=== PATIENT | female | born 1990 | race Caucasian/White ===

== ENCOUNTER 2020-09-13 15:58 | Outpatient (REF) | payer MEDICAID, SELFPAY ==
[2020-09-17 07:12] LABS: SARS-CoV-2 RNA Undetected (Undetected); SARS-CoV-2 Specimen Source Nasal
== END 2020-09-13 16:18 ==
LOC: NCHCN 15:58
PROVIDERS: PCP Nurse Practitioner Family; Visit Provider Nurse Practitioner Family
DX: Z11.59 Encounter for screening for other viral diseases (principal)
CPT/HCPCS: U0003

== ENCOUNTER 2020-09-26 20:17 | Outpatient (REF) | payer MEDICAID, SELFPAY ==
[2020-09-26 20:10] LABS: COMMENT (LAB VIEW ONLY) 80.61 mg/dL; Microalb ug/mg Crea 3.5 ug/mg Cr
== END 2020-09-26 20:37 ==
LOC: NCHCN 20:17
PROVIDERS: PCP Nurse Practitioner Family; Visit Provider Physician Assistant
DX: E11.9 Type 2 diabetes mellitus without complications (principal)
CPT/HCPCS: 82043; 82570

== ENCOUNTER 2020-10-10 16:23 | Outpatient (REF) | payer MEDICAID, SELFPAY ==
--- NOTE | 2020-10-10 16:00 | PAPFT_PTH ---
PATIENT: Deanne Engel LOC: [facility] U#:[id number] AGE/SX: 30/F ROOM: RE10/10/[address]: CLEM Collier : 1990 BED: DIS: 10/10/2020 SPEC #: [id number] RECD: 10/10/20 18:42 STATUS: GIOVANA REQ #: [id number] ADDIS: 10/10/20 16:[address]: Kerline Sousa [facility]PT[facility] Cytology RECD BY: Radha Mnotano ENTERED: 10/10/20 18:42 SP TYPE: PAPFT OTHR DR: Danish Smith Tissues: 1 - CX/ENDOCX FOR PAP SMEARS Procedures: PAP THIN PREP/UVM Screening HPV DNA PROBE Comments: [id number]
== END 2020-10-10 16:43 ==
LOC: LBN 16:23
PROVIDERS: PCP Nurse Practitioner Family; Visit Provider Nurse Practitioner Family
DX: Z12.4 Encounter for screening for malignant neoplasm of cervix (principal); Z11.51 Encounter for screening for human papillomavirus (HPV)
CPT/HCPCS: 88142; 87624

== ENCOUNTER 2021-01-31 11:49 | Outpatient (CLI) | payer MEDICAID, SELFPAY ==
[2021-01-31 11:58] VITALS: BP 131/93; PULSE 117; RESP 22; TEMP 36.6; O2SAT 93
--- NOTE | 2021-01-31 12:36 | DI.RAD_ITS ---
EXAM: XR PAIN CLINIC LUMBAR SP 2V CLINICAL HISTORY: Dx: Lumbar Spondylosis TECHNIQUE: 2D and realtime digital imaging was performed. CONTRAST MATERIAL: Refer to procedure report. COMPARISON: No exams were available for comparison FINDINGS: Fluoroscopy was provided for Dr. Petty during the performance of a bilateral lumbar medial branch block . Please refer to the procedure report for complete details. Fluoro time: 58.1 seconds IMPRESSION:
[2021-01-31 12:37] VITALS: BP 129/89; PULSE 110; RESP 18; O2SAT 96
--- NOTE | 2021-01-31 12:45 | PDOC.PAIN ---
Pain Clinic Procedure Note Procedure Note Procedure Note: Lumbar/Sacral Medial Branch Blocks ZULY BAIRES has been referred to the [facility] for lumbar/sacral medial branch blocks. Pre-operative diagnosis: lumbar spondylosis Post-operative diagnosis: same as above COMMENTS: patient has been evaluated by Ms Kirsten Dominguez APRN in our pain clinic. patient reports chronic axial back pain, that is worse with prolonged standing or bending/twisting. Her pre-procedure pain level is rated as 8 out of 10. Patient was interviewed and the medical record reviewed. There were no medical, pharmacologic, radiographic or other structural contraindications to attempting fluoroscopically guided local anesthetic lumbar/sacral medial branch blocks. Risks and expected side effects as well as potential benefit of the procedure were reviewed and voiced concerns addressed. The printed consent form was signed and witnessed. Standard time-out procedure was performed. Patient was placed in the prone position on the fluoroscopy table and automated blood pressure cuff and pulse oximeter applied. The skin entry points for approaching the anatomic target points of the segmental medial branches of bilateral L3, L4, L5-DR MBB were identified with anfluoroscopy and marked. Following thorough Chlorhexadine preparation of the skin and draping and 1% lidocaine infiltration of the skin entry points and subcutaneous tissues, a 22 gauge spinal needle was placed under fluoroscopic guidance down on to the target point for each respective segmental medial branch.Position was confirmed in A/P, oblique and lateral views with 0.25ml of omnipaque 240. Coult be this method .5ml 0.5% Bupivacaine was injected. Vital signs were stable throughout the procedure and were as recorded in the docflowsheet by the nursing staff. Follow up plans and appointments were discussed and was instructed to keep careful note of how the usual pain was modified by these injections. Specifically was asked to keep a pain diary for the next 24 hours using a numeric pain scale of 0-10 and report these results at the follow-up visit. Post procedure instruction was given as documented in the nursing documentation and having met discharge criteria. Patient was discharged from the [facility]. Based on the medial branches blocked today, if the patient has adequate relief and we are able to proceed to radiofrequency ablation, the treatment should result in the denervation of the bilateral L4/5 and L5/S1. We would expect to denervate a total of 4 facets during the radiofrequency ablation. COMMENTS: patient reports no change in her pain level after procedure. She exhibits flat affect throughout the encounter today. I personally performed the entire procedure. Jesenia Petty MD Pain Management CC:
[2021-01-31] MEDS: Omnipaque 240 MG/ML 50 ML BTL IJ (12:48)
[2021-01-31] MEDS: Bupivacaine 0.5% Pres-Free 10 ML VIAL IJ (12:48)
== END 2021-01-31 11:50 | disposition home or self-care (01) ==
PROVIDERS: Visit Provider Internal Medicine
DX: M47.816 Spondylosis without myelopathy or radiculopathy, lumbar region (principal)
CPT/HCPCS: 64493; 64494; 72100; Q9967

== ENCOUNTER 2021-03-03 13:41 | Outpatient (REF) | payer MEDICAID, SELFPAY ==
--- OUTSIDE RECORDS SUMMARY | 2021-03-03 13:45 | XMS_ITS | Encounter Summary ---
:1990 Author Care Team Providers Name Role Phone Moiz Tra Primary Care Provider [phone] [facility] Medical Records OTHER [phone] Reason for Visit None recorded. Assessment and Plan 1. Snoring Deanne has symptoms of loud snoring, witnessed apneas, night sweats, nocturnal gasping, daytime sleepiness, neurocognitive decline and morning headaches with a Keene score of 3/3 indicatin g a high likelihood of sleep apnea. She has a large neck circumference and small oral cavity increasing risk of JORDON. I discussed the pathophysiology of obstructive sleep apnea and the potential conseque nces of untreated JORDON including how it r elates to her symptoms and comorbidities. I ordered a polysomnogram and discussed what will take place the night of the sleep study. I encouraged her to get up ea rly on the day of the study to help ensu re she will get to sleep at a reasonable time for the study. I did prescribe one Ambien 5 mg to take if needed the night of the study but given the number of adam ting medications she already takes I wou ld prefer if she did not have to take this. I will see her back to review the results as soon as they are available. Drowsy driving precautions were reviewed. Of note she is on modafinil 200 mg QAM (pre scribed by psychiatry) and had significant improvement in her daytime sleepiness since starting this. I provided greater than 40 minutes in e care of this patient, more than half the time was spent in [id number] counseling. ? zolpidem 5 mg tablet ? sleep study, baseline diag nostic polysomnogram 2. Sleep-wake schedule disorder, delayed phase type She gets to bed around 10 pm b ut doesn't typically get to sleep until 12 am and gets up between 9-10 am. She is taki ng gabapentin 300 mg, seroquel 400 mg and haldol 5 mg QHS. I suggested that if she wanted to shift her schedule earlier she should start getting up at 7 am and expo sing herself to 30 minutes of sunlight first thing in the morning then she should jaylan e melatonin 10 mg QPM to help shift her sleep schedule earlier. She is pretty happy wi th sleeping until 9 am so I explained that she should not even get into bed until a t least 12 am because she does not need 11 hours of sleep which is why she is layin g awake for two hours each night. I would not add any sleep aids to her current medica tions. Discussion Note: None recorded.Patient educational handouts: No information available. Plan of Care Reminders Provider Appointments Office 05/10/2021 Christofer Osman, 1:00PM ASSISTANT CHILD CARE TEACHER Lab None ? ? recorded. Referral None ? ? recorded. Procedures None ? ? recorded. Surgeries None ? ? recorded. Imaging None ? ? recorded. Medications Name Start Date ? ? Babita Allergy ? atorvastatin 10 mg tablet ? Take 1 tablet every day by oral route. EpiPen 2-Aquilino ? gabapentin 300 mg capsule ? Take 1 capsule 3 times a day by oral route. haloperidol 5 mg tablet ? Take 1 tablet every day by oral route. Levemir FlexTouch U-100 Insulin 100 unit/mL (3 mL) sub cutaneous pen ? Inject by subcutaneous route. lidocaine ? metformin 500 mg tablet ? Take 1 tablet twice a day by oral route. modafinil 200 mg tablet ? Take 1 tablet every day by oral route. Novolog Flexpen U-100 Insulin aspart 100 unit/mL (3 mL ) subcutaneous ? Inject by subcutaneous route. omeprazole 40 mg capsule,delayed release ? Take 1 capsule every day by oral route. Seroquel 400 mg tablet ? Take 1 tablet twice a day by oral route. Trileptal 150 mg tablet ? Take 2 tablets twice a day by oral route. Wellbutrin XL 300 mg 24 hr tablet, extended release ? Take 1 tablet every day by oral route. zolpidem 5 mg tablet ? take 1 PO night of sleep study if needed Medications Administered None recorded. Vitals Height Weight BMI Blood Pressure 5 ft 5 in 278 lbs 46.3 kg/m2 124/82 mm[Hg] Results Lab Results None recorded. Allergies Code Code System Name Reaction Severity Onset 151048 RxNorm Aleve ? ? ? 20310327 RxNorm Keflex ? ? ? Problems Name Status Onset Date Source ? Type 2 Diabetes Mellitus Active 01/06/2021 ? Hyperlipidemia Active 01/06/2021 ? Schizophrenia Active 01/06/2021 ? Bipolar I Disorder Active 01/06/2021 ? Anxiety Active 01/06/2021 ? Borderline Personality Disorder Active 01/06/2021 ? Posttraumatic Stress Disorder Active 01/06/2021 ? Depressive Disorder Active 01/06/2021 ? Attention Deficit Hyperactivity Disorder Active 021 ? Hypertensive Disorder Active 01/06/2021 ? Asthma Active 01/06/2021 ? Gastroesophageal Reflux Disease Active 01/06/2021 ? Diverticulitis Active 01/06/2021 ? Irregular Periods Active 01/06/2021 ? Chronic Back Pain Active 01/06/2021 ? Pain in Calf Active 01/06/2021 ? Pain in Right Knee Active 01/06/2021 ? Suicidal Intent Active 01/06/2021 ? Sleep-wake Schedule Disorder, Delayed Phase Active 02/18 ? Type Snoring Active 03/01/2021 ? Procedures None recorded. Vaccine List None recorded. Social History Tobacco Smoking Status Never Smoker Alcohol intake None Live alone or with others? with others Are you currently employed? N Blind or serious difficulty seeing Y Not es: wears glasses Hard of hearing or deaf in one or both N ears? Caffeine intake None Drug Use N Functional Status Blind or serious Yes difficulty seeing? Past Encounters 03/01/2021 Snoring; Sleep-wake Schedule Disorder, D elayed Phase Type Sofía Osman ASSISTANT CHILD CARE TEACHER: [address] [place] [phone], Ph. History of Present Illness Note: <p>Deanne Engel is seen in consultation at the request of Kathia Turner MD for evaluation of excessive snoring.</p><p>
</p><p>Deanne has a medical history to include anxiety, asthma, ADHD, Bipolar, borderline personality, depression, chronic back pain, diverticulitis, GERD, HTN, HLD, PTSD, schizophrenia, and DM.</p><p>Labs reviewed from08/19/20 CBC wnl, CMP glucose 341, Cl 97, A1C 9.7%.</p><p>
</p><p>Sh clarke tells me she was started on modafinil 200 mg QAM about a month ago for excessive sleepiness and poor concentration and since taking this she no longer naps or falls asleep standing up. She tolerates it well. </p><p>
</p><p>{{Deanne# Patient}} feels {{his her*}} biggest problem with sleep is {{snoring * waking up a lot not feeling rested}}. This has been going on for years. {{He She*}} typically goes to bed at {{10# 9}}pm. It takes {{2# 5}} hours to fall asleep. {{He She*}} wakes up {{3-4# 1 2 3}} times a night from {{unknown reason pain bathroom*}} and it takes {{a few# }} minutes to get back to sleep. {{He She *}} gets up at {{9-11# 5 6 7 8}}am to start {{his her*}} day. {{He She*}} does not take naps. {{He She*}} has no disturbances to {{his her*}} sleep. {{He She*}} has never had a sleep study. {{He She*}} sleeps {{alone * with someone}} in a bed.

SLEEP QUALITY: Feels quality of sleep most nights is {{good okay poor*}}.

DAYTIME ALERTNESS: Reports level of alertness most days to be {{alert low energy * sleepy very sleepy}}.

PSYCH SYMPTOMS: {{Has* Has not}} noted worsening memory {{and * or}} concentration. {{Does have* Denies current problems with }} irritability, depression, {{and * or}} anxiety. {{Has * Has not}} noted difficulty with calculations.

INSOMNIA SYMPTOMS: {{Does have * Does not have}} an active mind at night when trying to sleep. {{Does have * Does not have}} stressful thoughts interfering with sleep. {{Does Does not*}} watch the clock throughout the night. {{Does Does not*}} worry about getting a good night's sleep.

BREATHING SYMPTOMS: {{Does have * Does not have}} snoring. {{Does have * Does not have}} witnessed apnea. {{Does have Does not have*}} nocturnal choking/gasping/dyspnea.{{Does have Does not have*}} mouth breathing. {{Does have Does not have*}} nasal congestion at night.

MOVEMENT SYMPTOMS: {{Does have * Does not have}} tossing & turning. {{Does have * Does not have}} messy sheets in the morning. {{Does have Does not have*}} leg or arm jerks, kicks or twitches in sleep or prior to falling asleep. {{Does Does not*}} have an aching, restless or crawling feeling in legs at night. {{Does Does not*}} have a hard time keeping legs still when trying to sleep. {{Does Does not*}} have muscle cramps or Bam horses. {{Does Does not*}} have sleep walking or talking.

DREAM SYMPTOMS: {{Does have * Does not have}} nightmares often that affect ability to sleep. {{Does have Does not have*}} dreams of suffocating/drowning. {{Does Does not*}} dream shortly after falling asleep. {{Does Does not*}} see dreams in the room even when awake.{{Does * Does not}} see or hear things in the room when falling asleep that aren't really there. {{Does * Does not}} see things in the road when driving that aren't really there. {{Has Has not*}} had someone see then act our their dreams. {{Has Has not*}} accidentally injured themselves while sleeping due to own movements/behaviors.

CATAPLEXY SYMPTOMS: {{Does have Does not have*}} feel limp, lose strength, or fall asleep when very angry, surprised or laughing. {{Does have Does not have*}} leg, arm or face weakness when upset. {{Has Has not*}} had episodes of being unable to move when waking up which is often frightening.

DRIVING: {{Has Has not*}} fallen asleep or nearly fallen asleep driving. {{Has had Has not had*}} an accident related to drowsy driving or not paying attention. {{Does Does not*}} forget the last few miles or minutes while driving. {{Has Has not*}} driven out of [place] and crossed center line or gone onto shoulder when driving. {{Has Has not*}} had apassenger tell them they look sleepy when driving.

ESS today 07/14
BerlinQuestionnaire Score 3/3</p>Review of Systems: ROS as noted in the HPI Review of Systems ? Notes: <p>night sweats, wakes with dry mouth, cough, diarrhea, heavy menses, headaches (wakes with these 2/week), knee and back pain. Weight loss of about 20 lbs in the past few month s by cutting out some sugar/carbs. </p> Physical Exam ? Notes: <p>General: A&O, well groome d, answers questions appropriately, {{over weight obese * morbidly obese normal weight thin}}.
HEAD: normocephalic & atraumatic, {{normal appeari ng chin * retrognathia}}.
EYES: non icteric.
NOSE: open nasal passages, septum midline, no polyps or masses.
THROAT/MOUTH: dannielle st mucous membranes, modified mallampati score {{1 2 3 * 4}}, tonsils with out hypertrophy. Lateral wall narrowing grade {{1 2 3*}}. Tongue scallopin g {{is * is not}} noted.
NECK: supple without palpable lymph nodes.
LUNGS: CTA all garcia. Good air movement.
CARDIO: RRR wit hout murmur, gallop or thrill.
ABDOMEN: soft and non tender with positive bowel sounds.
MS: Good ROM of all extremities. No cyanosis, clubbing or rayshawn ma.
NEURO: A&O. Normal gait.
PSYCH: Normal mood and affect.
CUTANEOU S: no overt lesions or rashes</p>
--- OUTSIDE RECORDS SUMMARY | 2021-03-03 13:45 | XMS_ITS ---
:1990 Author Care Team Providers Name Role Phone EFRAÍN RIDER Primary Care Provider [phone] [facility] MEDICAL RECORDS OTHER [phone] Allergies Code Code System Name Reaction Severity Status Onset 611290 RxNorm Aleve ? ? Active ? 20310327 RxNorm Keflex ? ? Active ? Medications Name Status Start Date Stop Date ? ? Babita Allergy Active ? Not available Allergy Completed ? 01/06/2021 atorvastatin 10 mg tablet Active ? Not av ailable Take 1 tablet every day by oral route. EpiPen 2-Aquilino Active ? Not available gabapentin 300 mg capsule Active ? Not av ailable Take 1 capsule 3 times a day by oral route. haloperidol 5 mg tablet Active ? Not avai lable Take 1 tablet every day by oral route. Levemir FlexTouch U-100 Insulin 100 unit/mL (3 mL) subcutaneous pen Active ? Not available Inject by subcutaneous route. lidocaine Active ? Not available metformin 500 mg tablet Active ? Not avai lable Take 1 tablet twice a day by oral route. modafinil 200 mg tablet Active ? Not avai lable Take 1 tablet every day by oral route. Novolog Flexpen U-100 Insulin aspart 100 unit/mL (3 mL) subcutan eous Active ? Not available Inject by subcutaneous route. omeprazole 40 mg capsule,delayed release Active ? Not available Take 1 capsule every day by oral route. Seroquel 400 mg tablet Active ? Not avail able Take 1 tablet twice a day by oral route. Trileptal 150 mg tablet Active ? Not avai lable Take 2 tablets twice a day by oral route. Wellbutrin XL 300 mg 24 hr tablet, extended release Active ? Not available Take 1 tablet every day by oral route. zolpidem 5 mg tablet Active ? Not availab le take 1 PO night of sleep study if needed Problems Name Status Onset Date Source ? [...] Snoring Active 03/01/2021 ? Procedures None recorded. Results Lab Results None recorded. Past Encounters 03/01/2021 Snoring; Sleep-wake Schedule Disorder, D elayed Phase Type Sofía Osman BRICK POINTER: [address] [place] [phone], Ph. Social History Tobacco Smoking Status Never Smoker Vaccine List None recorded. Plan of Care Reminders Provider Appointments None ? ? recorded. Lab None ? ? recorded. Referral None ? ? recorded. Procedures None ? ? recorded. Surgeries None ? ? recorded. Imaging None ? ? recorded. Vitals Height Weight BMI Blood Pressure 165.1 cm 126.1 kg 46.3 kg/m2 124/82 mm[Hg]
[2021-03-03 16:08] LABS: HCT 38.6 % (36.0-46.0); HGB 12.9 g/dL (11.2-15.7); MCH 29.3 pg (27.0-33.0); MCHC 33.4 % (32.0-36.0); MCV 87.5 fL (80-95); Platelet Count 348 10^3/uL (130-400); RBC 4.41 10^6/uL (3.93-5.22); RDW 14.2 % (11.7-14.6); RDW-SD 43.9 fL; WBC 8.76 10^3/uL (4.4-10.8)
[2021-03-03 16:26] LABS: ALT 28 U/L (14-59); AST 20 U/L (15-37); Albumin 2.9 g/dL (3.4-5.0); Alkaline Phosphatase 112 U/L (46-116); Anion Gap 8.1 mmol/L (3-11); BUN 15 mg/dL (7-18); Bilirubin, Total 0.2 mg/dL (0.2-1.0); CO2 27.9 mmol/L (21.0-32.0); CREATININE 1.1 mg/dL (0.55-1.02); Calcium 9.1 mg/dL (8.5-10.1); Calculated LDL 45 mg/dL (<100); Chloride 104 mmol/L (98-107); Cholesterol 137 mg/dL (<200); Glucose 146 mg/dL (74-106); HDL Cholesterol 49 mg/dL (40-60); Sodium 140 mmol/L (136-145); TSH 2.08 uIU/mL (0.36-3.74); Total Protein 6.8 g/dL (6.4-8.2); Triglyceride 216 mg/dL (<150)
[2021-03-03 16:34] LABS: Hemoglobin A1C 7.7 % (<5.7)
[2021-03-03 16:46] LABS: COMMENT (LAB VIEW ONLY) 240.41 mg/dL; Microalb ug/mg Crea 2.8 ug/mg Cr
[2021-03-03 17:06] LABS: FREE T4 0.81 ng/dL (0.76-1.46)
== END 2021-03-03 13:42 | disposition home or self-care (01) ==
LOC: NCHCN 13:41
PROVIDERS: Visit Provider Physician Assistant
DX: E11.9 Type 2 diabetes mellitus without complications (principal); R00.0 Tachycardia, unspecified; I10 Essential (primary) hypertension
CPT/HCPCS: 80053; 80061; 85027; 82043; 82570; 83036; 84436; 84439; 84443

== ENCOUNTER 2021-03-27 02:31 | Outpatient (CLI) | payer MEDICAID, SELFPAY ==
--- NOTE | 2021-03-27 | DI.MRI_ITS ---
Exam(s) MR LUMBAR SPINE WO EXAM: MR LUMBAR SPINE WO CLINICAL HISTORY: LT LUMBAR RADICULOPATHY. TECHNIQUE: Multiplanar multisequence MRI of the Lumbar spine was performed. COMPARISON: No exams were available for comparison FINDINGS: Bones: The last intervertebral disc space is designated the L5/S1 level for the numbering purpose of this examination. The vertebral body heights are well maintained. Alignment is satisfactory. The si gnal characteristics are unremarkable. Cord: The conus tip ends at the L1 level. It is of normal size and signal intensity. T12-L1: No disc herniations or bulges are present. No central spinal canal or neural foraminal stenos is. L1-2: No disc herniations or bulges are present. No central spinal canal or neural foraminal stenosis . L2-3: No disc herniations or bulges are present. No central spinal canal or neural foraminal stenosis . L3-4: No disc herniations or bulges are present. No central spinal canal or neural foraminal stenosis . L4-5: No disc herniations or bulges are present. No central spinal canal or neural foraminal stenosis . L5-S1: No disc herniations or bulges are present. No central spinal canal or neural foraminal stenosi s. Soft tissues: The visualized SI joints and sacrum are well maintained. The paraspinal soft tissues ar e unremarkable. IMPRESSION: No evidence of significant spinal stenosis or neuroforaminal narrowing. DATA REPOSITORY:
== END 2021-03-27 02:51 ==
PROVIDERS: Visit Provider Nurse Practitioner Family
DX: M54.16 Radiculopathy, lumbar region (principal)
CPT/HCPCS: 72148

== ENCOUNTER 2021-05-14 13:19 | Emergency (ER) | payer MEDICAID, SELFPAY ==
[2021-05-14 13:23] VITALS: BP 140/101; PULSE 118; RESP 16; TEMP 36.2; O2SAT 97
--- NOTE | 2021-05-14 13:45 | RT.EKG_ITS ---
APPROVED REPORT Exam: Resting ECG Reason for Exam: on haldol, consider qt prolongation Patient Location: E HR:99 bpm ECG Measurements Heart Rate 99 AXIS IA 123 P 37 QRSd 89 QRS -21 QT 353 T 35 QTc 453 Conclusion Sinus rhythm...normal P axis, V-rate 60- 99 Low voltage, extremity leads...all extremity leads <0.5mV
[2021-05-14 14:03] LABS: Abs Immature Grans 0.06 10^3/uL (0.0-0.06); Absolute Eosinophil Count 0.02 10^3/uL (0.0-0.7); Absolute Lymphocyte Count 2.02 10^3/uL (1.2-3.4); Basophils % 0.3; Eosinophils % 0.2; HGB 14.4 g/dL (11.2-15.7); Immature Grans % 0.5; Lymphocytes % 17.3; MCH 29.8 pg (27.0-33.0); MCHC 34.3 % (32.0-36.0); MCV 86.8 fL (80-95); MPV 9.6 fL (8.0-11.0); Neutrophils % 76.7; Nucleated RBC 0 %; Platelet Count 394 10^3/uL (130-400); RBC 4.84 10^6/uL (3.93-5.22); RDW 13.8 % (11.7-14.6); RDW-SD 43.3 fL
[2021-05-14 14:07] LABS: Absolute Basophil Count 0.04 10^3/uL (0.0-0.2); Absolute Monocyte Count 0.59 10^3/uL (0.1-0.8); Absolute Neutrophil Count 8.97 10^3/uL (1.2-6.7)
--- NOTE | 2021-05-14 14:08 | ED.GENADUL_ITS ---
Discharge Plan Disposition Patient Disposition: HOME Condition: Stable Discharge Details Clinical Impression: Abdominal pain, Nausea Primary Care Provider: Moiz Dutta ED Provider: Oneil Lawson Home Meds and New Rx's Prescriptions: New metoclopramide HCl [Reglan] 5 mg tablet 5 mg PO QAC PRN (Reason: nausea and vomiting) Qty: 10 RF: 0 Continued cyclobenzaprine 10 mg Tablet 10 mg PO BID PRNRF: 0 oxcarbazepine 150 mg tablet 150 mg PO BID RF: 0 haloperidol 5 mg tablet 10 mg PO DAILY RF: 0 quetiapine 300 mg tablet 300 mg PO .QHS RF: 0 clonazepam 1 mg tablet 1 mg PO BID RF: 0 omeprazole 40 mg capsule,delayed release(DR/EC) 40 mg PO DAILY RF: 0 modafinil 200 mg tablet 400 mg PO DAILY RF: 0 gabapentin 300 mg capsule 600 mg PO TID RF: 0 epinephrine 0.3 mg/0.3 mL auto-injector PRNRF: 0 metformin 500 mg tablet extended release 24 hr 500 mg PO BID RF: 0 prazosin 2 mg capsule 3 mg PO .QHS RF: 0 insulin aspart U-100 [Novolog Flexpen U-100 Insulin] 100 unit/mL (3 mL) insulin pen 20 unit SUBCUT .MEALTIME RF: 0 Levemir FlexTouch U-100 Insuln 100 unit/mL (3 mL) insulin pen 65 unit SUBCUT BID RF: 0 (DME) pen needle, diabetic [BD Ultra-Fine Mini Pen Needle] 31 gauge x 3/16 needle MISCELLANEOUS RF: 0 Discharge Instructions Instructions: Acute Nausea and Vomiting (ED), Abdominal Pain (ED) Additional Instructions: Please allow for bowel rest. Clear liquid diet tonight and then bland diet tomorrow as tolerated. Advance slowly to full diet the following day. Please follow-up with your primary care physician. Call tomorrow. Return to the emergency department for any worsening or new concerning symptoms. Medical Decision Making 1420??31-year-old female here with diffuse abdominal discomfort and associated nausea and diarrhea over the past 1 week, headache over the past couple days. Abdominal exam is benign. Suspect gastroenteritis. I will check labs including LFTs lipase and assess for electrolyte abnormalities. I will give IV fluid bolus and Zofran IV. EKG was reviewed and interpreted by me to assess for QT prolongation given patient is on Haldol and plan to treat with treat with ondansetron: Sinus rhythm 99 bpm, normal axis, QTC 453. --Patient received acetaminophen IV and then Toradol IV (patient notes she has had Toradol in the past without any side effects despite allergy noted to naproxen). 1615 --patient reassessed and feeling better. Still has some mild nausea but much improved. Pain resolved. Abdominal exam remains benign. Plan for outpatient follow-up with PCP. I recommended bowel rest tonight and tomorrow. I encouraged to return immediately should you have any worsening or new concerning symptoms. --I reviewed ED collective notification on this patient that does show prior ED visits for abdominal pain on multiple occasions. HPI General Mode of arrival: ambulatory . Date/Time Provider Initiated Documentation: 05/14/21 13:25 . Limitations to Documentation: no limitations . Information obtained by: patient . HPI Narrative: 31-year-old female here with chief complaint of abdominal discomfort. Patient notes for the past week she h as had fairly diffuse, sharp abdominal pain. She has associated nausea. No vomiting. No modifiers. She also notes associated loose stool. She had a normal. A couple weeks ago. No vaginal discharge. No dysuria or hematuria. Related Data Home Medications Medication Instructions Recorded Confirmed Levemir FlexTouch U-100 Insuln 65 unit SUBCUT BID 05/14/21 05/14/21 clonazepam 1 mg PO BID 05/14/21 05/14/21 cyclobenzaprine 10 mg PO BID PRN 05/14/21 05/14/21 epinephrine PRN 05/14/21 05/14/21 gabapentin 600 mg PO TID 05/14/21 05/14/21 haloperidol 10 mg PO DAILY 05/14/21 05/14/21 insulin aspart U-100 [Novolog 20 unit SUBCUT .MEALTIME 05/14/21 05/14/21 Flexpen U-100 Insulin] metformin 500 mg PO BID 05/14/21 05/14/21 metoclopramide HCl [Reglan] 5 mg PO QAC PRN #10 tab 05/14/21 modafinil 400 mg PO DAILY 05/14/21 05/14/21 omeprazole 40 mg PO DAILY 05/14/21 05/14/21 oxcarbazepine 150 mg PO BID 05/14/21 05/14/21 pen needle, diabetic [BD 05/14/21 05/14/21 Ultra-Fine Mini Pen Needle] prazosin 3 mg PO .QHS 05/14/21 05/14/21 quetiapine 300 mg PO .QHS 05/14/21 05/14/21 Previous Rx's Medication Instructions Recorded metoclopramide HCl [Reglan] 5 mg PO QAC PRN #10 tab 05/14/21 Allergies Allergy/AdvReac Type Severity Reaction Status Date / Time naproxen [From Aleve] Allergy Severe Anaphylaxis Unverified 05/14/21 13:27 cephalexin [From Keflex] Allergy Intermediate Hives Unverified 05/14/21 13:27 latex Allergy Intermediate Itching Unverified 05/14/21 13:28 General Stated Complaint: Abd Prob SUZETTE: 3 Review of Systems All systems reviewed & are unremarkable except as noted in HPI and below Constitutional Constitutional: Denies fever(s) Respiratory Respiratory: Denies cough Gastrointestinal Gastrointestinal: Reports abdominal pain, Reports nausea and Denies vomiting Genitourinary Genitourinary: Reports as per HPI [facility] Medical History (Updated 05/14/21 @ 16:18 by Oneil Lawson MD) PCOS (polycystic ovarian syndrome) Social History Smoking/Tobacco Use Status: Former Tobacco Use Smoking risk assessment performed?: Yes Alcohol Intake: never Substance use type: does not use Do you feel safe at home: Yes Do you feel safe in your relationship?: Yes Exam Const General: cooperative and no acute distress [facility] Head: normocephalic and atraumatic Eyes Conjunctivae: normal conjunctivae Sclera: normal sclerae Neck Neck: trachea midline and supple Resp Auscultation: clear to auscultation bilaterally, no rales, no rhonchi and no wheezes Cardio Rate: tachycardic Rhythm: regular rhythm GI Palpation: soft, not firm, no guarding, no masses, not rigid and nontender Skin General skin exam: no rashes or lesions noted Neuro General: patient alert, patient awake, patient oriented x3 and tone normal Extrem General: no edema Psych Appearance: grossly normal Mental Status: mental status grossly normal Speech and Movement: speech and movement normal Course Vital Signs Vital signs: Vital Signs Temperature 36.2 C L 05/14/21 13:23 Pulse 118 H 05/14/21 13:23 Respiratory Rate 16 05/14/21 13:23 Blood Pressure 140/101 H 05/14/21 13:23 Pulse Oximetry 97 05/14/21 13:23 Temperature 36.2 C L 05/14/21 13:23 Temperature Source Temporal Artery Scan 05/14/21 13:23 Pulse 118 H 05/14/21 13:23 Respiratory Rate 16 05/14/21 13:23 Respiratory Effort 05/14/21 13:23 Blood Pressure 140/101 H 05/14/21 13:23 Blood Pressure Position Sitting 05/14/21 13:23 Pulse Oximetry 97 05/14/21 13:23 Oxygen Delivery Method Room Air 05/14/21 13:23 Oxygen Flow Rate 0 05/14/21 13:23 Pain Level 8 05/14/21 13:23 Lab/Test Results Lab/Test Results: Laboratory Tests Range/Units 05/14/21 13:55 WBC (4.4-10.8) 10^3/uL 11.70 H RBC (3.93-5.22) 10^6/uL 4.84 Hgb (11.2-15.7) g/dL 14.4 Hct (36.0-46.0) % 42.0 MCV (80-95) fL 86.8 MCH (27.0-33.0) pg 29.8 MCHC (32.0-36.0) % 34.3 RDW (11.7-14.6) % 13.8 Plt Count (130-400) 10^3/uL 394 MPV (8.0-11.0) fL 9.6 Immature Gran % 0.5 Neutrophils % 76.7 Lymphocytes % 17.3 Monocytes % 5.0 Eosinophils % 0.2 Basophils % 0.3 Nucleated RBC % % 0 Absolute Neutrophils (1.2-6.7) 10^3/uL 8.97 H Absolute Lymphocytes (1.2-3.4) 10^3/uL 2.02 Absolute Monocytes (0.1-0.8) 10^3/uL 0.59 Absolute Eosinophils (0.0-0.7) 10^3/uL 0.02 Absolute Basophils (0.0-0.2) 10^3/uL 0.04
[2021-05-14 14:17] LABS: ALT 45 U/L (14-59); AST 19 U/L (15-37); Albumin 3.6 g/dL (3.4-5.0); Alkaline Phosphatase 128 U/L (46-116); Anion Gap 9.9 mmol/L (3-11); BUN 8 mg/dL (7-18); Bilirubin, Total 0.3 mg/dL (0.2-1.0); CO2 28.1 mmol/L (21.0-32.0); Calcium 9.4 mg/dL (8.5-10.1); Chloride 100 mmol/L (98-107); Glucose 196 mg/dL (74-106); Lipase 88 U/L (73-393); Potassium 4.2 mmol/L (3.5-5.1); Sodium 138 mmol/L (136-145); Total Protein 8.3 g/dL (6.4-8.2)
[2021-05-14] MEDS: Lactated Ringers 1,000 ML 1000 ML IV (14:27)
[2021-05-14] MEDS: Normal Saline Flush 10 ML SYR IVP (14:30)
[2021-05-14] MEDS: Ondansetron 4 MG/2 ML VIAL IVP (14:30)
[2021-05-14] MEDS: ACETAMINOPHEN 1,000 MG/100 ML BTL 400 MG IVPB (15:00)
[2021-05-14 15:05] LABS: Bilirubin Negative (Negative); Blood Negative (Negative); Clarity Clear (Clear); Glucose Negative (Negative); Ketones 40 mg/dL (Negative); Leukocyte Esterase Trace (Negative); Nitrite Negative (Negative); Urobilinogen 0.2 EU/dL (Up TO 0.2); pH 6.5 (5-8)
[2021-05-14 15:15] LABS: Bacteria Many HPF (Negative); C & S Indicated? No/Sq. Contamination; Casts Negative LPF (Negative); Crystals Negative HPF (Negative); Epithelial Cells Many HPF (Negative); Mucus Negative (Negative); RBC Negative HPF (0-2)
[2021-05-14 15:22] VITALS: BP 117/85; PULSE 107; RESP 18; TEMP 36.8; O2SAT 96
[2021-05-14] MEDS: Ketorolac 15 MG/ML VIAL IVP (15:51)
[2021-05-14 16:13] LABS: Bilirubin Negative (Negative); Blood Negative (Negative); Clarity Clear (Clear); Glucose Negative (Negative); Ketones Trace mg/dL (Negative); Leukocyte Esterase Negative (Negative); Nitrite Negative (Negative); Specific Gravity <= 1.005 (1.005-1.025); Urobilinogen 0.2 EU/dL (Up TO 0.2); pH 5.5 (5-8)
[2021-05-14 16:30] VITALS: BP 117/85; PULSE 107; RESP 18; TEMP 36.8; O2SAT 96
== END 2021-05-14 14:30 | disposition home or self-care (01) ==
PROVIDERS: Emergency Provider Student in an Organized Health Care Education/Training Program; PCP Physician Assistant
DX: R11.0 Nausea (principal); R10.9 Unspecified abdominal pain; R51.9 Headache, unspecified; R19.7 Diarrhea, unspecified; Z79.899 Other long term (current) drug therapy
CPT/HCPCS: 80053; 81025; 83690; 93005; 96361; 96374; 96375; 99284; 81003; 81015; 85025; 93010; J0131; J1885; J2405

== ENCOUNTER 2021-05-24 20:50 | Outpatient (REF) | payer MEDICARE, MEDICAID, SELFPAY ==
[2021-05-24 20:40] LABS: FREE T4 0.98 ng/dL (0.76-1.46); TSH 0.82 uIU/mL (0.36-3.74)
== END 2021-05-24 20:51 | disposition home or self-care (01) ==
LOC: NCHCN 20:50
PROVIDERS: PCP Physician Assistant; Visit Provider Physician Assistant
DX: R19.7 Diarrhea, unspecified (principal)
CPT/HCPCS: 84439; 84443

== ENCOUNTER 2021-06-29 13:58 | Outpatient (CLI) | payer MEDICARE, MEDICAID, SELFPAY ==
--- NOTE | 2021-06-29 | DI.RAD_ITS ---
Exam(s) XR HIP LT COMPLETE AP PELVIS EXAM: XR HIP LT COMPLETE AP PELVIS CLINICAL HISTORY: LT HIP PAIN M25.552. TECHNIQUE: 2D digital imaging was performed. COMPARISON: No exams were available for comparison FINDINGS: Two views including AP view of the pelvis and lateral view of the left hip reveal no evidence of pelv ic nor hip fracture. No obvious degenerative changes nor radiographic evidence of avascular necrosis . No osseous lesions. Bone density is normal. IMPRESSION: DATA REPOSITORY: RADIATION DOSE DELIVERED:
== END 2021-06-29 14:18 ==
PROVIDERS: PCP Physician Assistant; Visit Provider Physician Assistant Medical
DX: M25.552 Pain in left hip (principal)
CPT/HCPCS: 73502

== ENCOUNTER 2021-08-02 15:17 | Outpatient (REF) | payer MEDICARE, MEDICAID, SELFPAY | END 2021-08-02 15:18 | disposition home or self-care (01) | LOC: LBN 15:17 | PROVIDERS: PCP Physician Assistant; Visit Provider Nurse Practitioner Family | DX: R35.0 Frequency of micturition (principal) | CPT/HCPCS: 87077; 87086; 87186 ==

== ENCOUNTER 2021-08-28 14:32 | Outpatient (REF) | payer MEDICARE, MEDICAID, SELFPAY | END 2021-08-28 14:33 | disposition home or self-care (01) | LOC: LBN 14:32 | PROVIDERS: PCP Physician Assistant; Visit Provider Nurse Practitioner Family | DX: R35.0 Frequency of micturition (principal) | CPT/HCPCS: 87077; 87086; 87186 ==

== ENCOUNTER → 2021-10-12 11:02 | Outpatient (BNVA) | payer MEDICARE, MEDICAID, SELFPAY | PROVIDERS: PCP Physician Assistant; Referring Provider Physician Assistant; Visit Provider Nurse Practitioner Gerontology | DX: R30.0 Dysuria (principal); K59.00 Constipation, unspecified; N39.0 Urinary tract infection, site not specified; I10 Essential (primary) hypertension; E11.9 Type 2 diabetes mellitus without complications | CPT/HCPCS: 81003; 99204 ==

== ENCOUNTER 2021-10-12 15:25 | Outpatient (REF) | payer MEDICARE, MEDICAID, SELFPAY | END 2021-10-12 15:26 | disposition home or self-care (01) | LOC: LBN 15:25 | PROVIDERS: PCP Physician Assistant; Visit Provider Nurse Practitioner Gerontology | DX: R10.9 Unspecified abdominal pain (principal) | CPT/HCPCS: 87086 ==

== ENCOUNTER 2021-12-06 16:23 | Outpatient (REF) | payer MEDICARE, MEDICAID, SELFPAY ==
[2021-12-06 19:57] LABS: COMMENT (LAB VIEW ONLY) 48.25 mg/dL; Microalb ug/mg Crea 30.5 ug/mg Cr
== END 2021-12-06 16:24 | disposition home or self-care (01) ==
LOC: NCHCN 16:23
PROVIDERS: PCP Physician Assistant; Visit Provider Physician Assistant
DX: E11.9 Type 2 diabetes mellitus without complications (principal)
CPT/HCPCS: 82043; 82570

== ENCOUNTER 2022-01-03 18:30 | Outpatient (REF) | payer MEDICARE, MEDICAID, SELFPAY ==
[2022-01-05 15:13] LABS: Chlamydia Result Negative (Negative); GC Result Negative (Negative)
== END 2022-01-03 18:31 | disposition home or self-care (01) ==
LOC: LBN 18:30
PROVIDERS: PCP Physician Assistant; Visit Provider Physician Assistant Medical
DX: N89.8 Other specified noninflammatory disorders of vagina (principal); Z11.3 Encounter for screening for infections with a predominantly sexual mode of transmission; Z72.51 High risk heterosexual behavior
CPT/HCPCS: 87491; 87591; 87480; 87510; 87660

== ENCOUNTER 2022-01-05 01:27 | Outpatient (CLI) | payer MEDICARE, MEDICAID, SELFPAY | END 2022-01-05 01:28 | disposition home or self-care (01) | LOC: LBO 01:27 | PROVIDERS: PCP Physician Assistant; Visit Provider Nurse Practitioner Women's Health ==

== ENCOUNTER 2022-01-16 10:59 | Emergency (ER) | payer MEDICARE, MEDICAID, SELFPAY ==
[2022-01-16 11:06] VITALS: BP 118/76; PULSE 119; RESP 18; TEMP 36; O2SAT 96
[2022-01-16] MEDS: fentaNYL 100 MCG/2 ML VIAL 50 MCG IVP (12:58)
[2022-01-16] MEDS: Lidocaine 2% Jelly 11 ML SYR UR (12:58)
--- NOTE | 2022-01-16 13:21 | ED.GENADUL_ITS ---
Discharge Plan Disposition Patient Disposition: HOME Condition: Stable Discharge Details Clinical Impression: Foreign body in vagina, Back pain Primary Care Provider: Moiz Dutta ED Provider: Radha Aparicio Home Meds and New Rx's Prescriptions: New cyclobenzaprine 10 mg tablet 10 mg PO TID PRNQty: 10 0RF lidocaine [Lidoderm] 5 % adhesive patch,medicated 1 patch topical DAILY Qty: 15 0RF Rx Instructions: leave on most painful area for up to 12 hrs Continued epinephrine 0.3 mg/0.3 mL Auto-Injector 0.3 mg IM ONCE 0RF metformin 500 mg Tablet 500 mg PO BID 0RF gabapentin 600 mg tablet 600 mg PO BID 0RF Rx Instructions: no abrupt cessation. discontinue 300mg gabapentin Rx. fluconazole [Diflucan] 150 mg tablet 150 mg PO ONCE Qty: 1 1RF Rx Instructions: as a single dose. If symptoms still present in 5 days, refill and repeat dose. norethindrone-e.estradiol-iron [Junel FE 1.5/30 (28)] 1.5 mg-30 mcg (21)/75 mg (7) tablet 1 tab PO DAILY Qty: 84 4RF clonazepam 1 mg tablet 1 mg PO BID 0RF (DME) lancets [FreeStyle Lancets] 28 gauge misc See Rx Instructions .ROUTE .MEDSUPPLY Qty: 100 0RF Rx Instructions: As directed (DME) FreeStyle Lite Strips Strip See Rx Instructions .ROUTE .MEDSUPPLY Qty: 10 0RF Rx Instructions: As directed insulin detemir U-100 100 unit/mL (3 mL) insulin pen 45 unit subcut BID 0RF (DME) pen needle, diabetic [BD Ultra-Fine Sona Pen Needle] 32 gauge x 5/32 needle See Rx Instructions .ROUTE .MEDSUPPLY Qty: 50 0RF Rx Instructions: As directed omeprazole 40 mg capsule,delayed release(DR/EC) 40 mg PO DAILY 0RF haloperidol 5 mg tablet 10 mg PO DAILY 0RF albuterol sulfate [ProAir HFA] 90 mcg/actuation HFA aerosol inhaler 2 puff inhalation Q6H PRN0RF fluticasone propionate 50 mcg/actuation spray,suspension 1 spray intranasal BID 0RF Rx Instructions: administer into each nostril propranolol 60 mg capsule,extended release 24 hr 60 mg PO DAILY 0RF atorvastatin 10 mg tablet 10 mg PO DAILY 0RF oxcarbazepine 150 mg tablet 150 mg PO BID 0RF modafinil 200 mg tablet 400 mg PO DAILY 0RF quetiapine [Seroquel] 400 mg tablet 400 mg PO DAILY 0RF cyclobenzaprine 10 mg tablet 10 mg PO BID PRN0RF fluoxetine [Prozac] 20 mg capsule 40 mg PO DAILY 0RF acetaminophen [Tylenol Extra Strength] 500 mg Tablet 1,000 mg PO Q6H PRN0RF prazosin 2 mg capsule 3 mg PO .QHS 0RF Label Comments: TAKE 1 CAPSULE BY MOUTH EVERY EVENING Discharge Instructions Instructions: Back Pain (ED) Additional Instructions: Please follow-up with your primary care physician regarding your back pain Take the Flexeril as needed for discomfort and apply Lidoderm patch over the area of tenderness, 12 hours on, 12 hours off You have had a foreign body removed from your vagina, do not attempt to have intercourse for the next week You may remove the gauze as instructed by LOSS PREVENTION COORDINATOR If you have persistent bleeding, you may apply a tampon and leave it in for the next several hours, make sure you do not leave it in for longer than 6 hours Please return with persistent bleeding, worsening pain, or should he have any new or worsening complaints Referrals: Moiz Dutta [Primary Care Provider] - Discharge Data Discharge Date/Time-TO BE ENTERED AT DEPARTURE: 01/16/22 13:55 Medical Decision Making Patient treated for her back pain with Flexeril and Lidoderm patches We will take [id number] medications for pain control I made several attempts to remove the foreign body but was unsuccessful Dr. Sanchez, consulted and did present to the emergency department after several attempts and left 70 also reviewed the foreign body, patient did receive a small laceration which Dr. Sanchez did not feel needed suture placement at this time Patient is feeling improved She does not have active bleeding at time of discharge home She has observed for approximately 20 minutes after procedure Return precautions markos patient understanding Long discussion regarding safe sexual practices Medical Records Medical records reviewed: Yes I reviewed the patient's medical records. HPI General Date/Time Provider Initiated Documentation: 01/16/22 11:30 . HPI Narrative: This 31-year-old female presents with report of foreign body in her vaginal at home and feels safe in her home. She denies any chance of . she was using a bottle to masturbate and that Reportedly s. this occurred just prior to arrival. She denies any fever or chills. She has had some back pain down her right leg consistent with prior episodes of sciatica. She denies any IV drug abuse. SShe denies any additional complaints at this time and Related Data Home Medications Medication Instructions Recorded Confirmed blood sugar diagnostic (FreeStyle #10 ea 10/10/20 11/27/21 Lite Strips) clonazepam 1 mg tablet 1 mg PO BID 10/10/20 01/16/22 insulin detemir U-100 100 unit/mL 45 unit SUBCUT BID ml 10/10/20 11/27/21 (3 mL) subcutaneous pen lancets 28 gauge (FreeStyle #100 ea 10/10/20 11/27/21 Lancets) omeprazole 40 mg capsule,delayed 40 mg PO DAILY 10/10/20 01/16/22 release pen needle, diabetic 32 gauge x #50 ea 10/10/20 11/27/2132 (BD Ultra-Fine Sona Pen Needle) epinephrine 0.3 mg/0.3 mL 0.3 mg IM ONCE 12/29/20 01/16/22 injection, auto-injector metformin 500 mg tablet 500 mg PO BID 12/29/20 01/16/22 acetaminophen 500 mg tablet 1,000 mg PO Q6H PRN 01/31/21 01/16/22 (Tylenol Extra Strength) haloperidol 5 mg tablet 10 mg PO DAILY tab 04/05/21 01/16/22 prazosin 2 mg capsule 3 mg PO .QHS 05/14/21 01/16/22 atorvastatin 10 mg tablet 10 mg PO DAILY 08/11/21 01/16/22 cyclobenzaprine 10 mg tablet 10 mg PO BID PRN tab 08/11/21 01/16/22 fluticasone propionate 50 1 spray INTRANASAL BID 08/11/21 01/16/22 mcg/actuation nasal spray,suspension modafinil 200 mg tablet 400 mg PO DAILY tab 08/11/21 01/16/22 oxcarbazepine 150 mg tablet 150 mg PO BID tab 08/11/21 01/16/22 propranolol 60 mg capsule,24 60 mg PO DAILY 08/11/21 01/16/22 hr,extended release quetiapine 400 mg tablet (Seroquel) 400 mg PO DAILY tab 08/11/21 01/16/22 fluoxetine 20 mg capsule (Prozac) 40 mg PO DAILY cap 10/12/21 01/16/22 gabapentin 600 mg tablet 600 mg PO BID tab 10/12/21 01/16/22 albuterol sulfate 90 mcg/actuation 2 puff INHALATION Q6H PRN 11/13/21 01/16/22 aerosol inhaler (ProAir HFA) fluconazole 150 mg tablet 150 mg PO ONCE #1 tab 11/27/21 01/16/22 (Diflucan) norethindrone 1.5 mg-ethinyl 1 tab PO DAILY #84 tab 11/27/21 01/16/22 estradiol 30 mcg(21)/iron 75 mg(7) tablet ( FE .03/19 ()) cyclobenzaprine 10 mg tablet 10 mg PO TID PRN #10 tab 01/16/22 lidocaine 5 % topical patch 1 patch TOPICAL DAILY #15 ea 01/16/22 (Lidoderm) Previous Rx's Medication Instructions Recorded fluconazole 150 mg tablet 150 mg PO ONCE #1 tab 11/27/21 (Diflucan) norethindrone 1.5 mg-ethinyl 1 tab PO DAILY #84 tab 11/27/21 estradiol 30 mcg(21)/iron 75 mg(7) tablet ( FE .03/19 (28)) cyclobenzaprine 10 mg tablet 10 mg PO TID PRN #10 tab 01/16/22 lidocaine 5 % topical patch 1 patch TOPICAL DAILY #15 ea 01/16/22 (Lidoderm) Allergies Allergy/AdvReac Type Severity Reaction Status Date / Time naproxen [From Aleve] Allergy Severe Anaphylaxis Verified 01/16/22 11:14 cephalexin [From Keflex] Allergy Intermediate Hives Verified 01/16/22 11:14 latex Allergy Intermediate Itching Verified 01/16/22 11:14 venom-honey bee Allergy Verified 01/16/22 11:14 General Stated Complaint: LOSS PREVENTION COORDINATOR SUZETTE: 3 Review of Systems All systems reviewed & are unremarkable except as noted in HPI and below PFSH All Active Problems (Updated 01/16/22 @ 13:57 by Janice Sanchez MD) Foreign body in vagina (Acute) Medical History (Updated 01/16/22 @ 13:57 by Janice Sanchez MD) ADHD Anxiety Asthma Borderline personality disorder Depression Diverticulitis GERD (gastroesophageal reflux disease) History of irregular menstrual bleeding History of recurrent UTI (urinary tract infection) HTN (hypertension) Hyperlipidemia Left hip pain Low back pain Nausea Obesity Pain of left calf Pain, joint, knee, right PCOS (polycystic ovarian syndrome) PTSD (post-traumatic stress disorder) Schizoaffective disorder Sleep apnea Suicidal ideation Tachycardia Type 2 diabetes mellitus Surgical History H/O laparoscopy History of appendectomy History of cholecystectomy Family History Mother Diabetes Social History Smoking/Tobacco Use Status: Former Tobacco Use Smoking risk assessment performed?: Yes Alcohol Intake: never Drug use: Daily Substance use type: marijuana Household members: family Housing: apartment Number of Children: 0 current occupation: Unemployed What type of physical activity do you participate in: walking, independent ambulation and irregular exercise Do you feel safe at home: Yes Do you feel safe in your relationship?: Yes Exam Const General: cooperative, comfortable and no acute distress Eyes Sclera: sclerae normal Resp Effort & Inspection: normal respiratory effort Cardio Rate: regular rate GI Inspection: normal to inspection Other: No CVA tenderness, no abdominal tenderness Other: Clear bottle Noted in vaginal vault, no obvious laceration or injury noted, concavity facing inferiorly Back/Spine/Pelvis Other: Tenderness over right sciatic notch Skin General skin exam: no rashes or lesions noted Neuro Other: Positive straight leg raise on the right, strength patient intact distally, negative Babinski Extrem General: normal to inspection Course Vital Signs Vital signs: Vital Signs Temperature 36 C L 01/16/22 11:06 Pulse 119 H 01/16/22 11:06 Respiratory Rate 18 01/16/22 11:06 Blood Pressure 118/76 01/16/22 11:06 Pulse Oximetry 96 01/16/22 11:06 Temperature 36 C L 01/16/22 11:06 Temperature Source Temporal Artery Scan 01/16/22 11:06 Pulse 119 H 01/16/22 11:06 Respiratory Rate 18 01/16/22 11:06 Respiratory Effort Non-Labored 01/16/22 11:12 Blood Pressure 118/76 01/16/22 11:06 Blood Pressure Position Sitting 01/16/22 11:06 Pulse Oximetry 96 01/16/22 11:06 Oxygen Delivery Method Room Air 01/16/22 11:06 Oxygen Flow Rate 0 01/16/22 11:06 Pain Level 8 01/16/22 12:58
--- NOTE | 2022-01-16 13:50 | GCONE_ITS ---
Date of service: 01/16/22 Time of Service: 12:45 Assessment and Plan Assessment and plan (1) Foreign body in vagina: Status: Acute Assessment and plan: Pt was instructed to remove the packing after 2-3hrs. She should call if she develops heavy bleeding after that. History of Present Illness History of Present Illness Chief Complaint: lid stuck in the vagina Narrative: Pt came to the ED after using a bottle to masturbate and having the lid come off and get stuck. It happened about 1hr prior to my arrival in the ED. The ED provider tried to remove the lid first. The pt developed pain and was unable to tolerate further attempts so an IV was started so she could receive fentanyl prior to my attempts. Consults Consult date: 01/16/22 Requesting physician: Radha Aparicio [facility] All Active Problems (Updated 01/16/22 @ 13:57 by Janice Sanchez MD) Foreign body in vagina (Acute) Medical History (Updated 01/16/22 @ 13:57 by Janice Sanchez MD) ADHD Anxiety Asthma Borderline personality disorder Depression Diverticulitis GERD (gastroesophageal reflux disease) History of irregular menstrual bleeding History of recurrent UTI (urinary tract infection) HTN (hypertension) Hyperlipidemia Left hip pain Low back pain Nausea Obesity Pain of left calf Pain, joint, knee, right PCOS (polycystic ovarian syndrome) PTSD (post-traumatic stress disorder) Schizoaffective disorder Sleep apnea Suicidal ideation Tachycardia Type 2 diabetes mellitus Surgical History H/O laparoscopy History of appendectomy History of cholecystectomy Family History Mother Diabetes Social History Smoking/Tobacco Use Status: Former Tobacco Use Smoking risk assessment performed?: Yes Alcohol Intake: never Drug use: Daily Substance use type: marijuana Household members: family Housing: apartment Number of Children: 0 current occupation: Unemployed What type of physical activity do you participate in: walking, independent ambulation and irregular exercise Do you feel safe at home: Yes Do you feel safe in your relationship?: Yes Exam Const General: cooperative, healthy appearing and no acute distress External Female Exam: normal external appearance Other: On exam the lid was felt several centimeters inside the introitus. It filled the whole diameter of the vagina and felt like it was suctioned onto the tissue. It did not budge with use of ringed forceps to try to move it. Finally hooked forceps were used to grasp it better and rotate it until the suction released and then it was removed from the vagina in a corkscrew fashion. Bleeding was noted so inspection of the vagina was done with the speculum and a <1cm laceration was noted on the anterior vaginal wall. There was moderate bleeding. The vagina was then packed with a gauze dressing. Results Last Vital Signs Temp 96.8 F L 01/16/22 11:06 Pulse 119 H 01/16/22 11:06 Resp 18 01/16/22 11:06 BP 118/76 01/16/22 11:06 Pulse Ox 96 01/16/22 11:06
[2022-01-16 13:51] VITALS: BP 109/69; PULSE 94; RESP 16; TEMP 37; O2SAT 95
[2022-01-16 13:58] VITALS: BP 109/69; PULSE 94; RESP 16; TEMP 37; O2SAT 95
== END 2022-01-16 13:55 | disposition home or self-care (01) ==
PROVIDERS: Emergency Provider Physician Assistant; PCP Physician Assistant
DX: T19.2XXA Foreign body in vulva and vagina, initial encounter (principal); X58.XXXA Exposure to other specified factors, initial encounter; M54.50 Low back pain, unspecified
CPT/HCPCS: 99284; 99283; J3010

== ENCOUNTER 2022-06-29 02:31 | Emergency (ER) | payer MEDICARE, MEDICAID, SELFPAY ==
[2022-06-29 02:34] VITALS: BP 108/71; PULSE 91; RESP 18; TEMP 36.6; O2SAT 98
--- NOTE | 2022-06-29 02:45 | DI.CT_ITS ---
Exam(s) CT HEAD WO EXAM: CT HEAD WO CLINICAL HISTORY: headache, r/o mass. TECHNIQUE: Imaging Protocol: Axial computed tomography images with coronal and sagittal reformatted images were created and reviewed COMPARISON: No exams were available for comparison FINDINGS: Ventricles and Extra axial spaces: Normal in size and morphology for the patient's age. Hemorrhage: None. Cerebral parenchyma: Normal. Midline shift: None. Brainstem/Cerebellum: Normal. Calvarium: Normal. Visualized Paranasal sinuses/Mastoids: Clear. Soft Tissues: Unremarkable. IMPRESSION: No acute intracranial process. RADIATION DOSE DELIVERED: 860.05mGy.cm Total DLP DATA REPOSITORY: All CT scans at this facility are submitted to the National Radiology Data Registry (NRDR) Dose Index Registry (DIR) with the [employer] (A[employer]). RADIATION OPTIMIZATION: All CT scans at this facility use at least one of these dose optimization te chniques: automated exposure control; mA and/or kV adjustment per patient size (includes targeted exa ms where dose is matched to clinical indication); or iterative reconstruction.
--- NOTE | 2022-06-29 02:48 | W.ED.GENAD ---
Discharge Plan Disposition Patient Disposition: HOME Condition: Good Discharge Details Clinical Impression: Headache Primary Care Provider: Moiz Dutta ED Provider: Bucky Pederson Home Meds and New Rx's Prescriptions: No Action epinephrine 0.3 mg/0.3 mL Auto-Injector 0.3 mg IM ONCE metformin 500 mg Tablet 500 mg PO BID fluconazole [Diflucan] 150 mg tablet 150 mg PO ONCE Qty: 1 1RF Rx Instructions: as a single dose. If symptoms still present in 5 days, refill and repeat dose. dextroamphetamine-amphetamine [Adderall] 15 mg tablet 15 mg PO DAILY norethindrone acetate [Aygestin] 5 mg tablet 5 mg PO DAILY Qty: 60 0RF clonazepam 1 mg tablet 1 mg PO BID (DME) lancets [FreeStyle Lancets] 28 gauge misc See Rx Instructions .ROUTE .MEDSUPPLY Qty: 100 Rx Instructions: As directed (DME) FreeStyle Lite Strips Strip See Rx Instructions .ROUTE .MEDSUPPLY Qty: 10 Rx Instructions: As directed insulin detemir U-100 100 unit/mL (3 mL) insulin pen 45 unit subcut BID (DME) pen needle, diabetic [BD Ultra-Fine Sona Pen Needle] 32 gauge x 5/32 needle See Rx Instructions .ROUTE .MEDSUPPLY Qty: 50 Rx Instructions: As directed omeprazole 40 mg capsule,delayed release(DR/EC) 40 mg PO DAILY haloperidol 5 mg tablet 10 mg PO DAILY albuterol sulfate [ProAir HFA] 90 mcg/actuation HFA aerosol inhaler 2 puff inhalation Q6H PRN fluticasone propionate 50 mcg/actuation spray,suspension 1 spray intranasal BID Rx Instructions: administer into each nostril propranolol 60 mg capsule,extended release 24 hr 60 mg PO DAILY atorvastatin 10 mg tablet 10 mg PO DAILY oxcarbazepine 150 mg tablet 150 mg PO BID modafinil 200 mg tablet 400 mg PO DAILY cyclobenzaprine 10 mg tablet 10 mg PO BID PRN fluoxetine [Prozac] 20 mg capsule 40 mg PO DAILY acetaminophen [Tylenol Extra Strength] 500 mg Tablet 1,000 mg PO Q6H PRN prazosin 2 mg capsule 3 mg PO .QHS Label Comments: TAKE 1 CAPSULE BY MOUTH EVERY EVENING cyclobenzaprine 10 mg tablet 10 mg PO TID PRNQty: 10 0RF Discharge Instructions Instructions: General Headache (ED) Additional Instructions: At this time your CAT scan shows no evidence of significant abnormality. I suspect that your headache is a component of chronic migraine or tension or stress. Please drink plenty of fluids, stay well-hydrated, avoid excessive caffeine. In regards to your back, please use a heating pad frequently, perform regular stretches. Please decrease the amount of Tylenol and Motrin that you are taking as this can cause irritation to your stomach and then subsequent nausea. If you notice any worsening of your symptoms, or any new symptoms such as vomiting, diarrhea, fever, chills, shortness of breath, chest pain, numbness, weakness, or fainting , please return immediately to the emergency department for reevaluation. Please follow up with your primary care provider as soon as possible for reassessment and reevaluation. As always, it was a pleasure participating in your medical care today. Referrals: Moiz Dutta [Primary Care Provider] - Medical Decision Making This is a pleasant 32-year-old female with a past medical history of high cholesterol, type 2 diabetes, asthma, borderline personality disorder, GERD, hypertension, PTSD, polycystic ovarian syndrome, appendectomy, cholecystectomy, who presents today with complaint of low back pain, headache, and mild nausea. Patient states that all of these have been going on for months, however the headache and nausea worsened this evening/yesterday. She denies any focal aggravating or relieving factors aside from light making the headache worse. She has been taking Tylenol and Motrin every day for the last week but this is not improved her symptoms at all. She does admit to a history of migraines but states that these felt different. She denies any significant neck pain. She denies any vision changes. She denies any vomiting or diarrhea. She denies any fever or chills. No other complaints at this time. The patient denies any headache red flags of worst headache of life, thunderclap headache, neck pain, fever, chills, concerning family history of polycystic kidney disease, Marfan syndrome, Tima-Danlos syndrome, abdominal aortic aneurysm, aortic dissection, or intracranial aneurysm. Patient denies any saddle anesthesia, numbness or tingling in the groin, change in sensation when wiping. Patient denies any change in sensation during sexual intercourse, bowel or bladder incontinence, leakage, or retention. Patient denies any weakness in the lower extremities, atypical falls or imbalance. Exam demonstrates well-appearing female, no focal neurologic deficits. No meningeal signs. No evidence of meningitis. Abdomen is nontender. Back demonstrates only mild paravertebral tenderness, no midline tenderness. Symptoms of the back appear consistent with mild muscle spasms. Symptoms of nausea are likely secondary to her recent notable Tylenol and Motrin use. Headache, may be secondary to atypical migraine. She does not have any evidence of neuroimaging on her medical record. We will get a CT scan to rule out mass. We will perform ultrasound to evaluate for papilledema for idiopathic intracranial hypertension. We will treat with migraine cocktail, monitor closely and reassess 4 AM Bedside ultrasound shows no evidence of papilledema or enlarged optic nerve. Laboratory work-up is returned and is unremarkable. CT scan of the head is negative for acute process. Physical exam shows no focal neurologic deficits. Symptoms inconsistent with meningitis, cauda equina syndrome, or surgical abdominal process. Suspect that the headache is a component of chronic migraine and worsened by dehydration and stress. Back pain appears musculoskeletal in nature. No indication for emergent imaging. Stomach achiness/nausea likely secondary to increased ibuprofen and Tylenol use. Patient is feeling much better on reassessment. Discussed red flags which to return, including lifestyle changes at this time to help reduce repeat headache back pain and nausea. I have extensively reviewed the treatment plan and discharge instructions with the patient. I have addressed all patient concerns at this time. The patient was made aware of what symptoms to monitor for that would warrant a return to the emergency department. Discussed the plan with the patient, they demonstrate verbal understanding and agreement with our assessment and plan at this time. The documentation in this chart was dictated using [employer] dictation software. Please excuse any dictation errors. FINDINGS: Brain: No mass, positive mass effect or midline shift. No acute cerebrovascular accident. No acute intracranial hemorrhage. Cerebral ventricles: No ventriculomegaly. Paranasal sinuses: Minimal mucosal thickening without significant acute paranasal sinus disease. Mastoid air cells: Visualized mastoid air cells are unremarkable. Bones/joints: No linear or depressed skull fracture. No lytic or blastic lesion. Soft tissues: No significant soft tissue abnormalities demonstrated. Vasculature: No evidence of significant aneurysm formation. Punctate air within the cavernous sinuses, almost certainly iatrogenic associated with peripheral venous access, and of no clinical significance. IMPRESSION: No acute intracranial abnormalities. Thank you for allowing us to participate in the care of your patient. Dictated and Authenticated by: Ector Hernandez MD 06/29/2022 4:46 AM Eastern Time ([place] & [place]) HPI General Date/Time Provider Initiated Documentation: 06/29/22 02:33. HPI Narrative: This is a pleasant 32-year-old female with a past medical history of high cholesterol, type 2 diabetes, asthma, borderline personality disorder, GERD, hypertension, PTSD, polycystic ovarian syndrome, appendectomy, cholecystectomy, who presents today with complaint of low back pain, headache, and mild nausea. Patient states that all of these have been going on for months, however the headache and nausea worsened this evening/yesterday. She denies any focal aggravating or relieving factors aside from light making the headache worse. She has been taking Tylenol and Motrin every day for the last week but this is not improved her symptoms at all. She does admit to a history of migraines but states that these felt different. She denies any significant neck pain. She denies any vision changes. She denies any vomiting or diarrhea. She denies any fever or chills. No other complaints at this time. The patient denies any headache red flags of worst headache of life, thunderclap headache, neck pain, fever, chills, concerning family history of polycystic kidney disease, Marfan syndrome, Tima-Danlos syndrome, abdominal aortic aneurysm, aortic dissection, or intracranial aneurysm. Patient denies any saddle anesthesia, numbness or tingling in the groin, change in sensation when wiping. Patient denies any change in sensation during sexual intercourse, bowel or bladder incontinence, leakage, or retention. Patient denies any weakness in the lower extremities, atypical falls or imbalance. Related Data Home Medications Medication Instructions Recorded Confirmed blood sugar diagnostic (FreeStyle #10 ea 10/10/20 05/22/22 Lite Strips) clonazepam 1 mg tablet 1 mg PO BID 10/10/20 06/29/22 insulin detemir U-100 100 unit/mL 45 unit subcut BID 10/10/20 06/29/22 (3 mL) subcutaneous pen lancets 28 gauge (FreeStyle #100 ea 10/10/20 05/22/22 Lancets) omeprazole 40 mg capsule,delayed 40 mg PO DAILY 10/10/20 06/29/22 release pen needle, diabetic 32 gauge x #50 ea 10/10/20 05/22/2232 (BD Ultra-Fine Sona Pen Needle) epinephrine 0.3 mg/0.3 mL 0.3 mg IM ONCE 12/29/20 06/29/22 injection, auto-injector metformin 500 mg tablet 500 mg PO BID 12/29/20 06/29/22 acetaminophen 500 mg tablet 1,000 mg PO Q6H PRN 01/31/21 06/29/22 (Tylenol Extra Strength) haloperidol 5 mg tablet 10 mg PO DAILY 04/05/21 06/29/22 prazosin 2 mg capsule 3 mg PO .QHS 05/14/21 06/29/22 atorvastatin 10 mg tablet 10 mg PO DAILY 08/11/21 06/29/22 cyclobenzaprine 10 mg tablet 10 mg PO BID PRN 08/11/21 06/29/22 fluticasone propionate 50 1 spray intranasal BID 08/11/21 06/29/22 mcg/actuation nasal spray,suspension modafinil 200 mg tablet 400 mg PO DAILY 08/11/21 06/29/22 oxcarbazepine 150 mg tablet 150 mg PO BID 08/11/21 06/29/22 propranolol 60 mg capsule,24 60 mg PO DAILY 08/11/21 06/29/22 hr,extended release fluoxetine 20 mg capsule (Prozac) 40 mg PO DAILY 10/12/21 06/29/22 albuterol sulfate 90 mcg/actuation 2 puff inhalation Q6H PRN 11/13/21 06/29/22 aerosol inhaler (ProAir HFA) fluconazole 150 mg tablet 150 mg PO ONCE #1 tab 11/27/21 06/29/22 (Diflucan) cyclobenzaprine 10 mg tablet 10 mg PO TID PRN #10 tabs 01/16/22 06/29/22 dextroamphetamine-amphetamine 15 15 mg PO DAILY 05/22/22 06/29/22 mg tablet (Adderall) norethindrone acetate 5 mg tablet 5 mg PO DAILY #60 tabs 05/22/22 06/29/22 (Aygestin) Previous Rx's Medication Instructions Recorded fluconazole 150 mg tablet 150 mg PO ONCE #1 tab 11/27/21 (Diflucan) cyclobenzaprine 10 mg tablet 10 mg PO TID PRN #10 tabs 01/16/22 norethindrone acetate 5 mg tablet 5 mg PO DAILY #60 tabs 05/22/22 (Aygestin) Allergies Allergy/AdvReac Type Severity Reaction Status Date / Time naproxen [From Aleve] Allergy Severe Anaphylaxis Verified 06/29/22 02:37 cephalexin [From Keflex] Allergy Intermediate Hives Verified 06/29/22 02:37 latex Allergy Intermediate Itching Verified 06/29/22 02:37 venom-honey bee Allergy Verified 06/29/22 02:37 General Stated Complaint: Nk/Back Pain SUZETTE: 4 Review of Systems All systems reviewed & are unremarkable except as noted in HPI and below PFSH All Active Problems (Updated 06/29/22 @ 03:41 by Bucky Pederson DO) Headache (Acute) Medical History ADHD Anxiety Asthma Borderline personality disorder Depression Diverticulitis GERD (gastroesophageal reflux disease) History of irregular menstrual bleeding History of recurrent UTI (urinary tract infection) HTN (hypertension) Hyperlipidemia Left hip pain Low back pain Nausea Obesity Pain of left calf Pain, joint, knee, right PCOS (polycystic ovarian syndrome) PTSD (post-traumatic stress disorder) Schizoaffective disorder Sleep apnea Suicidal ideation Tachycardia Type 2 diabetes mellitus Surgical History H/O laparoscopy History of appendectomy History of cholecystectomy Family History Mother Diabetes Social History Smoking/Tobacco Use Status: Former Tobacco Use Smoking risk assessment performed?: Yes Alcohol Intake: never Drug use: Daily Substance use type: marijuana Household members: family Housing: apartment Number of Children: 0 current occupation: Unemployed What type of physical activity do you participate in: walking, independent ambulation and irregular exercise Do you feel safe at home: Yes Do you feel safe in your relationship?: Yes History History 2 Para Hx # Term Pregnancies Multiple births Hx # Pregnancies Ectopic pregnancies AB induced Hx Number of Living Children AB spontaneous 2 Exam Narrative Exam Narrative: 1.Const: Well-nourished, Well-developed, appearing stated age 2.Eyes: PERRL, no conjunctival injection, and symmetrical lids. 3.ENT: Atraumatic external nose and ears. Moist MM. Neck: Symmetric, trachea midline, No thyromegaly. Patient demonstrates good movement of cervical neck. There is no nuchal rigidity, no nuchal tenderness. Patient is able to flex the neck without any difficulty or significant pain. Negative Kernig's and Brudzinski sign. 4.CVS: +S1/S2, No murmurs or gallops. Peripheral pulses 2+ and equal in all extremities. Brisk capillary refill in all extremities. 5.RESP: Unlabored respiratory effort. Clear to auscultation bilaterally. No wheezes rales or rhonchi 6.GI: Soft, Nontender/Nondistended, No hepatosplenomegaly. No guarding or rebound. No pain at McBurney's point. Negative Pope sign 7.MSK: Normocephalic/Atraumatic, Extremities w/o deformity or ttp No cyanosis or clubbing, Normal movement of all extremities 8.Skin: Warm, Dry. No rashes or lesions. 9.Neuro: lead javascript engineer II-XII grossly intact. Sensation grossly intact, no focal neurologic deficits. All 6 cardinal planes of vision are fully intact. No evidence of rotatory or vertical nystagmus. The patient demonstrated a normal osqman-lvie-mebttc, good dexterity. There was no evidence of dysdiadochokinesia. Patient was able to ambulate without difficulty. There was no wide-based gait. Romberg testing was normal. Gvhg-za-dcla testing was normal. Sensation was intact bilaterally as well as muscle strength bilaterally for all extremities. Patient was able to verbalize butter cup with no slurring, or miss pronunciation. 10.Psych: (AAO) x3. Appropriate mood and affect Course Vital Signs Vital signs: Vital Signs Temperature 36.6 C 06/29/22 02:34 Pulse 91 H 06/29/22 02:34 Respiratory Rate 18 06/29/22 02:34 Blood Pressure 108/71 06/29/22 02:34 Pulse Oximetry 98 06/29/22 02:34 Temperature 36.6 C 06/29/22 02:34 Pulse 91 H 06/29/22 02:34 Respiratory Rate 18 06/29/22 02:34 Respiratory Effort 06/29/22 02:39 Blood Pressure 108/71 06/29/22 02:34 Blood Pressure Position Sitting 06/29/22 02:34 Pulse Oximetry 98 06/29/22 02:34 Oxygen Delivery Method Room Air 06/29/22 02:34 Oxygen Flow Rate 0 06/29/22 02:34 Pain Level 8 06/29/22 02:34 POCUS Exam (ED) Limited Ocular Exam DATE OF EXAM: 06/29/22 TIME OF EXAM: 03:37 PROVIDER THAT PERFORMED THE STUDY: Bucky Pederson IS THIS A REPEAT EXAM DURING THIS ENCOUNTER: No OCULAR EXAM: Right eye INDICATION FOR RIGHT EYE EXAM: Headache VISUALIZED STRUCTURES: Right optic nerve and Right lens. PERTINENT FINDINGS/IMPRESSION OF THE RIGHT EYE: No apparent abnomalities and Left eye INDICATION FOR LEFT EYE EXAM: Headache. VISUALIZED STRUCTURES: Left optic nerve and Left lens PERTINTINENT FINDINGS/IMPRESSION OF THE LEFT EYE: No apparent abnormalities: DIFFERENTIAL DIAGNOSES: No abnormalities Coding for Ocular exam: Exam complete
[2022-06-29] MEDS: diphenhydrAMINE 50 MG/ML VIAL 25 MG IVP (02:58)
[2022-06-29] MEDS: Normal Saline 1,000 ML 1000 ML IV (02:58)
[2022-06-29] MEDS: methylPREDNISolone SUCC 125 MG VIAL IVP (02:58)
[2022-06-29] MEDS: Ketorolac 15 MG/ML VIAL IVP (02:58)
[2022-06-29] MEDS: Prochlorperazine 10 MG/2 ML VIAL IVP (02:59)
[2022-06-29] MEDS: Lidocaine 5% Patch 1 PATCH TP (03:01)
[2022-06-29 04:15] VITALS: BP 97/51; PULSE 78; RESP 15; TEMP 36.3; O2SAT 97
[2022-06-29 04:44] VITALS: BP 103/68; PULSE 86; RESP 16; TEMP 36.8; O2SAT 95
--- OUTSIDE RECORDS SUMMARY | 2022-06-29 04:45 | XMS_ITS | Encounter Summary ---
:1990 Author Organization [facility] Address [address] [place] [address] Care Team Providers Name Role Phone Unavailable Primary Care Provider Unavailable Encounter Details Date Type Department Care Team Description 10/11/2020 Lab Requisition [facility] Kerline Souas E ncounter for other Pathology & SCROLL SAW OPERATOR general examination Laboratory Medicine [address], [place] [address] [facility] [id number] [place] [address] Social History Tobacco Use Types Packs/Day Years Used Date Never Assessed Sex Assigned at Date Recorded Not on file documented as of this encounter Plan of Treatment Not on filedocumented as of this encounter Procedures Procedure Name Priority Date/Time Associated Comments Diagnosis PAP TEST Today 10/10/2020 16:00 Encounter for other Resu lts for this EST general examination procedur e are in the results section. HUMAN PAPILLOMAVIRUS Today 10/10/2020 16:00 Encounter for ot her Results for this (HPV) DETECTION-HIGH EST general examination procedure are in RISK TYPES the results section. documented in this encounter Results HUMAN PAPILLOMAVIRUS (HPV) DETECTION-HIGH RISK TYPES (10/10/2020 16:00 EST) Human Papillomavirus NegativeComment: No Negative [facility] (HPV) Detection-High E6 or E7 mRNA is CENTER LABORATOR Y Types detected from HPV SERVICES types 16,18,31,33,35,39,45 ,51,52,56,58,59,66, and 68 by access manager mediated amplification. Specimen Pap Test - Cervix and/or Endocervix Performing Organization Address City/State/ZIP Code Phon e Number [facility] [address] [place] [address] SERVICES PAP TEST (10/10/2020 16:00 EST) Specimens A. Cervix and/or UV MEDICAL Endocervix , ThinPrep CENTER Imaging System with LABORATORY Manual Evaluation SERVICES Specimen Adequacy Satisfactory for [facility] Evaluation - CENTER transformation zone LABORATORY component present SERVICES General Negative for [facility] Categorization intraepithelial CENTER lesion or malignancy LABORATORY SERVICES Descriptive Reactive cellular [facility] Diagnosis changes associated CENTER with inflammation LABORATORY present (includes SERVICES repair). Attestation By the signature below, the attending physician certifies that they have personally conducted a gross and/or microscopic [facility] Electronically examination of the described specimens and rendered or confirmed the above diagnosis. CENTER signed by SAV Cerna MD on SERVICES 10/26/2020 at 154 7 Clinical History See below [facility] SERVICES HPV The result for the Human Pap illomavirus (HPV) Detection-High Risk Types is Negative. No E6 or E7 mRNA is detected from HPV types 16,18,31,33,35,39,45,51,52,56,58,59,66, and 68 by access manager mediated [facility] amplification.Testing was pe rformed on specimen [id number] and was resulted on 10/26/2020 1512 EST by MILAN, LAB INSTRUMENT RESULTS IN [facility] SERVICES Performing Lab [facility] SERVICES Scanned Images [facility] SERVICES Specimen Pap Test - Cervix and/or Endocervix Performing Organization Address City/State/ZIP Code Phon e Number [facility] [address] [place] [address] SERVICES documented in this encounter Visit Diagnoses Diagnosis Encounter for other general examination documented in this encounter
--- OUTSIDE RECORDS SUMMARY | 2022-06-29 04:45 | XMS_ITS | Encounter Summary ---
:1990 Author Organization [facility] Address [address] [place] [address] Care Team Providers Name Role Phone Unavailable Primary Care Provider Unavailable Encounter Details Date Type Department Care Team Description 01/04/2022 Lab Requisition [facility] Outr Resulting Lab, Pathology & Laboratory Provider [facility] [address] [place] [address] Social History Tobacco Use Types Packs/Day Years Used Date Never Assessed Sex Assigned at Date Recorded Not on file documented as of this encounter Plan of Treatment Not on filedocumented as of this encounter Procedures Procedure Name Priority Date/Time Associated Comments Diagnosis CHLAMYDIA/N. Routine 01/03/2022 16:15 Results for this GONORRHOEAE AMPLIFIED EDT proced ure are in RNA the results section. documented in this encounter Results CHLAMYDIA/N. GONORRHOEAE AMPLIFIED RNA (01/03/2022 16:15 EDT) Pathologist Sig nature Gonococcus Result Negative Negative [facility] Chlamydia Result Negative Negative [facility] Specimen Swab - Entire vagina (body structure) Performing Organization Address City/State/ZIP Code Phon e Number [facility] [address] [place] [address] SERVICES documented in this encounter Visit Diagnoses Not on filedocumented in this encounter
--- NOTE | 2022-06-29 04:46 | DI.VRAD_ITS ---
PROCEDURE INFORMATION: Exam: CT Head Without Contrast Exam date and time: 06/29/2022 3:02 AM Age: 32 years old Clinical indication: Pain; Other: Headache, R/O mass TECHNIQUE: Imaging protocol: Computed tomography of the head without contrast. Radiation optimization: All CT scans at this facility use at least one of these dose optimization techniques: automated exposure control; mA and/or kV adjustment per patient size (includes targeted exams where dose is matched to clinical indication); or iterative reconstruction. COMPARISON: No relevant prior studies available. FINDINGS: Brain: No mass, positive mass effect or midline shift. No acute cerebrovascular accident. No acute intracranial hemorrhage. Cerebral ventricles: No ventriculomegaly. Paranasal sinuses: Minimal mucosal thickening without significant acute paranasal sinus disease. Mastoid air cells: Visualized mastoid air cells are unremarkable. Bones/joints: No linear or depressed skull fracture. No lytic or blastic lesion. Soft tissues: No significant soft tissue abnormalities demonstrated. Vasculature: No evidence of significant aneurysm formation. Punctate air within the cavernous sinuses, almost certainly iatrogenic associated with peripheral venous access, and of no clinical significance. IMPRESSION: No acute intracranial abnormalities. Dictated and Authenticated by: Ector Hernandez MD. Ordering:EITAN Lawler MD
== END 2022-06-29 04:44 | disposition home or self-care (01) ==
LOC: ER 04:44
PROVIDERS: Emergency Provider Student in an Organized Health Care Education/Training Program; PCP Physician Assistant
DX: R51.9 Headache, unspecified (principal); M54.50 Low back pain, unspecified; R11.0 Nausea; I10 Essential (primary) hypertension; E11.9 Type 2 diabetes mellitus without complications; Z87.891 Personal history of nicotine dependence; Z79.4 Long term (current) use of insulin; Z79.84 Long term (current) use of oral hypoglycemic drugs
CPT/HCPCS: 36415; 76512; 80053; 81025; 96361; 96374; 96375; 99284; 70450; 85025; J0780; J1200; J1885; J2930

== ENCOUNTER 2022-07-08 01:41 | Emergency (ER) | payer MEDICARE, MEDICAID, SELFPAY ==
[2022-07-08 01:47] VITALS: BP 93/72; PULSE 106; RESP 16; TEMP 36.3; O2SAT 96
--- NOTE | 2022-07-08 02:10 | ED.GENADUL_ITS ---
Discharge Plan Disposition Patient Disposition: HOME Condition: Improving Discharge Details Chief Complaint: Nk/Back Pain Clinical Impression: Back pain Primary Care Provider: Moiz Dutta ED Provider: Geremias Max Home Meds and New Rx's Prescriptions: No Action epinephrine 0.3 mg/0.3 mL Auto-Injector 0.3 mg IM ONCE metformin 500 mg Tablet 500 mg PO BID fluconazole [Diflucan] 150 mg tablet 150 mg PO ONCE Qty: 1 1RF Rx Instructions: as a single dose. If symptoms still present in 5 days, refill and repeat dose. dextroamphetamine-amphetamine [Adderall] 15 mg tablet 15 mg PO DAILY norethindrone acetate [Aygestin] 5 mg tablet 5 mg PO DAILY Qty: 60 0RF clonazepam 1 mg tablet 1 mg PO BID (DME) lancets [FreeStyle Lancets] 28 gauge misc See Rx Instructions .ROUTE .MEDSUPPLY Qty: 100 Rx Instructions: As directed (DME) FreeStyle Lite Strips Strip See Rx Instructions .ROUTE .MEDSUPPLY Qty: 10 Rx Instructions: As directed insulin detemir U-100 100 unit/mL (3 mL) insulin pen 45 unit subcut BID (DME) pen needle, diabetic [BD Ultra-Fine Sona Pen Needle] 32 gauge x 5/32 needle See Rx Instructions .ROUTE .MEDSUPPLY Qty: 50 Rx Instructions: As directed omeprazole 40 mg capsule,delayed release(DR/EC) 40 mg PO DAILY haloperidol 5 mg tablet 10 mg PO DAILY albuterol sulfate [ProAir HFA] 90 mcg/actuation HFA aerosol inhaler 2 puff inhalation Q6H PRN fluticasone propionate 50 mcg/actuation spray,suspension 1 spray intranasal BID Rx Instructions: administer into each nostril propranolol 60 mg capsule,extended release 24 hr 60 mg PO DAILY atorvastatin 10 mg tablet 10 mg PO DAILY oxcarbazepine 150 mg tablet 150 mg PO BID modafinil 200 mg tablet 400 mg PO DAILY cyclobenzaprine 10 mg tablet 10 mg PO BID PRN fluoxetine [Prozac] 20 mg capsule 40 mg PO DAILY trazodone 50 mg tablet 1 tab PO QHS Trulicity 1.5 mg/0.5 mL pen injector See Rx Instructions .ROUTE .COMPLEX Rx Instructions: device subcutaneously Vraylar 3 mg capsule 1 cap PO DAILY acetaminophen [Tylenol Extra Strength] 500 mg Tablet 1,000 mg PO Q6H PRN prazosin 2 mg capsule 3 mg PO .QHS Label Comments: TAKE 1 CAPSULE BY MOUTH EVERY EVENING cyclobenzaprine 10 mg tablet 10 mg PO TID PRNQty: 10 0RF Discharge Instructions Instructions: Back Pain (ED) Additional Instructions: Please follow-up with your primary care physician. Medical Decision Making 32-year-old female history of sciatica presents with left lower back discomfort radiating down left buttock and left leg, remote work injury, no new injury, no bowel or bladder issues. Full strength and sensation bilateral lower extremities, ambulatory without assistance. Nontoxic no acute distress. Likely recurrent sciatica versus muscle spasm; unlikely kidney stone or pyelonephritis. Low suspicion for or infectious process. Will administer steroid and lidocaine patch. Home care instructions and return precautions to be given 2: 39 patient resting comfortably no acute distress. Oejax-sw-axac test negative. Ambulatory neurologically intact. HPI General Date/Time Provider Initiated Documentation: 07/08/22 02:02 . 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 Endorses being able to walk however endorses pain with moving left lower extremity. Related Data Home Medications Medication Instructions Recorded Confirmed blood sugar diagnostic (FreeStyle #10 ea 10/10/20 05/22/22 Lite Strips) clonazepam 1 mg tablet 1 mg PO BID 10/10/20 07/08/22 insulin detemir U-100 100 unit/mL 45 unit subcut BID 10/10/20 07/08/22 (3 mL) subcutaneous pen lancets 28 gauge (FreeStyle #100 ea 10/10/20 05/22/22 Lancets) omeprazole 40 mg capsule,delayed 40 mg PO DAILY 10/10/20 07/08/22 release pen needle, diabetic 32 gauge x #50 ea 10/10/20 05/22/22 (BD Ultra-Fine Sona Pen Needle) epinephrine 0.3 mg/0.3 mL 0.3 mg IM ONCE 12/29/20 07/08/22 injection, auto-injector metformin 500 mg tablet 500 mg PO BID 12/29/20 07/08/22 acetaminophen 500 mg tablet 1,000 mg PO Q6H PRN 01/31/21 06/29/22 (Tylenol Extra Strength) haloperidol 5 mg tablet 10 mg PO DAILY 04/05/21 07/08/22 prazosin 2 mg capsule 3 mg PO .QHS 05/14/21 07/08/22 atorvastatin 10 mg tablet 10 mg PO DAILY 08/11/21 07/08/22 cyclobenzaprine 10 mg tablet 10 mg PO BID PRN 08/11/21 07/08/22 fluticasone propionate 50 1 spray intranasal BID 08/11/21 07/08/22 mcg/actuation nasal spray,suspension modafinil 200 mg tablet 400 mg PO DAILY 08/11/21 06/29/22 oxcarbazepine 150 mg tablet 150 mg PO BID 08/11/21 07/08/22 propranolol 60 mg capsule,24 60 mg PO DAILY 08/11/21 07/08/22 hr,extended release fluoxetine 20 mg capsule (Prozac) 40 mg PO DAILY 10/12/21 07/08/22 albuterol sulfate 90 mcg/actuation 2 puff inhalation Q6H PRN 11/13/21 07/08/22 aerosol inhaler (ProAir HFA) fluconazole 150 mg tablet 150 mg PO ONCE #1 tab 11/27/21 06/29/22 (Diflucan) cyclobenzaprine 10 mg tablet 10 mg PO TID PRN #10 tabs 01/16/22 06/29/22 dextroamphetamine-amphetamine 15 15 mg PO DAILY 05/22/22 07/08/22 mg tablet (Adderall) norethindrone acetate 5 mg tablet 5 mg PO DAILY #60 tabs 05/22/22 06/29/22 (Aygestin) cariprazine 3 mg capsule (Vraylar) 1 cap PO DAILY 07/08/22 07/08/22 dulaglutide 1.5 mg/0.5 mL See Rx Instructions .Route .COMPLEX 07/08/22 07/08/22 subcutaneous pen injector (Trulicity) trazodone 50 mg tablet 1 tab PO QHS 07/08/22 07/08/22 Previous Rx's Medication Instructions Recorded fluconazole 150 mg tablet 150 mg PO ONCE #1 tab 11/27/21 (Diflucan) cyclobenzaprine 10 mg tablet 10 mg PO TID PRN #10 tabs 01/16/22 norethindrone acetate 5 mg tablet 5 mg PO DAILY #60 tabs 05/22/22 (Aygestin) Allergies Allergy/AdvReac Type Severity Reaction Status Date / Time naproxen [From Aleve] Allergy Severe Anaphylaxis Verified 07/08/22 01:52 cephalexin [From Keflex] Allergy Intermediate Hives Verified 07/08/22 01:52 latex Allergy Intermediate Itching Verified 07/08/22 01:52 venom-honey bee Allergy Verified 07/08/22 01:52 General Stated Complaint: Nk/Back Pain SUZETTE: 3 Review of Systems Narrative: Review of Systems Constitutional: negative Eyes: negative ENT: negative Cardiovascular: negative Respiratory: negative Gastrointestinal: negative : negative Musculoskeletal: Back pain Skin: negative Neurologic: negative Psych: negative PFSH All Active Problems (Updated 07/08/22 @ 02:41 by Geremias Max MD) Headache (Acute) Back pain (Acute) Medical History ADHD Anxiety Asthma Borderline personality disorder Depression Diverticulitis GERD (gastroesophageal reflux disease) History of irregular menstrual bleeding History of recurrent UTI (urinary tract infection) HTN (hypertension) Hyperlipidemia Left hip pain Low back pain Nausea Obesity Pain of left calf Pain, joint, knee, right PCOS (polycystic ovarian syndrome) PTSD (post-traumatic stress disorder) Schizoaffective disorder Sleep apnea Suicidal ideation Tachycardia Type 2 diabetes mellitus Surgical History H/O laparoscopy History of appendectomy History of cholecystectomy Family History Mother Diabetes Social History Smoking/Tobacco Use Status: Former Tobacco Use Smoking risk assessment performed?: Yes Alcohol Intake: never Drug use: Daily Substance use type: marijuana Household members: family Housing: apartment Number of Children: 0 current occupation: Unemployed What type of physical activity do you participate in: walking, independent ambulation and irregular exercise Do you feel safe at home: Yes Do you feel safe in your relationship?: Yes History History 2 Para Hx # Term Pregnancies Multiple births Hx # Pregnancies Ectopic pregnancies AB induced Hx Number of Living Children AB spontaneous 2 Exam Narrative Exam Narrative: Physical Examination General: alert, awake, cooperative, resting comfortably, no acute distress HEENT: normocephalic, atraumatic; PERRL, EOM intact, conjunctiva normal; no nasal discharge; moist mucous membranes, oral and pharyngeal mucosa normal, tolerating secretions Neck: supple, trachea midline; full ROM Chest: normal to inspection Respiratory: normal respiratory effort, speaking in full sentences, clear to auscultation, no wheezing, rales or rhonchi Cardiac: regular rate, regular rhythm, S1S2 intact, no murmurs rubs or gallops GI: abdomen soft, non-tender, non-distended; no palpable mass or hepatosplenomegaly Skin: no lesions, rashes or trauma appreciated Neuro: AAOx3, normal speech, moving all extremities; 5 out of 5 strength bilateral lower extremities, sensation intact, ambulatory without assistance Extremities: Exacerbation of symptoms with left leg raise Psych: Appropriate mood and affect Course Vital Signs Vital signs: Vital Signs Temperature 36.3 C L 07/08/22 01:47 Pulse 106 H 07/08/22 01:47 Respiratory Rate 16 07/08/22 01:47 Blood Pressure 93/72 L 07/08/22 01:47 Pulse Oximetry 96 07/08/22 01:47 Temperature 36.3 C L 07/08/22 01:47 Pulse 106 H 07/08/22 01:47 Respiratory Rate 16 07/08/22 01:47 Respiratory Effort Non-Labored 07/08/22 01:50 Blood Pressure 93/72 L 07/08/22 01:47 Blood Pressure Position Sitting 07/08/22 01:47 Pulse Oximetry 96 07/08/22 01:47 Oxygen Delivery Method Room Air 07/08/22 01:47 Oxygen Flow Rate 0 07/08/22 01:47 Pain Level 9 07/08/22 01:47
[2022-07-08] MEDS: Dexamethasone 10 MG/ML VIAL IVP (02:20)
[2022-07-08] MEDS: Lidocaine 5% Patch 1 PATCH TP (02:20)
== END 2022-07-08 02:45 | disposition home or self-care (01) ==
PROVIDERS: Emergency Provider Emergency Medicine; PCP Physician Assistant
DX: M54.50 Low back pain, unspecified (principal); I10 Essential (primary) hypertension; E11.9 Type 2 diabetes mellitus without complications; Z87.891 Personal history of nicotine dependence; Z79.4 Long term (current) use of insulin
CPT/HCPCS: 81025; 96374; 99284; J1100

== ENCOUNTER → 2022-07-18 02:13 | Outpatient (CLI) | payer MEDICARE, MEDICAID, SELFPAY ==
--- NOTE | 2022-07-18 07:45 | DI.US_ITS ---
Exam(s) US PELVIS TRANSVAGINAL EXAM: US PELVIS TRANSVAGINAL CLINICAL HISTORY: Abnl uterine bleeding,dysmenorrhea,n93.9,n94.6 TECHNIQUE: Ultrasound performed using standard protocol. COMPARISON: No exams were available for comparison FINDINGS: The uterus is unremarkable in appearance measures 6.9 x 3.5 x 4.1 cm with homogeneous appearance of t he myometrium and a 5 millimeter thick homogeneous endometrial stripe. There is a 21 millimeter in diameter left ovarian dominant follicle versus simple cyst. Otherwise ov judy have a normal follicular appearance, right ovary measures 24 x 26 x 22 millimeters and left ova ry measures 33 x 31 x 30 millimeters. No free fluid in cul-de-sac. Small nabothian cysts are noted. IMPRESSION: Left ovarian dominant follicle versus small functional cyst. Otherwise unremarkable study DATA REPOSITORY:
== END ==
PROVIDERS: PCP Physician Assistant; Visit Provider Nurse Practitioner Women's Health
DX: N93.9 Abnormal uterine and vaginal bleeding, unspecified (principal); N94.6 Dysmenorrhea, unspecified
CPT/HCPCS: 76830; 76856

== ENCOUNTER 2022-08-04 22:57 | Emergency (ER) | payer MEDICARE, MEDICAID, SELFPAY ==
[2022-08-04 23:02] VITALS: BP 118/75; PULSE 90; RESP 18; TEMP 36.6; O2SAT 98
--- NOTE | 2022-08-04 23:07 | ED.GENADUL_ITS ---
Discharge Plan Disposition Patient Disposition: HOME Condition: Good Discharge Details Chief Complaint: Orthopedic Clinical Impression: Fall, Concussion, Arm contusion Primary Care Provider: Moiz Dutta ED Provider: Bucky Pederson Home Meds and New Rx's Prescriptions: No Action epinephrine 0.3 mg/0.3 mL Auto-Injector 0.3 mg IM ONCE metformin 500 mg Tablet 500 mg PO BID fluconazole [Diflucan] 150 mg tablet 150 mg PO ONCE Qty: 1 1RF Rx Instructions: as a single dose. If symptoms still present in 5 days, refill and repeat dose. dextroamphetamine-amphetamine [Adderall] 15 mg tablet 15 mg PO DAILY clonazepam 1 mg tablet 1 mg PO BID (DME) lancets [FreeStyle Lancets] 28 gauge misc See Rx Instructions .ROUTE .MEDSUPPLY Qty: 100 Rx Instructions: As directed (DME) FreeStyle Lite Strips Strip See Rx Instructions .ROUTE .MEDSUPPLY Qty: 10 Rx Instructions: As directed insulin detemir U-100 100 unit/mL (3 mL) insulin pen 45 unit subcut BID (DME) pen needle, diabetic [BD Ultra-Fine Sona Pen Needle] 32 gauge x 5/32 needle See Rx Instructions .ROUTE .MEDSUPPLY Qty: 50 Rx Instructions: As directed omeprazole 40 mg capsule,delayed release(DR/EC) 40 mg PO DAILY haloperidol 5 mg tablet 10 mg PO DAILY albuterol sulfate [ProAir HFA] 90 mcg/actuation HFA aerosol inhaler 2 puff inhalation Q6H PRN fluticasone propionate 50 mcg/actuation spray,suspension 1 spray intranasal BID Rx Instructions: administer into each nostril propranolol 60 mg capsule,extended release 24 hr 60 mg PO DAILY atorvastatin 10 mg tablet 10 mg PO DAILY oxcarbazepine 150 mg tablet 150 mg PO BID cyclobenzaprine 10 mg tablet 10 mg PO BID PRN fluoxetine [Prozac] 20 mg capsule 40 mg PO DAILY trazodone 50 mg tablet 1 tab PO QHS Trulicity 1.5 mg/0.5 mL pen injector See Rx Instructions .ROUTE .COMPLEX Rx Instructions: device subcutaneously Vraylar 3 mg capsule 1 cap PO DAILY acetaminophen [Tylenol Extra Strength] 500 mg Tablet 1,000 mg PO Q6H PRN prazosin 2 mg capsule 3 mg PO .QHS Label Comments: TAKE 1 CAPSULE BY MOUTH EVERY EVENING cyclobenzaprine 10 mg tablet 10 mg PO TID PRNQty: 10 0RF Discharge Instructions Instructions: Concussion (ED) Additional Instructions: At this time your exam does not show any evidence of fractures. Your neurologic assessment is normal. I do suspect that you developed a mild concussion from the fall. It is very important to rest, take Tylenol and Motrin as needed for headache. You likely have mild headache dizziness and nausea for the next day or so. Drink plenty of fluids and stay well rested. If you have any worsening of your symptoms please return immediately. Please be very cognizant of any evidence of worsening headache, vomiting, weakness, numbness, dizziness, decreased concentration, memory problems, sleep disturbance, irritability, fatigue, visual disturbances, judgment problems, depression, or anxiety. These may represent a worsening of your condition or a different, or worse pathology. Please either return immediately for reevaluation or follow up with your primary care provider immediately for continued assessment, reassessment, and management. Please avoid any contact sports, or activities which could cause jarring of your head. A second repeat injury can cause significant and permanent brain damage. After you have complete resolution of any of the symptoms noted above please wait one COMPLETE week until you resume normal gentle physical activity. If you have any return of the symptoms after this, please again wait 1 week after you have complete resolution of your symptoms to return to gentle and normal activities. Referrals: Moiz Dutta [Primary Care Provider] - Medical Decision Making This is a pleasant 32-year-old female with a past medical history of high cholesterol, type 2 diabetes, asthma, borderline personality disorder, GERD, hypertension, PTSD, polycystic ovarian syndrome, appendectomy, cholecystectomy,?who presents today for fall. Patient states that she was trying to carry up all of her groceries when she fell down about 10 steps. She thinks she may have had a very brief loss of consciousness. Since then she has had mild nausea, mild soreness in her left head, left arm, left forearm, and right ankle. She denies any vomiting. She denies any numbness tingling or weakness. She denies any double vision. She admits to a very mild headache. No other complaints at this time. No other modifying factors. Physical exam physical exam demonstrates a well-appearing female. No focal neurologic deficits. No midline cervical thoracic or lumbar spine tenderness. Patient's extremity exam demonstrates no focal tenderness indicative of needing radiographs at this time. No evidence of significant external trauma, the patient is not on any blood thinners. No indication for CT scan of the head at this time. I do suspect that the patient had a mild concussion clinically. However I do feel that the patient at this time based on clinical exam and history and findings is stable for discharge. Patient will be given a dose of Zofran and Motrin for home use for her mild nausea. Discussed red flags for which to return. I did offer to call the patient's mother, but the patient has declined at this time. I have extensively reviewed the treatment plan and discharge instructions with the patient. I have addressed all patient concerns at this time. The patient was made aware of what symptoms to monitor for that would warrant a return to the emergency department. Discussed the plan with the patient, they demonstrate verbal understanding and agreement with our assessment and plan at this time. The documentation in this chart was dictated using [employer] dictation software. Please excuse any dictation errors. HPI General Date/Time Provider Initiated Documentation: 08/04/22 22:58 . HPI Narrative: This is a pleasant 32-year-old female with a past medical history of high cholesterol, type 2 diabetes, asthma, borderline personality disorder, GERD, hypertension, PTSD, polycystic ovarian syndrome, appendectomy, cholecystectomy,?who presents today for fall. Patient states that she was trying to carry up all of her groceries when she fell down about 10 steps. She thinks she may have had a very brief loss of consciousness. Since then she has had mild nausea, mild soreness in her left head, left arm, left forearm, and right ankle. She denies any vomiting. She denies any numbness tingling or weakness. She denies any double vision. She admits to a very mild headache. No other complaints at this time. No other modifying factors. Related Data Home Medications Medication Instructions Recorded Confirmed blood sugar diagnostic (FreeStyle #10 ea 10/10/20 07/31/22 Lite Strips) clonazepam 1 mg tablet 1 mg PO BID 10/10/20 07/31/22 insulin detemir U-100 100 unit/mL 45 unit subcut BID 10/10/20 07/31/22 (3 mL) subcutaneous pen lancets 28 gauge (FreeStyle #100 ea 10/10/20 07/31/22 Lancets) omeprazole 40 mg capsule,delayed 40 mg PO DAILY 10/10/20 07/31/22 release pen needle, diabetic 32 gauge x #50 ea 10/10/20 07/31/22 (BD Ultra-Fine Sona Pen Needle) epinephrine 0.3 mg/0.3 mL 0.3 mg IM ONCE 12/29/20 07/31/22 injection, auto-injector metformin 500 mg tablet 500 mg PO BID 12/29/20 07/31/22 acetaminophen 500 mg tablet 1,000 mg PO Q6H PRN 01/31/21 07/31/22 (Tylenol Extra Strength) haloperidol 5 mg tablet 10 mg PO DAILY 04/05/21 07/31/22 prazosin 2 mg capsule 3 mg PO .QHS 05/14/21 07/31/22 atorvastatin 10 mg tablet 10 mg PO DAILY 08/11/21 07/31/22 cyclobenzaprine 10 mg tablet 10 mg PO BID PRN 08/11/21 07/31/22 fluticasone propionate 50 1 spray intranasal BID 08/11/21 07/31/22 mcg/actuation nasal spray,suspension oxcarbazepine 150 mg tablet 150 mg PO BID 08/11/21 07/31/22 propranolol 60 mg capsule,24 60 mg PO DAILY 08/11/21 07/31/22 hr,extended release fluoxetine 20 mg capsule (Prozac) 40 mg PO DAILY 10/12/21 07/31/22 albuterol sulfate 90 mcg/actuation 2 puff inhalation Q6H PRN 11/13/21 07/31/22 aerosol inhaler (ProAir HFA) fluconazole 150 mg tablet 150 mg PO ONCE #1 tab 11/27/21 07/31/22 (Diflucan) cyclobenzaprine 10 mg tablet 10 mg PO TID PRN #10 tabs 01/16/22 07/31/22 dextroamphetamine-amphetamine 15 15 mg PO DAILY 05/22/22 07/31/22 mg tablet (Adderall) cariprazine 3 mg capsule (Vraylar) 1 cap PO DAILY 07/08/22 07/31/22 dulaglutide 1.5 mg/0.5 mL See Rx Instructions .Route .COMPLEX 07/08/22 07/31/22 subcutaneous pen injector (Trulicity) trazodone 50 mg tablet 1 tab PO QHS 07/08/22 07/31/22 Previous Rx's Medication Instructions Recorded fluconazole 150 mg tablet 150 mg PO ONCE #1 tab 11/27/21 (Diflucan) cyclobenzaprine 10 mg tablet 10 mg PO TID PRN #10 tabs 01/16/22 Allergies Allergy/AdvReac Type Severity Reaction Status Date / Time naproxen [From Aleve] Allergy Severe Anaphylaxis Verified 07/31/22 10:09 cephalexin [From Keflex] Allergy Intermediate Hives Verified 07/31/22 10:09 latex Allergy Intermediate Itching Verified 07/31/22 10:09 venom-honey bee Allergy Verified 07/31/22 10:09 General Stated Complaint: Orthopedic SUZETTE: 4 Review of Systems All systems reviewed & are unremarkable except as noted in HPI and below PFSH All Active Problems Fall (Acute) Concussion (Acute) Arm contusion (Acute) Desire for (Acute) Dysmenorrhea (Acute) Back pain (Acute) Medical History ADHD Anxiety Asthma Borderline personality disorder Depression Diverticulitis GERD (gastroesophageal reflux disease) History of irregular menstrual bleeding History of recurrent UTI (urinary tract infection) HTN (hypertension) Hyperlipidemia Left hip pain Low back pain Nausea Obesity Pain of left calf Pain, joint, knee, right PCOS (polycystic ovarian syndrome) PTSD (post-traumatic stress disorder) Schizoaffective disorder Sleep apnea Suicidal ideation Tachycardia Type 2 diabetes mellitus Surgical History H/O laparoscopy History of appendectomy History of cholecystectomy Family History Mother Diabetes Social History Smoking/Tobacco Use Status: Former Tobacco Use Smoking risk assessment performed?: Yes Alcohol Intake: never Drug use: Daily Substance use type: marijuana Household members: family Housing: apartment Number of Children: 0 current occupation: Unemployed What type of physical activity do you participate in: walking, independent ambulation and irregular exercise Do you feel safe at home: Yes Do you feel safe in your relationship?: Yes History History 2 Para Hx # Term Pregnancies Multiple births Hx # Pregnancies Ectopic pregnancies AB induced Hx Number of Living Children AB spontaneous 2 Exam Narrative Exam Narrative: 1.Const: Well-nourished, Well-developed, appearing stated age 2.Eyes: PERRL, no conjunctival injection, and symmetrical lids. 3.ENT: Atraumatic external nose and ears. Moist MM. Neck: Symmetric, trachea midline, No thyromegaly. There is no evidence of raccoon eyes, gong sign, CSF rhinorrhea, mastoid tenderness, cranial crepitus, hemotympanum, exophthalmos, or hyphema. Patient demonstrates intact dentition with no signs of tooth avulsion or fracture, no signs of jaw deformity, no evidence of a LeFort's fracture, with an intact palate, nose and orbital region. There is no evidence of a nasal septal hematoma. No proptosis. Jaw closes symmetrically. Airway is clear. All teeth are firmly in place. Minimal tenderness over the left yazdanism, but no hematoma. No evidence of excoriations or abrasions from the fall. She does have some excoriations on her forehead which she states are from itching and not from this episode. 4.CVS: +S1/S2, No murmurs or gallops. Peripheral pulses 2+ and equal in all extremities. Brisk capillary refill in all extremities. 5.RESP: Unlabored respiratory effort. Clear to auscultation bilaterally. No wheezes rales or rhonchi no rib or chest wall tenderness. 6.GI: Soft, Nontender/Nondistended, No hepatosplenomegaly. No guarding or rebound. 7.MSK: no gross deformities or discolorations or lesions. Tolerates full range of motion of extremities without tenderness. Minimal achiness is noted over the left distal forearm and left humerus. No swelling, bruise, rash, excoriations, abrasions, or other signs of trauma. No focal bony tenderness to suggest fracture. Significant tenderness to speak of on exam for these extremities. Right ankle demonstrates no focal swelling edema or signs of tenderness. Normal movement and strength. Patient ambulates well without a limp. All compartments of upper and lower extremities are soft with no tenderness. Vascular exam demonstrates brisk capillary refill and intact pulses in all extremities. Pelvic exam demonstrates a stable pelvis, nontender to lateral compression and palpation of symphysis pubis.. No clinical evidence of significant musculoskeletal trauma. 8.Skin: Warm, Dry. No rashes or lesions. 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 Sensation grossly intact, no focal neurologic deficits. All 6 cardinal planes of vision are fully intact. No evidence of rotatory or vertical nystagmus. The patient demonstrated a normal [id number], good dexterity. There was no evidence of dysdiadochokinesia. Patient was able to ambulate without difficulty. There was no wide-based gait. Romberg testing was normal. [id number] testing was normal. Sensation was intact bilaterally as well as muscle strength bilaterally for all extremities. Patient was able to verbalize butter cup with no slurring, or miss pronunciation. 10.Psych: (AAO) x3. Appropriate mood and affect Course Vital Signs Vital signs: Vital Signs Temperature 36.6 C 08/04/22 23:02 Pulse 90 08/04/22 23:02 Respiratory Rate 18 08/04/22 23:02 Blood Pressure 118/75 08/04/22 23:02 Pulse Oximetry 98 08/04/22 23:02 Temperature 36.6 C 08/04/22 23:02 Temperature Source Temporal Artery Scan 08/04/22 23:02 Pulse 90 08/04/22 23:02 Respiratory Rate 18 08/04/22 23:02 Respiratory Effort 08/04/22 23:04 Blood Pressure 118/75 08/04/22 23:02 Blood Pressure Position Sitting 08/04/22 23:02 Pulse Oximetry 98 08/04/22 23:02 Oxygen Delivery Method Room Air 08/04/22 23:02 Oxygen Flow Rate 0 08/04/22 23:02 Pain Level 4 08/04/22 23:02
[2022-08-04] MEDS: Ibuprofen 800 MG TAB (23:18)
[2022-08-04] MEDS: Ondansetron O.D.T. 4 MG TABEF (23:19)
== END 2022-08-04 23:23 | disposition home or self-care (01) ==
LOC: ER 23:27
PROVIDERS: Emergency Provider Student in an Organized Health Care Education/Training Program; PCP Physician Assistant
DX: S40.022A Contusion of left upper arm, initial encounter (principal); S06.0X9A Concussion with loss of consciousness of unspecified duration, initial encounter; E11.9 Type 2 diabetes mellitus without complications; J45.909 Unspecified asthma, uncomplicated; I10 Essential (primary) hypertension; F90.9 Attention-deficit hyperactivity disorder, unspecified type; Z87.891 Personal history of nicotine dependence; W10.9XXA Fall (on) (from) unspecified stairs and steps, initial encounter; Y93.89 Activity, other specified
CPT/HCPCS: 99283; 99284

== ENCOUNTER 2022-09-25 16:49 | Outpatient (REF) | payer MEDICARE, MEDICAID, SELFPAY ==
[2022-09-25 16:10] LABS: ALT 22 U/L (14-59); AST 14 U/L (15-37); Albumin 3.2 g/dL (3.4-5.0); Alkaline Phosphatase 92 U/L (46-116); Anion Gap 9.5 mmol/L (3-11); BUN 8 mg/dL (7-18); Bilirubin, Total 0.2 mg/dL (0.2-1.0); CO2 28.5 mmol/L (21.0-32.0); CREATININE 0.9 mg/dL (0.55-1.02); Calcium 9.1 mg/dL (8.5-10.1); Calculated LDL 66 mg/dL (<100); Chloride 102 mmol/L (98-107); Cholesterol 152 mg/dL (<200); Estimated GFR 86.03 (mL/min/1.73m2); Glucose 119 mg/dL (74-106); HDL Cholesterol 44 mg/dL (40-60); Potassium 4.1 mmol/L (3.5-5.1); Sodium 140 mmol/L (136-145); Total Protein 6.9 g/dL (6.4-8.2); Triglyceride 211 mg/dL (<150)
[2022-09-25 16:43] LABS: Hemoglobin A1C 5.8 % (<5.7)
== END 2022-09-25 16:50 | disposition home or self-care (01) ==
LOC: NCHCN 16:49
PROVIDERS: PCP Physician Assistant; Visit Provider Physician Assistant
DX: E11.9 Type 2 diabetes mellitus without complications (principal); I10 Essential (primary) hypertension; E78.5 Hyperlipidemia, unspecified
CPT/HCPCS: 80053; 80061; 83036

== ENCOUNTER 2022-10-15 08:27 | Outpatient (REF) | payer MEDICARE, MEDICAID, SELFPAY | END 2022-10-15 08:28 | disposition home or self-care (01) | LOC: LBN 08:27 | PROVIDERS: PCP Physician Assistant; Visit Provider Nurse Practitioner Family | DX: N30.01 Acute cystitis with hematuria (principal) | CPT/HCPCS: 87077; 87086; 87186 ==

== ENCOUNTER 2022-10-26 23:20 | Emergency (ER) | payer MEDICARE, MEDICAID, SELFPAY ==
[2022-10-26 23:29] VITALS: BP 116/61; PULSE 91; RESP 16; TEMP 36.4; O2SAT 97
--- NOTE | 2022-10-26 23:30 | DI.CT_ITS ---
Exam(s) CT ABDOMEN PELVIS WO EXAM: CT ABDOMEN PELVIS WO CLINICAL HISTORY: right flank and groin pain, r/o stone. TECHNIQUE: Imaging Protocol: Axial computed tomography images with coronal and sagittal reformatted images were created and reviewed. Oral: / no COMPARISON: No exams were available for comparison FINDINGS: ABDOMEN: Lung Bases: Normal where visualized. Liver: Mildly enlarged. Fatty infiltration. No measurable mass. Gallbladder and biliary tract: Status post cholecystectomy. No radiodense calculus or dilation. Pancreas: Normal density, no abnormal calcifications or inflammatory process. Spleen: Normal. Kidneys: Normal size, contour and axis. No radiodense stones or obstructive uropathy. No masses seen. Adrenal glands: No masses seen. Lymph nodes: Within normal limits. Abdominal Aorta: Abdominal portion non-dilated. Soft tissues: Small fatty containing umbilical hernia. PELVIS: Bladder: Symmetric distention, no gross wall thickening. Bowel: No obstruction or bowel wall thickening. Status post appendectomy. Moderate quantity of stool . Peritoneal cavity: No ascites, collection or mesenteric inflammatory response. Reproductive organs: Within normal limits. Bones: Within normal limits. IMPRESSION: No evidence of hydronephrosis or urinary tract calculi. RADIATION DOSE DELIVERED: 1,381.52mGy.cm Total DLP DATA REPOSITORY: All CT scans at this facility are submitted to the National Radiology Data Registry (NRDR) Dose Index Registry (DIR) with the [employer] (A[employer]). RADIATION OPTIMIZATION: All CT scans at this facility use at least one of these dose optimization te chniques: automated exposure control; mA and/or kV adjustment per patient size (includes targeted exa ms where dose is matched to clinical indication); or iterative reconstruction.
[2022-10-26 23:33] VITALS: O2SAT 97
[2022-10-26 23:34] VITALS: BP 116/61; PULSE 88
[2022-10-26 23:40] LABS: Bilirubin Negative (Negative); Blood Moderate (Negative); Clarity Clear (Clear); Glucose >=1000 mg/dL (Negative); Ketones Negative (Negative); Leukocyte Esterase Trace (Negative); Nitrite Negative (Negative); Specific Gravity 1.025 (1.005-1.025); Urobilinogen 0.2 EU/dL (Up TO 0.2)
--- NOTE | 2022-10-26 23:40 | W.ED.GENAD ---
Discharge Plan Disposition Patient Disposition: Home Condition: Good Discharge Details Clinical Impression: Abdominal pain, UTI (urinary tract infection) Primary Care Provider: Moiz Dutta ED Provider: Bucky Pederson Home Meds and New Rx's Prescriptions: No Action epinephrine 0.3 mg/0.3 mL Auto-Injector 0.3 mg IM ONCE metformin 500 mg Tablet 500 mg PO BID dextroamphetamine-amphetamine [Adderall] 15 mg tablet 15 mg PO DAILY norethindrone acetate [Aygestin] 5 mg tablet 5 mg PO DAILY Qty: 90 5RF clonazepam 1 mg tablet 3 mg PO BID (DME) lancets [FreeStyle Lancets] 28 gauge misc See Rx Instructions .ROUTE .MEDSUPPLY Qty: 100 Rx Instructions: As directed (DME) FreeStyle Lite Strips Strip See Rx Instructions .ROUTE .MEDSUPPLY Qty: 10 Rx Instructions: As directed insulin detemir U-100 100 unit/mL (3 mL) insulin pen 45 unit subcut BID (DME) pen needle, diabetic [BD Ultra-Fine Sona Pen Needle] 32 gauge x 5/32 needle See Rx Instructions .ROUTE .MEDSUPPLY Qty: 50 Rx Instructions: As directed omeprazole 40 mg capsule,delayed release(DR/EC) 40 mg PO DAILY haloperidol 5 mg tablet 10 mg PO DAILY albuterol sulfate [ProAir HFA] 90 mcg/actuation HFA aerosol inhaler 2 puff inhalation Q6H PRN fluticasone propionate 50 mcg/actuation spray,suspension 1 spray intranasal BID Rx Instructions: administer into each nostril propranolol 60 mg capsule,extended release 24 hr 60 mg PO DAILY atorvastatin 10 mg tablet 10 mg PO DAILY oxcarbazepine 150 mg tablet 150 mg PO BID cyclobenzaprine 10 mg tablet 10 mg PO BID PRN Trulicity 1.5 mg/0.5 mL pen injector See Rx Instructions .ROUTE .COMPLEX Rx Instructions: device subcutaneously Vraylar 3 mg capsule 1 cap PO DAILY acetaminophen [Tylenol Extra Strength] 500 mg Tablet 1,000 mg PO Q6H PRN prazosin 2 mg capsule 5 mg PO .QHS Label Comments: TAKE 1 CAPSULE BY MOUTH EVERY EVENING cyclobenzaprine 10 mg tablet 10 mg PO TID PRNQty: 10 0RF mirtazapine [Remeron] 15 mg Tablet 15 mg PO DAILY insulin glargine [Lantus Solostar U-100 Insulin] 100 unit/mL (3 mL) insulin pen 30 unit SUBCUT BID Discharge Instructions Instructions: Urinary Tract Infection in Women (ED) Additional Instructions: You have evidence of a urinary tract infection still. You do have notable resistance patterns. You have been treated with a single dose of fosfomycin which should take care of the infection. If you notice any worsening of your symptoms, or any new symptoms such as vomiting, diarrhea, fever, chills, shortness of breath, chest pain, numbness, weakness, or fainting , please return immediately to the emergency department for reevaluation. Please follow up with your primary care provider as soon as possible for reassessment and reevaluation. As always, it was a pleasure participating in your medical care today. Referrals: Moiz Dutta [Primary Care Provider] - Medical Decision Making This is a pleasant 32-year-old female with a past medical history of high cholesterol, type 2 diabetes, asthma, borderline personality disorder, GERD, hypertension, PTSD, polycystic ovarian syndrome, appendectomy, cholecystectomy, who presents today for urinary frequency, hematuria and right flank and groin pain. Patient states that about 3 weeks ago she developed urinary frequency and hematuria. She was initially started on Bactrim, but cultures returned resistant for Bactrim and she was transition to a different antibiotic, which she does not recall. She finished this antibiotic 2 days ago. She states that this slightly helped her symptoms, but her symptoms have persisted and then over the last 3 to 4 days they have worsened. She has now developed a right flank and back pain as well as right groin pain. She has been drinking cranberry juice but this has not improved her symptoms. She does have history of a kidney stone once before and states that this feels similar. Additionally she states that her significant other just committed suicide a few days ago and this has been a social stressor. She denies any homicidal or suicidal ideations. She is not requesting any additional mental health help or assistance currently. She just finished her period about 2 days ago as well Physical exam demonstrates mild right lower quadrant and right CVA tenderness. Differential is highest for kidney stone versus ovarian cyst. UTI with pyelonephritis is certainly on the differential as well. Symptoms appear clinically inconsistent with torsion. We will give morphine and Zofran for pain and nausea. We will hold on Toradol as she does have an allergy to naproxen. We will get a CT scan for further radiographic assessment, monitor closely and reassess. 2:[address] scan of the abdomen is negative for acute process per virtual radiology. Patient feels much better on reassessment. Urinalysis initially was dirty, we did get a repeat urinalysis and this still does demonstrate evidence of infection. Electrolytes stable, renal function normal. Patient did complete her dose of nitrofurantoin and prescription, but still has persistent infection. She did finish her menstrual period just 2 days ago, and there is still some blood noted in the urine in conjunction with the infection. We will treat with fosfomycin. Review of her previous E. coli cultures does represent notable resistance patterns to it in conjunction with Benadryl to prevent any rash. Thus we will choose fosfomycin for the time being. Pending vaginal path smear. 3:31 AM Vaginal Pap smear is returned negative. Patient feels much better. Patient stable for discharge. No evidence of an acute surgical abdomen or other current acute life-threatening etiology. We will continue to treat with the single dose of fosfomycin. Discussed red flags for which to return. I have extensively reviewed the treatment plan and discharge instructions with the patient. I have addressed all patient concerns at this time. The patient was made aware of what symptoms to monitor for that would warrant a return to the emergency department. Discussed the plan with the patient, they demonstrate verbal understanding and agreement with our assessment and plan at this time. The documentation in this chart was dictated using [employer] dictation software. Please excuse any dictation errors. FINDINGS: Liver: Normal. No mass. Gallbladder and bile ducts: Cholecystectomy. Pancreas: Normal. No ductal dilation. Spleen: Normal. No splenomegaly. Adrenal glands: Normal. No mass. Kidneys and ureters: Normal. No hydronephrosis. Stomach and bowel: Unremarkable. No obstruction. No mucosal thickening. Appendix: Appendectomy. Intraperitoneal space: No free fluid or free air. Vasculature: Unremarkable. No abdominal aortic aneurysm. Lymph nodes: Unremarkable. No enlarged lymph nodes. Urinary bladder: Unremarkable as visualized. Reproductive: Unremarkable as visualized. Bones/joints: Unremarkable. No acute fracture. Soft tissues: Small umbilical hernia containing fat. IMPRESSION: No acute findings. Thank you for allowing us to participate in the care of your patient. Dictated and Authenticated by: Gareth Hunter MD 10/27/2022 2:08 AM Eastern Time ([place] & [place]) HPI General Date/Time Provider Initiated Documentation: 10/26/22 23:37. HPI Narrative: This is a pleasant 32-year-old female with a past medical history of high cholesterol, type 2 diabetes, asthma, borderline personality disorder, GERD, hypertension, PTSD, polycystic ovarian syndrome, appendectomy, cholecystectomy, who presents today for urinary frequency, hematuria and right flank and groin pain. Patient states that about 3 weeks ago she developed urinary frequency and hematuria. She was initially started on Bactrim, but cultures returned resistant for Bactrim and she was transition to a different antibiotic, which she does not recall. She finished this antibiotic 2 days ago. She states that this slightly helped her symptoms, but her symptoms have persisted and then over the last 3 to 4 days they have worsened. She has now developed a right flank and back pain as well as right groin pain. She has been drinking cranberry juice but this has not improved her symptoms. She does have history of a kidney stone once before and states that this feels similar. Additionally she states that her significant other just committed suicide a few days ago and this has been a social stressor. She denies any homicidal or suicidal ideations. She is not requesting any additional mental health help or assistance currently. She just finished her period about 2 days ago as well Related Data Home Medications Medication Instructions Recorded Confirmed blood sugar diagnostic (FreeStyle #10 ea 10/10/20 10/24/22 Lite Strips) clonazepam 1 mg tablet 3 mg PO BID 10/10/20 10/26/22 insulin detemir U-100 100 unit/mL 45 unit subcut BID 10/10/20 10/24/22 (3 mL) subcutaneous pen lancets 28 gauge (FreeStyle #100 ea 10/10/20 10/24/22 Lancets) omeprazole 40 mg capsule,delayed 40 mg PO DAILY 10/10/20 10/26/22 release pen needle, diabetic 32 gauge x #50 ea 10/10/20 10/24/22 (BD Ultra-Fine Sona Pen Needle) epinephrine 0.3 mg/0.3 mL 0.3 mg IM ONCE 12/29/20 10/26/22 injection, auto-injector metformin 500 mg tablet 500 mg PO BID 12/29/20 10/26/22 acetaminophen 500 mg tablet 1,000 mg PO Q6H PRN 01/31/21 10/26/22 (Tylenol Extra Strength) haloperidol 5 mg tablet 10 mg PO DAILY 04/05/21 10/26/22 prazosin 2 mg capsule 5 mg PO .QHS 05/14/21 10/26/22 atorvastatin 10 mg tablet 10 mg PO DAILY 08/11/21 10/26/22 cyclobenzaprine 10 mg tablet 10 mg PO BID PRN 08/11/21 10/26/22 fluticasone propionate 50 1 spray intranasal BID 08/11/21 10/26/22 mcg/actuation nasal spray,suspension oxcarbazepine 150 mg tablet 150 mg PO BID 08/11/21 10/26/22 propranolol 60 mg capsule,24 60 mg PO DAILY 08/11/21 10/26/22 hr,extended release albuterol sulfate 90 mcg/actuation 2 puff inhalation Q6H PRN 11/13/21 10/26/22 aerosol inhaler (ProAir HFA) cyclobenzaprine 10 mg tablet 10 mg PO TID PRN #10 tabs 01/16/22 10/26/22 dextroamphetamine-amphetamine 15 15 mg PO DAILY 05/22/22 10/26/22 mg tablet (Adderall) cariprazine 3 mg capsule (Vraylar) 1 cap PO DAILY 07/08/22 10/24/22 dulaglutide 1.5 mg/0.5 mL See Rx Instructions .Route .COMPLEX 07/08/22 10/26/22 subcutaneous pen injector (Trulicity) norethindrone acetate 5 mg tablet 5 mg PO DAILY #90 tabs 10/24/22 10/26/22 (Aygestin) insulin glargine 100 unit/mL (3 30 unit subcut BID 10/26/22 10/26/22 mL) subcutaneous pen (Lantus Solostar U-100 Insulin) mirtazapine 15 mg tablet (Remeron) 15 mg PO DAILY 10/26/22 10/26/22 Previous Rx's Medication Instructions Recorded cyclobenzaprine 10 mg tablet 10 mg PO TID PRN #10 tabs 01/16/22 norethindrone acetate 5 mg tablet 5 mg PO DAILY #90 tabs 10/24/22 (Aygestin) Allergies Allergy/AdvReac Type Severity Reaction Status Date / Time naproxen [From Aleve] Allergy Severe Anaphylaxis Verified 10/26/22 23:38 cephalexin [From Keflex] Allergy Intermediate Hives Verified 10/26/22 23:38 latex Allergy Intermediate Itching Verified 10/26/22 23:38 venom-honey bee Allergy Verified 10/26/22 23:38 General Stated Complaint: Urinary SUZETTE: 3 Review of Systems All systems reviewed & are unremarkable except as noted in HPI and below PFSH All Active Problems (Updated 10/27/22 @ 02:30 by Bucky Pederson DO) Abdominal pain (Acute) UTI (urinary tract infection) (Acute) Dysmenorrhea (Acute) Medical History ADHD Anxiety Asthma Borderline personality disorder Depression Diverticulitis GERD (gastroesophageal reflux disease) History of irregular menstrual bleeding History of recurrent UTI (urinary tract infection) HTN (hypertension) Hyperlipidemia Left hip pain Low back pain Nausea Obesity Pain of left calf Pain, joint, knee, right PCOS (polycystic ovarian syndrome) PTSD (post-traumatic stress disorder) Schizoaffective disorder Sleep apnea Suicidal ideation Tachycardia Type 2 diabetes mellitus Surgical History H/O laparoscopy History of appendectomy History of cholecystectomy Family History Mother Diabetes Social History Smoking/Tobacco Use Status: Former Tobacco Use Smoking risk assessment performed?: Yes Alcohol Intake: never Drug use: Daily Substance use type: marijuana Household members: family Housing: apartment Number of Children: 0 current occupation: Unemployed What type of physical activity do you participate in: walking, independent ambulation and irregular exercise Do you feel safe at home: Yes Do you feel safe in your relationship?: Yes Female Reproductive History Menstrual control method: pills (aygestin) History History 2 Para Hx # Term Pregnancies Multiple births Hx # Pregnancies Ectopic pregnancies AB induced Hx Number of Living Children AB spontaneous 2 Exam Narrative Exam Narrative: 1.Const: Well-nourished, Well-developed, appearing stated age 2.Eyes: PERRL, no conjunctival injection, and symmetrical lids. 3.ENT: Atraumatic external nose and ears. Moist MM. Neck: Symmetric, trachea midline, No thyromegaly. 4.CVS: +S1/S2, No murmurs or gallops. Peripheral pulses 2+ and equal in all extremities. Brisk capillary refill in all extremities. 5.RESP: Unlabored respiratory effort. Clear to auscultation bilaterally. No wheezes rales or rhonchi 6.GI: Soft, nondistended, no guarding or rebound. Mild right lower quadrant tenderness, mild right CVA tenderness. 7.MSK: Normocephalic/Atraumatic, Extremities w/o deformity or ttp No cyanosis or clubbing, Normal movement of all extremities 8.Skin: Warm, Dry. No rashes or lesions. 9.Neuro: [employer] dep[employer] worker II-XII grossly intact. Sensation grossly intact, no focal neurologic deficits. 10.Psych: (AAO) x3. Appropriate mood and affect Course Vital Signs Vital signs: Vital Signs Temperature 36.4 C L 10/26/22 23:29 Pulse 91 H 10/26/22 23:29 Respiratory Rate 16 10/26/22 23:29 Blood Pressure 116/61 10/26/22 23:29 Pulse Oximetry 97 10/26/22 23:29 Temperature 36.4 C L 10/26/22 23:29 Temperature Source Temporal Artery Scan 10/26/22 23:29 Pulse 91 H 10/26/22 23:29 Respiratory Rate 16 10/26/22 23:29 Respiratory Effort 10/26/22 23:29 Blood Pressure 116/61 10/26/22 23:29 Blood Pressure Position Sitting 10/26/22 23:29 Pulse Oximetry 97 10/26/22 23:29 Oxygen Delivery Method Room Air 10/26/22 23:29 Oxygen Flow Rate 0 10/26/22 23:29 Pain Level 9 10/26/22 23:29
[2022-10-26] MEDS: Ondansetron 4 MG/2 ML VIAL IVP (23:47)
[2022-10-26] MEDS: MORPHine 4 MG/ML SYR IVP (23:47)
[2022-10-26 23:50] LABS: Abs Immature Grans 0.06 10^3/uL (0.0-0.06); Absolute Basophil Count 0.06 10^3/uL (0.0-0.2); Absolute Lymphocyte Count 4.41 10^3/uL (1.2-3.4); Absolute Neutrophil Count 8.67 10^3/uL (1.2-6.7); Basophils % 0.4; Eosinophils % 1.5; HCT 39.4 % (36.0-46.0); HGB 13.3 g/dL (11.2-15.7); Immature Grans % 0.4; Lymphocytes % 30.6; MCH 29.4 pg (27.0-33.0); MCHC 33.8 % (32.0-36.0); MCV 87 fL (80-95); MPV 9.6 fL (8.0-11.0); Monocytes % 6.9; Neutrophils % 60.2; Platelet Count 373 10^3/uL (130-400); RBC 4.52 10^6/uL (3.93-5.22); RDW 13.2 % (11.7-14.6); RDW-SD 41.4 fL; WBC 14.41 10^3/uL (4.4-10.8)
[2022-10-26 23:51] LABS: Bacteria Few HPF (Negative); Crystals Negative HPF (Negative); Epithelial Cells Moderate HPF (Negative); Mucus Negative (Negative)
[2022-10-26 23:52] LABS: C & S Indicated? No/Sq. Contamination; Casts Negative LPF (Negative)
[2022-10-26] MEDS: Normal Saline 500 ML IV (23:57)
[2022-10-27] LABS: Absolute Eosinophil Count 0.22 10^3/uL (0.0-0.7); Absolute Monocyte Count 0.99 10^3/uL (0.1-0.8)
[2022-10-27 00:05] LABS: ALT 27 U/L (14-59); AST 16 U/L (15-37); Albumin 3.3 g/dL (3.4-5.0); Alkaline Phosphatase 111 U/L (46-116); Anion Gap 7.5 mmol/L (3-11); BUN 11 mg/dL (7-18); Bilirubin, Total 0.2 mg/dL (0.2-1.0); CO2 28.5 mmol/L (21.0-32.0); Calcium 8.9 mg/dL (8.5-10.1); Chloride 100 mmol/L (98-107); Estimated GFR 75.81 (mL/min/1.73m2); Glucose 253 mg/dL (74-106); Sodium 136 mmol/L (136-145); Total Protein 7.7 g/dL (6.4-8.2)
[2022-10-27] MEDS: diphenhydrAMINE 50 MG/ML VIAL 25 MG IVP (00:25)
[2022-10-27] MEDS: MORPHine 4 MG/ML SYR IVP (02:00)
[2022-10-27 02:08] LABS: Bilirubin Negative (Negative); Blood Moderate (Negative); Clarity Clear (Clear); Glucose Negative (Negative); Ketones Negative (Negative); Leukocyte Esterase Small (Negative); Nitrite Negative (Negative); Urobilinogen 0.2 EU/dL (Up TO 0.2)
--- NOTE | 2022-10-27 02:09 | DI.VRAD_ITS ---
PROCEDURE INFORMATION: Exam: CT Abdomen And Pelvis Without Contrast Exam date and time: 10/27/2022 12:13 AM Age: 32 years old Clinical indication: Other: Flank pain TECHNIQUE: Imaging protocol: Computed tomography of the abdomen and pelvis without contrast. COMPARISON: US PELVIS TRANSVAGINAL 07/18/2022 10:00 AM FINDINGS: Liver: Normal. No mass. Gallbladder and bile ducts: Cholecystectomy. Pancreas: Normal. No ductal dilation. Spleen: Normal. No splenomegaly. Adrenal glands: Normal. No mass. Kidneys and ureters: Normal. No hydronephrosis. Stomach and bowel: Unremarkable. No obstruction. No mucosal thickening. Appendix: Appendectomy. Intraperitoneal space: No free fluid or free air. Vasculature: Unremarkable. No abdominal aortic aneurysm. Lymph nodes: Unremarkable. No enlarged lymph nodes. Urinary bladder: Unremarkable as visualized. Reproductive: Unremarkable as visualized. Bones/joints: Unremarkable. No acute fracture. Soft tissues: Small umbilical hernia containing fat. IMPRESSION: No acute findings. Dictated and Authenticated by: Gareth Hunter MD. Ordering:EITAN Lawler MD
[2022-10-27 02:14] LABS: Bacteria Few HPF (Negative); C & S Indicated? Yes; Casts Negative LPF (Negative); Crystals Negative HPF (Negative); Epithelial Cells Few HPF (Negative); Mucus Negative (Negative)
[2022-10-27] MEDS: Fosfomycin Tromethamine 3 GM PACKET PO (02:38)
[2022-10-27] MEDS: Ondansetron 4 MG/2 ML VIAL IVP (02:38)
[2022-10-27 03:00] VITALS: BP 82/47; PULSE 80
[2022-10-27 03:01] VITALS: BP 97/53; PULSE 75
[2022-10-27 03:41] VITALS: BP 97/60; PULSE 80; RESP 18; O2SAT 100
== END 2022-10-27 03:43 | disposition home or self-care (01) ==
PROVIDERS: Emergency Provider Student in an Organized Health Care Education/Training Program; PCP Physician Assistant
DX: N39.0 Urinary tract infection, site not specified (principal); E11.9 Type 2 diabetes mellitus without complications; I10 Essential (primary) hypertension
CPT/HCPCS: 80053; 96361; 96374; 96375; 96376; 99284; 74176; 81003; 81015; 85025; 87086; 87480; 87510; 87660; J1200; J2270; J2405; J3490

== ENCOUNTER 2022-11-10 22:57 | Emergency (ER) | payer MEDICARE, MEDICAID, SELFPAY ==
[2022-11-10 23:03] VITALS: BP 122/77; PULSE 100; RESP 18; TEMP 36.6; O2SAT 99
--- NOTE | 2022-11-10 23:19 | ED.GENADUL_ITS ---
Discharge Plan Disposition Patient Disposition: Home Condition: Improving Discharge Details Clinical Impression: Abdominal pain, vomiting, and diarrhea Primary Care Provider: Moiz Dutta ED Provider: Rowan Sargent Home Meds and New Rx's Prescriptions: New prochlorperazine maleate [Compazine] 10 mg tablet 10 mg PO TID PRN (Reason: nausea and vomiting) Qty: 7 0RF fluticasone propionate [Flonase Allergy Relief] 50 mcg/actuation spray,suspension 1 spray TRINITY DAILY Qty: 15.8 0RF Rx Instructions: administer into each nostril Continued epinephrine 0.3 mg/0.3 mL Auto-Injector 0.3 mg IM ONCE metformin 500 mg Tablet 500 mg PO BID dextroamphetamine-amphetamine [Adderall] 15 mg tablet 15 mg PO DAILY norethindrone acetate [Aygestin] 5 mg tablet 5 mg PO DAILY Qty: 90 5RF clonazepam 1 mg tablet 3 mg PO BID (DME) lancets [FreeStyle Lancets] 28 gauge misc See Rx Instructions .ROUTE .MEDSUPPLY Qty: 100 Rx Instructions: As directed (DME) FreeStyle Lite Strips Strip See Rx Instructions .ROUTE .MEDSUPPLY Qty: 10 Rx Instructions: As directed insulin detemir U-100 100 unit/mL (3 mL) insulin pen 45 unit subcut BID (DME) pen needle, diabetic [BD Ultra-Fine Sona Pen Needle] 32 gauge x 5/32 needle See Rx Instructions .ROUTE .MEDSUPPLY Qty: 50 Rx Instructions: As directed omeprazole 40 mg capsule,delayed release(DR/EC) 40 mg PO DAILY haloperidol 5 mg tablet 10 mg PO DAILY albuterol sulfate [ProAir HFA] 90 mcg/actuation HFA aerosol inhaler 2 puff inhalation Q6H PRN fluticasone propionate 50 mcg/actuation spray,suspension 1 spray intranasal BID Rx Instructions: administer into each nostril propranolol 60 mg capsule,extended release 24 hr 60 mg PO DAILY atorvastatin 10 mg tablet 10 mg PO DAILY oxcarbazepine 150 mg tablet 150 mg PO BID cyclobenzaprine 10 mg tablet 10 mg PO BID PRN Trulicity 1.5 mg/0.5 mL pen injector See Rx Instructions .ROUTE .COMPLEX Rx Instructions: device subcutaneously Vraylar 3 mg capsule 1 cap PO DAILY acetaminophen [Tylenol Extra Strength] 500 mg Tablet 1,000 mg PO Q6H PRN prazosin 2 mg capsule 5 mg PO .QHS Label Comments: TAKE 1 CAPSULE BY MOUTH EVERY EVENING cyclobenzaprine 10 mg tablet 10 mg PO TID PRNQty: 10 0RF insulin glargine [Lantus Solostar U-100 Insulin] 100 unit/mL (3 mL) insulin pen 30 unit SUBCUT BID Discharge Instructions Instructions: Acute Nausea and Vomiting (ED), Acute Diarrhea (ED), Abdominal Pain (ED) Additional Instructions: Your blood tests and imaging today are reassuring and show no evidence of acute concerning or significant findings. Drink plenty of fluids and get plenty of rest. Take the Compazine as needed and directed for nausea and vomiting. Prescriptions for Compazine and Flonase were sent electronically to your [place] pharmacy. Follow-up with your primary care doctor in 1 week. Return to the emergency department with any worsening or new concerning symptoms. Discharge Data Discharge Physician: Rowan Sargent Medical Decision Making 3005 -- 32-year-old female with a history of obesity, hypertension, hyperlipidemia, diabetes, asthma, GERD, diverticulitis, PCOS, endometriosis, ADHD, anxiety, depression, PTSD, borderline personality disorder, schizoaffective disorder, appendectomy and cholecystectomy presents for 5 days of nausea, vomiting, diarrhea and abdominal pain. Rate 100 on arrival. Remainder of vitals within normal limits. Patient appears nontoxic. Her abdomen is obese and tender in epigastrium and across lower quadrants. No rigidity or guarding. Differential diagnosis includes diverticulitis, gastroenteritis, colitis, influenza, etc. We will place an IV, bolus IV fluids, screening labs, urinalysis, CT abdomen and pelvis and give a dose of IV Tylenol, IV phenergan and reassess. 0100 -- labs and imaging reviewed. White blood cell count 13. Normal electrolytes. Glucose 151 with normal bicarb and anion gap. Lipase within normal limits. Urinalysis negative for infection. Fluvid negative. CT abdomen and pelvis negative for acute findings. Patient reassessed and she still complaining of pain and nausea. She has a history of anaphylaxis with NSAIDs. We will give a dose of IV Dilaudid, IV Compazine and Benadryl and reassess. 0200 --patient reassessed and she feels much better and feels comfortable going home. She states she has been having symptoms of eye and nose itching consistent with her seasonal allergies and ran out of her Flonase. We will send a prescription for Flonase and Compazine electronically to her pharmacy. She was also given Compazine to go. She was able to tolerate p.o. here. Advised to follow up with the primary care doctor for re-evaluation. Usual and customary return precautions given prior to discharge. Medical Records Medical records reviewed: Yes I reviewed the patient's medical records. Imaging Data Radiologic Study: Radiologist's impression: CT Abdomen And Pelvis With Contrast Exam date and time: 11/11/2022 12:10 AM Age: 32 years old Clinical indication: Other: Vomiting diarrhea, lower abd pain TECHNIQUE: Imaging protocol: Computed tomography of the abdomen and pelvis with contrast. Contrast material: 350; Contrast volume: 100 ml; Contrast route: INTRAVENOUS (IV);? COMPARISON: CT ABDOMEN PELVIS WO 10/27/2022 12:13 AM FINDINGS: Lungs: Lung bases clear. Liver: Normal appearing liver. Gallbladder and bile ducts: Prior cholecystectomy. No biliary dilatation. Pancreas: Normal appearing pancreas. Spleen: Normal appearing spleen. Adrenal glands: Normal appearing adrenal glands. Kidneys and ureters: Normal appearing kidneys. No hydronephrosis. Stomach and bowel: No oral contrast. Stomach moderately distended with ingested material. No small bowel dilatation to suggest obstruction. Normal-appearing colon. No evidence of diverticulitis or colitis. Appendix: Appendix not identified. Surgical material at the cecal apex suggesting a prior appendectomy. Correlation with surgical history recommended. Intraperitoneal space: Trace fluid in the deep pelvis. No free air. Vasculature: Normal caliber abdominal aorta. Lymph nodes: No pathologically enlarged mesenteric, retroperitoneal, or pelvic sidewall lymph nodes. Urinary bladder: Normal appearing urinary bladder. Reproductive: Anteverted uterus, normal in size. Normal-appearing left ovary. Right ovary partially obscured but normal in size. Trace right adnexal fluid. Bones/joints: No acute fracture seen among the bones of the abdomen or pelvis. Soft tissues: Diastasis recti. Small fat containing ventral hernia at the umbilicus. Small region of skin thickening with subcutaneous density in the right anterior abdominal wall adjacent to the umbilicus. Recent subcutaneous injections? Other history of trivial trauma? Small region of acute cellulitis? IMPRESSION: 1. Right ovary partially obscured but normal in size. Trace right adnexal fluid. Normal-appearing left ovary. 2. No acute bowel pathology demonstrated. Lab Data Lab results reviewed: Yes I reviewed the patient's lab results. Labs: Laboratory Tests Range/Units 11/10/22 11/10/22 11/10/22 23:19 23:19 23:28 WBC (4.4-10.8) 10^3/uL 13.19 H RBC (3.93-5.22) 10^6/uL 4.31 Hgb (11.2-15.7) g/dL 12.5 Hct (36.0-46.0) % 37.3 MCV (80-95) fL 87 MCH (27.0-33.0) pg 29.0 MCHC (32.0-36.0) % 33.5 RDW (11.7-14.6) % 12.8 Plt Count (130-400) 10^3/uL 445 H MPV (8.0-11.0) fL 9.7 Immature Gran % 0.4 Neutrophils % 58.4 Lymphocytes % 32.1 Monocytes % 7.1 Eosinophils % 1.7 Basophils % 0.3 Nucleated RBC % (0.0-0.3) % 0.0 Absolute Neutrophils (1.2-6.7) 10^3/uL 7.70 H Absolute Lymphocytes (1.2-3.4) 10^3/uL 4.23 H Absolute Monocytes (0.1-0.8) 10^3/uL 0.94 H Absolute Eosinophils (0.0-0.7) 10^3/uL 0.22 Absolute Basophils (0.0-0.2) 10^3/uL 0.04 Sodium (136-145) mmol/L 138 Potassium (3.5-5.1) mmol/L 4.5 Chloride (98-107) mmol/L 103 Carbon Dioxide (21.0-32.0) mmol/L 28.9 Anion Gap (3-11) mmol/L 6.1 BUN (7-18) mg/dL 9 Creatinine (0.55-1.02) mg/dL 0.9 Est GFR (CKD-EPI 2020) (mL/min/1.73m2) 86.03 Glucose (74-106) mg/dL 151 H Calcium (8.5-10.1) mg/dL 9.2 Total Bilirubin (0.2-1.0) mg/dL 0.3 AST (15-37) U/L 34 ALT (14-59) U/L 21 Alkaline Phosphatase (46-116) U/L 87 Total Protein (6.4-8.2) g/dL 8.0 Albumin (3.4-5.0) g/dL 3.3 L Lipase (73-393) U/L 147 Urine Color (Yellow) Urine Clarity (Clear) Urine pH (5-8) Ur Specific [place] (1.005-1.025) Urine Protein (Negative) mg/dL Urine Ketones (Negative) mg/dL Urine Blood (Negative) Urine Nitrite (Negative) Urine Bilirubin (Negative) Urine Urobilinogen (Up TO 0.2) EU/dL Ur Leukocyte Esterase (Negative) Urine Glucose (Negative) mg/dL COVID-19 Source Nasopharynx SARS-CoV-2 (PCR) (Negative) Negative Influenza Type A (PCR) (Negative) Negative Influenza Type B (PCR) (Negative) Negative RSV (PCR) (Negative) Negative Range/Units 11/10/22 23:42 WBC (4.4-10.8) 10^3/uL RBC (3.93-5.22) 10^6/uL Hgb (11.2-15.7) g/dL Hct (36.0-46.0) % MCV (80-95) fL MCH (27.0-33.0) pg MCHC (32.0-36.0) % RDW (11.7-14.6) % Plt Count (130-400) 10^3/uL MPV (8.0-11.0) fL Immature Gran % Neutrophils % Lymphocytes % Monocytes % Eosinophils % Basophils % Nucleated RBC % (0.0-0.3) % Absolute Neutrophils (1.2-6.7) 10^3/uL Absolute Lymphocytes (1.2-3.4) 10^3/uL Absolute Monocytes (0.1-0.8) 10^3/uL Absolute Eosinophils (0.0-0.7) 10^3/uL Absolute Basophils (0.0-0.2) 10^3/uL Sodium (136-145) mmol/L Potassium (3.5-5.1) mmol/L Chloride (98-107) mmol/L Carbon Dioxide (21.0-32.0) mmol/L Anion Gap (3-11) mmol/L BUN (7-18) mg/dL Creatinine (0.55-1.02) mg/dL Est GFR (CKD-EPI 2020) (mL/min/1.73m2) Glucose (74-106) mg/dL Calcium (8.5-10.1) mg/dL Total Bilirubin (0.2-1.0) mg/dL AST (15-37) U/L ALT (14-59) U/L Alkaline Phosphatase (46-116) U/L Total Protein (6.4-8.2) g/dL Albumin (3.4-5.0) g/dL Lipase (73-393) U/L Urine Color (Yellow) Yellow Urine Clarity (Clear) Clear Urine pH (5-8) 7.0 Ur Specific [place] (1.005-1.025) 1.025 Urine Protein (Negative) mg/dL Negative Urine Ketones (Negative) mg/dL Negative Urine Blood (Negative) Negative Urine Nitrite (Negative) Negative Urine Bilirubin (Negative) Negative Urine Urobilinogen (Up TO 0.2) EU/dL 0.2 Ur Leukocyte Esterase (Negative) Negative Urine Glucose (Negative) mg/dL Negative COVID-19 Source SARS-CoV-2 (PCR) (Negative) Influenza Type A (PCR) (Negative) Influenza Type B (PCR) (Negative) RSV (PCR) (Negative) HPI General Mode of arrival: ambulatory . Date/Time Provider Initiated Documentation: 11/10/22 23:01 . Limitations to Documentation: no limitations . Information obtained by: patient . HPI Narrative: Patient is a 32-year-old female with a history of obesity, hypertension, hyperlipidemia, diabetes, asthma, GERD, diverticulitis, PCOS, endometriosis, ADHD, anxiety, depression, PTSD, borderline personality disorder, schizoaffective disorder, appendectomy and cholecystectomy presents for 5 days of nausea, vomiting, diarrhea and abdominal pain. Patient states she last vomited yesterday which was mainly bile. She states she last had 2 episodes of loose brown diarrhea today. She denies any rectal bleeding. She states her abdominal pain has been intermittent, sharp and mainly in the lower abdomen. She states the pain is usually worse with eating. She states she took Tylenol a few hours ago without relief. She admits to nausea at this time. She states her pain is currently 6/10. She denies any fever, chest pain, difficulty breathing, vaginal bleeding, recent travel, or antibiotics. She does endorse that she has been around many sick people with similar symptoms including people who recently tested positive for COVID. Related Data Home Medications Medication Instructions Recorded Confirmed blood sugar diagnostic (FreeStyle #10 ea 10/10/20 11/10/22 Lite Strips) clonazepam 1 mg tablet 3 mg PO BID 10/10/20 11/10/22 insulin detemir U-100 100 unit/mL 45 unit subcut BID 10/10/20 11/10/22 (3 mL) subcutaneous pen lancets 28 gauge (FreeStyle #100 ea 10/10/20 11/10/22 Lancets) omeprazole 40 mg capsule,delayed 40 mg PO DAILY 10/10/20 11/10/22 release pen needle, diabetic 32 gauge x #50 ea 10/10/20 11/10/22/32 (BD Ultra-Fine Sona Pen Needle) epinephrine 0.3 mg/0.3 mL 0.3 mg IM ONCE 12/29/20 11/10/22 injection, auto-injector metformin 500 mg tablet 500 mg PO BID 12/29/20 11/10/22 acetaminophen 500 mg tablet 1,000 mg PO Q6H PRN 01/31/21 11/10/22 (Tylenol Extra Strength) haloperidol 5 mg tablet 10 mg PO DAILY 04/05/21 11/10/22 prazosin 2 mg capsule 5 mg PO .QHS 05/14/21 11/10/22 atorvastatin 10 mg tablet 10 mg PO DAILY 08/11/21 11/10/22 cyclobenzaprine 10 mg tablet 10 mg PO BID PRN 08/11/21 11/10/22 fluticasone propionate 50 1 spray intranasal BID 08/11/21 11/10/22 mcg/actuation nasal spray,suspension oxcarbazepine 150 mg tablet 150 mg PO BID 08/11/21 11/10/22 propranolol 60 mg capsule,24 60 mg PO DAILY 08/11/21 11/10/22 hr,extended release albuterol sulfate 90 mcg/actuation 2 puff inhalation Q6H PRN 11/13/21 11/10/22 aerosol inhaler (ProAir HFA) cyclobenzaprine 10 mg tablet 10 mg PO TID PRN #10 tabs 01/16/22 11/10/22 dextroamphetamine-amphetamine 15 15 mg PO DAILY 05/22/22 11/10/22 mg tablet (Adderall) cariprazine 3 mg capsule (Vraylar) 1 cap PO DAILY 07/08/22 11/10/22 dulaglutide 1.5 mg/0.5 mL See Rx Instructions .Route .COMPLEX 07/08/22 11/10/22 subcutaneous pen injector (Trulicity) norethindrone acetate 5 mg tablet 5 mg PO DAILY #90 tabs 10/24/22 11/10/22 (Aygestin) insulin glargine 100 unit/mL (3 30 unit subcut BID 10/26/22 11/10/22 mL) subcutaneous pen (Lantus Solostar U-100 Insulin) fluticasone propionate 50 1 spray intranasal DAILY #15.8 mL 11/11/22 mcg/actuation nasal spray,suspension (Flonase Allergy Relief) prochlorperazine maleate 10 mg 10 mg PO TID PRN nausea and 11/11/22 tablet (Compazine) vomiting #7 tabs Previous Rx's Medication Instructions Recorded cyclobenzaprine 10 mg tablet 10 mg PO TID PRN #10 tabs 01/16/22 norethindrone acetate 5 mg tablet 5 mg PO DAILY #90 tabs 10/24/22 (Aygestin) fluticasone propionate 50 1 spray intranasal DAILY #15.8 mL 11/11/22 mcg/actuation nasal spray,suspension (Flonase Allergy Relief) prochlorperazine maleate 10 mg 10 mg PO TID PRN nausea and 11/11/22 tablet (Compazine) vomiting #7 tabs Allergies Allergy/AdvReac Type Severity Reaction Status Date / Time naproxen [From Aleve] Allergy Severe Anaphylaxis Verified 10/26/22 23:38 cephalexin [From Keflex] Allergy Intermediate Hives Verified 10/26/22 23:38 latex Allergy Intermediate Itching Verified 10/26/22 23:38 venom-honey bee Allergy Verified 10/26/22 23:38 General Stated Complaint: Abd Prob SUZETTE: 3 Review of Systems All systems reviewed & are unremarkable except as noted in HPI and below Constitutional Constitutional: Reports as per HPI, Denies chills and Denies fever(s) Eyes Eyes: Denies blurry vision ENT Ears, Nose, Mouth, and Throat: Denies dizziness, Denies sore throat and Denies throat swelling Cardiovascular Cardiovascular: Denies chest pain and Denies dyspnea Respiratory Respiratory: Denies cough and Denies dyspnea Gastrointestinal Gastrointestinal: Reports abdominal pain, Reports diarrhea and Reports vomiting Genitourinary Genitourinary: Denies hematuria and Denies dysuria Musculoskeletal Musculoskeletal: Denies back pain and Denies numbness Integumentary/Breasts Skin/Breast: Denies lesions and Denies rash Neurologic Neurologic: Denies dizziness, Denies localized weakness and Denies numbness Allergic/Immunologic Allergic/Immunologic: Denies throat swelling PFSH All Active Problems (Updated 11/11/22 @ 01:51 by Rowan Sargent DO) Abdominal pain (Acute) UTI (urinary tract infection) (Acute) Abdominal pain, vomiting, and diarrhea (Acute) Dysmenorrhea (Acute) Medical History ADHD Anxiety Asthma Borderline personality disorder Depression Diverticulitis GERD (gastroesophageal reflux disease) History of irregular menstrual bleeding History of recurrent UTI (urinary tract infection) HTN (hypertension) Hyperlipidemia Left hip pain Low back pain Nausea Obesity Pain of left calf Pain, joint, knee, right PCOS (polycystic ovarian syndrome) PTSD (post-traumatic stress disorder) Schizoaffective disorder Sleep apnea Suicidal ideation Tachycardia Type 2 diabetes mellitus Surgical History H/O laparoscopy History of appendectomy History of cholecystectomy Family History Mother Diabetes Social History Smoking/Tobacco Use Status: Former Tobacco Use Smoking risk assessment performed?: Yes Alcohol Intake: never Drug use: Daily Substance use type: marijuana Household members: family Housing: apartment Number of Children: 0 current occupation: Unemployed What type of physical activity do you participate in: walking, independent ambulation and irregular exercise Do you feel safe at home: Yes Do you feel safe in your relationship?: Yes Female Reproductive History Menstrual control method: pills (aygestin) History History 2 Para Hx # Term Pregnancies Multiple births Hx # Pregnancies Ectopic pregnancies AB induced Hx Number of Living Children AB spontaneous 2 Exam Const General: cooperative and no acute distress Orientation: alert, awake and oriented x3 HENMT Head: normal to inspection Face and sinus: normal facial exam Eyes General: appearance normal, both eyes and all related structures Pupils: PERRL EOM: EOM intact bilaterally Neck Neck: normal visual inspection and No submandibular swelling Lymphatic: no lymphadenopathy noted Chest Chest: normal inspection of the chest and no tenderness Resp Effort & Inspection: normal respiratory effort and able to speak in complete sentences Auscultation: clear to auscultation bilaterally Cardio Rate: tachycardic Rhythm: regular rhythm GI Inspection: normal to inspection and obesity Palpation: soft, not firm, not rigid and tender (Diffuse, worse in epigastrium, across lower abdomen.) Auscultation: hypoactive bowel sounds Skin General skin exam: no rashes or lesions noted Neuro General: patient alert, patient awake and patient oriented x3 Cognition: normal cognition Speech: speech normal Motor: muscle tone normal throughout Sensory Exam: no sensory deficits noted Extrem General: normal to inspection, full ROM, capillary refill normal, no calf tenderness bilaterally and no edema Psych Appearance: grossly normal Mental Status: mental status grossly normal Speech and Movement: speech and movement normal Affect: normal affect Course Vital Signs Vital signs: Vital Signs Temperature 97.9 F 11/10/22 23:03 Pulse 100 H 11/10/22 23:03 Respiratory Rate 18 11/10/22 23:03 Blood Pressure 122/77 11/10/22 23:03 Pulse Oximetry 99 11/10/22 23:03 Temperature 97.9 F 11/10/22 23:03 Temperature Source Temporal Artery Scan 11/10/22 23:03 Pulse 100 H 11/10/22 23:03 Respiratory Rate 18 11/10/22 23:03 Blood Pressure 122/77 11/10/22 23:03 Blood Pressure Position Sitting 11/10/22 23:03 Pulse Oximetry 99 11/10/22 23:03 Oxygen Delivery Method Room Air 11/10/22 23:03 Oxygen Flow Rate 0 11/10/22 23:03 Pain Level 9 11/10/22 23:03 Comment 11/10/22 23:03
[2022-11-10 23:29] LABS: Abs Immature Grans 0.05 10^3/uL (0.0-0.06); Absolute Basophil Count 0.04 10^3/uL (0.0-0.2); Absolute Eosinophil Count 0.22 10^3/uL (0.0-0.7); Absolute Monocyte Count 0.94 10^3/uL (0.1-0.8); Basophils % 0.3; Eosinophils % 1.7; HCT 37.3 % (36.0-46.0); HGB 12.5 g/dL (11.2-15.7); Immature Grans % 0.4; Lymphocytes % 32.1; MCHC 33.5 % (32.0-36.0); MCV 87 fL (80-95); MPV 9.7 fL (8.0-11.0); Monocytes % 7.1; Neutrophils % 58.4; Platelet Count 445 10^3/uL (130-400); RBC 4.31 10^6/uL (3.93-5.22); RDW 12.8 % (11.7-14.6); RDW-SD 40.1 fL; WBC 13.19 10^3/uL (4.4-10.8)
[2022-11-10 23:30] LABS: Absolute Lymphocyte Count 4.23 10^3/uL (1.2-3.4)
[2022-11-10] MEDS: Normal Saline 500 ML 999 ML IV (23:30)
[2022-11-10 23:43] LABS: ALT 21 U/L (14-59); AST 34 U/L (15-37); Albumin 3.3 g/dL (3.4-5.0); Alkaline Phosphatase 87 U/L (46-116); Anion Gap 6.1 mmol/L (3-11); BUN 9 mg/dL (7-18); Bilirubin, Total 0.3 mg/dL (0.2-1.0); CO2 28.9 mmol/L (21.0-32.0); CREATININE 0.9 mg/dL (0.55-1.02); Calcium 9.2 mg/dL (8.5-10.1); Chloride 103 mmol/L (98-107); Estimated GFR 86.03 (mL/min/1.73m2); Glucose 151 mg/dL (74-106); Lipase 147 U/L (73-393); Potassium 4.5 mmol/L (3.5-5.1); Sodium 138 mmol/L (136-145)
--- NOTE | 2022-11-10 23:45 | DI.CT_ITS ---
Exam(s) CT ABDOMEN PELVIS W EXAM: CT ABDOMEN PELVIS W CLINICAL HISTORY: vomiting, diarrhea, lower abd pain. TECHNIQUE: Imaging Protocol: Axial computed tomography images with coronal and sagittal reformatted images were created and reviewed CONTRAST MATERIAL: Intravenous: Omnipaque-350 100cc Oral: None COMPARISON: CT CT ABDOMEN PELVIS WO from 10/27/2022 FINDINGS: VISUALIZED LUNG BASES: No nodules nor pleural effusions evident. ABDOMEN: There is no ascites. LIVER: There are no focal hepatic lesions evident . GALLBLADDER/BILIARY: The gallbladder is again noted to be surgically absent. CBD is not dilated. PANCREAS: No evidence of pancreatic mass nor dilatation of the pancreatic duct. SPLEEN: Spleen is not enlarged. No obvious intrasplenic lesions. Splenic and portal veins are paten t. ADRENALS: There are no significant adrenal masses. KIDNEYS:No cysts evident. No solid renal masses. No calculi nor hydronephrosis.. ABDOMINAL AORTA: Abdominal aorta is not enlarged. LYMPH NODES:There is no retroperitoneal nor paraaortic adenopathy. ABDOMINAL WALL: No evidence of significant anterior abdominal wall nor inguinal hernia. GI: There is no evidence of bowel obstruction, free air, nor abscess. PELVIS: GI: Appendix is surgically absent.No evidence of sigmoid diverticulitis. LYMPH NODES: There is no intrapelvic nor inguinal adenopathy. REPRODUCTIVE: Uterus and adnexal regions appear unremarkable. URINARY BLADDER: No calculi nor obvious masses evident OSSEOUS: No significant osseous lesions. IMPRESSION: 1. No significant acute findings in the abdomen and pelvis. 2. Previous cholecystectomy and appendectomy again noted. The biliary tree is not dilated. No evide nce of bowel obstruction, free air, nor abscess. RADIATION DOSE DELIVERED: 1,697.64mGy.cm Total DLP DATA REPOSITORY: All CT scans at this facility are submitted to the National Radiology Data Registry (NRDR) Dose Index Registry (DIR) with the [employer] ([employer]). RADIATION OPTIMIZATION: All CT scans at this facility use at least one of these dose optimization te chniques: automated exposure control; mA and/or kV adjustment per patient size (includes targeted exa ms where dose is matched to clinical indication); or iterative reconstruction.
[2022-11-10 23:52] LABS: Bilirubin Negative (Negative); Blood Negative (Negative); Clarity Clear (Clear); Glucose Negative (Negative); Ketones Negative (Negative); Leukocyte Esterase Negative (Negative); Nitrite Negative (Negative); Specific Gravity 1.025 (1.005-1.025); Urobilinogen 0.2 EU/dL (Up TO 0.2)
[2022-11-11] VITALS: PULSE 85; RESP 16; O2SAT 99
[2022-11-11] MEDS: Normal Saline 1,000 ML 1000 ML IV (00:12)
[2022-11-11] MEDS: ACETAMINOPHEN 1,000 MG/100 ML BTL 400 MG IVPB (00:12)
[2022-11-11] MEDS: Normal Saline - Diluent 50 ML VIAL IJ (00:22)
[2022-11-11 00:23] LABS: COVID-19 PCR Negative (Negative); Influenza A PCR Negative (Negative); Influenza B PCR Negative (Negative); RSV PCR Negative (Negative)
[2022-11-11] MEDS: Omnipaque 350 MG/ML 100 ML BTL IJ (00:23)
[2022-11-11 00:24] LABS: Source Nasopharynx
--- NOTE | 2022-11-11 00:43 | DI.VRAD_ITS ---
PROCEDURE INFORMATION: Exam: CT Abdomen And Pelvis With Contrast Exam date and time: 11/11/2022 12:10 AM Age: 32 years old Clinical indication: Other: Vomiting diarrhea, lower abd pain TECHNIQUE: Imaging protocol: Computed tomography of the abdomen and pelvis with contrast. Contrast material: 350; Contrast volume: 100 ml; Contrast route: INTRAVENOUS (IV); COMPARISON: CT ABDOMEN PELVIS WO 10/27/2022 12:13 AM FINDINGS: Lungs: Lung bases clear. Liver: Normal appearing liver. Gallbladder and bile ducts: Prior cholecystectomy. No biliary dilatation. Pancreas: Normal appearing pancreas. Spleen: Normal appearing spleen. Adrenal glands: Normal appearing adrenal glands. Kidneys and ureters: Normal appearing kidneys. No hydronephrosis. Stomach and bowel: No oral contrast. Stomach moderately distended with ingested material. No small bowel dilatation to suggest obstruction. Normal-appearing colon. No evidence of diverticulitis or colitis. Appendix: Appendix not identified. Surgical material at the cecal apex suggesting a prior appendectomy. Correlation with surgical history recommended. Intraperitoneal space: Trace fluid in the deep pelvis. No free air. Vasculature: Normal caliber abdominal aorta. Lymph nodes: No pathologically enlarged mesenteric, retroperitoneal, or pelvic sidewall lymph nodes. Urinary bladder: Normal appearing urinary bladder. Reproductive: Anteverted uterus, normal in size. Normal-appearing left ovary. Right ovary partially obscured but normal in size. Trace right adnexal fluid. Bones/joints: No acute fracture seen among the bones of the abdomen or pelvis. Soft tissues: Diastasis recti. Small fat containing ventral hernia at the umbilicus. Small region of skin thickening with subcutaneous density in the right anterior abdominal wall adjacent to the umbilicus. Recent subcutaneous injections? Other history of trivial trauma? Small region of acute cellulitis? IMPRESSION: 1. Right ovary partially obscured but normal in size. Trace right adnexal fluid. Normal-appearing left ovary. 2. No acute bowel pathology demonstrated. Dictated and Authenticated by: Kain Sánchez MD. Ordering:MANUEL Donahue MD
[2022-11-11] MEDS: diphenhydrAMINE 50 MG/ML VIAL 25 MG IVP (01:08)
[2022-11-11] MEDS: Prochlorperazine 10 MG/2 ML VIAL IVP (01:08)
[2022-11-11] MEDS: HYDROmorphone 2 MG/ML SYR 1 MG IVP (01:09)
[2022-11-11 01:15] VITALS: BP 116/67; PULSE 88; RESP 18; TEMP 36.6; O2SAT 96
[2022-11-11] MEDS: Normal Saline 50 ML (01:20)
[2022-11-11] MEDS: Prochlorperazine 10 MG TAB 30 MG PO (02:05)
== END 2022-11-11 02:13 | disposition home or self-care (01) ==
PROVIDERS: Emergency Provider Physician Assistant; PCP Physician Assistant
DX: R11.2 Nausea with vomiting, unspecified (principal); R19.7 Diarrhea, unspecified; R10.9 Unspecified abdominal pain; R10.816 Epigastric abdominal tenderness; R10.813 Right lower quadrant abdominal tenderness; R10.814 Left lower quadrant abdominal tenderness; I10 Essential (primary) hypertension; E11.9 Type 2 diabetes mellitus without complications; J45.909 Unspecified asthma, uncomplicated; Z79.4 Long term (current) use of insulin; Z87.19 Personal history of other diseases of the digestive system; Z90.49 Acquired absence of other specified parts of digestive tract; Z79.84 Long term (current) use of oral hypoglycemic drugs; Z79.899 Other long term (current) drug therapy; Z20.822 Contact with and (suspected) exposure to COVID-19
CPT/HCPCS: 80053; 81025; 83690; 87637; 96361; 96365; 96368; 96375; 99284; 99285; 74177; 81003; 81015; 85025; J0131; J0780; J1170; J1200; J1885; J2405; J3490

== ENCOUNTER 2022-11-11 21:33 | Emergency (ER) | payer MEDICARE, MEDICAID, SELFPAY ==
[2022-11-11 21:38] VITALS: TEMP 36.6
[2022-11-11 21:59] VITALS: BP 94/68; PULSE 96; RESP 16; TEMP 36.6; O2SAT 97
[2022-11-11 22:07] LABS: Abs Immature Grans 0.05 10^3/uL (0.0-0.06); Absolute Basophil Count 0.04 10^3/uL (0.0-0.2); Absolute Lymphocyte Count 3.78 10^3/uL (1.2-3.4); Absolute Monocyte Count 0.95 10^3/uL (0.1-0.8); Basophils % 0.3; Eosinophils % 1.4; HCT 40.4 % (36.0-46.0); HGB 13.6 g/dL (11.2-15.7); Immature Grans % 0.4; Lymphocytes % 28.6; MCH 29.2 pg (27.0-33.0); MCHC 33.7 % (32.0-36.0); MCV 87 fL (80-95); MPV 9.5 fL (8.0-11.0); Monocytes % 7.2; Neutrophils % 62.1; Platelet Count 500 10^3/uL (130-400); RBC 4.65 10^6/uL (3.93-5.22); RDW 12.8 % (11.7-14.6); RDW-SD 40.5 fL; WBC 13.23 10^3/uL (4.4-10.8)
[2022-11-11 22:08] LABS: Absolute Eosinophil Count 0.19 10^3/uL (0.0-0.7); Absolute Neutrophil Count 8.22 10^3/uL (1.2-6.7)
--- NOTE | 2022-11-11 22:13 | W.ED.GENAD ---
Discharge Plan Disposition Patient Disposition: Home Condition: Improving Discharge Details Clinical Impression: Abdominal pain, vomiting, and diarrhea Primary Care Provider: Moiz Dutta ED Provider: Edward Greer Home Meds and New Rx's Prescriptions: Continued epinephrine 0.3 mg/0.3 mL Auto-Injector 0.3 mg IM ONCE metformin 500 mg Tablet 500 mg PO BID dextroamphetamine-amphetamine [Adderall] 15 mg tablet 15 mg PO DAILY norethindrone acetate [Aygestin] 5 mg tablet 5 mg PO DAILY Qty: 90 5RF clonazepam 1 mg tablet 3 mg PO BID (DME) lancets [FreeStyle Lancets] 28 gauge misc See Rx Instructions .ROUTE .MEDSUPPLY Qty: 100 Rx Instructions: As directed (DME) FreeStyle Lite Strips Strip See Rx Instructions .ROUTE .MEDSUPPLY Qty: 10 Rx Instructions: As directed insulin detemir U-100 100 unit/mL (3 mL) insulin pen 45 unit subcut BID (DME) pen needle, diabetic [BD Ultra-Fine Sona Pen Needle] 32 gauge x 5/32 needle See Rx Instructions .ROUTE .MEDSUPPLY Qty: 50 Rx Instructions: As directed omeprazole 40 mg capsule,delayed release(DR/EC) 40 mg PO DAILY haloperidol 5 mg tablet 10 mg PO DAILY albuterol sulfate [ProAir HFA] 90 mcg/actuation HFA aerosol inhaler 2 puff inhalation Q6H PRN fluticasone propionate 50 mcg/actuation spray,suspension 1 spray intranasal BID Rx Instructions: administer into each nostril propranolol 60 mg capsule,extended release 24 hr 60 mg PO DAILY atorvastatin 10 mg tablet 10 mg PO DAILY oxcarbazepine 150 mg tablet 150 mg PO BID cyclobenzaprine 10 mg tablet 10 mg PO BID PRN Trulicity 1.5 mg/0.5 mL pen injector See Rx Instructions .ROUTE .COMPLEX Rx Instructions: device subcutaneously Vraylar 3 mg capsule 1 cap PO DAILY acetaminophen [Tylenol Extra Strength] 500 mg Tablet 1,000 mg PO Q6H PRN prazosin 2 mg capsule 5 mg PO .QHS Label Comments: TAKE 1 CAPSULE BY MOUTH EVERY EVENING cyclobenzaprine 10 mg tablet 10 mg PO TID PRNQty: 10 0RF insulin glargine [Lantus Solostar U-100 Insulin] 100 unit/mL (3 mL) insulin pen 30 unit SUBCUT BID prochlorperazine maleate [Compazine] 10 mg tablet 10 mg PO TID PRN (Reason: nausea and vomiting) Qty: 7 0RF fluticasone propionate [Flonase Allergy Relief] 50 mcg/actuation spray,suspension 1 spray TRINITY DAILY Qty: 15.8 0RF Rx Instructions: administer into each nostril Discharge Instructions Instructions: Abdominal Pain (ED) Additional Instructions: Zofran as directed. Clear liquid diet, advance as tolerated. Please watch for new or worsening symptoms and return to the ER for any concerns. Lastly, please contact the office of your PCP tomorrow to discuss your ER visit over the weekend, ongoing symptoms, need for outpatient reevaluation. Medical Decision Making 32-year-old female extensive past medical history presenting for diarrhea, ongoing abdominal pain, nausea. Reports that overall her pain is better than yesterday but has not resolved. Also reports that her overall nausea has improved and there is been no vomiting today. Clinically she appears well, nontoxic, hemodynamically stable, blood pressure is 94/68 but when reviewing her prior blood pressures this appears to be near her baseline. Abdomen is soft, nontender. Plan is to obtain routine screening laboratory values, can compare versus yesterday, give IV fluid, Phenergan, p.o. Bentyl. Patient declined Bentyl, states she has taken this in the past and has not helped. She states the medication last night helped. Reviewing the medication yesterday, it appears as though she was given Dilaudid. At this time I see no clear indication to initiate additional narcotic medication. We discussed Toradol, patient is agreeable to Toradol, states it is helped her in the past. Laboratory values reveal mild nonspecific leukocytosis of 13.23, this is essentially unchanged from yesterday and has actually decreased since 10-26-2022. No evidence of anemia. Platelet count 500, 445 yesterday. Electrolytes unremarkable. Renal function reveals creatinine 0.9 with GFR of 86.03. Glucose 148. LFTs unremarkable. Lipase 166. Urinalysis reveals no obvious infection, appears to be contaminated. Patient reports no significant change in her overall symptoms. We will provide IV Zofran. Patient has not received her Toradol yet. Once she receives these medications will p.o. challenge. Patient was ambulatory to the restroom without difficulty. On examination is nonsurgical. Patient appears well, nontoxic. Leukocytosis is unchanged from yesterday. I see no clear indication to repeat CT imaging that was performed yesterday. Patient reports modest improvement with the Zofran and Toradol. She was able to tolerate p.o. intake. Patient states that she feels well enough for discharge now. I will provide a take-home pack of Zofran overnight. She is actually scheduled to see her counselor tomorrow, she states that her counselor is in the same building as her PCP and she will stop over at the office tomorrow to discuss her ongoing symptoms of outpatient reevaluation. Standard discharge and return precautions were provided. Patient understands, is agreeable to this plan, and has no additional questions or concerns upon discharge. This documentation was generated using [employer] system, please disregard any oddities of phrase or misspellings. Medical Records Medical records reviewed: Yes I reviewed the patient's medical records. Lab Data Lab results reviewed: Yes I reviewed the patient's lab results. Labs: Laboratory Tests Range/Units 11/11/22 11/11/22 11/11/22 21:54 21:54 22:50 WBC (4.4-10.8) 10^3/uL 13.23 H RBC (3.93-5.22) 10^6/uL 4.65 Hgb (11.2-15.7) g/dL 13.6 Hct (36.0-46.0) % 40.4 MCV (80-95) fL 87 MCH (27.0-33.0) pg 29.2 MCHC (32.0-36.0) % 33.7 RDW (11.7-14.6) % 12.8 Plt Count (130-400) 10^3/uL 500 H MPV (8.0-11.0) fL 9.5 Immature Gran % 0.4 Neutrophils % 62.1 Lymphocytes % 28.6 Monocytes % 7.2 Eosinophils % 1.4 Basophils % 0.3 Nucleated RBC % (0.0-0.3) % 0.0 Absolute Neutrophils (1.2-6.7) 10^3/uL 8.22 H Absolute Lymphocytes (1.2-3.4) 10^3/uL 3.78 H Absolute Monocytes (0.1-0.8) 10^3/uL 0.95 H Absolute Eosinophils (0.0-0.7) 10^3/uL 0.19 Absolute Basophils (0.0-0.2) 10^3/uL 0.04 Sodium (136-145) mmol/L 138 Potassium (3.5-5.1) mmol/L 4.3 Chloride (98-107) mmol/L 103 Carbon Dioxide (21.0-32.0) mmol/L 27.6 Anion Gap (3-11) mmol/L 7.4 BUN (7-18) mg/dL 7 Creatinine (0.55-1.02) mg/dL 0.9 Est GFR (CKD-EPI 2020) (mL/min/1.73m2) 86.03 Glucose (74-106) mg/dL 148 H Calcium (8.5-10.1) mg/dL 9.5 Total Bilirubin (0.2-1.0) mg/dL 0.2 AST (15-37) U/L 18 ALT (14-59) U/L 23 Alkaline Phosphatase (46-116) U/L 92 Total Protein (6.4-8.2) g/dL 8.4 H Albumin (3.4-5.0) g/dL 3.6 Lipase (73-393) U/L 166 Urine Color (Yellow) Yellow Urine Clarity (Clear) Sl Cloudy Urine pH (5-8) 7.0 Ur Specific [place] (1.005-1.025) 1.015 Urine Protein (Negative) mg/dL Negative Urine Ketones (Negative) mg/dL Negative Urine Blood (Negative) Negative Urine Nitrite (Negative) Negative Urine Bilirubin (Negative) Negative Urine Urobilinogen (Up TO 0.2) EU/dL 0.2 Ur Leukocyte Esterase (Negative) Small H Urine RBC (0-2) HPF 0-2 Urine WBC (0-5) HPF 3-5 Ur Epithelial Cells (Negative) HPF Many Urine Crystals (Negative) HPF Negative Urine Bacteria (Negative) HPF Few Urine Casts (Negative) LPF Negative Urine Mucus (Negative) Negative Ur Culture Indicated? No/Sq. Contamination Urine Glucose (Negative) mg/dL Negative HPI General Mode of arrival: ambulatory. Date/Time Provider Initiated Documentation: 11/11/22 21:44. Limitations to Documentation: no limitations. Information obtained by: patient. HPI Narrative: This is a 32-year-old female with a past medical history of high cholesterol, type 2 diabetes, asthma, borderline personality disorder, GERD, hypertension, PTSD, polycystic ovarian syndrome, appendectomy, cholecystectomy, presenting to the ER for evaluation this evening complaining of abdominal pain, diffuse, crampy, associated with nausea made worse after eating today. Patient states that she was told yesterday that she had normal blood work and a CAT scan but if her symptoms returned and she should come back to the ER. She also reports having had a recent UTI but denies any dysuria. She denies recent trauma. She denies headache, chest pain, shortness of breath, fever. Does report loose stools for the past 3 days. Denies vaginal bleeding or discharge. Patient states that she is scheduled to see her PCP regarding her ongoing abdominal pain next week. Related Data Home Medications Medication Instructions Recorded Confirmed blood sugar diagnostic (FreeStyle #10 ea 10/10/20 11/11/22 Lite Strips) clonazepam 1 mg tablet 3 mg PO BID 10/10/20 11/11/22 insulin detemir U-100 100 unit/mL 45 unit subcut BID 10/10/20 11/11/22 (3 mL) subcutaneous pen lancets 28 gauge (FreeStyle #100 ea 10/10/20 11/11/22 Lancets) omeprazole 40 mg capsule,delayed 40 mg PO DAILY 10/10/20 11/11/22 release pen needle, diabetic 32 gauge x #50 ea 10/10/20 11/11/22 5/32 (BD Ultra-Fine Sona Pen Needle) epinephrine 0.3 mg/0.3 mL 0.3 mg IM ONCE 12/29/20 11/11/22 injection, auto-injector metformin 500 mg tablet 500 mg PO BID 12/29/20 11/11/22 acetaminophen 500 mg tablet 1,000 mg PO Q6H PRN 01/31/21 11/11/22 (Tylenol Extra Strength) haloperidol 5 mg tablet 10 mg PO DAILY 04/05/21 11/11/22 prazosin 2 mg capsule 5 mg PO .QHS 05/14/21 11/11/22 atorvastatin 10 mg tablet 10 mg PO DAILY 08/11/21 11/11/22 cyclobenzaprine 10 mg tablet 10 mg PO BID PRN 08/11/21 11/11/22 fluticasone propionate 50 1 spray intranasal BID 08/11/21 11/11/22 mcg/actuation nasal spray,suspension oxcarbazepine 150 mg tablet 150 mg PO BID 08/11/21 11/11/22 propranolol 60 mg capsule,24 60 mg PO DAILY 08/11/21 11/11/22 hr,extended release albuterol sulfate 90 mcg/actuation 2 puff inhalation Q6H PRN 11/13/21 11/11/22 aerosol inhaler (ProAir HFA) cyclobenzaprine 10 mg tablet 10 mg PO TID PRN #10 tabs 01/16/22 11/11/22 dextroamphetamine-amphetamine 15 15 mg PO DAILY 05/22/22 11/11/22 mg tablet (Adderall) cariprazine 3 mg capsule (Vraylar) 1 cap PO DAILY 07/08/22 11/11/22 dulaglutide 1.5 mg/0.5 mL See Rx Instructions .Route .COMPLEX 07/08/22 11/11/22 subcutaneous pen injector (Trulicity) norethindrone acetate 5 mg tablet 5 mg PO DAILY #90 tabs 10/24/22 11/11/22 (Aygestin) insulin glargine 100 unit/mL (3 30 unit subcut BID 10/26/22 11/11/22 mL) subcutaneous pen (Lantus Solostar U-100 Insulin) fluticasone propionate 50 1 spray intranasal DAILY #15.8 mL 11/11/22 11/11/22 mcg/actuation nasal spray,suspension (Flonase Allergy Relief) prochlorperazine maleate 10 mg 10 mg PO TID PRN nausea and 11/11/22 11/11/22 tablet (Compazine) vomiting #7 tabs Previous Rx's Medication Instructions Recorded cyclobenzaprine 10 mg tablet 10 mg PO TID PRN #10 tabs 01/16/22 norethindrone acetate 5 mg tablet 5 mg PO DAILY #90 tabs 10/24/22 (Aygestin) fluticasone propionate 50 1 spray intranasal DAILY #15.8 mL 11/11/22 mcg/actuation nasal spray,suspension (Flonase Allergy Relief) prochlorperazine maleate 10 mg 10 mg PO TID PRN nausea and 01/22/23 tablet (Compazine) vomiting #7 tabs Allergies Allergy/AdvReac Type Severity Reaction Status Date / Time naproxen [From Aleve] Allergy Severe Anaphylaxis Verified 10/26/22 23:38 cephalexin [From Keflex] Allergy Intermediate Hives Verified 10/26/22 23:38 latex Allergy Intermediate Itching Verified 10/26/22 23:38 venom-honey bee Allergy Verified 10/26/22 23:38 General Stated Complaint: Abd Prob SUZETTE: 3 Review of Systems Constitutional Constitutional: Denies fever(s) and Denies weakness Cardiovascular Cardiovascular: Denies chest pain and Denies dyspnea Respiratory Respiratory: Denies cough and Denies dyspnea Gastrointestinal Gastrointestinal: Reports abdominal pain, Denies melena, Denies hematochezia, Reports loose stools, Reports nausea and Denies vomiting Genitourinary Genitourinary: Denies hematuria, Denies dysuria and Denies vaginal discharge Musculoskeletal Musculoskeletal: Reports back pain (Low, chronic) Integumentary/Breasts Skin/Breast: Denies rash Neurologic Neurologic: Denies weakness PFSH All Active Problems (Updated 11/11/22 @ 23:29 by JOSEFA Quintero) Abdominal pain (Acute) UTI (urinary tract infection) (Acute) Abdominal pain, vomiting, and diarrhea (Acute) Dysmenorrhea (Acute) Medical History ADHD Anxiety Asthma Borderline personality disorder Depression Diverticulitis GERD (gastroesophageal reflux disease) History of irregular menstrual bleeding History of recurrent UTI (urinary tract infection) HTN (hypertension) Hyperlipidemia Left hip pain Low back pain Nausea Obesity Pain of left calf Pain, joint, knee, right PCOS (polycystic ovarian syndrome) PTSD (post-traumatic stress disorder) Schizoaffective disorder Sleep apnea Suicidal ideation Tachycardia Type 2 diabetes mellitus Surgical History H/O laparoscopy History of appendectomy History of cholecystectomy Family History Mother Diabetes Social History Smoking/Tobacco Use Status: Former Tobacco Use Smoking risk assessment performed?: Yes Alcohol Intake: never Drug use: Daily Substance use type: marijuana Household members: family Housing: apartment Number of Children: 0 current occupation: Unemployed What type of physical activity do you participate in: walking, independent ambulation and irregular exercise Do you feel safe at home: Yes Do you feel safe in your relationship?: Yes Female Reproductive History Menstrual control method: pills (aygestin) History History 2 Para Hx # Term Pregnancies Multiple births Hx # Pregnancies Ectopic pregnancies AB induced Hx Number of Living Children AB spontaneous 2 Exam Const General: cooperative, healthy appearing, comfortable and no acute distress Orientation: alert and awake HENWV Head: normal to inspection, normocephalic and atraumatic Mouth: moist mucous membranes Eyes Conjunctivae: conjunctivae normal Neck Neck: normal visual inspection, full ROM, no meningeal signs, trachea midline and supple Resp Effort & Inspection: normal respiratory effort and able to speak in complete sentences Auscultation: clear to auscultation bilaterally Cardio Rate: regular rate Rhythm: regular rhythm GI Inspection: obesity Palpation: soft, not firm, no guarding, no pulsatile masses and nontender Auscultation: normal bowel sounds Back/Spine/Pelvis Back: No back tenderness Skin General skin exam: no rashes or lesions noted Neuro General: patient alert, patient awake, moves all extremities and no focal motor deficits Cognition: normal cognition Speech: speech normal Gait: normal gait Sensory Exam: no sensory deficits noted Extrem General: normal to inspection and full ROM Psych Appearance: grossly normal Mental Status: mental status grossly normal Course Vital Signs Vital signs: Vital Signs Temperature 36.6 C 11/11/22 21:38 Temperature 36.6 C 11/11/22 21:59 Temperature Source Temporal Artery Scan 11/11/22 21:59 Pulse 96 H 11/11/22 21:59 Respiratory Rate 16 11/11/22 21:59 Respiratory Effort Non-Labored 11/11/22 22:01 Blood Pressure 94/68 L 11/11/22 21:59 Pulse Oximetry 97 11/11/22 21:59 Oxygen Delivery Method Room Air 11/11/22 21:59 Oxygen Flow Rate 0 11/11/22 21:59 Pain Level 10 11/11/22 21:59 Lab/Test Results Lab/Test Results: Laboratory Tests Range/Units 11/11/22 21:54 WBC (4.4-10.8) 10^3/uL 13.23 H RBC (3.93-5.22) 10^6/uL 4.65 Hgb (11.2-15.7) g/dL 13.6 Hct (36.0-46.0) % 40.4 MCV (80-95) fL 87 MCH (27.0-33.0) pg 29.2 MCHC (32.0-36.0) % 33.7 RDW (11.7-14.6) % 12.8 Plt Count (130-400) 10^3/uL 500 H MPV (8.0-11.0) fL 9.5 Immature Gran % 0.4 Neutrophils % 62.1 Lymphocytes % 28.6 Monocytes % 7.2 Eosinophils % 1.4 Basophils % 0.3 Nucleated RBC % (0.0-0.3) % 0.0 Absolute Neutrophils (1.2-6.7) 10^3/uL 8.22 H Absolute Lymphocytes (1.2-3.4) 10^3/uL 3.78 H Absolute Monocytes (0.1-0.8) 10^3/uL 0.95 H Absolute Eosinophils (0.0-0.7) 10^3/uL 0.19 Absolute Basophils (0.0-0.2) 10^3/uL 0.04
[2022-11-11 22:23] LABS: ALT 23 U/L (14-59); AST 18 U/L (15-37); Albumin 3.6 g/dL (3.4-5.0); Alkaline Phosphatase 92 U/L (46-116); Anion Gap 7.4 mmol/L (3-11); BUN 7 mg/dL (7-18); Bilirubin, Total 0.2 mg/dL (0.2-1.0); CO2 27.6 mmol/L (21.0-32.0); CREATININE 0.9 mg/dL (0.55-1.02); Calcium 9.5 mg/dL (8.5-10.1); Chloride 103 mmol/L (98-107); Estimated GFR 86.03 (mL/min/1.73m2); Glucose 148 mg/dL (74-106); Lipase 166 U/L (73-393); Potassium 4.3 mmol/L (3.5-5.1); Sodium 138 mmol/L (136-145); Total Protein 8.4 g/dL (6.4-8.2)
[2022-11-11 22:56] LABS: Bilirubin Negative (Negative); Blood Negative (Negative); Clarity Sl Cloudy (Clear); Glucose Negative (Negative); Ketones Negative (Negative); Leukocyte Esterase Small (Negative); Nitrite Negative (Negative); Specific Gravity 1.015 (1.005-1.025); Urobilinogen 0.2 EU/dL (Up TO 0.2)
[2022-11-11 23:07] LABS: Bacteria Few HPF (Negative); C & S Indicated? No/Sq. Contamination; Casts Negative LPF (Negative); Crystals Negative HPF (Negative); Epithelial Cells Many HPF (Negative); Mucus Negative (Negative); RBC 0-2 HPF (0-2)
[2022-11-11] MEDS: Ondansetron 4 MG/2 ML VIAL IVP (23:15)
[2022-11-11] MEDS: Ketorolac 30 MG/ML VIAL IVP (23:16)
[2022-11-11] MEDS: Ondansetron O.D.T. 4 MG TABEF, 3 TABS/BTL PO (23:45)
[2022-11-12 00:05] VITALS: BP 99/70; PULSE 95; RESP 18; TEMP 36.2; O2SAT 96
== END 2022-11-12 00:06 | disposition home or self-care (01) ==
PROVIDERS: Emergency Provider Physician Assistant; PCP Physician Assistant
DX: R11.2 Nausea with vomiting, unspecified (principal); R10.9 Unspecified abdominal pain; R19.7 Diarrhea, unspecified; D72.829 Elevated white blood cell count, unspecified; I10 Essential (primary) hypertension; E11.9 Type 2 diabetes mellitus without complications; J45.909 Unspecified asthma, uncomplicated; Z90.49 Acquired absence of other specified parts of digestive tract; Z79.4 Long term (current) use of insulin; Z79.84 Long term (current) use of oral hypoglycemic drugs; Z79.899 Other long term (current) drug therapy
CPT/HCPCS: 80053; 81025; 83690; 96365; 96375; 99284; 81003; 81015; 85025; J1885; J2405

== ENCOUNTER 2022-11-18 22:50 | Emergency (ER) | payer MEDICARE, MEDICAID, SELFPAY ==
--- NOTE | 2022-11-18 23:22 | ED.GENADUL_ITS ---
Discharge Plan Discharge Details Chief Complaint: Abd Prob Primary Care Provider: Moiz Dutta ED Provider: Edward Greer Home Meds and New Rx's Prescriptions: No Action epinephrine 0.3 mg/0.3 mL Auto-Injector 0.3 mg IM ONCE metformin 500 mg Tablet 500 mg PO BID dextroamphetamine-amphetamine [Adderall] 15 mg tablet 15 mg PO DAILY norethindrone acetate [Aygestin] 5 mg tablet 5 mg PO DAILY Qty: 90 5RF clonazepam 1 mg tablet 3 mg PO BID (DME) lancets [FreeStyle Lancets] 28 gauge misc See Rx Instructions .ROUTE .MEDSUPPLY Qty: 100 Rx Instructions: As directed (DME) FreeStyle Lite Strips Strip See Rx Instructions .ROUTE .MEDSUPPLY Qty: 10 Rx Instructions: As directed insulin detemir U-100 100 unit/mL (3 mL) insulin pen 45 unit subcut BID (DME) pen needle, diabetic [BD Ultra-Fine Sona Pen Needle] 32 gauge x 5/32 needle See Rx Instructions .ROUTE .MEDSUPPLY Qty: 50 Rx Instructions: As directed omeprazole 40 mg capsule,delayed release(DR/EC) 40 mg PO DAILY haloperidol 5 mg tablet 10 mg PO DAILY albuterol sulfate [ProAir HFA] 90 mcg/actuation HFA aerosol inhaler 2 puff inhalation Q6H PRN fluticasone propionate 50 mcg/actuation spray,suspension 1 spray intranasal BID Rx Instructions: administer into each nostril propranolol 60 mg capsule,extended release 24 hr 60 mg PO DAILY atorvastatin 10 mg tablet 10 mg PO DAILY oxcarbazepine 150 mg tablet 150 mg PO BID cyclobenzaprine 10 mg tablet 10 mg PO BID PRN Trulicity 1.5 mg/0.5 mL pen injector See Rx Instructions .ROUTE .COMPLEX Rx Instructions: device subcutaneously Vraylar 3 mg capsule 1 cap PO DAILY acetaminophen [Tylenol Extra Strength] 500 mg Tablet 1,000 mg PO Q6H PRN prazosin 2 mg capsule 5 mg PO .QHS Label Comments: TAKE 1 CAPSULE BY MOUTH EVERY EVENING cyclobenzaprine 10 mg tablet 10 mg PO TID PRNQty: 10 0RF insulin glargine [Lantus Solostar U-100 Insulin] 100 unit/mL (3 mL) insulin pen 30 unit SUBCUT BID prochlorperazine maleate [Compazine] 10 mg tablet 10 mg PO TID PRN (Reason: nausea and vomiting) Qty: 7 0RF fluticasone propionate [Flonase Allergy Relief] 50 mcg/actuation spray,suspension 1 spray TRINITY DAILY Qty: 15.8 0RF Rx Instructions: administer into each nostril Medical Decision Making 32-year-old female presenting primarily today for bilateral lower back pain that began after shoveling snow 2 days ago. Denies radiation of pain. Denies incontinence. Clinically her evaluation is consistent with low musculoskeletal back pain. Plan to provide Toradol and Lidoderm patches. Patient also reports ongoing abdominal pain, intermittent nausea and diarrhea. Worse after eating. History of cholecystectomy. Will obtain IV access, obtain routine screening laboratory values, patient with 2 recent visits this week for comparison. Patient reports nasal congestion, would like a COVID test. Also reports a yeast infection, defers pelvic examination, will provide Diflucan. This documentation was generated using Silentiumation system, please disregard any oddities of phrase or misspellings. Medical Records Medical records reviewed: Yes I reviewed the patient's medical records. HPI General Mode of arrival: ambulatory . Date/Time Provider Initiated Documentation: 11/18/22 22:51 . Limitations to Documentation: no limitations . Information obtained by: patient . HPI Narrative: This is a 32-year-old female with a past medical history of type 2 diabetes, of high cholesterol, asthma, borderline personality disorder, GERD, hypertension, PTSD, polycystic ovarian syndrome, appendectomy, cholecystectomy, presenting to the ER tonight reporting bilateral lower back pain moderate, worse with movement, began 2 days ago after shoveling snow. Pain does not radiate. Denies bowel or bladder incontinence. Patient also reports that she has had a stuffy nose and potentially had a COVID exposure. She also reports ongoing abdominal pain , diffuse, crampy, associated with nausea and occasional diarrhea. Patient had 2 ER visits for the same this week, did have CT imaging during her first visit. Reports she is scheduled to be seen by her PCP this upcoming week. She reports taking [id number] Tylenol with little relief. Reports increased urination but denies dysuria. She denies STD exposure. Reports white vaginal discharge consistent with previous yeast infection. Related Data Home Medications Medication Instructions Recorded Confirmed blood sugar diagnostic (FreeStyle #10 ea 10/10/20 11/11/22 Lite Strips) clonazepam 1 mg tablet 3 mg PO BID 10/10/20 11/11/22 insulin detemir U-100 100 unit/mL 45 unit subcut BID 10/10/20 11/11/22 (3 mL) subcutaneous pen lancets 28 gauge (FreeStyle #100 ea 10/10/20 11/11/22 Lancets) omeprazole 40 mg capsule,delayed 40 mg PO DAILY 10/10/20 11/11/22 release pen needle, diabetic 32 gauge x #50 ea 10/10/20 11/11/22 (BD Ultra-Fine Sona Pen Needle) epinephrine 0.3 mg/0.3 mL 0.3 mg IM ONCE 12/29/20 11/11/22 injection, auto-injector metformin 500 mg tablet 500 mg PO BID 12/29/20 11/11/22 acetaminophen 500 mg tablet 1,000 mg PO Q6H PRN 01/31/21 11/11/22 (Tylenol Extra Strength) haloperidol 5 mg tablet 10 mg PO DAILY 04/05/21 11/11/22 prazosin 2 mg capsule 5 mg PO .QHS 05/14/21 11/11/22 atorvastatin 10 mg tablet 10 mg PO DAILY 08/11/21 11/11/22 cyclobenzaprine 10 mg tablet 10 mg PO BID PRN 08/11/21 11/11/22 fluticasone propionate 50 1 spray intranasal BID 08/11/21 11/11/22 mcg/actuation nasal spray,suspension oxcarbazepine 150 mg tablet 150 mg PO BID 08/11/21 11/11/22 propranolol 60 mg capsule,24 60 mg PO DAILY 08/11/21 11/11/22 hr,extended release albuterol sulfate 90 mcg/actuation 2 puff inhalation Q6H PRN 11/13/21 11/11/22 aerosol inhaler (ProAir HFA) cyclobenzaprine 10 mg tablet 10 mg PO TID PRN #10 tabs 01/16/22 11/11/22 dextroamphetamine-amphetamine 15 15 mg PO DAILY 05/22/22 11/11/22 mg tablet (Adderall) cariprazine 3 mg capsule (Vraylar) 1 cap PO DAILY 07/08/22 11/11/22 dulaglutide 1.5 mg/0.5 mL See Rx Instructions .Route .COMPLEX 07/08/22 11/11/22 subcutaneous pen injector (Trulicity) norethindrone acetate 5 mg tablet 5 mg PO DAILY #90 tabs 10/24/22 11/11/22 (Aygestin) insulin glargine 100 unit/mL (3 30 unit subcut BID 10/26/22 11/11/22 mL) subcutaneous pen (Lantus Solostar U-100 Insulin) fluticasone propionate 50 1 spray intranasal DAILY #15.8 mL 11/11/22 11/11/22 mcg/actuation nasal spray,suspension (Flonase Allergy Relief) prochlorperazine maleate 10 mg 10 mg PO TID PRN nausea and 11/11/22 11/11/22 tablet (Compazine) vomiting #7 tabs Previous Rx's Medication Instructions Recorded cyclobenzaprine 10 mg tablet 10 mg PO TID PRN #10 tabs 01/16/22 norethindrone acetate 5 mg tablet 5 mg PO DAILY #90 tabs 10/24/22 (Aygestin) fluticasone propionate 50 1 spray intranasal DAILY #15.8 mL 11/11/22 mcg/actuation nasal spray,suspension (Flonase Allergy Relief) prochlorperazine maleate 10 mg 10 mg PO TID PRN nausea and 11/11/22 tablet (Compazine) vomiting #7 tabs Allergies Allergy/AdvReac Type Severity Reaction Status Date / Time naproxen [From Aleve] Allergy Severe Anaphylaxis Verified 10/26/22 23:38 cephalexin [From Keflex] Allergy Intermediate Hives Verified 10/26/22 23:38 latex Allergy Intermediate Itching Verified 10/26/22 23:38 venom-honey bee Allergy Verified 10/26/22 23:38 General SUZETTE: 3 Review of Systems Constitutional Constitutional: Denies fever(s) and Denies weakness ENT Ears, Nose, Mouth, and Throat: Reports nasal congestion and Denies sore throat Cardiovascular Cardiovascular: Denies chest pain and Denies dyspnea Respiratory Respiratory: Denies cough and Denies dyspnea Gastrointestinal Gastrointestinal: Reports abdominal pain, Denies melena, Denies hematochezia, Denies constipation, Reports diarrhea, Reports nausea and Denies vomiting Genitourinary Genitourinary: Denies hematuria, Denies dysuria and Reports vaginal discharge Musculoskeletal Musculoskeletal: Reports back pain, Denies numbness and Denies tingling Integumentary/Breasts Skin/Breast: Denies rash Neurologic Neurologic: Denies numbness, Denies tingling and Denies weakness PFSH All Active Problems Abdominal pain (Acute) UTI (urinary tract infection) (Acute) Abdominal pain, vomiting, and diarrhea (Acute) Dysmenorrhea (Acute) Medical History ADHD Anxiety Asthma Borderline personality disorder Depression Diverticulitis GERD (gastroesophageal reflux disease) History of irregular menstrual bleeding History of recurrent UTI (urinary tract infection) HTN (hypertension) Hyperlipidemia Left hip pain Low back pain Nausea Obesity Pain of left calf Pain, joint, knee, right PCOS (polycystic ovarian syndrome) PTSD (post-traumatic stress disorder) Schizoaffective disorder Sleep apnea Suicidal ideation Tachycardia Type 2 diabetes mellitus Surgical History H/O laparoscopy History of appendectomy History of cholecystectomy Family History Mother Diabetes Social History Smoking/Tobacco Use Status: Former Tobacco Use Smoking risk assessment performed?: Yes Alcohol Intake: never Drug use: Daily Substance use type: marijuana Household members: family Housing: apartment Number of Children: 0 current occupation: Unemployed What type of physical activity do you participate in: walking, independent ambulation and irregular exercise Do you feel safe at home: Yes Do you feel safe in your relationship?: Yes Female Reproductive History Menstrual control method: pills (aygestin) History History 2 Para Hx # Term Pregnancies Multiple births Hx # Pregnancies Ectopic pregnancies AB induced Hx Number of Living Children AB spontaneous 2 Exam Const General: cooperative, healthy appearing, comfortable and no acute distress Orientation: alert and awake HENMT Head: normal to inspection, normocephalic and atraumatic Face and sinus: normal facial exam Mouth: moist mucous membranes Throat: posterior oropharynx normal Eyes Conjunctivae: conjunctivae normal Neck Neck: normal visual inspection, full ROM, no meningeal signs, trachea midline and supple Resp Effort & Inspection: normal respiratory effort and able to speak in complete sentences Auscultation: clear to auscultation bilaterally Cardio Rate: regular rate Rhythm: regular rhythm GI Inspection: obesity Palpation: soft, not firm, no guarding, no pulsatile masses and nontender Auscultation: normal bowel sounds General: deferred Back/Spine/Pelvis Back: no CVA tenderness and back tenderness (Diffuse lumbar, no midline point tenderness. No spasm) Thoracic/Lumbar Spine: straight leg raise negative bilaterally Skin General skin exam: no rashes or lesions noted Neuro General: patient alert, patient awake, patient oriented x3, moves all extremities and no focal motor deficits Cognition: normal cognition Speech: speech normal Gait: normal gait Motor: muscle tone normal throughout Sensory Exam: no sensory deficits noted Extrem General: normal to inspection, full ROM and capillary refill normal Psych Appearance: grossly normal Mental Status: mental status grossly normal
[2022-11-18 23:26] VITALS: BP 122/77; PULSE 84; RESP 16; TEMP 36.7; O2SAT 98
[2022-11-18 23:45] LABS: Abs Immature Grans 0.05 10^3/uL (0.0-0.06); Absolute Basophil Count 0.04 10^3/uL (0.0-0.2); Absolute Eosinophil Count 0.23 10^3/uL (0.0-0.7); Absolute Lymphocyte Count 4.47 10^3/uL (1.2-3.4); Absolute Monocyte Count 0.95 10^3/uL (0.1-0.8); Absolute Neutrophil Count 7.71 10^3/uL (1.2-6.7); Basophils % 0.3; Eosinophils % 1.7; HCT 37.7 % (36.0-46.0); HGB 12.8 g/dL (11.2-15.7); Immature Grans % 0.4; Lymphocytes % 33.2; MCH 28.9 pg (27.0-33.0); MCV 85 fL (80-95); MPV 9.6 fL (8.0-11.0); Monocytes % 7.1; Neutrophils % 57.3; Platelet Count 399 10^3/uL (130-400); RBC 4.43 10^6/uL (3.93-5.22); RDW 12.6 % (11.7-14.6); RDW-SD 38.6 fL; WBC 13.45 10^3/uL (4.4-10.8)
[2022-11-19 00:04] LABS: ALT 23 U/L (14-59); AST 15 U/L (15-37); Albumin 3.4 g/dL (3.4-5.0); Alkaline Phosphatase 84 U/L (46-116); Anion Gap 8.6 mmol/L (3-11); BUN 8 mg/dL (7-18); Bilirubin, Total 0.2 mg/dL (0.2-1.0); CO2 29.4 mmol/L (21.0-32.0); Calcium 9.1 mg/dL (8.5-10.1); Chloride 100 mmol/L (98-107); Estimated GFR 75.81 (mL/min/1.73m2); Glucose 150 mg/dL (74-106); Lipase 182 U/L (73-393); Potassium 3.9 mmol/L (3.5-5.1); Sodium 138 mmol/L (136-145)
[2022-11-19 00:22] LABS: COVID-19 PCR Negative (Negative); Influenza A PCR Negative (Negative); Influenza B PCR Negative (Negative); RSV PCR Negative (Negative)
[2022-11-19 00:23] LABS: Source Nasopharynx
[2022-11-19] MEDS: Lidocaine 5% Patch 2 PATCH TP (00:29)
[2022-11-19] MEDS: Ketorolac 30 MG/ML VIAL IVP (00:30)
[2022-11-19] MEDS: Fluconazole 150 MG TAB PO (00:30)
[2022-11-19 00:44] LABS: Bilirubin Negative (Negative); Blood Negative (Negative); Clarity Clear (Clear); Glucose Negative (Negative); Ketones Negative (Negative); Leukocyte Esterase Trace (Negative); Nitrite Negative (Negative); Specific Gravity 1.015 (1.005-1.025); Urobilinogen 0.2 EU/dL (Up TO 0.2); pH 6.5 (5-8)
[2022-11-19 00:54] LABS: Epithelial Cells Many HPF (Negative); RBC 0-2 HPF (0-2)
[2022-11-19 00:55] LABS: Bacteria Moderate HPF (Negative); C & S Indicated? No/Sq. Contamination; Crystals Negative HPF (Negative); Mucus Negative (Negative); Other Cells Rare Transitional (Negative)
--- NOTE | 2022-11-19 01:08 | ED.PROG_ITS ---
Date of service: 11/19/22 Time of Service: 01:09 Medical Decision Making Patient was signed out to me by my colleague Edward Greer. Please follow-up on his HPI, physical exam, assessment and plan. At time of signout we are awaiting laboratory work-up. Laboratory work-up is returned and is unremarkable. Pat ient does demonstrate questionable UTI, however there is evidence of some contamination secondary to his notable epithelial cells. Otherwise the patient is feeling much better. She remove the Lidoderm patch as she said this is not helping. I did recommend getting [id number] Lidoderm patches at 4% at home as needed. I also discussed with her that the patches are for 24 hours, not for brief instantaneous pain relief. We did offer fosfomycin, however the patient took out her IV and left prior to this administration. All questions were answered otherwise for the patient though, she had no questions or concerns otherwise. She feels well, she shows no signs or symptoms consistent or concerning for cauda equina syndrome. Discussed red flags for which to return. Patient appropriate and stable for discharge. I have extensively reviewed the treatment plan and discharge instructions with the patient. I have addressed all patient concerns at this time. The patient was made aware of what symptoms to monitor for that would warrant a return to the emergency department. Discussed the plan with the patient, they demonstrate verbal understanding and agreement with our assessment and plan at this time. The documentation in this chart was dictated using [employer] dictation software. Please excuse any dictation errors. Sign Out Sign Out Data: Sign Out Comment: Here primarily for back pain after shoveling 2 days ago, given Lidoderm patches and Toradol. Nasal congestion, possible COVID exposure, pending COVID test. Reports yeast infection, no risk for STD. Deferred pelvic, given Diflucan. 2-week history ongoing abdominal pain, unchanged, 2 previous work-ups this week including a negative CT. Labs pending. If unremarkable discharge home, patient to see PCP this week as already scheduled Last updated by Edward Greer PA at 11/18/22 23:53 Discharge Plan Disposition Patient Disposition: Home Condition: Good Discharge Details Chief Complaint: Abd Prob Clinical Impression: Back pain Primary Care Provider: Moiz Dutta ED Provider: Bucky Pederson Home Meds and New Rx's Prescriptions: No Action epinephrine 0.3 mg/0.3 mL Auto-Injector 0.3 mg IM ONCE metformin 500 mg Tablet 500 mg PO BID dextroamphetamine-amphetamine [Adderall] 15 mg tablet 15 mg PO DAILY norethindrone acetate [Aygestin] 5 mg tablet 5 mg PO DAILY Qty: 90 5RF clonazepam 1 mg tablet 3 mg PO BID (DME) lancets [FreeStyle Lancets] 28 gauge misc See Rx Instructions .ROUTE .MEDSUPPLY Qty: 100 Rx Instructions: As directed (DME) FreeStyle Lite Strips Strip See Rx Instructions .ROUTE .MEDSUPPLY Qty: 10 Rx Instructions: As directed insulin detemir U-100 100 unit/mL (3 mL) insulin pen 45 unit subcut BID (DME) pen needle, diabetic [BD Ultra-Fine Sona Pen Needle] 32 gauge x 5/32 needle See Rx Instructions .ROUTE .MEDSUPPLY Qty: 50 Rx Instructions: As directed omeprazole 40 mg capsule,delayed release(DR/EC) 40 mg PO DAILY haloperidol 5 mg tablet 10 mg PO DAILY albuterol sulfate [ProAir HFA] 90 mcg/actuation HFA aerosol inhaler 2 puff inhalation Q6H PRN fluticasone propionate 50 mcg/actuation spray,suspension 1 spray intranasal BID Rx Instructions: administer into each nostril propranolol 60 mg capsule,extended release 24 hr 60 mg PO DAILY atorvastatin 10 mg tablet 10 mg PO DAILY oxcarbazepine 150 mg tablet 150 mg PO BID cyclobenzaprine 10 mg tablet 10 mg PO BID PRN Trulicity 1.5 mg/0.5 mL pen injector See Rx Instructions .ROUTE .COMPLEX Rx Instructions: device subcutaneously Vraylar 3 mg capsule 1 cap PO DAILY acetaminophen [Tylenol Extra Strength] 500 mg Tablet 1,000 mg PO Q6H PRN prazosin 2 mg capsule 5 mg PO .QHS Label Comments: TAKE 1 CAPSULE BY MOUTH EVERY EVENING cyclobenzaprine 10 mg tablet 10 mg PO TID PRNQty: 10 0RF insulin glargine [Lantus Solostar U-100 Insulin] 100 unit/mL (3 mL) insulin pen 30 unit SUBCUT BID prochlorperazine maleate [Compazine] 10 mg tablet 10 mg PO TID PRN (Reason: nausea and vomiting) Qty: 7 0RF fluticasone propionate [Flonase Allergy Relief] 50 mcg/actuation spray,suspension 1 spray TRINITY DAILY Qty: 15.8 0RF Rx Instructions: administer into each nostril Discharge Instructions Instructions: Back Pain (ED) Additional Instructions: If you notice any worsening of your symptoms, or any new symptoms such as vomiting, diarrhea, fever, chills, shortness of breath, chest pain, numbness, weakness, or fainting , please return immediately to the emergency department for reevaluation. Please follow up with your primary care provider as soon as possible for reassessment and reevaluation. As always, it was a pleasure participating in your medical care today. Referrals: Moiz Dutta [Primary Care Provider] -
== END 2022-11-19 01:12 | disposition home or self-care (01) ==
PROVIDERS: Physician Assistant; Emergency Provider Student in an Organized Health Care Education/Training Program; PCP Physician Assistant
DX: M54.50 Low back pain, unspecified (principal); R10.9 Unspecified abdominal pain; R11.0 Nausea; R19.7 Diarrhea, unspecified; R09.81 Nasal congestion; I10 Essential (primary) hypertension; E11.9 Type 2 diabetes mellitus without complications; J45.909 Unspecified asthma, uncomplicated; Z79.4 Long term (current) use of insulin; Z90.49 Acquired absence of other specified parts of digestive tract; Z79.84 Long term (current) use of oral hypoglycemic drugs; Z79.899 Other long term (current) drug therapy; Z20.822 Contact with and (suspected) exposure to COVID-19
CPT/HCPCS: 80053; 81025; 83690; 87637; 96374; 99284; 81003; 81015; 85025; J1885

== ENCOUNTER 2022-11-21 11:49 | Outpatient (REF) | payer MEDICARE, MEDICAID, SELFPAY | END 2022-11-21 11:50 | disposition home or self-care (01) | LOC: NCHCN 11:49 | PROVIDERS: PCP Physician Assistant; Visit Provider Physician Assistant | DX: E11.9 Type 2 diabetes mellitus without complications (principal) | CPT/HCPCS: 82043; 82570 ==

== ENCOUNTER 2022-11-28 18:29 | Outpatient (REF) | payer MEDICARE, MEDICAID, SELFPAY ==
[2022-11-30 11:51] LABS: COVID-19 RT-PCR UVMMC Result Negative (Negative)
== END 2022-11-28 18:30 | disposition home or self-care (01) ==
LOC: LBN 18:29
PROVIDERS: PCP Physician Assistant; Visit Provider Physician Assistant Medical
DX: Z20.822 Contact with and (suspected) exposure to COVID-19 (principal); R05.8 Other specified cough
CPT/HCPCS: U0003

== ENCOUNTER 2022-12-06 15:37 | Emergency (ER) | payer MEDICARE, MEDICAID, SELFPAY ==
[2022-12-06 15:41] VITALS: BP 126/87; PULSE 112; RESP 20; TEMP 36.7; O2SAT 97
--- NOTE | 2022-12-06 16:07 | ED.GENADUL_ITS ---
Discharge Plan Disposition Patient Disposition: Home Discharge Details Clinical Impression: Acute left flank pain Primary Care Provider: Moiz Dutta ED Provider: Shakeel Bullock [place] Meds and New Rx's Prescriptions: No Action epinephrine 0.3 mg/0.3 mL Auto-Injector 0.3 mg IM ONCE metformin 500 mg Tablet 500 mg PO BID dextroamphetamine-amphetamine [Adderall] 15 mg tablet 15 mg PO DAILY norethindrone acetate [Aygestin] 5 mg tablet 5 mg PO DAILY Qty: 90 5RF clonazepam 1 mg tablet 3 mg PO BID (DME) lancets [FreeStyle Lancets] 28 gauge misc See Rx Instructions .ROUTE .MEDSUPPLY Qty: 100 Rx Instructions: As directed (DME) FreeStyle Lite Strips Strip See Rx Instructions .ROUTE .MEDSUPPLY Qty: 10 Rx Instructions: As directed (DME) pen needle, diabetic [BD Ultra-Fine Sona Pen Needle] 32 gauge x 5/32 needle See Rx Instructions .ROUTE .MEDSUPPLY Qty: 50 Rx Instructions: As directed omeprazole 40 mg capsule,delayed release(DR/EC) 40 mg PO DAILY haloperidol 5 mg tablet 10 mg PO DAILY albuterol sulfate [ProAir HFA] 90 mcg/actuation HFA aerosol inhaler 2 puff inhalation Q6H PRN fluticasone propionate 50 mcg/actuation spray,suspension 1 spray intranasal BID Rx Instructions: administer into each nostril propranolol 60 mg capsule,extended release 24 hr 60 mg PO DAILY atorvastatin 10 mg tablet 10 mg PO DAILY oxcarbazepine 150 mg tablet 150 mg PO BID cyclobenzaprine 10 mg tablet 10 mg PO BID PRN Trulicity 1.5 mg/0.5 mL pen injector See Rx Instructions .ROUTE .COMPLEX Rx Instructions: device subcutaneously Vraylar 3 mg capsule 1 cap PO DAILY acetaminophen [Tylenol Extra Strength] 500 mg Tablet 1,000 mg PO Q6H PRN prazosin 2 mg capsule 5 mg PO .QHS Patient Comments: TAKE 1 CAPSULE BY MOUTH EVERY EVENING insulin glargine [Lantus Solostar U-100 Insulin] 100 unit/mL (3 mL) insulin pen 30 unit SUBCUT BID prochlorperazine maleate [Compazine] 10 mg tablet 10 mg PO TID PRN (Reason: nausea and vomiting) Qty: 7 0RF fluticasone propionate [Flonase Allergy Relief] 50 mcg/actuation spray,suspension 1 spray TRINITY DAILY Qty: 15.8 0RF Rx Instructions: administer into each nostril quetiapine 300 mg tablet 600 mg PO QHS Discharge Instructions Instructions: Flank Pain (ED) Additional Instructions: You are seen in the emergency department for your flank pain. Your CAT scan showed no sign of any kidney stones. Please take acetaminophen and ibuprofen as directed on the bottle for your pain. Please return to the emergency department if you develop fevers cannot eat or as result of nausea or vomiting or if you have any other concern Medical Decision Making This is a normothermic and mildly tachycardic 32-year-old female with left flank pain and reported hematuria concerning for ureterolithiasis. She is not recentl y to suggest splenic arterial aneurysm. She has no dysuria nor frequency so I suspicion is low for UTI. However she does endorse diaphoresis and chills which is concerning for Malick nephritis. Her limited bedside ultrasound showed no obvious left-sided hydronephrosis however we will plan on obtaining a dry CT scan to assess for ureterolithiasis. She has not taken any falls to suggest intra-abdominal injury so I do not feel that she requires contrast study. No rash on her abdomen to suggest zoster. No shortness of breath nor hypoxia to suggest PE. No history of immunocompromise state to suggest opportunistic infection. No pain out of proportion to suggest necrotizing soft tissue infection. Not recently to suggest increased risk for splenic arterial aneurysm. 5:15 PM Patient's heart rate down trended in the ED. Given her history of diabetes will obtain labs to assess for any acute electrolyte abnormalities. She is on metformin which could certainly cause her glucose area. Will defer treatment for UTI at this point time given nitrite negative urinalysis. 7:15 PM Patient had reassuring laboratory evaluation with no anion gap nor any CINDI. She did have a mild leukocytosis. Her tachycardia resolved in the ED. I advised her that I did not have HPI General Date/Time Provider Initiated Documentation: 12/06/22 16:07 . HPI Narrative: This is a 32-year-old previously healthy female arrived to the emergency department with left upper quadrant pain and left flank pain associate with hematuria for the past 2 days. She denies dysuria and frequency. She denies fevers but she has had some sweats and chills. She has never had ureterolit hiasis in the past. She has been attempting treatment at home with acetaminophen and methocarbamol. She has not taken any falls on her abdomen. She has no prior history of similar symptoms but she did have urinary tract infections when she was a child. No history of inflammatory bowel disease nor is she recently . Related Data Home Medications Medication Instructions Recorded Confirmed blood sugar diagnostic (FreeStyle #10 ea 10/10/20 12/06/22 Lite Strips) clonazepam 1 mg tablet 3 mg PO BID 10/10/20 12/06/22 lancets 28 gauge (FreeStyle #100 ea 10/10/20 12/06/22 Lancets) omeprazole 40 mg capsule,delayed 40 mg PO DAILY 10/10/20 12/06/22 release pen needle, diabetic 32 gauge x #50 ea 10/10/20 12/06/22 (BD Ultra-Fine Sona Pen Needle) epinephrine 0.3 mg/0.3 mL 0.3 mg IM ONCE 12/29/20 12/06/22 injection, auto-injector metformin 500 mg tablet 500 mg PO BID 12/29/20 12/06/22 acetaminophen 500 mg tablet 1,000 mg PO Q6H PRN 01/31/21 12/06/22 (Tylenol Extra Strength) haloperidol 5 mg tablet 10 mg PO DAILY 04/05/21 12/06/22 prazosin 2 mg capsule 5 mg PO .QHS 05/14/21 12/06/22 atorvastatin 10 mg tablet 10 mg PO DAILY 08/11/21 12/06/22 cyclobenzaprine 10 mg tablet 10 mg PO BID PRN 08/11/21 12/06/22 fluticasone propionate 50 1 spray intranasal BID 08/11/21 12/06/22 mcg/actuation nasal spray,suspension oxcarbazepine 150 mg tablet 150 mg PO BID 08/11/21 12/06/22 propranolol 60 mg capsule,24 60 mg PO DAILY 08/11/21 12/06/22 hr,extended release albuterol sulfate 90 mcg/actuation 2 puff inhalation Q6H PRN 11/13/21 12/06/22 aerosol inhaler (ProAir HFA) dextroamphetamine-amphetamine 15 15 mg PO DAILY 05/22/22 12/06/22 mg tablet (Adderall) cariprazine 3 mg capsule (Vraylar) 1 cap PO DAILY 07/08/22 12/06/22 dulaglutide 1.5 mg/0.5 mL See Rx Instructions .Route .COMPLEX 07/08/22 12/06/22 subcutaneous pen injector (Trulicity) norethindrone acetate 5 mg tablet 5 mg PO DAILY #90 tabs 10/24/22 12/06/22 (Aygestin) insulin glargine 100 unit/mL (3 30 unit subcut BID 10/26/22 12/06/22 mL) subcutaneous pen (Lantus Solostar U-100 Insulin) fluticasone propionate 50 1 spray intranasal DAILY #15.8 mL 11/11/22 12/06/22 mcg/actuation nasal spray,suspension (Flonase Allergy Relief) prochlorperazine maleate 10 mg 10 mg PO TID PRN nausea and 11/11/22 12/06/22 tablet (Compazine) vomiting #7 tabs quetiapine 300 mg tablet 600 mg PO QHS 12/06/22 12/06/22 Previous Rx's Medication Instructions Recorded norethindrone acetate 5 mg tablet 5 mg PO DAILY #90 tabs 10/24/22 (Aygestin) fluticasone propionate 50 1 spray intranasal DAILY #15.8 mL 11/11/22 mcg/actuation nasal spray,suspension (Flonase Allergy Relief) prochlorperazine maleate 10 mg 10 mg PO TID PRN nausea and 11/11/22 tablet (Compazine) vomiting #7 tabs Allergies Allergy/AdvReac Type Severity Reaction Status Date / Time naproxen [From Aleve] Allergy Severe Anaphylaxis Verified 12/06/22 16:21 cephalexin [From Keflex] Allergy Intermediate Hives Verified 12/06/22 16:21 latex Allergy Intermediate Itching Verified 12/06/22 16:21 venom-honey bee Allergy Verified 12/06/22 16:21 General Stated Complaint: Urinary SUZETTE: 3 PFSH All Active Problems (Updated 12/06/22 @ 17:15 by Shakeel Bullock MD) Abdominal pain, vomiting, and diarrhea (Acute) Back pain (Acute) Acute left flank pain (Acute) Dysmenorrhea (Acute) Medical History ADHD Anxiety Asthma Borderline personality disorder Depression Diverticulitis GERD (gastroesophageal reflux disease) History of irregular menstrual bleeding History of recurrent UTI (urinary tract infection) HTN (hypertension) Hyperlipidemia Left hip pain Low back pain Nausea Obesity Pain of left calf Pain, joint, knee, right PCOS (polycystic ovarian syndrome) PTSD (post-traumatic stress disorder) Schizoaffective disorder Sleep apnea Suicidal ideation Tachycardia Type 2 diabetes mellitus Surgical History H/O laparoscopy History of appendectomy History of cholecystectomy Family History Mother Diabetes Social History Smoking/Tobacco Use Status: Former Tobacco Use Smoking risk assessment performed?: Yes Alcohol Intake: current Alcohol Intake frequency: a few times a month Drug use: Daily Substance use type: marijuana Household members: family Housing: apartment Number of Children: 0 current occupation: Unemployed What type of physical activity do you participate in: walking, independent ambulation and irregular exercise Do you feel safe at home: Yes Do you feel safe in your relationship?: Yes Female Reproductive History Menstrual control method: pills (aygestin) History History 2 Para Hx # Term Pregnancies Multiple births Hx # Pregnancies Ectopic pregnancies AB induced Hx Number of Living Children AB spontaneous 2 Exam Narrative Exam Narrative: General: Well-appearing in no acute distress speaking in complete sentences. Head: Normocephalic, atraumatic Ear, nose, mouth, throat: Grossly normal inspection. Normal voice, handling secretions normally. Neck: Trachea midline. Cardiovascular: Well-perfused distal extremities. Respiratory: Nonlabored respiration. Gastrointestinal: Mildly distended abdomen. Left CVA tenderness. Left upper quadrant tenderness. No rebound. No guarding. Musculoskeletal: No edema. Moving all 4 extremities spontaneously. Skin: Normal for age and race, grossly normal temperature and turgor. No acute rash. Neurologic: Alert and appropriate, no apparent acute deficits. Psychiatric: Mood and manner are appropriate. Grooming and personal hygiene are appropriate. Course Vital Signs Vital signs: Vital Signs Temperature 36.7 C 12/06/22 15:41 Pulse 112 H 12/06/22 15:41 Respiratory Rate 20 12/06/22 15:41 Blood Pressure 126/87 12/06/22 15:41 Pulse Oximetry 97 12/06/22 15:41 Temperature 36.7 C 12/06/22 15:41 Temperature Source Oral 12/06/22 15:41 Pulse 112 H 12/06/22 15:41 Respiratory Rate 20 12/06/22 15:41 Respiratory Effort Normal 12/06/22 15:48 Blood Pressure 126/87 12/06/22 15:41 Blood Pressure Position Sitting 12/06/22 15:41 Pulse Oximetry 97 12/06/22 15:41 Oxygen Delivery Method Room Air 12/06/22 15:41 Oxygen Flow Rate 0 12/06/22 15:41 POCUS Exam (ED) Limited Retroperitoneal(Renal)Exam DATE OF EXAM: 12/06/22 TIME OF EXAM: 16:36 PROVIDER THAT PERFORMED THE STUDY: Shakeel Bullock REASON FOR EXAM: Flank pain/left side VISUALIZED STRUCTURES: Left kidney PERTINENT FINDINGS/IMPRESSION: no hydronephrosis present
--- NOTE | 2022-12-06 16:15 | DI.CT_ITS ---
Exam(s) CT ABDOMEN PELVIS WO EXAM: CT ABDOMEN PELVIS WO CLINICAL HISTORY: Left flank pain hematuria. TECHNIQUE: Imaging Protocol: Axial computed tomography images with coronal and sagittal reformatted images were created and reviewed CONTRAST MATERIAL: Intravenous: none Oral: None COMPARISON: CT CT ABDOMEN PELVIS W from 11/11/2022 FINDINGS: VISUALIZED LUNG BASES: No nodules nor pleural effusions evident. ABDOMEN: There is no ascites. LIVER: There are no obvious focal hepatic lesions evident of this noninfused study. GALLBLADDER/BILIARY: Gallbladder is again noted be surgically absent. Biliary tree is not dilated. CBD is not dilated. PANCREAS: No evidence of pancreatic mass nor dilatation of the pancreatic duct. SPLEEN: Spleen is not enlarged. No obvious intrasplenic lesions. ADRENALS: There are no significant adrenal masses. KIDNEYS:No cysts evident. No solid renal masses. No calculi nor hydronephrosis. . ABDOMINAL AORTA: Abdominal aorta is not enlarged. LYMPH NODES: There is no retroperitoneal nor paraaortic adenopathy. ABDOMINAL WALL: No evidence of significant anterior abdominal wall nor inguinal hernia. GI: There is no evidence of bowel obstruction, free air, nor abscess. PELVIS: LYMPH NODES: There is no intrapelvic nor inguinal adenopathy. GI: Appendix is again noted be surgically absent.No evidence of sigmoid diverticulitis. URINARY BLADDER: No calculi nor obvious masses evident REPRODUCTIVE: Uterus and adnexal regions unremarkable. Also no free fluid in the pelvis. OSSEOUS: No significant osseous lesions. No fractures. IMPRESSION: 1. Again noted is evidence of previous cholecystectomy and appendectomy. No bowel obstruction nor fr ee air. No ascites. Biliary tree is not dilated. 2. No acute findings in the abdomen and pelvis. By myself to ER physician. RADIATION DOSE DELIVERED: 1,303.13mGy.cm Total DLP DATA REPOSITORY: All CT scans at this facility are submitted to the National Radiology Data Registry (NRDR) Dose Index Registry (DIR) with the [employer] ([employer]). RADIATION OPTIMIZATION: All CT scans at this facility use at least one of these dose optimization te chniques: automated exposure control; mA and/or kV adjustment per patient size (includes targeted exa ms where dose is matched to clinical indication); or iterative reconstruction.
[2022-12-06 16:19] LABS: Bilirubin Negative (Negative); Blood Negative (Negative); Clarity Clear (Clear); Glucose 250 mg/dL (Negative); Ketones Negative (Negative); Leukocyte Esterase Negative (Negative); Nitrite Negative (Negative); Specific Gravity 1.015 (1.005-1.025); Urobilinogen 0.2 EU/dL (Up TO 0.2)
[2022-12-06] MEDS: Ondansetron 4 MG/2 ML VIAL IVP (16:43)
[2022-12-06] MEDS: fentaNYL 100 MCG/2 ML VIAL 50 MCG IVP (16:43)
[2022-12-06] MEDS: Normal Saline 1,000 ML 1000 ML IV (17:00)
[2022-12-06] MEDS: diphenhydrAMINE 25 MG CAP PO (17:02)
[2022-12-06 17:10] VITALS: PULSE 96
[2022-12-06 17:23] LABS: HCT 36.6 % (36.0-46.0); HGB 12.1 g/dL (11.2-15.7); MCH 28.6 pg (27.0-33.0); MCHC 33.1 % (32.0-36.0); MCV 87 fL (80-95); MPV 10.1 fL (8.0-11.0); Platelet Count 345 10^3/uL (130-400); RBC 4.23 10^6/uL (3.93-5.22); RDW 13.2 % (11.7-14.6); RDW-SD 41.1 fL
[2022-12-06 17:30] LABS: BUN 8 mg/dL (7-18); CREATININE 0.9 mg/dL (0.55-1.02); Calcium 8.8 mg/dL (8.5-10.1); Chloride 100 mmol/L (98-107); Estimated GFR 86.03 (mL/min/1.73m2); Glucose 285 mg/dL (74-106); Potassium 4.1 mmol/L (3.5-5.1); Sodium 135 mmol/L (136-145)
[2022-12-06 18:08] VITALS: BP 119/80; PULSE 90; TEMP 36.8; O2SAT 98
== END 2022-12-06 18:10 | disposition home or self-care (01) ==
PROVIDERS: Emergency Provider Emergency Medicine; PCP Physician Assistant
DX: R14.0 Abdominal distension (gaseous) (principal); R10.812 Left upper quadrant abdominal tenderness; R31.9 Hematuria, unspecified; D72.829 Elevated white blood cell count, unspecified; I10 Essential (primary) hypertension; E11.9 Type 2 diabetes mellitus without complications; J45.909 Unspecified asthma, uncomplicated; Z79.4 Long term (current) use of insulin; Z79.84 Long term (current) use of oral hypoglycemic drugs; Z79.899 Other long term (current) drug therapy; Z90.49 Acquired absence of other specified parts of digestive tract
CPT/HCPCS: 36415; 76775; 80048; 81025; 85027; 96361; 96374; 96375; 99284; 74176; 81003; J2405; J3010

== ENCOUNTER 2022-12-29 22:45 | Emergency (ER) | payer MEDICARE, MEDICAID, SELFPAY ==
[2022-12-29 23:08] VITALS: BP 120/84; PULSE 95; RESP 18; TEMP 36.9; O2SAT 96
--- NOTE | 2022-12-29 23:28 | ED.GENADUL_ITS ---
Discharge Plan Disposition Patient Disposition: Home Discharge Details Clinical Impression: Abdominal pain Primary Care Provider: Moiz Dutta ED Provider: Dorothea Draper Home Meds and New Rx's Prescriptions: Continued epinephrine 0.3 mg/0.3 mL Auto-Injector 0.3 mg IM ONCE metformin 500 mg Tablet 500 mg PO BID dextroamphetamine-amphetamine [Adderall] 15 mg tablet 15 mg PO DAILY norethindrone acetate [Aygestin] 5 mg tablet 5 mg PO DAILY Qty: 90 5RF clonazepam 1 mg tablet 3 mg PO BID (DME) lancets [FreeStyle Lancets] 28 gauge misc See Rx Instructions .ROUTE .MEDSUPPLY Qty: 100 Rx Instructions: As directed (DME) FreeStyle Lite Strips Strip See Rx Instructions .ROUTE .MEDSUPPLY Qty: 10 Rx Instructions: As directed (DME) pen needle, diabetic [BD Ultra-Fine Sona Pen Needle] 32 gauge x 5/32 needle See Rx Instructions .ROUTE .MEDSUPPLY Qty: 50 Rx Instructions: As directed omeprazole 40 mg capsule,delayed release(DR/EC) 40 mg PO DAILY haloperidol 5 mg tablet 10 mg PO DAILY albuterol sulfate [ProAir HFA] 90 mcg/actuation HFA aerosol inhaler 2 puff inhalation Q6H PRN fluticasone propionate 50 mcg/actuation spray,suspension 1 spray intranasal BID Rx Instructions: administer into each nostril propranolol 60 mg capsule,extended release 24 hr 60 mg PO DAILY atorvastatin 10 mg tablet 10 mg PO DAILY oxcarbazepine 150 mg tablet 150 mg PO BID cyclobenzaprine 10 mg tablet 10 mg PO BID PRN Trulicity 1.5 mg/0.5 mL pen injector See Rx Instructions .ROUTE .COMPLEX Rx Instructions: device subcutaneously Vraylar 3 mg capsule 1 cap PO DAILY acetaminophen [Tylenol Extra Strength] 500 mg Tablet 1,000 mg PO Q6H PRN prazosin 2 mg capsule 5 mg PO .QHS Patient Comments: TAKE 1 CAPSULE BY MOUTH EVERY EVENING insulin glargine [Lantus Solostar U-100 Insulin] 100 unit/mL (3 mL) insulin pen 30 unit SUBCUT BID prochlorperazine maleate [Compazine] 10 mg tablet 10 mg PO TID PRN (Reason: nausea and vomiting) Qty: 7 0RF fluticasone propionate [Flonase Allergy Relief] 50 mcg/actuation spray,suspension 1 spray TRINITY DAILY Qty: 15.8 0RF Rx Instructions: administer into each nostril quetiapine 300 mg tablet 600 mg PO QHS Discharge Instructions Instructions: Abdominal Pain (ED) Additional Instructions: No evidence of urinary tract infection or kidney stone. Please take the nausea medication as needed for nausea and vomiting. Please take Tylenol or Ibuprofen with food every 4-6 hours as needed for pain and swelling. Follow up with primary care provider in 3-5 days. Return to ED sooner if any worsening or concerns. Increase oral fluids. Referrals: Moiz Dutta [Primary Care Provider] - 5 days Discharge Data Discharge Date/Time-TO BE ENTERED AT DEPARTURE: 12/30/22 01:11 Medical Decision Making Patient complaining of lower abdominal pressure which radiates into her back for the last 2 days. She reports nausea no vomiting. She is concerned for a possible bladder or kidney infection. She reports chills no fever. She does have a past medical history of anxiety asthma borderline personality disorder, depression diverticulitis, GERD, hypertension, hyperlipidemia, PCOS schizoaffective disorder and type II deep diabetes mellitus. Surgical history includes appendectomy, cholecystectomy. Urinalysis ordered. Urinalysis shows no evidence of UTI, positive blood 5-[address] abdomen pelvis without contrast ordered. To rule out kidney stone. CT shows no evidence of kidney stone. Possible colitis. This text was generated using [employer] system, please disregard any oddities of phrase or misspellings. Imaging Data Radiologic Study: Imaging: CT Scan Radiologist's impression: CT ABDOMEN PELVIS WO 12/06/2022 4:47 PM FINDINGS: Lungs: Lung bases clear. Pleural spaces: Small bilateral pleural effusions, larger on the right. Liver: Grossly unremarkable unenhanced liver. Gallbladder and bile ducts: Prior cholecystectomy. No biliary dilatation. Pancreas: Grossly unremarkable unenhanced pancreas. Spleen: Normal appearing spleen. Adrenal glands: Normal appearing adrenal glands. Kidneys and ureters: Grossly unremarkable unenhanced kidneys. No radiopaque urinary tract stones, hydronephrosis, or evidence of recent stone passage. Stomach and bowel: No oral contrast. Stomach moderately distended with ingested material. No small bowel dilatation to suggest obstruction. Normal appearing fecal material in the cecum and ascending colon. Downstream colon largely well evacuated and collapsed. Mild mural thickening through the collapsed portions of the transverse colon, descending colon, and sigmoid colon. Artifact of incomplete distention? Segments of acute colitis? No evidence of diverticulitis. Appendix: Appendix not identified. Surgical material at the cecal apex suggesting a prior appendectomy. Correlation with surgical history recommended. Intraperitoneal space: No gross ascites or free air. Vasculature: Normal caliber abdominal aorta. Lymph nodes: No pathologically enlarged mesenteric, retroperitoneal, or pelvic sidewall lymph nodes. Urinary bladder: Normal appearing urinary bladder. Reproductive: Uterus and ovaries grossly unremarkable, as seen. Bones/joints: No acute fracture seen among the bones of the abdomen or pelvis. Soft tissues: Small fat containing ventral hernia at the umbilicus. Focal skin thickening with subcutaneous fat stranding in the right lower quadrant anterior abdominal wall adjacent to the umbilicus, nonspecific. Direct inspection recommended. A small region of acute cellulitis, recent subcutaneous injection, recent insect bite, or other trivial trauma could produce this appearance. IMPRESSION: 1. Small bilateral pleural effusions, larger on the right. 2. No radiopaque urinary tract stones, hydronephrosis, or evidence of recent stone passage. 3. Mild mural thickening through the collapsed portions of the transverse colon, descending colon, and sigmoid colon. Artifact of incomplete distention is suspected. Acute colitis could probably have a similar appearance. Clinical correlation is recommended. Thank you for allowing us to participate in the care of your patient. Dictated and Authenticated by: Kain Sánchez MD Lab Data Lab results reviewed: Yes I reviewed the patient's lab results. Labs: Laboratory Tests Range/Units 12/29/22 23:23 Urine Color (Yellow) Yellow Urine Clarity (Clear) Sl Cloudy Urine pH (5-8) 7.0 Ur Specific [place] (1.005-1.025) 1.025 Urine Protein (Negative) mg/dL Trace H Urine Ketones (Negative) mg/dL Negative Urine Blood (Negative) Moderate H Urine Nitrite (Negative) Negative Urine Bilirubin (Negative) Negative Urine Urobilinogen (Up to 0.2) mg/dL 0.2 Ur Leukocyte Esterase (Negative) Negative Urine RBC (0-2) HPF 5-10 H Urine WBC (0-5) HPF 0-2 Ur Epithelial Cells (Negative) HPF Many Urine Crystals (Negative) HPF Negative Urine Bacteria (Negative) HPF Few Urine Casts (Negative) LPF Negative Urine Mucus (Negative) Negative Ur Culture Indicated? No/Sq. Contamination Urine Glucose (Negative) mg/dL Negative HPI General Mode of arrival: ambulatory . Date/Time Provider Initiated Documentation: 12/29/22 23:13 . Limitations to Documentation: no limitations . Information obtained by: patient, RN notes reviewed and old records reviewed . HPI Narrative: Patient complaining of lower abdominal pressure which radiates into her back for the last 2 days. She reports nausea no vomiting. She is concerned for a possible bladder or kidney infection. She reports chills no fever. She does have a past medical history of anxiety asthma borderline personality disorder, depression diverticulitis, GERD, hypertension, hyperlipidemia, PCOS schizoaffective disorder and type II deep diabetes mellitus. Surgical history includes appendectomy, cholecystectomy. Related Data Home Medications Medication Instructions Recorded Confirmed blood sugar diagnostic (FreeStyle #10 ea 10/10/20 12/29/22 Lite Strips) clonazepam 1 mg tablet 3 mg PO BID 10/10/20 12/29/22 lancets 28 gauge (FreeStyle #100 ea 10/10/20 12/29/22 Lancets) omeprazole 40 mg capsule,delayed 40 mg PO DAILY 10/10/20 12/29/22 release pen needle, diabetic 32 gauge x #50 ea 10/10/20 12/29/22 5/32 (BD Ultra-Fine Sona Pen Needle) epinephrine 0.3 mg/0.3 mL 0.3 mg IM ONCE 12/29/20 12/29/22 injection, auto-injector metformin 500 mg tablet 500 mg PO BID 12/29/20 12/29/22 acetaminophen 500 mg tablet 1,000 mg PO Q6H PRN 01/31/21 12/29/22 (Tylenol Extra Strength) haloperidol 5 mg tablet 10 mg PO DAILY 04/05/21 12/29/22 prazosin 2 mg capsule 5 mg PO .QHS 05/14/21 12/29/22 atorvastatin 10 mg tablet 10 mg PO DAILY 08/11/21 12/29/22 cyclobenzaprine 10 mg tablet 10 mg PO BID PRN 08/11/21 12/29/22 fluticasone propionate 50 1 spray intranasal BID 08/11/21 12/29/22 mcg/actuation nasal spray,suspension oxcarbazepine 150 mg tablet 150 mg PO BID 08/11/21 12/29/22 propranolol 60 mg capsule,24 60 mg PO DAILY 08/11/21 12/29/22 hr,extended release albuterol sulfate 90 mcg/actuation 2 puff inhalation Q6H PRN 11/13/21 12/29/22 aerosol inhaler (ProAir HFA) dextroamphetamine-amphetamine 15 15 mg PO DAILY 05/22/22 12/29/22 mg tablet (Adderall) cariprazine 3 mg capsule (Vraylar) 1 cap PO DAILY 07/08/22 12/29/22 dulaglutide 1.5 mg/0.5 mL See Rx Instructions .Route .COMPLEX 07/08/22 12/29/22 subcutaneous pen injector (Trulicity) norethindrone acetate 5 mg tablet 5 mg PO DAILY #90 tabs 10/24/22 12/29/22 (Aygestin) insulin glargine 100 unit/mL (3 30 unit subcut BID 10/26/22 12/29/22 mL) subcutaneous pen (Lantus Solostar U-100 Insulin) fluticasone propionate 50 1 spray intranasal DAILY #15.8 mL 11/11/22 12/29/22 mcg/actuation nasal spray,suspension (Flonase Allergy Relief) prochlorperazine maleate 10 mg 10 mg PO TID PRN nausea and 11/11/22 12/29/22 tablet (Compazine) vomiting #7 tabs quetiapine 300 mg tablet 600 mg PO QHS 12/06/22 12/29/22 Previous Rx's Medication Instructions Recorded norethindrone acetate 5 mg tablet 5 mg PO DAILY #90 tabs 10/24/22 (Aygestin) fluticasone propionate 50 1 spray intranasal DAILY #15.8 mL 11/11/22 mcg/actuation nasal spray,suspension (Flonase Allergy Relief) prochlorperazine maleate 10 mg 10 mg PO TID PRN nausea and 11/11/22 tablet (Compazine) vomiting #7 tabs Allergies Allergy/AdvReac Type Severity Reaction Status Date / Time naproxen [From Aleve] Allergy Severe Anaphylaxis Verified 12/06/22 16:21 cephalexin [From Keflex] Allergy Intermediate Hives Verified 12/06/22 16:21 latex Allergy Intermediate Itching Verified 12/06/22 16:21 venom-honey bee Allergy Verified 12/06/22 16:21 General Stated Complaint: Abd Prob SUZETTE: 3 Review of Systems All systems reviewed & are unremarkable except as noted in HPI and below Gastrointestinal Gastrointestinal: Reports abdominal pain, Denies diarrhea, Reports nausea and De nies vomiting Genitourinary Genitourinary: Reports as per HPI PFSH All Active Problems (Updated 12/30/22 @ 00:54 by Dorothea Draper NP) Acute left flank pain (Acute) Abdominal pain (Acute) Dysmenorrhea (Acute) Medical History ADHD Anxiety Asthma Borderline personality disorder Depression Diverticulitis GERD (gastroesophageal reflux disease) History of irregular menstrual bleeding History of recurrent UTI (urinary tract infection) HTN (hypertension) Hyperlipidemia Left hip pain Low back pain Nausea Obesity Pain of left calf Pain, joint, knee, right PCOS (polycystic ovarian syndrome) PTSD (post-traumatic stress disorder) Schizoaffective disorder Sleep apnea Suicidal ideation Tachycardia Type 2 diabetes mellitus Surgical History H/O laparoscopy History of appendectomy History of cholecystectomy Family History Mother Diabetes Social History Smoking/Tobacco Use Status: Former Tobacco Use Smoking risk assessment performed?: Yes Alcohol Intake: current Alcohol Intake frequency: a few times a month Drug use: Daily Substance use type: marijuana Household members: family Housing: apartment Number of Children: 0 current occupation: Unemployed What type of physical activity do you participate in: walking, independent ambulation and irregular exercise Do you feel safe at home: Yes Do you feel safe in your relationship?: Yes Female Reproductive History Menstrual control method: pills (aygestin) History History 2 Para Hx # Term Pregnancies Multiple births Hx # Pregnancies Ectopic pregnancies AB induced Hx Number of Living Children AB spontaneous 2 Exam Narrative Exam Narrative: Constitutional: Alert and oriented x3. Appears stated age. Normal body habitus. Head: Normocephalic, no trauma. Eyes: Pupils PERRL, Red reflex noted, EOM's intact. Eyelids symmetrical without lesions, discharge, or swelling. ENT: Bilateral TM's WNL, External ear normal to inspection, no mastoid TTP, swelling, or erythema, Nasal turbinates WNL, no nasal discharge. Normal dentition, Posterior pharynx WNL, no exudate. Chest: RRR, Normal S1, S2, distal pulses intact. Resp: Lungs clear to auscultation bilaterally, no wheezes, rales, or rhonchi. Abdomen: Soft, non-distended, Normoactive bowel sounds all 4 quads. Musculoskeletal: Normal gait, 5/5 strength to all four extremities. Skin: No suspicious rashes or lesions. Capillary refill less than 2 sec. Neurologic: Cranial nerves II-XII intact. Alert and oriented x 3. Motor: No deficits noted. Sensory: Intact bilaterally all 4 extremities. Reflexes: DTR's intact bilaterally.. Hematologic/Lymphatic: No ecchymosis, no lymphadenopathy. Course Vital Signs Vital signs: Vital Signs Temperature 36.9 C 12/29/22 23:08 Pulse 95 H 12/29/22 23:08 Respiratory Rate 18 12/29/22 23:08 Blood Pressure 120/84 12/29/22 23:08 Pulse Oximetry 96 12/29/22 23:08 Temperature 36.9 C 12/29/22 23:08 Temperature Source Oral 12/29/22 23:08 Pulse 95 H 12/29/22 23:08 Respiratory Rate 18 12/29/22 23:08 Respiratory Effort Normal 12/29/22 23:17 Blood Pressure 120/84 12/29/22 23:08 Blood Pressure Position Sitting 12/29/22 23:08 Pulse Oximetry 96 12/29/22 23:08 Oxygen Delivery Method Room Air 12/29/22 23:08 Oxygen Flow Rate 0 12/29/22 23:08 Pain Level 10 12/29/22 23:08
[2022-12-29 23:36] LABS: Bilirubin Negative (Negative); Blood Moderate (Negative); Clarity Sl Cloudy (Clear); Glucose Negative (Negative); Ketones Negative (Negative); Leukocyte Esterase Negative (Negative); Nitrite Negative (Negative); Specific Gravity 1.025 (1.005-1.025); Urobilinogen 0.2 mg/dL (Up to 0.2)
--- NOTE | 2022-12-29 23:45 | DI.CT_ITS ---
Exam(s) CT RENAL COLIC WO EXAM: CT RENAL COLIC WO CLINICAL HISTORY: Hematuria, back pain. TECHNIQUE: Imaging Protocol: Axial computed tomography images with coronal and sagittal reformatted images were created and reviewed. CONTRAST MATERIAL: Noncontrast COMPARISON: CT CT ABDOMEN PELVIS WO from 12/06/2022 FINDINGS: ABDOMEN: Lung Bases: Normal where visualized. Liver: Normal attenuation. No measurable mass. Gallbladder and biliary tract: Status post cholecystectomy. No radiodense calculus or dilation. Pancreas: Normal density, no calcifications or inflammatory process. Spleen: Normal. Kidneys: Normal size, contour and axis. No radiodense stones or obstructive uropathy. No masses seen. Adrenal glands: No masses seen. Abdominal Aorta: Abdominal portion non-dilated. Soft tissues: Minimal amount of fat at the umbilicus. Minimal right lower quadrant skin thickening d isc could represent injection site. Clinical correlation recommended. PELVIS: Bladder: Symmetric distention, no gross wall thickening. No evidence of stones.No visible mass. Bowel: No obstruction or bowel wall thickening. Appendix not visualized. Suture material present lik gerardo indicating appendectomy. Reproductive: Unremarkable. Peritoneal cavity: No ascites, collection or mesenteric inflammatory response. Bones: Unremarkable for age.. IMPRESSION: No acute abnormality. RADIATION DOSE DELIVERED: 1,292.76mGy.cm Total DLP DATA REPOSITORY: All CT scans at this facility are submitted to the National Radiology Data Registry (NRDR) Dose Index Registry (DIR) with the [employer] (A[employer]). RADIATION OPTIMIZATION: All CT scans at this facility use at least one of these dose optimization te chniques: automated exposure control; mA and/or kV adjustment per patient size (includes targeted exa ms where dose is matched to clinical indication); or iterative reconstruction.
[2022-12-29 23:52] LABS: Bacteria Few HPF (Negative); C & S Indicated? No/Sq. Contamination; Casts Negative LPF (Negative); Crystals Negative HPF (Negative); Epithelial Cells Many HPF (Negative); Mucus Negative (Negative); WBC 0-2 HPF (0-5)
[2022-12-30] MEDS: Ondansetron O.D.T. 4 MG TABEF PO (00:24)
--- NOTE | 2022-12-30 00:47 | DI.VRAD_ITS ---
PROCEDURE INFORMATION: Exam: CT Abdomen And Pelvis Without Contrast Exam date and time: 12/30/2022 12:08 AM Age: 32 years old Clinical indication: Abdominal pain; Flank; Other: Not specified; Prior surgery; Surgery date: 6+ months; Surgery type: Cholecystectomy; Appendectomy TECHNIQUE: Imaging protocol: Computed tomography of the abdomen and pelvis without contrast. COMPARISON: CT ABDOMEN PELVIS WO 12/06/2022 4:47 PM FINDINGS: Lungs: Lung bases clear. Pleural spaces: Small bilateral pleural effusions, larger on the right. Liver: Grossly unremarkable unenhanced liver. Gallbladder and bile ducts: Prior cholecystectomy. No biliary dilatation. Pancreas: Grossly unremarkable unenhanced pancreas. Spleen: Normal appearing spleen. Adrenal glands: Normal appearing adrenal glands. Kidneys and ureters: Grossly unremarkable unenhanced kidneys. No radiopaque urinary tract stones, hydronephrosis, or evidence of recent stone passage. Stomach and bowel: No oral contrast. Stomach moderately distended with ingested material. No small bowel dilatation to suggest obstruction. Normal appearing fecal material in the cecum and ascending colon. Downstream colon largely well evacuated and collapsed. Mild mural thickening through the collapsed portions of the transverse colon, descending colon, and sigmoid colon. Artifact of incomplete distention? Segments of acute colitis? No evidence of diverticulitis. Appendix: Appendix not identified. Surgical material at the cecal apex suggesting a prior appendectomy. Correlation with surgical history recommended. Intraperitoneal space: No gross ascites or free air. Vasculature: Normal caliber abdominal aorta. Lymph nodes: No pathologically enlarged mesenteric, retroperitoneal, or pelvic sidewall lymph nodes. Urinary bladder: Normal appearing urinary bladder. Reproductive: Uterus and ovaries grossly unremarkable, as seen. Bones/joints: No acute fracture seen among the bones of the abdomen or pelvis. Soft tissues: Small fat containing ventral hernia at the umbilicus. Focal skin thickening with subcutaneous fat stranding in the right lower quadrant anterior abdominal wall adjacent to the umbilicus, nonspecific. Direct inspection recommended. A small region of acute cellulitis, recent subcutaneous injection, recent insect bite, or other trivial trauma could produce this appearance. IMPRESSION: 1. Small bilateral pleural effusions, larger on the right. 2. No radiopaque urinary tract stones, hydronephrosis, or evidence of recent stone passage. 3. Mild mural thickening through the collapsed portions of the transverse colon, descending colon, and sigmoid colon. Artifact of incomplete distention is suspected. Acute colitis could probably have a similar appearance. Clinical correlation is recommended. Dictated and Authenticated by: Kain Sánchez MD. Ordering:BELLA Piedra MD
[2022-12-30] MEDS: Ondansetron O.D.T. 4 MG TABEF, 3 TABS/BTL PO (01:01)
[2022-12-30 01:09] VITALS: BP 124/80; PULSE 89; RESP 18
== END 2022-12-30 01:11 | disposition home or self-care (01) ==
PROVIDERS: Emergency Provider Registered Nurse Emergency; PCP Physician Assistant
DX: R10.30 Lower abdominal pain, unspecified (principal); R11.0 Nausea; R68.83 Chills (without fever); E11.9 Type 2 diabetes mellitus without complications; I10 Essential (primary) hypertension; J45.909 Unspecified asthma, uncomplicated; Z90.49 Acquired absence of other specified parts of digestive tract; Z79.4 Long term (current) use of insulin; Z79.899 Other long term (current) drug therapy
CPT/HCPCS: 81025; 99284; 74176; 81003; 81015

== ENCOUNTER 2023-01-03 23:20 | Emergency (ER) | payer MEDICARE, MEDICAID, SELFPAY ==
--- NOTE | 2023-01-03 23:15 | RT.EKG_ITS ---
APPROVED REPORT Exam: Resting ECG Reason for Exam: chest pain Patient Location: E HR:109 bpm ECG Measurements Heart Rate 109 AXIS PA 124 P 21 QRSd 75 QRS -27 QT 325 T 34 QTc 437 Conclusion Sinus tachycardia...rate> 99 Low voltage, precordial leads...precordial leads <1.0mV sinus tachycardia, normal intervals, non ischemic
[2023-01-03 23:22] VITALS: BP 120/88; PULSE 125; RESP 20; TEMP 36.6; O2SAT 99
[2023-01-03 23:54] LABS: Abs Immature Grans 0.07 10^3/uL (0.0-0.06); Absolute Basophil Count 0.04 10^3/uL (0.0-0.2); Absolute Eosinophil Count 0.21 10^3/uL (0.0-0.7); Absolute Lymphocyte Count 4.38 10^3/uL (1.2-3.4); Absolute Monocyte Count 1.02 10^3/uL (0.1-0.8); Absolute Neutrophil Count 7.42 10^3/uL (1.2-6.7); Basophils % 0.3; Eosinophils % 1.6; HCT 41.3 % (36.0-46.0); HGB 14.1 g/dL (11.2-15.7); Immature Grans % 0.5; Lymphocytes % 33.3; MCH 28.8 pg (27.0-33.0); MCHC 34.1 % (32.0-36.0); MCV 84 fL (80-95); MPV 9.9 fL (8.0-11.0); Monocytes % 7.8; Neutrophils % 56.5; Platelet Count 428 10^3/uL (130-400); RDW 13.2 % (11.7-14.6); RDW-SD 39.9 fL; WBC 13.14 10^3/uL (4.4-10.8)
[2023-01-04] MEDS: Ondansetron 4 MG/2 ML VIAL IVP (00:03)
[2023-01-04] MEDS: LORazepam 2 MG/ML VIAL 1 MG IVP (00:03)
[2023-01-04] MEDS: Normal Saline 1,000 ML 1000 ML IV (00:03)
--- NOTE | 2023-01-04 00:08 | ED.GENADUL_ITS ---
Discharge Plan Disposition Patient Disposition: Home Discharge Details Chief Complaint: Chest Pain Clinical Impression: Chest pain Primary Care Provider: Moiz Dutta ED Provider: Geremias Max Home Meds and New Rx's Prescriptions: No Action epinephrine 0.3 mg/0.3 mL Auto-Injector 0.3 mg IM ONCE metformin 500 mg Tablet 500 mg PO BID dextroamphetamine-amphetamine [Adderall] 15 mg tablet 15 mg PO DAILY norethindrone acetate [Aygestin] 5 mg tablet 5 mg PO DAILY Qty: 90 5RF clonazepam 1 mg tablet 3 mg PO BID (DME) lancets [FreeStyle Lancets] 28 gauge misc See Rx Instructions .ROUTE .MEDSUPPLY Qty: 100 Rx Instructions: As directed (DME) FreeStyle Lite Strips Strip See Rx Instructions .ROUTE .MEDSUPPLY Qty: 10 Rx Instructions: As directed (DME) pen needle, diabetic [BD Ultra-Fine Sona Pen Needle] 32 gauge x 5/32 needle See Rx Instructions .ROUTE .MEDSUPPLY Qty: 50 Rx Instructions: As directed omeprazole 40 mg capsule,delayed release(DR/EC) 40 mg PO DAILY haloperidol 5 mg tablet 10 mg PO DAILY albuterol sulfate [ProAir HFA] 90 mcg/actuation HFA aerosol inhaler 2 puff inhalation Q6H PRN fluticasone propionate 50 mcg/actuation spray,suspension 1 spray intranasal BID Rx Instructions: administer into each nostril propranolol 60 mg capsule,extended release 24 hr 60 mg PO DAILY atorvastatin 10 mg tablet 10 mg PO DAILY oxcarbazepine 150 mg tablet 150 mg PO BID cyclobenzaprine 10 mg tablet 10 mg PO BID PRN Trulicity 1.5 mg/0.5 mL pen injector See Rx Instructions .ROUTE .COMPLEX Rx Instructions: device subcutaneously Vraylar 3 mg capsule 1 cap PO DAILY acetaminophen [Tylenol Extra Strength] 500 mg Tablet 1,000 mg PO Q6H PRN prazosin 2 mg capsule 5 mg PO .QHS Patient Comments: TAKE 1 CAPSULE BY MOUTH EVERY EVENING insulin glargine [Lantus Solostar U-100 Insulin] 100 unit/mL (3 mL) insulin pen 30 unit SUBCUT BID prochlorperazine maleate [Compazine] 10 mg tablet 10 mg PO TID PRN (Reason: nausea and vomiting) Qty: 7 0RF fluticasone propionate [Flonase Allergy Relief] 50 mcg/actuation spray,suspension 1 spray TRINITY DAILY Qty: 15.8 0RF Rx Instructions: administer into each nostril quetiapine 300 mg tablet 600 mg PO QHS Discharge Instructions Instructions: Chest Pain (ED) Additional Instructions: Please follow-up with your primary care physician. Medical Decision Making 32-year-old female history of intermittent tachycardia on propranolol, on oral contraceptive medication, no history of thromboembolic disease or cardiac disease presents with anterior chest pain nonexertional over the last day. Patient does endorse increased stress is the anniversary of her grandmother's . Lungs clear bilaterally sinus tachycardia without ischemic changes on EKG. likely anxiety versus musculoskeletal however given tachycardia in the setting of oral contraceptive use must consider PE, will obtain basic labs D- dimer troponin chest x-ray EKG, trial of anxiolysis and fluids close reassess 1:15 patient resting comfortably in no acute distress with stable. Patient to follow-up with her primary care physician HPI General Date/Time Provider Initiated Documentation: 01/03/23 23:20 . HPI Narrative: 32-year-old female history of recurrent tachycardia, anxiety, presents with anterior chest pain rapid heart rate. Takes propranolol for heart rate control. Denies history of thromboembolic disease however has been on oral contraceptive for some time. Denies leg pain or swelling Related Data Home Medications Medication Instructions Recorded Confirmed blood sugar diagnostic (FreeStyle #10 ea 10/10/20 12/29/22 Lite Strips) clonazepam 1 mg tablet 3 mg PO BID 10/10/20 12/29/22 lancets 28 gauge (FreeStyle #100 ea 10/10/20 12/29/22 Lancets) omeprazole 40 mg capsule,delayed 40 mg PO DAILY 10/10/20 12/29/22 release pen needle, diabetic 32 gauge x #50 ea 10/10/20 12/29/22 (BD Ultra-Fine Sona Pen Needle) epinephrine 0.3 mg/0.3 mL 0.3 mg IM ONCE 12/29/20 12/29/22 injection, auto-injector metformin 500 mg tablet 500 mg PO BID 12/29/20 12/29/22 acetaminophen 500 mg tablet 1,000 mg PO Q6H PRN 01/31/21 12/29/22 (Tylenol Extra Strength) haloperidol 5 mg tablet 10 mg PO DAILY 04/05/21 12/29/22 prazosin 2 mg capsule 5 mg PO .QHS 05/14/21 12/29/22 atorvastatin 10 mg tablet 10 mg PO DAILY 08/11/21 12/29/22 cyclobenzaprine 10 mg tablet 10 mg PO BID PRN 08/11/21 12/29/22 fluticasone propionate 50 1 spray intranasal BID 08/11/21 12/29/22 mcg/actuation nasal spray,suspension oxcarbazepine 150 mg tablet 150 mg PO BID 08/11/21 12/29/22 propranolol 60 mg capsule,24 60 mg PO DAILY 08/11/21 12/29/22 hr,extended release albuterol sulfate 90 mcg/actuation 2 puff inhalation Q6H PRN 11/13/21 12/29/22 aerosol inhaler (ProAir HFA) dextroamphetamine-amphetamine 15 15 mg PO DAILY 05/22/22 12/29/22 mg tablet (Adderall) cariprazine 3 mg capsule (Vraylar) 1 cap PO DAILY 07/08/22 12/29/22 dulaglutide 1.5 mg/0.5 mL See Rx Instructions .Route .COMPLEX 07/08/22 12/29/22 subcutaneous pen injector (Trulicity) norethindrone acetate 5 mg tablet 5 mg PO DAILY #90 tabs 10/24/22 12/29/22 (Aygestin) insulin glargine 100 unit/mL (3 30 unit subcut BID 10/26/22 12/29/22 mL) subcutaneous pen (Lantus Solostar U-100 Insulin) fluticasone propionate 50 1 spray intranasal DAILY #15.8 mL 11/11/22 12/29/22 mcg/actuation nasal spray,suspension (Flonase Allergy Relief) prochlorperazine maleate 10 mg 10 mg PO TID PRN nausea and 11/11/22 12/29/22 tablet (Compazine) vomiting #7 tabs quetiapine 300 mg tablet 600 mg PO QHS 12/06/22 12/29/22 Previous Rx's Medication Instructions Recorded norethindrone acetate 5 mg tablet 5 mg PO DAILY #90 tabs 10/24/22 (Aygestin) fluticasone propionate 50 1 spray intranasal DAILY #15.8 mL 11/11/22 mcg/actuation nasal spray,suspension (Flonase Allergy Relief) prochlorperazine maleate 10 mg 10 mg PO TID PRN nausea and 11/11/22 tablet (Compazine) vomiting #7 tabs Allergies Allergy/AdvReac Type Severity Reaction Status Date / Time naproxen [From Aleve] Allergy Severe Anaphylaxis Verified 12/06/22 16:21 cephalexin [From Keflex] Allergy Intermediate Hives Verified 12/06/22 16:21 latex Allergy Intermediate Itching Verified 12/06/22 16:21 venom-honey bee Allergy Verified 12/06/22 16:21 General Stated Complaint: Chest Pain SUZETTE: 3 Review of Systems Narrative: Review of Systems Constitutional: negative Eyes: negative ENT: negative Cardiovascular: Chest pain, tachycardia Respiratory: negative Gastrointestinal: negative : negative Musculoskeletal: negative Skin: negative Neurologic: negative Psych: negative PFSH All Active Problems (Updated 01/04/23 @ 01:16 by Geremias Max MD) Acute left flank pain (Acute) Abdominal pain (Acute) Chest pain (Acute) Dysmenorrhea (Acute) Medical History ADHD Anxiety Asthma Borderline personality disorder Depression Diverticulitis GERD (gastroesophageal reflux disease) History of irregular menstrual bleeding History of recurrent UTI (urinary tract infection) HTN (hypertension) Hyperlipidemia Left hip pain Low back pain Nausea Obesity Pain of left calf Pain, joint, knee, right PCOS (polycystic ovarian syndrome) PTSD (post-traumatic stress disorder) Schizoaffective disorder Sleep apnea Suicidal ideation Tachycardia Type 2 diabetes mellitus Surgical History H/O laparoscopy History of appendectomy History of cholecystectomy Family History Mother Diabetes Social History Smoking/Tobacco Use Status: Former Tobacco Use Smoking risk assessment performed?: Yes Alcohol Intake: current Alcohol Intake frequency: a few times a month Drug use: Daily Substance use type: marijuana Household members: family Housing: apartment Number of Children: 0 current occupation: Unemployed What type of physical activity do you participate in: walking, independent ambulation and irregular exercise Do you feel safe at home: Yes Do you feel safe in your relationship?: Yes Female Reproductive History Menstrual control method: pills (aygestin) History History 2 Para Hx # Term Pregnancies Multiple births Hx # Pregnancies Ectopic pregnancies AB induced Hx Number of Living Children AB spontaneous 2 Exam Narrative Exam Narrative: Physical Examination General: alert, awake, cooperative, resting comfortably, no acute distress HEENT: normocephalic, atraumatic; PERRL, EOM intact, conjunctiva normal; no nasal discharge; moist mucous membranes, oral and pharyngeal mucosa normal, tolerating secretions Neck: supple, trachea midline; full ROM Chest: normal to inspection Respiratory: normal respiratory effort, speaking in full sentences, clear to auscultation, no wheezing, rales or rhonchi Cardiac: Tachycardia, regular rhythm, S1S2 intact, no murmurs rubs or gallops GI: abdomen soft, non-tender, non-distended; no palpable mass or hepatosplenomegaly Skin: no lesions, rashes or trauma appreciated Neuro: AAOx3, normal speech, moving all extremities Psych: Appropriate mood and affect Course Vital Signs Vital signs: Vital Signs Temperature 36.6 C 01/03/23 23:22 Pulse 125 H 01/03/23 23:22 Respiratory Rate 20 01/03/23 23:22 Blood Pressure 120/88 01/03/23 23:22 Pulse Oximetry 99 01/03/23 23:22 Temperature 36.6 C 01/03/23 23:22 Temperature Source Oral 01/03/23 23:22 Pulse 125 H 01/03/23 23:22 Respiratory Rate 20 01/03/23 23:22 Respiratory Effort Normal, Non-Labored 01/03/23 23:52 Respiratory Depth Normal 01/03/23 23:52 Respiratory Pattern Normal 01/03/23 23:52 Blood Pressure 120/88 01/03/23 23:22 Blood Pressure Position Sitting 01/03/23 23:22 Pulse Oximetry 99 01/03/23 23:22 Oxygen Delivery Method Room Air 01/03/23 23:22 Oxygen Flow Rate 0 01/03/23 23:22 Pain Level 8 01/03/23 23:22 Lab/Test Results Lab/Test Results: Laboratory Tests Range/Units 01/03/23 23:45 WBC (4.4-10.8) 10^3/uL 13.14 H RBC (3.93-5.22) 10^6/uL 4.90 Hgb (11.2-15.7) g/dL 14.1 Hct (36.0-46.0) % 41.3 MCV (80-95) fL 84 MCH (27.0-33.0) pg 28.8 MCHC (32.0-36.0) % 34.1 RDW (11.7-14.6) % 13.2 Plt Count (130-400) 10^3/uL 428 H MPV (8.0-11.0) fL 9.9 Immature Gran % 0.5 Neutrophils % 56.5 Lymphocytes % 33.3 Monocytes % 7.8 Eosinophils % 1.6 Basophils % 0.3 Nucleated RBC % (0.0-0.3) % 0.0 Absolute Neutrophils (1.2-6.7) 10^3/uL 7.42 H Absolute Lymphocytes (1.2-3.4) 10^3/uL 4.38 H Absolute Monocytes (0.1-0.8) 10^3/uL 1.02 H Absolute Eosinophils (0.0-0.7) 10^3/uL 0.21 Absolute Basophils (0.0-0.2) 10^3/uL 0.04
[2023-01-04 00:11] LABS: ALT 33 U/L (14-59); AST 14 U/L (15-37); Albumin 3.3 g/dL (3.4-5.0); Alkaline Phosphatase 84 U/L (46-116); Anion Gap 5.8 mmol/L (3-11); BUN 18 mg/dL (7-18); Bilirubin, Total 0.2 mg/dL (0.2-1.0); CO2 28.2 mmol/L (21.0-32.0); Calcium 9.1 mg/dL (8.5-10.1); Chloride 99 mmol/L (98-107); Estimated GFR 75.81 (mL/min/1.73m2); Glucose 265 mg/dL (74-106); Potassium 4.1 mmol/L (3.5-5.1); Sodium 133 mmol/L (136-145); Total Protein 8.1 g/dL (6.4-8.2); Troponin I < 50 ng/L (<or=60)
[2023-01-04 00:43] LABS: D-Dimer 473 ng/mlFEU (<500)
[2023-01-04 01:25] VITALS: BP 118/55; PULSE 118; RESP 18; TEMP 36.7; O2SAT 97
== END 2023-01-04 01:34 | disposition home or self-care (01) ==
PROVIDERS: Emergency Provider Emergency Medicine; PCP Physician Assistant
DX: R07.9 Chest pain, unspecified (principal); R00.0 Tachycardia, unspecified; Z79.3 Long term (current) use of hormonal contraceptives; I10 Essential (primary) hypertension; E11.9 Type 2 diabetes mellitus without complications
CPT/HCPCS: 36415; 80053; 81025; 93005; 96361; 96374; 96375; 99284; 84484; 85025; 85379; 93010; J2060; J2405

== ENCOUNTER 2023-01-05 23:13 | Emergency (ER) | payer MEDICARE, MEDICAID, SELFPAY ==
[2023-01-05 23:15] VITALS: BP 119/77; PULSE 87; RESP 18; TEMP 36.4; O2SAT 99
--- NOTE | 2023-01-05 23:18 | ED.GENADUL_ITS ---
Discharge Plan Disposition Patient Disposition: Home Condition: Stable Discharge Details Clinical Impression: Bacterial vaginosis, Back pain Primary Care Provider: Moiz Dutta ED Provider: Rowan Sargent Home Meds and New Rx's Prescriptions: New metronidazole 500 mg tablet 500 mg PO BID 7 Days Qty: 14 0RF methocarbamol 500 mg tablet 500 mg PO Q6H PRN (Reason: muscle spasm) Qty: 14 0RF methylprednisolone [Medrol (Aquilino)] 4 mg tablets,dose pack See Rx Instructions .ROUTE .COMPLEX Qty: 21 0RF Rx Instructions: orally per package directions Continued epinephrine 0.3 mg/0.3 mL Auto-Injector 0.3 mg IM ONCE metformin 500 mg Tablet 500 mg PO BID dextroamphetamine-amphetamine [Adderall] 15 mg tablet 15 mg PO DAILY norethindrone acetate [Aygestin] 5 mg tablet 5 mg PO DAILY Qty: 90 5RF clonazepam 1 mg tablet 3 mg PO BID (DME) lancets [FreeStyle Lancets] 28 gauge misc See Rx Instructions .ROUTE .MEDSUPPLY Qty: 100 Rx Instructions: As directed (DME) FreeStyle Lite Strips Strip See Rx Instructions .ROUTE .MEDSUPPLY Qty: 10 Rx Instructions: As directed (DME) pen needle, diabetic [BD Ultra-Fine Sona Pen Needle] 32 gauge x 5/32 needle See Rx Instructions .ROUTE .MEDSUPPLY Qty: 50 Rx Instructions: As directed omeprazole 40 mg capsule,delayed release(DR/EC) 40 mg PO DAILY haloperidol 5 mg tablet 10 mg PO DAILY albuterol sulfate [ProAir HFA] 90 mcg/actuation HFA aerosol inhaler 2 puff inhalation Q6H PRN fluticasone propionate 50 mcg/actuation spray,suspension 1 spray intranasal BID Rx Instructions: administer into each nostril propranolol 60 mg capsule,extended release 24 hr 60 mg PO DAILY atorvastatin 10 mg tablet 10 mg PO DAILY oxcarbazepine 150 mg tablet 150 mg PO BID cyclobenzaprine 10 mg tablet 10 mg PO BID PRN Trulicity 1.5 mg/0.5 mL pen injector See Rx Instructions .ROUTE .COMPLEX Rx Instructions: device subcutaneously Vraylar 3 mg capsule 1 cap PO DAILY acetaminophen [Tylenol Extra Strength] 500 mg Tablet 1,000 mg PO Q6H PRN prazosin 2 mg capsule 5 mg PO .QHS Patient Comments: TAKE 1 CAPSULE BY MOUTH EVERY EVENING insulin glargine [Lantus Solostar U-100 Insulin] 100 unit/mL (3 mL) insulin pen 30 unit SUBCUT BID prochlorperazine maleate [Compazine] 10 mg tablet 10 mg PO TID PRN (Reason: nausea and vomiting) Qty: 7 0RF fluticasone propionate [Flonase Allergy Relief] 50 mcg/actuation spray,suspension 1 spray TRINITY DAILY Qty: 15.8 0RF Rx Instructions: administer into each nostril quetiapine 300 mg tablet 600 mg PO QHS Discharge Instructions Instructions: Bacterial Vaginosis (ED), Sciatica (ED), Back Pain (ED) Additional Instructions: Your vaginal pathogen swab showed that you are positive for bacterial vaginosis which is a vaginal infection but not a sexually transmitted disease. Your blood sugar was high today at 332. The remainder of your blood tests showed no evidence of acute concerning or significant findings. The CT scan of your abdomen and pelvis today showed no evidence of acute findings. Your back pain may be unrelated to your genitourinary symptoms and may be related to a muscle strain or sciatica which is an inflammation of a nerve in your back. A prescription for the antibiotic Flagyl has been sent electronically to your pharmacy to take as directed until finished for bacterial vaginosis. Prescriptions for muscle relaxers and steroids have also been sent electronically to your pharmacy to take as directed for your back pain. Alternate tylenol and motrin as needed and directed for pain. Alternate ice and heat to the affected area(s) several times daily for 20 minutes at a time. Be sure to monitor your sugar and adjust your insulin as needed as steroids can raise your blood glucose. Follow-up with your primary care doctor in 1 week. Return to the emergency department with any worsening or new concerning symptoms as fever, worsening pain, bowel or bladder incontinence or any other concerns. Discharge Data Discharge Date/Time-TO BE ENTERED AT DEPARTURE: 01/06/23 03:57 Discharge Physician: Rowan Sargent Medical Decision Making 0454 -- 32-year-old female with multiple medical problems including obesity, hypertension, hyperlipidemia, diabetes, PCOS, GERD, asthma, ADHD, obstructive sleep apnea, anxiety, depression, PTSD, borderline personality disorder and schizoaffective disorder presents for back pain for 2 weeks, and nausea, urinary hesitancy and dribbling, fishy vaginal odor and white vaginal discharge over the last few days. Of note, this is patient's 12th visit to the ED in the last year and third visit within the last week. She states she was here yesterday for a panic attack and did not think to mention the symptoms yesterday. Vitals are within normal limits. She appears nontoxic. She does appear to have reproducible back pain when laying supine on the stretcher. Her back is normal to inspection without significant tenderness. She has no focal deficits. Her abdomen is soft but tender in the lower quadrants. She has no CVA tenderness. Differential diagnosis includes UTI, pyelonephritis, bacterial vaginosis, yeast infection. Also consider kidney stone, sciatica. History and presentation not consistent with cauda equina syndrome or dissection. Will place an IV, bolus IV fluids, screening labs, CT abdomen and pelvis and give a dose of IV Phenergan. 0030 --labs reviewed. Normal white blood cell count. Glucose 332 but with normal bicarb and anion gap. Lipase minimally elevated to 81. Urinalysis notes blood but no evidence of infection. Patient is complaining of lower back pain. She did drive herself here but is able to get a ride home. As she just took Tylenol and ibuprofen, will give a dose of Valium p.o. 0245 --patient had complained of persistent back pain and was given a dose of IV Tylenol. 0345 --vaginal pathogen screen positive for bacterial vaginosis. Patient reassessed and she has improvement of pain and feels comfortable going home. She discussed that she had been soaking in a bathtub and using bath salts for her back pain and that this may be the cause of her bacterial vaginosis as this can change the vaginal pH. She was given a dose of Flagyl here and a prescription sent electronically to her pharmacy. Discussed that her back pain may be secondary to a muscle strain or sciatica and will send prescriptions for muscle relaxers and steroids electronically to her pharmacy. Discussed that the steroids are low-dose and may not be enough to cause significant relief but there is concern for hyperglycemia with steroids and she is advised to continue to monitor her glucose. Advised to follow up with the primary care doctor for re-evaluation. Usual and customary return precautions given prior to discharge. Medical Records Medical records reviewed: Yes I reviewed the patient's medical records. Imaging Data Radiologic Study: Radiologist's impression: CT Abdomen And Pelvis With Contrast Exam date and time: 01/05/2023 11:46 PM Age: 32 years old Clinical indication: Other: Pelvic pain, lower back pain, R/O pyelo/stone TECHNIQUE: Imaging protocol: Computed tomography of the abdomen and pelvis with contrast. Contrast material: 350; Contrast volume: 100 ml; Contrast route: INTRAVENOUS (IV);? COMPARISON: CT RENAL COLIC WO 12/30/2022 12:08 AM FINDINGS: Liver: Normal. No mass. Gallbladder and bile ducts: Gallbladder is surgically absent. Pancreas: Normal. No ductal dilation. Spleen: Normal. No splenomegaly. Adrenal glands: Normal. No mass. Kidneys and ureters: Normal. No hydronephrosis. Stomach and bowel: Unremarkable. No obstruction. No mucosal thickening. Appendix: The appendix appears to be surgically absent. Intraperitoneal space: Unremarkable. No free air. No significant fluid collection. Vasculature: Unremarkable. No abdominal aortic aneurysm. Lymph nodes: Unremarkable. No enlarged lymph nodes. Urinary bladder: Unremarkable as visualized. Reproductive: Unremarkable as visualized. Bones/joints: Unremarkable. No acute fracture. Soft tissues: Unremarkable. IMPRESSION: No acute abnormality Lab Data Lab results reviewed: Yes I reviewed the patient's lab results. Labs: 01/06/23 00:35 Vaginal Vaginitis Screen - Pending Laboratory Tests Range/Units 01/05/23 01/05/23 01/05/23 23:28 23:28 23:40 WBC (4.4-10.8) 10^3/uL 10.06 RBC (3.93-5.22) 10^6/uL 4.85 Hgb (11.2-15.7) g/dL 13.9 Hct (36.0-46.0) % 41.3 MCV (80-95) fL 85 MCH (27.0-33.0) pg 28.7 MCHC (32.0-36.0) % 33.7 RDW (11.7-14.6) % 13.2 Plt Count (130-400) 10^3/uL 415 H MPV (8.0-11.0) fL 9.7 Immature Gran % 0.5 Neutrophils % 49.4 Lymphocytes % 39.4 Monocytes % 8.3 Eosinophils % 2.0 Basophils % 0.4 Nucleated RBC % (0.0-0.3) % 0.0 Absolute Neutrophils (1.2-6.7) 10^3/uL 4.97 Absolute Lymphocytes (1.2-3.4) 10^3/uL 3.96 H Absolute Monocytes (0.1-0.8) 10^3/uL 0.84 H Absolute Eosinophils (0.0-0.7) 10^3/uL 0.20 Absolute Basophils (0.0-0.2) 10^3/uL 0.04 Sodium (136-145) mmol/L 134 L Potassium (3.5-5.1) mmol/L 4.1 Chloride (98-107) mmol/L 98 Carbon Dioxide (21.0-32.0) mmol/L 28.9 Anion Gap (3-11) mmol/L 7.1 BUN (7-18) mg/dL 18 Creatinine (0.55-1.02) mg/dL 1.0 Est GFR (CKD-EPI 2020) (mL/min/1.73m2) 75.81 Glucose (74-106) mg/dL 332 H Calcium (8.5-10.1) mg/dL 9.1 Total Bilirubin (0.2-1.0) mg/dL 0.2 AST (15-37) U/L 14 L ALT (14-59) U/L 32 Alkaline Phosphatase (46-116) U/L 91 Total Protein (6.4-8.2) g/dL 8.3 H Albumin (3.4-5.0) g/dL 3.5 Lipase (16-77) U/L 81 H Urine Color (Yellow) Yellow Urine Clarity (Clear) Clear Urine pH (5-8) 6.5 Ur Specific [place] (1.005-1.025) 1.025 Urine Protein (Negative) mg/dL 30 H Urine Ketones (Negative) mg/dL Negative Urine Blood (Negative) Trace-intact H Urine Nitrite (Negative) Negative Urine Bilirubin (Negative) Negative Urine Urobilinogen (Up to 0.2) mg/dL 0.2 Ur Leukocyte Esterase (Negative) Negative Urine RBC (0-2) HPF 3-5 H Urine WBC (0-5) HPF Negative Ur Epithelial Cells (Negative) HPF Few Urine Crystals (Negative) HPF Negative Urine Bacteria (Negative) HPF Few Urine Casts (Negative) LPF Negative Urine Mucus (Negative) Negative Ur Culture Indicated? No Urine Glucose (Negative) mg/dL >=1000 H HPI General Mode of arrival: ambulatory . Date/Time Provider Initiated Documentation: 01/05/23 23:13 . Limitations to Documentation: no limitations . Information obtained by: patient . HPI Narrative: Patient is a 32-year-old female with multiple medical problems including obesity, hypertension, hyperlipidemia, diabetes, GERD, asthma, PCOS, obstructive sleep apnea, anxiety, depression, PTSD, borderline personality disorder and schizoaffective disorder presents for back pain, nausea and difficulty urinating. Patient states the back pain has been constant in the mid lower back near her sacrum and is sharp and worse with certain positions, mainly when laying on her back. She has occasional radiation to her left buttock. She denies any known injury. She states she has been taking Tylenol and ibuprofen for pain relief. She states she took 800 mg of ibuprofen and 1000 mg of Tylenol 1 hour ago without significant relief. She states she has also taken marijuana edibles with some relief. Patient states for the past several days she has had urinary hesitancy, frequency and dribbling with some pelvic pain while urinating. She also admits to a fishy vaginal odor and white vaginal discharge. Patient states she is currently not sexually active and denies any known exposure to STDs recently. She does admit to some vaginal itching but denies any lesions. She admits to nausea over the past few days but denies any vomiting, fever, chest pain, difficulty breathing, diarrhea, saddle anesthesia, leg weakness or numbness. Related Data Home Medications Medication Instructions Recorded Confirmed blood sugar diagnostic (FreeStyle #10 ea 10/10/20 01/05/23 Lite Strips) clonazepam 1 mg tablet 3 mg PO BID 10/10/20 01/05/23 lancets 28 gauge (FreeStyle #100 ea 10/10/20 01/05/23 Lancets) omeprazole 40 mg capsule,delayed 40 mg PO DAILY 10/10/20 01/05/23 release pen needle, diabetic 32 gauge x #50 ea 10/10/20 01/05/23 (BD Ultra-Fine Sona Pen Needle) epinephrine 0.3 mg/0.3 mL 0.3 mg IM ONCE 12/29/20 01/05/23 injection, auto-injector metformin 500 mg tablet 500 mg PO BID 12/29/20 01/05/23 acetaminophen 500 mg tablet 1,000 mg PO Q6H PRN 01/31/21 01/05/23 (Tylenol Extra Strength) haloperidol 5 mg tablet 10 mg PO DAILY 04/05/21 01/05/23 prazosin 2 mg capsule 5 mg PO .QHS 05/14/21 01/05/23 atorvastatin 10 mg tablet 10 mg PO DAILY 08/11/21 01/05/23 cyclobenzaprine 10 mg tablet 10 mg PO BID PRN 08/11/21 01/05/23 fluticasone propionate 50 1 spray intranasal BID 08/11/21 01/05/23 mcg/actuation nasal spray,suspension oxcarbazepine 150 mg tablet 150 mg PO BID 08/11/21 01/05/23 propranolol 60 mg capsule,24 60 mg PO DAILY 08/11/21 01/05/23 hr,extended release albuterol sulfate 90 mcg/actuation 2 puff inhalation Q6H PRN 11/13/21 01/05/23 aerosol inhaler (ProAir HFA) dextroamphetamine-amphetamine 15 15 mg PO DAILY 05/22/22 01/05/23 mg tablet (Adderall) cariprazine 3 mg capsule (Vraylar) 1 cap PO DAILY 07/08/22 01/05/23 dulaglutide 1.5 mg/0.5 mL See Rx Instructions .Route .COMPLEX 07/08/22 01/05/23 subcutaneous pen injector (Trulicity) norethindrone acetate 5 mg tablet 5 mg PO DAILY #90 tabs 10/24/22 01/05/23 (Aygestin) insulin glargine 100 unit/mL (3 30 unit subcut BID 10/26/22 01/05/23 mL) subcutaneous pen (Lantus Solostar U-100 Insulin) fluticasone propionate 50 1 spray intranasal DAILY #15.8 mL 11/11/22 01/05/23 mcg/actuation nasal spray,suspension (Flonase Allergy Relief) prochlorperazine maleate 10 mg 10 mg PO TID PRN nausea and 11/11/22 01/05/23 tablet (Compazine) vomiting #7 tabs quetiapine 300 mg tablet 600 mg PO QHS 12/06/22 01/05/23 methocarbamol 500 mg tablet 500 mg PO Q6H PRN muscle spasm #14 01/06/23 tabs methylprednisolone 4 mg tablets in See Rx Instructions PO .COMPLEX 01/06/23 a dose pack (Medrol (Aquilino)) #21 dose pk metronidazole 500 mg tablet 500 mg PO BID 7 days #14 tabs 01/06/23 Previous Rx's Medication Instructions Recorded norethindrone acetate 5 mg tablet 5 mg PO DAILY #90 tabs 10/24/22 (Aygestin) fluticasone propionate 50 1 spray intranasal DAILY #15.8 mL 11/11/22 mcg/actuation nasal spray,suspension (Flonase Allergy Relief) prochlorperazine maleate 10 mg 10 mg PO TID PRN nausea and 11/11/22 tablet (Compazine) vomiting #7 tabs methocarbamol 500 mg tablet 500 mg PO Q6H PRN muscle spasm #14 01/06/23 tabs methylprednisolone 4 mg tablets in See Rx Instructions PO .COMPLEX 01/06/23 a dose pack (Medrol (Aquilino)) #21 dose pk metronidazole 500 mg tablet 500 mg PO BID 7 days #14 tabs 01/06/23 Allergies Allergy/AdvReac Type Severity Reaction Status Date / Time naproxen [From Aleve] Allergy Severe Anaphylaxis Verified 12/06/22 16:21 cephalexin [From Keflex] Allergy Intermediate Hives Verified 12/06/22 16:21 latex Allergy Intermediate Itching Verified 12/06/22 16:21 venom-honey bee Allergy Verified 12/06/22 16:21 General Stated Complaint: Urinary SUZETTE: 3 Review of Systems All systems reviewed & are unremarkable except as noted in HPI and below Constitutional Constitutional: Reports as per HPI, Denies chills and Denies fever(s) Eyes Eyes: Denies blurry vision ENT Ears, Nose, Mouth, and Throat: Denies dizziness, Denies sore throat and Denies throat swelling Cardiovascular Cardiovascular: Denies chest pain and Denies dyspnea Respiratory Respiratory: Denies cough and Denies dyspnea Gastrointestinal Gastrointestinal: Denies abdominal pain, Denies diarrhea, Reports nausea and Denies vomiting Genitourinary Genitourinary: Denies hematuria, Reports difficulty voiding, Denies dysuria, Reports pelvic pain, Reports vaginal discharge, Reports vaginal odor and Reports vaginal pruritus Musculoskeletal Musculoskeletal: Reports back pain and Denies numbness Integumentary/Breasts Skin/Breast: Denies lesions and Denies rash Neurologic Neurologic: Denies dizziness, Denies localized weakness and Denies numbness Allergic/Immunologic Allergic/Immunologic: Denies throat swelling PFSH All Active Problems (Updated 01/06/23 @ 03:33 by Rowan Sargent DO) Abdominal pain (Acute) Chest pain (Acute) Bacterial vaginosis (Acute) Back pain (Acute) Dysmenorrhea (Acute) Medical History ADHD Anxiety Asthma Borderline personality disorder Depression Diverticulitis GERD (gastroesophageal reflux disease) History of irregular menstrual bleeding History of recurrent UTI (urinary tract infection) HTN (hypertension) Hyperlipidemia Left hip pain Low back pain Nausea Obesity Pain of left calf Pain, joint, knee, right PCOS (polycystic ovarian syndrome) PTSD (post-traumatic stress disorder) Schizoaffective disorder Sleep apnea Suicidal ideation Tachycardia Type 2 diabetes mellitus Surgical History H/O laparoscopy History of appendectomy History of cholecystectomy Family History Mother Diabetes Social History Smoking/Tobacco Use Status: Former Tobacco Use Smoking risk assessment performed?: Yes Alcohol Intake: current Alcohol Intake frequency: a few times a month Drug use: Daily Substance use type: marijuana Household members: family Housing: apartment Number of Children: 0 current occupation: Unemployed What type of physical activity do you participate in: walking, independent ambulation and irregular exercise Do you feel safe at home: Yes Do you feel safe in your relationship?: Yes Female Reproductive History Menstrual control method: pills (aygestin) History History 2 Para Hx # Term Pregnancies Multiple births Hx # Pregnancies Ectopic pregnancies AB induced Hx Number of Living Children AB spontaneous 2 Exam Const General: cooperative and no acute distress Nutritional Appearance: obese morbidly obese Orientation: alert, awake and oriented x3 HENMT Head: normal to inspection Face and sinus: normal facial exam Eyes General: appearance normal, both eyes and all related structures Pupils: PERRL EOM: EOM intact bilaterally Neck Neck: normal visual inspection and No submandibular swelling Lymphatic: no lymphadenopathy noted Chest Chest: normal inspection of the chest and no tenderness Resp Effort & Inspection: normal respiratory effort and able to speak in complete sentences Auscultation: clear to auscultation bilaterally Cardio Rate: regular rate Rhythm: regular rhythm GI Inspection: normal to inspection and obesity Palpation: soft, not firm, not rigid and nontender Auscultation: hypoactive bowel sounds External Female Exam: erythema (Bilateral labia majora, mild), external swelling (Bilateral labia majora, mild) and lesion Speculum Exam - Cervix: nontender Bimanual Exam- Vagina & Uterus: No tender and no cervical motion tenderness Bimanual Exam- Adnexa, other: tender on the right OB/External & Speculum: vaginal discharge (Greenish-brown) Back/Spine/Pelvis Thoracic/Lumbar Spine: thoracic and lumbar spine normal to inspection, No thoracic spinal tenderness and No lumbar spinal tenderness Skin General skin exam: no rashes or lesions noted Neuro General: patient alert, patient awake and patient oriented x3 Cognition: normal cognition Speech: speech normal Motor: muscle tone normal throughout and strength 5/5 throughout Sensory Exam: no sensory deficits noted DTR's: Rt Patellar: 1+, Lt Patellar: 1+, Rt Ankle: 1+ and Lt Ankle: 1+ Plantar Reflexes: Equivocal: bilateral (negative babinski b/l ) Extrem General: normal to inspection, full ROM, capillary refill normal, no calf tenderness bilaterally and no edema Psych Appearance: grossly normal Mental Status: mental status grossly normal Speech and Movement: speech and movement normal Affect: normal affect
--- NOTE | 2023-01-05 23:30 | DI.CT_ITS ---
Exam(s) CT ABDOMEN PELVIS W EXAM: CT ABDOMEN PELVIS W CLINICAL HISTORY: pelvic pain,lower back pain, r/o pyelo/stone TECHNIQUE: Imaging Protocol: Axial computed tomography images with coronal and sagittal reformatted images were created and reviewed CONTRAST MATERIAL: Intravenous: Omnipaque 350 Contrast volume:100 mL Oral: No COMPARISON: CT CT RENAL COLIC WO from 12/30/2022 FINDINGS: ABDOMEN: Lung Bases: Normal where visualized. Liver: Normal density. No measurable mass. Portal, Superior Mesenteric, and Splenic Veins: Unremarkable. Gallbladder and Biliary Tract: Status post cholecystectomy. No significant biliary ductal dilatation . Pancreas: Normal density, no abnormal calcifications or inflammatory process. Spleen: Normal. Adrenals: No masses seen. Kidneys: Normal size, contour and axis. No radiodense stones or obstructive uropathy. No masses seen. Abdominal Aorta: Abdominal portion non-dilated. Bowel: No obstruction or bowel wall thickening. The patient appears to be status post appendectomy. Peritoneal Cavity: No ascites, collection or mesenteric inflammatory response. No free air. Lymph Nodes: Within normal limits. Bones: Within normal limits for the patient's age. Soft Tissues: Unremarkable. PELVIS: Bladder: Symmetric distention, no gross wall thickening. Reproductive Organs: Unremarkable as visualized. Lymph Nodes: Within normal limits. Bones: Within normal limits for the patient's age. IMPRESSION: No acute abdominal or pelvic process. RADIATION DOSE DELIVERED: 1,565.51mGy.cm Total DLP DATA REPOSITORY: All CT scans at this facility are submitted to the National Radiology Data Registry (NRDR) Dose Index Registry (DIR) with the [employer] (A[employer]). RADIATION OPTIMIZATION: All CT scans at this facility use at least one of these dose optimization te chniques: automated exposure control; mA and/or kV adjustment per patient size (includes targeted exa ms where dose is matched to clinical indication); or iterative reconstruction.
[2023-01-05 23:38] LABS: Abs Immature Grans 0.05 10^3/uL (0.0-0.06); Absolute Basophil Count 0.04 10^3/uL (0.0-0.2); Absolute Lymphocyte Count 3.96 10^3/uL (1.2-3.4); Absolute Monocyte Count 0.84 10^3/uL (0.1-0.8); Absolute Neutrophil Count 4.97 10^3/uL (1.2-6.7); Basophils % 0.4; HCT 41.3 % (36.0-46.0); HGB 13.9 g/dL (11.2-15.7); Immature Grans % 0.5; Lymphocytes % 39.4; MCH 28.7 pg (27.0-33.0); MCHC 33.7 % (32.0-36.0); MCV 85 fL (80-95); MPV 9.7 fL (8.0-11.0); Monocytes % 8.3; Neutrophils % 49.4; Platelet Count 415 10^3/uL (130-400); RBC 4.85 10^6/uL (3.93-5.22); RDW 13.2 % (11.7-14.6); RDW-SD 40.9 fL; WBC 10.06 10^3/uL (4.4-10.8)
[2023-01-05 23:47] LABS: Bilirubin Negative (Negative); Blood Trace-intact (Negative); Clarity Clear (Clear); Glucose >=1000 mg/dL (Negative); Ketones Negative (Negative); Leukocyte Esterase Negative (Negative); Nitrite Negative (Negative); Specific Gravity 1.025 (1.005-1.025); Urobilinogen 0.2 mg/dL (Up to 0.2); pH 6.5 (5-8)
[2023-01-05 23:51] LABS: ALT 32 U/L (14-59); AST 14 U/L (15-37); Albumin 3.5 g/dL (3.4-5.0); Alkaline Phosphatase 91 U/L (46-116); Anion Gap 7.1 mmol/L (3-11); BUN 18 mg/dL (7-18); Bilirubin, Total 0.2 mg/dL (0.2-1.0); CO2 28.9 mmol/L (21.0-32.0); Calcium 9.1 mg/dL (8.5-10.1); Chloride 98 mmol/L (98-107); Estimated GFR 75.81 (mL/min/1.73m2); Glucose 332 mg/dL (74-106); Lipase 81 U/L (16-77); Potassium 4.1 mmol/L (3.5-5.1); Sodium 134 mmol/L (136-145); Total Protein 8.3 g/dL (6.4-8.2)
[2023-01-05 23:52] LABS: Bacteria Few HPF (Negative); C & S Indicated? No; Casts Negative LPF (Negative); Crystals Negative HPF (Negative); Epithelial Cells Few HPF (Negative); Mucus Negative (Negative); WBC Negative HPF (0-5)
[2023-01-05] MEDS: Normal Saline - Diluent 50 ML VIAL IJ (23:54)
[2023-01-05] MEDS: Omnipaque 350 MG/ML 100 ML BTL IJ (23:55)
[2023-01-06] MEDS: Normal Saline 1,000 ML 1000 ML IV (00:04)
--- NOTE | 2023-01-06 00:47 | DI.VRAD_ITS ---
PROCEDURE INFORMATION: Exam: CT Abdomen And Pelvis With Contrast Exam date and time: 01/05/2023 11:46 PM Age: 32 years old Clinical indication: Other: Pelvic pain, lower back pain, R/O pyelo/stone TECHNIQUE: Imaging protocol: Computed tomography of the abdomen and pelvis with contrast. Contrast material: 350; Contrast volume: 100 ml; Contrast route: INTRAVENOUS (IV); COMPARISON: CT RENAL COLIC WO 12/30/2022 12:08 AM FINDINGS: Liver: Normal. No mass. Gallbladder and bile ducts: Gallbladder is surgically absent. Pancreas: Normal. No ductal dilation. Spleen: Normal. No splenomegaly. Adrenal glands: Normal. No mass. Kidneys and ureters: Normal. No hydronephrosis. Stomach and bowel: Unremarkable. No obstruction. No mucosal thickening. Appendix: The appendix appears to be surgically absent. Intraperitoneal space: Unremarkable. No free air. No significant fluid collection. Vasculature: Unremarkable. No abdominal aortic aneurysm. Lymph nodes: Unremarkable. No enlarged lymph nodes. Urinary bladder: Unremarkable as visualized. Reproductive: Unremarkable as visualized. Bones/joints: Unremarkable. No acute fracture. Soft tissues: Unremarkable. IMPRESSION: No acute abnormality Dictated and Authenticated by: Aram Winchester MD. Ordering:MANUEL Donahue MD
[2023-01-06] MEDS: diazePAM 5 MG TAB PO (00:49)
[2023-01-06] MEDS: ACETAMINOPHEN 1,000 MG/100 ML BTL 400 MG IVPB (03:08)
[2023-01-06] MEDS: metroNIDAZOLE 500 MG TAB PO (03:55)
[2023-01-06 03:56] VITALS: BP 123/80; PULSE 82; RESP 18; O2SAT 98
== END 2023-01-06 03:57 | disposition home or self-care (01) ==
PROVIDERS: Emergency Provider Physician Assistant; PCP Physician Assistant
DX: N76.0 Acute vaginitis (principal); M54.9 Dorsalgia, unspecified; R74.8 Abnormal levels of other serum enzymes; I10 Essential (primary) hypertension; E11.9 Type 2 diabetes mellitus without complications; J45.909 Unspecified asthma, uncomplicated; E66.01 Morbid (severe) obesity due to excess calories; Z79.4 Long term (current) use of insulin; Z79.84 Long term (current) use of oral hypoglycemic drugs; Z79.899 Other long term (current) drug therapy
CPT/HCPCS: 80053; 81025; 83690; 96361; 96365; 96367; 99285; 74177; 81003; 81015; 85025; 87480; 87510; 87660; 99284; J0131; J3490

== ENCOUNTER 2023-01-09 15:29 | Emergency (ER) | payer MEDICARE, MEDICAID, SELFPAY ==
--- NOTE | 2023-01-09 | DI.CT_ITS ---
Exam(s) CT ABDOMEN PELVIS W EXAM: CT ABDOMEN PELVIS W CLINICAL HISTORY: TECHNIQUE: Imaging Protocol: Axial computed tomography images with coronal and sagittal reformatted images were created and reviewed CONTRAST MATERIAL: Intravenous: Omnipaque 350 Contrast volume:100 mL Oral: No COMPARISON: CT CT ABDOMEN PELVIS W from 01/05/2023 FINDINGS: ABDOMEN: Lung Bases: Normal where visualized. Liver: Normal density. No measurable mass. Portal, Superior Mesenteric, and Splenic Veins: Unremarkable. Gallbladder and Biliary Tract: Status post cholecystectomy. No significant biliary ductal dilatation . Pancreas: Normal density, no abnormal calcifications or inflammatory process. Spleen: Normal. Adrenals: No masses seen. Kidneys: Normal size, contour and axis. No radiodense stones or obstructive uropathy. No masses seen. Abdominal Aorta: Abdominal portion non-dilated. Bowel: No obstruction or bowel wall thickening. The patient appears to be status post appendectomy. T here is a moderate amount of stool in the colon. Peritoneal Cavity: No ascites, collection or mesenteric inflammatory response. No free air. Lymph Nodes: Within normal limits. Bones: Within normal limits for the patient's age. Soft Tissues: Unremarkable. PELVIS: Bladder: Symmetric distention, no gross wall thickening. Reproductive Organs: Unremarkable as visualized. Lymph Nodes: Within normal limits. Bones: Within normal limits for the patient's age. IMPRESSION: No acute abdominal or pelvic process. RADIATION DOSE DELIVERED: 1,450.83mGy.cm Total DLP DATA REPOSITORY: All CT scans at this facility are submitted to the National Radiology Data Registry (NRDR) Dose Index Registry (DIR) with the [employer] ([employer]). RADIATION OPTIMIZATION: All CT scans at this facility use at least one of these dose optimization te chniques: automated exposure control; mA and/or kV adjustment per patient size (includes targeted exa ms where dose is matched to clinical indication); or iterative reconstruction.
[2023-01-09 15:34] VITALS: BP 130/78; PULSE 122; RESP 18; TEMP 36.6; O2SAT 97
--- NOTE | 2023-01-09 16:19 | ED.GENADUL_ITS ---
Discharge Plan Discharge Details Chief Complaint: Abd Prob Primary Care Provider: Moiz Dutta ED Provider: Dorothea Draper Home Meds and New Rx's Prescriptions: No Action epinephrine 0.3 mg/0.3 mL Auto-Injector 0.3 mg IM ONCE metformin 500 mg Tablet 500 mg PO BID dextroamphetamine-amphetamine [Adderall] 15 mg tablet 15 mg PO DAILY norethindrone acetate [Aygestin] 5 mg tablet 5 mg PO DAILY Qty: 90 5RF (DME) lancets [FreeStyle Lancets] 28 gauge misc See Rx Instructions .ROUTE .MEDSUPPLY Qty: 100 Rx Instructions: As directed (DME) FreeStyle Lite Strips Strip See Rx Instructions .ROUTE .MEDSUPPLY Qty: 10 Rx Instructions: As directed (DME) pen needle, diabetic [BD Ultra-Fine Sona Pen Needle] 32 gauge x 5/32 needle See Rx Instructions .ROUTE .MEDSUPPLY Qty: 50 Rx Instructions: As directed omeprazole 40 mg capsule,delayed release(DR/EC) 40 mg PO DAILY haloperidol 5 mg tablet 10 mg PO DAILY albuterol sulfate [ProAir HFA] 90 mcg/actuation HFA aerosol inhaler 2 puff inhalation Q6H PRN fluticasone propionate 50 mcg/actuation spray,suspension 1 spray intranasal BID Rx Instructions: administer into each nostril propranolol 60 mg capsule,extended release 24 hr 60 mg PO DAILY atorvastatin 10 mg tablet 10 mg PO DAILY oxcarbazepine 150 mg tablet 150 mg PO BID Trulicity 1.5 mg/0.5 mL pen injector See Rx Instructions .ROUTE .COMPLEX Rx Instructions: device subcutaneously Vraylar 3 mg capsule 1 cap PO DAILY acetaminophen [Tylenol Extra Strength] 500 mg Tablet 1,000 mg PO Q6H PRN prazosin 2 mg capsule 5 mg PO .QHS Patient Comments: TAKE 1 CAPSULE BY MOUTH EVERY EVENING insulin glargine [Lantus Solostar U-100 Insulin] 100 unit/mL (3 mL) insulin pen 30 unit SUBCUT BID prochlorperazine maleate [Compazine] 10 mg tablet 10 mg PO TID PRN (Reason: nausea and vomiting) Qty: 7 0RF fluticasone propionate [Flonase Allergy Relief] 50 mcg/actuation s pray,suspension 1 spray TRINITY DAILY Qty: 15.8 0RF Rx Instructions: administer into each nostril quetiapine 300 mg tablet 600 mg PO QHS metronidazole 500 mg tablet 500 mg PO BID 7 Days Qty: 14 0RF methocarbamol 500 mg tablet 500 mg PO Q6H PRN (Reason: muscle spasm) Qty: 14 0RF methylprednisolone [Medrol (Aquilino)] 4 mg tablets,dose pack See Rx Instructions .ROUTE .COMPLEX Qty: 21 0RF Rx Instructions: orally per package directions Medical Decision Making Work-up ordered including CBC CMP, lipase will consider CT imaging however patient has had 2 CTs this month. Partial chart on paper due to Downtime, Please see paper chart. HPI General Mode of arrival: ambulatory . Date/Time Provider Initiated Documentation: 01/09/23 15:33 . Limitations to Documentation: no limitations . Information obtained by: patient, RN notes reviewed and old records reviewed . HPI Narrative: 32-year-old female presents to the ER with a chief complaint of bright red rectal bleeding which began yesterday. She reports that she has been constipated for the last 3 days and has had hard stools. This is associated with some upper abdominal pain which comes and goes that she describes as sharp. She also reports that the bleeding from her rectum worsened today. She reports she does have a history of internal hemorrhoids that were needed to have cauterization approximately 5 years ago. She reports some nausea no vomiting. She does have a past medical history of ADHD asthma anxiety, borderline personality disorder diverticulitis, GERD, hypertension PCOS, schizoaffective disorder and type 2 diabetes mellitus. Of note she was seen here 3 times this month for various complaints including abdominal pain chest pain. She was recently prescribed MetroGel for bacterial vaginosis which she reports she is taking as directed and it is better. She did have a CT abdomen pelvis 4 days ago which was negative. Related Data Home Medications Medication Instructions Recorded Confirmed blood sugar diagnostic (FreeStyle #10 ea 10/10/20 01/05/23 Lite Strips) lancets 28 gauge (FreeStyle #100 ea 10/10/20 01/05/23 Lancets) omeprazole 40 mg capsule,delayed 40 mg PO DAILY 10/10/20 01/09/23 release pen needle, diabetic 32 gauge x #50 ea 10/10/20 01/05/23 (BD Ultra-Fine Sona Pen Needle) epinephrine 0.3 mg/0.3 mL 0.3 mg IM ONCE 12/29/20 01/09/23 injection, auto-injector metformin 500 mg tablet 500 mg PO BID 12/29/20 01/09/23 acetaminophen 500 mg tablet 1,000 mg PO Q6H PRN 01/31/21 01/09/23 (Tylenol Extra Strength) haloperidol 5 mg tablet 10 mg PO DAILY 04/05/21 01/09/23 prazosin 2 mg capsule 5 mg PO .QHS 05/14/21 01/09/23 atorvastatin 10 mg tablet 10 mg PO DAILY 08/11/21 01/09/23 fluticasone propionate 50 1 spray intranasal BID 08/11/21 01/05/23 mcg/actuation nasal spray,suspension oxcarbazepine 150 mg tablet 150 mg PO BID 08/11/21 01/09/23 propranolol 60 mg capsule,24 60 mg PO DAILY 08/11/21 01/09/23 hr,extended release albuterol sulfate 90 mcg/actuation 2 puff inhalation Q6H PRN 11/13/21 01/09/23 aerosol inhaler (ProAir HFA) dextroamphetamine-amphetamine 15 15 mg PO DAILY 05/22/22 01/09/23 mg tablet (Adderall) cariprazine 3 mg capsule (Vraylar) 1 cap PO DAILY 07/08/22 01/09/23 dulaglutide 1.5 mg/0.5 mL See Rx Instructions .Route .COMPLEX 07/08/22 01/09/23 subcutaneous pen injector (Trulicity) norethindrone acetate 5 mg tablet 5 mg PO DAILY #90 tabs 10/24/22 01/09/23 (Aygestin) insulin glargine 100 unit/mL (3 30 unit subcut BID 10/26/22 01/09/23 mL) subcutaneous pen (Lantus Solostar U-100 Insulin) fluticasone propionate 50 1 spray intranasal DAILY #15.8 mL 11/11/22 01/09/23 mcg/actuation nasal spray,suspension (Flonase Allergy Relief) prochlorperazine maleate 10 mg 10 mg PO TID PRN nausea and 11/11/22 01/09/23 tablet (Compazine) vomiting #7 tabs quetiapine 300 mg tablet 600 mg PO QHS 12/06/22 01/09/23 methocarbamol 500 mg tablet 500 mg PO Q6H PRN muscle spasm #14 01/06/23 01/09/23 tabs methylprednisolone 4 mg tablets in See Rx Instructions PO .COMPLEX 01/06/23 a dose pack (Medrol (Aquilino)) #21 dose pk metronidazole 500 mg tablet 500 mg PO BID 7 days #14 tabs 01/06/23 01/09/23 Previous Rx's Medication Instructions Recorded norethindrone acetate 5 mg tablet 5 mg PO DAILY #90 tabs 10/24/22 (Aygestin) fluticasone propionate 50 1 spray intranasal DAILY #15.8 mL 11/11/22 mcg/actuation nasal spray,suspension (Flonase Allergy Relief) prochlorperazine maleate 10 mg 10 mg PO TID PRN nausea and 11/11/22 tablet (Compazine) vomiting #7 tabs methocarbamol 500 mg tablet 500 mg PO Q6H PRN muscle spasm #14 01/06/23 tabs methylprednisolone 4 mg tablets in See Rx Instructions PO .COMPLEX 01/06/23 a dose pack (Medrol (Aquilino)) #21 dose pk metronidazole 500 mg tablet 500 mg PO BID 7 days #14 tabs 01/06/23 Allergies Allergy/AdvReac Type Severity Reaction Status Date / Time naproxen [From Aleve] Allergy Severe Anaphylaxis Verified 01/09/23 15:40 cephalexin [From Keflex] Allergy Intermediate Hives Verified 01/09/23 15:40 latex Allergy Intermediate Itching Verified 01/09/23 15:40 venom-honey bee Allergy Verified 01/09/23 15:40 General Stated Complaint: Abd Prob SUZETTE: 3 Review of Systems All systems reviewed & are unremarkable except as noted in HPI and below Gastrointestinal Gastrointestinal: Reports abdominal pain and Reports hematochezia PFSH All Active Problems Abdominal pain (Acute) Chest pain (Acute) Bacterial vaginosis (Acute) Back pain (Acute) Dysmenorrhea (Acute) Medical History ADHD Anxiety Asthma Borderline personality disorder Depression Diverticulitis GERD (gastroesophageal reflux disease) History of irregular menstrual bleeding History of recurrent UTI (urinary tract infection) HTN (hypertension) Hyperlipidemia Left hip pain Low back pain Nausea Obesity Pain of left calf Pain, joint, knee, right PCOS (polycystic ovarian syndrome) PTSD (post-traumatic stress disorder) Schizoaffective disorder Sleep apnea Suicidal ideation Tachycardia Type 2 diabetes mellitus Surgical History H/O laparoscopy History of appendectomy History of cholecystectomy Family History Mother Diabetes Social History Smoking/Tobacco Use Status: Former Tobacco Use Smoking risk assessment performed?: Yes Alcohol Intake: current Alcohol Intake frequency: a few times a month Drug use: Daily Substance use type: marijuana Household members: family Housing: apartment Number of Children: 0 current occupation: Unemployed What type of physical activity do you participate in: walking, independent ambulation and irregular exercise Do you feel safe at home: Yes Do you feel safe in your relationship?: Yes Female Reproductive History Menstrual control method: pills (aygestin) History History 2 Para Hx # Term Pregnancies Multiple births Hx # Pregnancies Ectopic pregnancies AB induced Hx Number of Living Children AB spontaneous 2 Exam Narrative Exam Narrative: Constitutional: Alert and oriented x3. Appears stated age. Obese body habitus. Head: Normocephalic, no trauma. Eyes: Pupils PERRL, Red reflex noted, EOM's intact. Eyelids symmetrical without lesions, discharge, or swelling. ENT: Bilateral TM's WNL, External ear normal to inspection, no mastoid TTP, swelling, or erythema, Nasal turbinates WNL, no nasal discharge. Normal dentition, Posterior pharynx WNL, no exudate. Chest: RRR, Normal S1, S2, distal pulses intact. Resp: Lungs clear to auscultation bilaterally, no wheezes, rales, or rhonchi. Abdomen: Soft, non-distended, Normoactive bowel sounds all 4 quads. Tenderness with palpation all 4 quadrants. Musculoskeletal: Normal gait, 5/5 strength to all four extremities. Skin: No suspicious rashes or lesions. Capillary refill less than 2 sec. Neurologic: Cranial nerves II-XII intact. Alert and oriented x 3. Motor: No deficits noted. Sensory: Intact bilaterally all 4 extremities. Reflexes: DTR's intact bilaterally.. Hematologic/Lymphatic: No ecchymosis, no lymphadenopathy. Course Vital Signs Vital signs: Vital Signs Temperature 36.6 C 01/09/23 15:34 Pulse 122 H 01/09/23 15:34 Respiratory Rate 18 01/09/23 15:34 Blood Pressure 130/78 01/09/23 15:34 Pulse Oximetry 97 01/09/23 15:34 Temperature 36.6 C 01/09/23 15:34 Pulse 122 H 01/09/23 15:34 Respiratory Rate 18 01/09/23 15:34 Blood Pressure 130/78 01/09/23 15:34 Blood Pressure Position Sitting 01/09/23 15:34 Pulse Oximetry 97 01/09/23 15:34 Pain Level 8 01/09/23 15:34 Comment pain across abd 01/09/23 15:34
[2023-01-09 17:08] LABS: Abs Immature Grans 0.06 10^3/uL (0.0-0.06); Absolute Basophil Count 0.05 10^3/uL (0.0-0.2); Absolute Eosinophil Count 0.15 10^3/uL (0.0-0.7); Absolute Lymphocyte Count 3.17 10^3/uL (1.2-3.4); Absolute Monocyte Count 0.84 10^3/uL (0.1-0.8); Basophils % 0.5; Eosinophils % 1.4; HCT 44.3 % (36.0-46.0); Immature Grans % 0.6; Lymphocytes % 29.2; MCH 28.9 pg (27.0-33.0); MCHC 33.9 % (32.0-36.0); MCV 85 fL (80-95); MPV 9.7 fL (8.0-11.0); Monocytes % 7.7; Neutrophils % 60.6; Platelet Count 442 10^3/uL (130-400); RBC 5.19 10^6/uL (3.93-5.22); RDW 13.4 % (11.7-14.6); RDW-SD 41.4 fL; WBC 10.86 10^3/uL (4.4-10.8)
[2023-01-09 17:14] LABS: Absolute Neutrophil Count 6.58 10^3/uL (1.2-6.7)
[2023-01-09 17:17] LABS: ALT 35 U/L (14-59); AST 18 U/L (15-37); Albumin 3.4 g/dL (3.4-5.0); Alkaline Phosphatase 89 U/L (46-116); Anion Gap 7.2 mmol/L (3-11); BUN 18 mg/dL (7-18); Bilirubin, Total 0.3 mg/dL (0.2-1.0); CO2 26.8 mmol/L (21.0-32.0); CREATININE 1.1 mg/dL (0.55-1.02); Calcium 9.2 mg/dL (8.5-10.1); Chloride 103 mmol/L (98-107); Estimated GFR 67.62 (mL/min/1.73m2); Glucose 322 mg/dL (74-106); Lipase 48 U/L (16-77); Magnesium 1.8 mg/dL (1.8-2.4); Potassium 4.5 mmol/L (3.5-5.1); Sodium 137 mmol/L (136-145)
--- NOTE | 2023-01-09 21:04 | NUR.NOTE ---
Referral made per Dorothea Draper to [facility] in 1 week for rectal bleeding/abdominal pain. Put the referral in the care manger's box for follow up assistance.Nursing Note:
== END 2023-01-09 20:36 ==
PROVIDERS: Emergency Provider Registered Nurse Emergency; PCP Physician Assistant
DX: K92.1 Melena (principal); R11.2 Nausea with vomiting, unspecified; E11.9 Type 2 diabetes mellitus without complications
CPT/HCPCS: 36415; 80053; 83690; 99285; 74177; 83735; 85025; 99283

== ENCOUNTER 2023-01-10 18:44 | Emergency (ER) | payer MEDICARE, MEDICAID, SELFPAY ==
[2023-01-10 18:49] VITALS: BP 116/81; PULSE 108; RESP 18; TEMP 36.7; O2SAT 96
[2023-01-10 20:10] VITALS: BP 124/86; PULSE 96; TEMP 36.8; O2SAT 96
[2023-01-10 20:54] VITALS: BP 119/87; PULSE 102; RESP 20; TEMP 37.1; O2SAT 96
--- NOTE | 2023-01-10 21:26 | W.ED.GENAD ---
Discharge Plan Disposition Patient Disposition: Home Condition: Stable Discharge Details Clinical Impression: Bloody stools Primary Care Provider: Moiz Dutta ED Provider: King Boland [place] Meds and New Rx's Prescriptions: New ondansetron 4 mg tablet,disintegrating 4 mg PO Q8H PRN (Reason: nausea and vomiting) Qty: 30 0RF Continued epinephrine 0.3 mg/0.3 mL Auto-Injector 0.3 mg IM ONCE metformin 500 mg Tablet 500 mg PO BID dextroamphetamine-amphetamine [Adderall] 15 mg tablet 15 mg PO DAILY norethindrone acetate [Aygestin] 5 mg tablet 5 mg PO DAILY Qty: 90 5RF (DME) lancets [FreeStyle Lancets] 28 gauge misc See Rx Instructions .ROUTE .MEDSUPPLY Qty: 100 Rx Instructions: As directed (DME) FreeStyle Lite Strips Strip See Rx Instructions .ROUTE .MEDSUPPLY Qty: 10 Rx Instructions: As directed (DME) pen needle, diabetic [BD Ultra-Fine Sona Pen Needle] 32 gauge x 5/32 needle See Rx Instructions .ROUTE .MEDSUPPLY Qty: 50 Rx Instructions: As directed omeprazole 40 mg capsule,delayed release(DR/EC) 40 mg PO DAILY haloperidol 5 mg tablet 10 mg PO DAILY albuterol sulfate [ProAir HFA] 90 mcg/actuation HFA aerosol inhaler 2 puff inhalation Q6H PRN fluticasone propionate 50 mcg/actuation spray,suspension 1 spray intranasal BID Rx Instructions: administer into each nostril propranolol 60 mg capsule,extended release 24 hr 60 mg PO DAILY atorvastatin 10 mg tablet 10 mg PO DAILY oxcarbazepine 150 mg tablet 150 mg PO BID Trulicity 1.5 mg/0.5 mL pen injector See Rx Instructions .ROUTE .COMPLEX Rx Instructions: device subcutaneously Vraylar 3 mg capsule 1 cap PO DAILY acetaminophen [Tylenol Extra Strength] 500 mg Tablet 1,000 mg PO Q6H PRN prazosin 2 mg capsule 5 mg PO .QHS Patient Comments: TAKE 1 CAPSULE BY MOUTH EVERY EVENING insulin glargine [Lantus Solostar U-100 Insulin] 100 unit/mL (3 mL) insulin pen 30 unit SUBCUT BID prochlorperazine maleate [Compazine] 10 mg tablet 10 mg PO TID PRN (Reason: nausea and vomiting) Qty: 7 0RF fluticasone propionate [Flonase Allergy Relief] 50 mcg/actuation spray,suspension 1 spray TRINITY DAILY Qty: 15.8 0RF Rx Instructions: administer into each nostril quetiapine 300 mg tablet 600 mg PO QHS metronidazole 500 mg tablet 500 mg PO BID 7 Days Qty: 14 0RF methocarbamol 500 mg tablet 500 mg PO Q6H PRN (Reason: muscle spasm) Qty: 14 0RF methylprednisolone [Medrol (Aquilino)] 4 mg tablets,dose pack See Rx Instructions .ROUTE .COMPLEX Qty: 21 0RF Rx Instructions: orally per package directions Discharge Instructions Additional Instructions: your blood work was reassuring against a serious life threatening bleed follow up as scheduled with general surgery next week you can try taking colace as well if you feel more ill, have severe worsening pain or difficulty breathing return to the emergency department Medical Decision Making 32 yo female with hx of DM, who comes in with several days of constipation and bloody stools. She denies fevers, chills, vomiting though has had some nausea. She was seen yesterday, had reassuring labs and negative ct and is scheduled to see genreal surgery next week. She states she felt some dizziness earlier so came here. She arrives stable, caox4 with stable vitals and speaking clearly. She has a soft nontender abdomen. Suspect this is related to her constipation, will recheck a cbc, cmp and lipase. She had no hemorrhoids or other abnormalities other than guaic positive stool so will defer rectal at this time. pt stable, no tenderness on abdominal exam, labs reassuring and hemoglobin stable. Discussed with her and she is stable for d/c, will proceed with outpatient general surgery follow up, return precautions given Differential Diagnosis Differential Diagnosis: constipation, colitis, polyp Medical Records Medical records reviewed: Yes I reviewed the patient's medical records. Lab Data Lab results reviewed: Yes I reviewed the patient's lab results. HPI General Mode of arrival: ambulatory. Date/Time Provider Initiated Documentation: 01/10/23 19:38. Limitations to Documentation: no limitations. Information obtained by: patient. History of Present Illness 32 year old F presents to the emergency department with the chief complaint of bloody stools, described as moderate, Patient started experiencing this day(s) (5) and it has been intermittent. No relieving factors improve symptom(s), No exacerbating factors reported . Patient notes denies chest pain and fever/chills. Patient did receive the following treatments prior to arrival, none Related Data Home Medications Medication Instructions Recorded Confirmed blood sugar diagnostic (FreeStyle #10 ea 10/10/20 01/05/23 Lite Strips) lancets 28 gauge (FreeStyle #100 ea 10/10/20 01/05/23 Lancets) omeprazole 40 mg capsule,delayed 40 mg PO DAILY 10/10/20 01/09/23 release pen needle, diabetic 32 gauge x #50 ea 10/10/20 01/05/23 (BD Ultra-Fine Sona Pen Needle) epinephrine 0.3 mg/0.3 mL 0.3 mg IM ONCE 12/29/20 01/09/23 injection, auto-injector metformin 500 mg tablet 500 mg PO BID 12/29/20 01/09/23 acetaminophen 500 mg tablet 1,000 mg PO Q6H PRN 01/31/21 01/09/23 (Tylenol Extra Strength) haloperidol 5 mg tablet 10 mg PO DAILY 04/05/21 01/09/23 prazosin 2 mg capsule 5 mg PO .QHS 05/14/21 01/09/23 atorvastatin 10 mg tablet 10 mg PO DAILY 08/11/21 01/09/23 fluticasone propionate 50 1 spray intranasal BID 08/11/21 01/05/23 mcg/actuation nasal spray,suspension oxcarbazepine 150 mg tablet 150 mg PO BID 08/11/21 01/09/23 propranolol 60 mg capsule,24 60 mg PO DAILY 08/11/21 01/09/23 hr,extended release albuterol sulfate 90 mcg/actuation 2 puff inhalation Q6H PRN 11/13/21 01/09/23 aerosol inhaler (ProAir HFA) dextroamphetamine-amphetamine 15 15 mg PO DAILY 05/22/22 01/09/23 mg tablet (Adderall) cariprazine 3 mg capsule (Vraylar) 1 cap PO DAILY 07/08/22 01/09/23 dulaglutide 1.5 mg/0.5 mL See Rx Instructions .Route .COMPLEX 07/08/22 01/09/23 subcutaneous pen injector ([facility]) norethindrone acetate 5 mg tablet 5 mg PO DAILY #90 tabs 10/24/22 01/09/23 (Aygestin) insulin glargine 100 unit/mL (3 30 unit subcut BID 10/26/22 01/09/23 mL) subcutaneous pen (Lantus Solostar U-100 Insulin) fluticasone propionate 50 1 spray intranasal DAILY #15.8 mL 11/11/22 01/09/23 mcg/actuation nasal spray,suspension (Flonase Allergy Relief) prochlorperazine maleate 10 mg 10 mg PO TID PRN nausea and 11/11/22 01/09/23 tablet (Compazine) vomiting #7 tabs quetiapine 300 mg tablet 600 mg PO QHS 12/06/22 01/09/23 methocarbamol 500 mg tablet 500 mg PO Q6H PRN muscle spasm #14 01/06/23 01/09/23 tabs methylprednisolone 4 mg tablets in See Rx Instructions PO .COMPLEX 01/06/23 a dose pack (QUIQrol ([employer])) #21 dose pk metronidazole 500 mg tablet 500 mg PO BID 7 days #14 tabs 01/06/23 01/09/23 ondansetron 4 mg disintegrating 4 mg PO Q8H PRN nausea and 01/10/23 tablet vomiting #30 tabs Previous Rx's Medication Instructions Recorded norethindrone acetate 5 mg tablet 5 mg PO DAILY #90 tabs 10/24/22 (Aygestin) fluticasone propionate 50 1 spray intranasal DAILY #15.8 mL 11/11/22 mcg/actuation nasal spray,suspension (Flonase Allergy Relief) prochlorperazine maleate 10 mg 10 mg PO TID PRN nausea and 11/11/22 tablet (Compazine) vomiting #7 tabs methocarbamol 500 mg tablet 500 mg PO Q6H PRN muscle spasm #14 01/06/23 tabs methylprednisolone 4 mg tablets in See Rx Instructions PO .COMPLEX 01/06/23 a dose pack (Medrol (Gu[employer])) #21 dose pk metronidazole 500 mg tablet 500 mg PO BID 7 days #14 tabs 01/06/23 ondansetron 4 mg disintegrating 4 mg PO Q8H PRN nausea and 01/10/23 tablet vomiting #30 tabs Allergies Allergy/AdvReac Type Severity Reaction Status Date / Time naproxen [From Aleve] Allergy Severe Anaphylaxis Verified 01/10/23 18:51 cephalexin [From Keflex] Allergy Intermediate Hives Verified 01/10/23 18:51 latex Allergy Intermediate Itching Verified 01/10/23 18:51 venom-honey bee Allergy Verified 01/10/23 18:51 General Stated Complaint: GI Bleed SUZETTE: 3 Review of Systems All systems reviewed & are unremarkable except as noted in HPI and below Constitutional Constitutional: Denies chills, Denies fever(s) and Denies weakness Cardiovascular Cardiovascular: Denies chest pain and Denies dyspnea Respiratory Respiratory: Denies cough and Denies dyspnea Gastrointestinal Gastrointestinal: Denies vomiting Musculoskeletal Musculoskeletal: Denies joint swelling Integumentary/Breasts Skin/Breast: Denies rash Neurologic Neurologic: Denies weakness PFSH All Active Problems (Updated 01/10/23 @ 22:18 by King Boland MD) Abdominal pain (Acute) Chest pain (Acute) Bacterial vaginosis (Acute) Back pain (Acute) Bloody stools (Acute) Dysmenorrhea (Acute) Medical History ADHD Anxiety Asthma Borderline personality disorder Depression Diverticulitis GERD (gastroesophageal reflux disease) History of irregular menstrual bleeding History of recurrent UTI (urinary tract infection) HTN (hypertension) Hyperlipidemia Left hip pain Low back pain Nausea Obesity Pain of left calf Pain, joint, knee, right PCOS (polycystic ovarian syndrome) PTSD (post-traumatic stress disorder) Schizoaffective disorder Sleep apnea Suicidal ideation Tachycardia Type 2 diabetes mellitus Surgical History H/O laparoscopy History of appendectomy History of cholecystectomy Family History Mother Diabetes Social History Smoking/Tobacco Use Status: Former Tobacco Use Smoking risk assessment performed?: Yes Alcohol Intake: current Alcohol Intake frequency: a few times a month Drug use: Daily Substance use type: marijuana Household members: family Housing: apartment Number of Children: 0 current occupation: Unemployed What type of physical activity do you participate in: walking, independent ambulation and irregular exercise Do you feel safe at home: Yes Do you feel safe in your relationship?: Yes Female Reproductive History Menstrual control method: pills (aygestin) History History 2 Para Hx # Term Pregnancies Multiple births Hx # Pregnancies Ectopic pregnancies AB induced Hx Number of Living Children AB spontaneous 2 Exam Const General: no acute distress Orientation: alert HENMT Head: normal to inspection Ears: external ears normal General nose exam: external nose normal Mouth: moist mucous membranes Eyes General: appearance normal, both eyes and all related structures Neck Neck: normal visual inspection Resp Effort & Inspection: normal respiratory effort and able to speak in complete sentences Cardio Rate: regular rate GI Palpation: soft and nontender Skin General skin exam: no rashes or lesions noted Neuro General: patient alert and patient oriented x3 Extrem General: normal to inspection Psych Mental Status: mental status grossly normal Course Vital Signs Vital signs: Vital Signs Temperature 36.7 C 01/10/23 18:49 Pulse 108 H 01/10/23 18:49 Respiratory Rate 18 01/10/23 18:49 Blood Pressure 116/81 01/10/23 18:49 Pulse Oximetry 96 01/10/23 18:49 Temperature 37.1 C 01/10/23 20:54 Temperature Source Tympanic 01/10/23 20:54 Pulse 102 H 01/10/23 20:54 Respiratory Rate 20 01/10/23 20:54 Respiratory Effort Normal, Non-Labored 01/10/23 18:50 Blood Pressure 119/87 01/10/23 20:54 Pulse Oximetry 96 01/10/23 20:54 Oxygen Delivery Method Room Air 01/10/23 20:54 Oxygen Flow Rate 0 01/10/23 20:54 Pain Level 10 01/10/23 20:54
[2023-01-10] MEDS: Ondansetron O.D.T. 4 MG TABEF PO (21:33)
[2023-01-10] MEDS: Acetaminophen 500 MG TAB (21:47)
[2023-01-10 21:51] LABS: HCT 44.1 % (36.0-46.0); HGB 15.1 g/dL (11.2-15.7); MCH 28.7 pg (27.0-33.0); MCHC 34.2 % (32.0-36.0); MCV 84 fL (80-95); MPV 9.5 fL (8.0-11.0); Platelet Count 442 10^3/uL (130-400); RBC 5.26 10^6/uL (3.93-5.22); RDW 13.1 % (11.7-14.6); WBC 14.43 10^3/uL (4.4-10.8)
[2023-01-10 22:11] LABS: ALT 38 U/L (14-59); AST 18 U/L (15-37); Albumin 3.5 g/dL (3.4-5.0); Alkaline Phosphatase 84 U/L (46-116); Anion Gap 8.3 mmol/L (3-11); BUN 12 mg/dL (7-18); Bilirubin, Total 0.2 mg/dL (0.2-1.0); CO2 26.7 mmol/L (21.0-32.0); Calcium 9.1 mg/dL (8.5-10.1); Chloride 101 mmol/L (98-107); Estimated GFR 75.81 (mL/min/1.73m2); Glucose 262 mg/dL (74-106); Lipase 40 U/L (16-77); Potassium 4.3 mmol/L (3.5-5.1); Sodium 136 mmol/L (136-145); Total Protein 8.1 g/dL (6.4-8.2)
[2023-01-10 22:20] VITALS: BP 122/71; PULSE 102; RESP 16; TEMP 37.1; O2SAT 96
== END 2023-01-10 22:20 | disposition home or self-care (01) ==
PROVIDERS: Emergency Provider Emergency Medicine; PCP Physician Assistant
DX: K92.1 Melena (principal); R42 Dizziness and giddiness; I10 Essential (primary) hypertension; E11.9 Type 2 diabetes mellitus without complications; J45.909 Unspecified asthma, uncomplicated; Z79.4 Long term (current) use of insulin; Z79.84 Long term (current) use of oral hypoglycemic drugs; Z79.899 Other long term (current) drug therapy
CPT/HCPCS: 80053; 83690; 85027; 99283; 99284

== ENCOUNTER → 2023-01-16 10:40 | Outpatient (BNVA) | payer MEDICARE, MEDICAID, SELFPAY | PROVIDERS: PCP Physician Assistant; Referring Provider Physician Assistant; Visit Provider Surgery | DX: K62.5 Hemorrhage of anus and rectum (principal); R10.9 Unspecified abdominal pain; Z90.49 Acquired absence of other specified parts of digestive tract | CPT/HCPCS: 99214 ==

== ENCOUNTER 2023-02-20 02:59 | Emergency (ER) | payer MEDICARE, MEDICAID, SELFPAY ==
[2023-02-20] VITALS (23 sets, daily range): BP systolic 106–116; BP diastolic 67–85; PULSE 101–116; RESP 15–37; TEMP 36.6; O2SAT 95–98
--- NOTE | 2023-02-20 03:00 | RT.EKG_ITS ---
APPROVED REPORT Exam: Resting ECG Reason for Exam: chest pain Patient Location: E HR:106 bpm ECG Measurements Heart Rate 106 AXIS NC 139 P 11 QRSd 72 QRS -24 QT 313 T 25 QTc 417 Conclusion Sinus tachycardia...rate> 99 Inferior infarct, old...Q >35mS, II III aVF
--- NOTE | 2023-02-20 03:17 | ED.GENADUL_ITS ---
Discharge Plan Disposition Patient Disposition: Home Condition: Stable Discharge Details Clinical Impression: Chest pain Primary Care Provider: Moiz Dutta ED Provider: King Boland Home Meds and New Rx's Prescriptions: Continued epinephrine 0.3 mg/0.3 mL Auto-Injector 0.3 mg IM ONCE metformin 500 mg Tablet 500 mg PO BID dextroamphetamine-amphetamine [Adderall] 15 mg tablet 15 mg PO DAILY norethindrone acetate [Aygestin] 5 mg tablet 5 mg PO BID Qty: 60 3RF (DME) lancets [FreeStyle Lancets] 28 gauge misc See Rx Instructions .ROUTE .MEDSUPPLY Qty: 100 Rx Instructions: As directed (DME) FreeStyle Lite Strips Strip See Rx Instructions .ROUTE .MEDSUPPLY Qty: 10 Rx Instructions: As directed (DME) pen needle, diabetic [BD Ultra-Fine Sona Pen Needle] 32 gauge x 5/32 needle See Rx Instructions .ROUTE .MEDSUPPLY Qty: 50 Rx Instructions: As directed omeprazole 40 mg capsule,delayed release(DR/EC) 40 mg PO DAILY haloperidol 5 mg tablet 10 mg PO DAILY albuterol sulfate [ProAir HFA] 90 mcg/actuation HFA aerosol inhaler 2 puff inhalation Q6H PRN propranolol 60 mg capsule,extended release 24 hr 60 mg PO DAILY atorvastatin 10 mg tablet 10 mg PO DAILY oxcarbazepine 150 mg tablet 150 mg PO BID Trulicity 1.5 mg/0.5 mL pen injector See Rx Instructions .ROUTE .COMPLEX Rx Instructions: device subcutaneously Vraylar 3 mg capsule 1 cap PO DAILY ondansetron 4 mg tablet,disintegrating 4 mg PO Q8H PRN (Reason: nausea and vomiting) Qty: 30 0RF acetaminophen [Tylenol Extra Strength] 500 mg Tablet 1,000 mg PO Q6H PRN prazosin 2 mg capsule 5 mg PO .QHS Patient Comments: TAKE 1 CAPSULE BY MOUTH EVERY EVENING insulin glargine [Lantus Solostar U-100 Insulin] 100 unit/mL (3 mL) insulin pen 30 unit SUBCUT BID prochlorperazine maleate [Compazine] 10 mg tablet 10 mg PO TID PRN (Reason: nausea and vomiting) Qty: 7 0RF fluticasone propionate [Flonase Allergy Relief] 50 mcg/actuation spray,suspension 1 spray TRINITY DAILY Qty: 15.8 0RF Rx Instructions: administer into each nostril quetiapine 300 mg tablet 600 mg PO QHS methocarbamol 500 mg tablet 500 mg PO Q6H PRN (Reason: muscle spasm) Qty: 14 0RF lorazepam [Ativan] 0.5 mg Tablet 0.5 mg PO TID Discharge Instructions Instructions: Chest Pain (ED) Additional Instructions: your blood work and ekg did not show concerning findings at this time follow up with your primary care provider within 1 week if you feel more ill, have severe worsening pain or difficulty breathing return to the emergency department Medical Decision Making 33 yo female with hx of t2dm, anxiety, depression, who comes in with chest pain since yesterday afternoon while sitting around not exerting herself. HAd similar pain when she was seen in December of this year for chest pain with negative workup. She denies diaphoresis, n/v, does feel anxious and took an ativan about an hour ago. Denies smoking, alcohol or drug use. She arrives stable though mildly tachycardic at 108 during my exam in sinus. She is speaking clearly, kendall ears well, caox4. Has clear lungs, no murmurs, no leg swelling or calf tenderness. Given her age suspect anxiety but will check troponin, cbc, cmp, and given her mild tachycardia send d dimer. No tearing back pain to suggest dissection and clear lung sounds without pleuritic pain so doubt pneumothorax. pt stable, labs unremarkable and vitals stable. She feels well, over 3 hours of symptoms so do not feel delta troponin indicated. She is stable for d/c, advised to f/u with pcp, return precautions given Differential Diagnosis Differential Diagnosis: nstemi, anxiety, pe Medical Records Medical records reviewed: Yes I reviewed the patient's medical records. Lab Data Lab results reviewed: Yes I reviewed the patient's lab results. ECG Data Attestation: I personally reviewed and interpreted this ECG (s) as follows: Prior ECG tracings: available for review Interpretation: sinus tachycardia, rate of 106, pr 139, no acute ischemic findings HPI General Mode of arrival: ambulatory . Date/Time Provider Initiated Documentation: 02/20/23 02:59 . Limitations to Documentation: no limitations . Information obtained by: patient . History of Present Illness 33 year old F presents to the emergency department with the chief complaint of chest pain, described as moderate, Quality is described as burning and aching, and is localized to the chest. Patient started experiencing this day(s) (1) and it has been constant. No relieving factors improve symptom(s), No exacerbating factors reported . Patient notes no other symptoms.; denies fever/chills and shortness of breath. Patient did receive the following treatments prior to arrival, none Related Data Home Medications Medication Instructions Recorded Confirmed blood sugar diagnostic (FreeStyle #10 ea 10/10/20 02/05/23 Lite Strips) lancets 28 gauge (FreeStyle #100 ea 10/10/20 02/05/23 Lancets) omeprazole 40 mg capsule,delayed 40 mg PO DAILY 10/10/20 02/20/23 release pen needle, diabetic 32 gauge x #50 ea 10/10/20 02/05/23 (BD Ultra-Fine Sona Pen Needle) epinephrine 0.3 mg/0.3 mL 0.3 mg IM ONCE 12/29/20 02/20/23 injection, auto-injector metformin 500 mg tablet 500 mg PO BID 12/29/20 02/20/23 acetaminophen 500 mg tablet 1,000 mg PO Q6H PRN 01/31/21 02/20/23 (Tylenol Extra Strength) haloperidol 5 mg tablet 10 mg PO DAILY 04/05/21 02/20/23 prazosin 2 mg capsule 5 mg PO .QHS 05/14/21 02/20/23 atorvastatin 10 mg tablet 10 mg PO DAILY 08/11/21 02/20/23 oxcarbazepine 150 mg tablet 150 mg PO BID 08/11/21 02/20/23 propranolol 60 mg capsule,24 60 mg PO DAILY 08/11/21 02/20/23 hr,extended release albuterol sulfate 90 mcg/actuation 2 puff inhalation Q6H PRN 11/13/21 02/20/23 aerosol inhaler (ProAir HFA) dextroamphetamine-amphetamine 15 15 mg PO DAILY 05/22/22 02/20/23 mg tablet (Adderall) cariprazine 3 mg capsule (Vraylar) 1 cap PO DAILY 07/08/22 02/20/23 dulaglutide 1.5 mg/0.5 mL See Rx Instructions .Route .COMPLEX 07/08/22 02/20/23 subcutaneous pen injector (Trulicity) insulin glargine 100 unit/mL (3 30 unit subcut BID 10/26/22 02/20/23 mL) subcutaneous pen (Lantus Solostar U-100 Insulin) fluticasone propionate 50 1 spray intranasal DAILY #15.8 mL 11/11/22 02/20/23 mcg/actuation nasal spray,suspension (Flonase Allergy Relief) prochlorperazine maleate 10 mg 10 mg PO TID PRN nausea and 11/11/22 02/20/23 tablet (Compazine) vomiting #7 tabs quetiapine 300 mg tablet 600 mg PO QHS 12/06/22 02/20/23 methocarbamol 500 mg tablet 500 mg PO Q6H PRN muscle spasm #14 01/06/23 02/20/23 tabs ondansetron 4 mg disintegrating 4 mg PO Q8H PRN nausea and 01/10/23 02/20/23 tablet vomiting #30 tabs norethindrone acetate 5 mg tablet 5 mg PO BID #60 tabs 01/29/23 02/20/23 (Aygestin) lorazepam 0.5 mg tablet (Ativan) 0.5 mg PO TID 02/20/23 02/20/23 Previous Rx's Medication Instructions Recorded fluticasone propionate 50 1 spray intranasal DAILY #15.8 mL 11/11/22 mcg/actuation nasal spray,suspension (Flonase Allergy Relief) prochlorperazine maleate 10 mg 10 mg PO TID PRN nausea and 11/11/22 tablet (Compazine) vomiting #7 tabs methocarbamol 500 mg tablet 500 mg PO Q6H PRN muscle spasm #14 01/06/23 tabs ondansetron 4 mg disintegrating 4 mg PO Q8H PRN nausea and 01/10/23 tablet vomiting #30 tabs norethindrone acetate 5 mg tablet 5 mg PO BID #60 tabs 01/29/23 (Aygestin) Allergies Allergy/AdvReac Type Severity Reaction Status Date / Time naproxen [From Aleve] Allergy Severe Anaphylaxis Verified 02/20/23 03:08 cephalexin [From Keflex] Allergy Intermediate Hives Verified 02/20/23 03:08 latex Allergy Intermediate Itching Verified 02/20/23 03:08 venom-honey bee Allergy Verified 02/20/23 03:08 General Stated Complaint: Chest Pain SUZETTE: 3 Review of Systems All systems reviewed & are unremarkable except as noted in HPI and below Constitutional Constitutional: Denies chills and Denies fever(s) Cardiovascular Cardiovascular: Reports chest pain and Denies dyspnea Respiratory Respiratory: Denies cough and Denies dyspnea Gastrointestinal Gastrointestinal: Denies abdominal pain, Denies nausea and Denies vomiting Genitourinary Genitourinary: Denies dysuria Musculoskeletal Musculoskeletal: Denies joint swelling PFSH All Active Problems (Updated 02/20/23 @ 04:51 by King Boland MD) Chest pain (Acute) Dysmenorrhea (Acute) Medical History ADHD Anxiety Asthma Borderline personality disorder Depression Diverticulitis GERD (gastroesophageal reflux disease) History of irregular menstrual bleeding History of recurrent UTI (urinary tract infection) HTN (hypertension) Hyperlipidemia Left hip pain Low back pain Nausea Obesity Pain of left calf Pain, joint, knee, right PCOS (polycystic ovarian syndrome) PTSD (post-traumatic stress disorder) Schizoaffective disorder Sleep apnea Suicidal ideation Tachycardia Type 2 diabetes mellitus Surgical History H/O laparoscopy History of appendectomy History of cholecystectomy Family History Mother Diabetes Social History Smoking/Tobacco Use Status: Former Tobacco Use Smoking risk assessment performed?: Yes Alcohol Intake: current Alcohol Intake frequency: a few times a month Drug use: Daily Substance use type: marijuana Details: Edibles most days to help with sleep and pain. Household members: family Housing: apartment Number of Children: 0 current occupation: Unemployed Current gender identity: female What type of physical activity do you participate in: walking, independent ambulation and irregular exercise Do you feel safe at home: Yes Do you feel safe in your relationship?: Yes Female Reproductive History Menstrual control method: pills (aygestin) History History 2 Para Hx # Term Pregnancies Multiple births Hx # Pregnancies Ectopic pregnancies AB induced Hx Number of Living Children AB spontaneous 2 Exam Const General: no acute distress and anxious Orientation: alert HENMT Head: normal to inspection Ears: external ears normal General nose exam: external nose normal Mouth: moist mucous membranes Eyes General: appearance normal, both eyes and all related structures Neck Neck: normal visual inspection Resp Effort & Inspection: normal respiratory effort and able to speak in complete sentences Auscultation: clear to auscultation bilaterally Cardio Jugular venous pressure: no JVD Rate: regular rate Heart Sounds: no murmurs GI Palpation: soft and nontender Skin General skin exam: no rashes or lesions noted Neuro General: patient alert and patient oriented x3 Extrem General: normal to inspection Psych Mental Status: mental status grossly normal Course Vital Signs Vital signs: Vital Signs Temperature 36.6 C 02/20/23 03:02 Pulse 109 H 02/20/23 03:02 Respiratory Rate 18 02/20/23 03:02 Blood Pressure 107/85 02/20/23 03:02 Pulse Oximetry 97 02/20/23 03:02 Temperature 36.6 C 02/20/23 03:02 Temperature Source Tympanic 02/20/23 03:02 Pulse 109 H 02/20/23 03:02 Respiratory Rate 18 02/20/23 03:12 Respiratory Effort Normal, Non-Labored 02/20/23 03:12 Respiratory Depth Normal 02/20/23 03:12 Respiratory Pattern Normal 02/20/23 03:12 Blood Pressure 107/85 02/20/23 03:02 Pulse Oximetry 97 02/20/23 03:02 Oxygen Delivery Method Room Air 02/20/23 03:02 Oxygen Flow Rate 0 02/20/23 03:02 Pain Level 8 02/20/23 03:12 PAWSS Have you Been Recently Intoxicated or Drunk Within the Last 30 days?: No Have you Ever Experienced Previous Episodes of Alcohol Withdrawal?: No Have you ever Experienced Withdrawal Seizures?: No Have you ever Experienced Delirium Tremens(DT)s?: No Have you ever undergone Alcohol Rehabilitation Treatment (i.e, inpt ot outpatient treatment programs)?: No Have you ever Experienced Blackouts?: No Have you ever Combined Alcohol with other Downers within the last 90 days?: No Have you ever Combined Alcohol with any other Substance of Abuse during the last 90 days?: No Positive Blood Alcohol level on Presentation? [PCS.BAL]: No Evidence of Increased Autonomic Activity (i.e. HR>120, tremor, sweating, agitation, nausea)?: No Result: 0
[2023-02-20 03:54] LABS: Abs Immature Grans 0.04 10^3/uL (0.0-0.06); Absolute Basophil Count 0.05 10^3/uL (0.0-0.2); Absolute Eosinophil Count 0.22 10^3/uL (0.0-0.7); Absolute Lymphocyte Count 4.23 10^3/uL (1.2-3.4); Absolute Neutrophil Count 7.16 10^3/uL (1.2-6.7); Basophils % 0.4; Eosinophils % 1.7; HCT 41.7 % (36.0-46.0); HGB 14.3 g/dL (11.2-15.7); Immature Grans % 0.3; Lymphocytes % 33.1; MCH 28.8 pg (27.0-33.0); MCHC 34.3 % (32.0-36.0); MCV 84 fL (80-95); MPV 9.5 fL (8.0-11.0); Monocytes % 8.5; Platelet Count 392 10^3/uL (130-400); RBC 4.96 10^6/uL (3.93-5.22); RDW 13.2 % (11.7-14.6); RDW-SD 40.3 fL; WBC 12.78 10^3/uL (4.4-10.8)
[2023-02-20 03:58] LABS: Absolute Monocyte Count 1.09 10^3/uL (0.1-0.8)
[2023-02-20] MEDS: Aspirin 81 MG CHEW 324 MG CH (04:02)
[2023-02-20 04:14] LABS: ALT 31 U/L (14-59); AST 20 U/L (15-37); Albumin 3.2 g/dL (3.4-5.0); Alkaline Phosphatase 77 U/L (46-116); BUN 9 mg/dL (7-18); Bilirubin, Total 0.3 mg/dL (0.2-1.0); CREATININE 1.1 mg/dL (0.55-1.02); Calcium 9.2 mg/dL (8.5-10.1); Chloride 103 mmol/L (98-107); Glucose 117 mg/dL (74-106); Lipase 55 U/L (16-77); Potassium 3.9 mmol/L (3.5-5.1); Sodium 140 mmol/L (136-145); Total Protein 7.8 g/dL (6.4-8.2); Troponin I < 50 ng/L (<or=60)
[2023-02-20 04:43] LABS: D-Dimer 459 ng/mlFEU (<500)
[2023-02-20 05:04] LABS: Bilirubin Negative (Negative); Blood Trace-intact (Negative); Clarity Clear (Clear); Glucose Negative (Negative); Ketones Negative (Negative); Leukocyte Esterase Negative (Negative); Nitrite Negative (Negative); Urobilinogen 0.2 mg/dL (Up to 0.2); pH 5.5 (5-8)
[2023-02-20 05:20] LABS: Bacteria Few HPF (Negative); C & S Indicated? No; Crystals Negative HPF (Negative); Epithelial Cells Many HPF (Negative); Mucus Negative (Negative); RBC 0-2 HPF (0-2); WBC 0-2 HPF (0-5)
== END 2023-02-20 05:01 | disposition home or self-care (01) ==
PROVIDERS: Emergency Provider Emergency Medicine; PCP Physician Assistant
DX: R07.9 Chest pain, unspecified (principal); E11.9 Type 2 diabetes mellitus without complications; F32.A Depression, unspecified; F41.9 Anxiety disorder, unspecified; R00.0 Tachycardia, unspecified; Z79.899 Other long term (current) drug therapy
CPT/HCPCS: 36415; 80053; 81025; 83690; 93005; 99283; 81003; 81015; 84484; 85025; 85379; 93010

== ENCOUNTER 2023-03-04 15:46 | Outpatient (REF) | payer MEDICARE, MEDICAID, SELFPAY ==
[2023-03-06 13:30] LABS: Chlamydia Result Negative (Negative); GC Result Negative (Negative)
== END 2023-03-04 15:47 | disposition home or self-care (01) ==
LOC: LBN 15:46
PROVIDERS: PCP Physician Assistant; Visit Provider Obstetrics & Gynecology
DX: N94.4 Primary dysmenorrhea (principal); N92.0 Excessive and frequent menstruation with regular cycle
CPT/HCPCS: 87491; 87591

== ENCOUNTER 2023-03-13 02:14 | Outpatient (CLI) | payer MEDICARE, MEDICAID, SELFPAY ==
--- NOTE | 2023-03-13 | DI.RAD_ITS ---
Exam(s) RF BARIUM SWALLOW EXAM: RF BARIUM SWALLOW CLINICAL HISTORY: DYSPHAGIA, R13.10 TECHNIQUE: 2D and realtime digital imaging was performed. CONTRAST MATERIAL: Oral barium Oral water soluble contrast was administered. COMPARISON: No exams were available for comparison FINDINGS: Earth Mover upright chest x-ray reveals no significant lung findings and no free intraperitoneal air subjac ent hemidiaphragms.. ESOPHAGRAM: Performed both standing and recumbent. Swallowing mechanism is grossly intact. There is no evidence of aspiration. No hypertense upper eso phageal sphincter. No evidence of Zenker's diverticulum. Caliber of the esophagus and mucosal patte rn appears normal. No fixed lesions. No Schatzki ring evident. Junction appears unremarkable. No hiatal hernia. No reflux demonstrated. No tertiary waves. No achalasia evident. IMPRESSION: No significant findings on this esophagram study. Given the history here if clinically indicated modified barium swallow can be performed in conjunctio n with the speech therapist in our department RADIATION DOSE DELIVERED: kemi Galaviz=66.3 mGy
[2023-03-13] MEDS: Barium Sulfate 98% W/W 140 ML BTL PO (11:10)
[2023-03-13] MEDS: Barium Sulfate 60% W/V 355 ML BTL PO (11:10)
== END 2023-03-13 02:34 ==
LOC: DI 02:14
PROVIDERS: PCP Physician Assistant; Visit Provider Physician Assistant
DX: R13.10 Dysphagia, unspecified (principal)
CPT/HCPCS: 74221; J3490

== ENCOUNTER 2023-03-16 21:29 | Emergency (ER) | payer OTHER, SELFPAY ==
--- NOTE | 2023-03-16 21:30 | DI.RAD_ITS ---
Exam(s) XR WRIST RT COMPLETE EXAM: XR WRIST RT COMPLETE CLINICAL HISTORY: fall, pain distal radius. TECHNIQUE: 2D digital imaging was performed. COMPARISON: No exams were available for comparison FINDINGS: 3 views No evidence of fracture or dislocation nor significant ulnar variance. Scaphoid and scapholunate dis tance normal. Bone density normal. No osseous lesions IMPRESSION: No osseous findings in the wrist. DATA REPOSITORY: RADIATION DOSE DELIVERED:
[2023-03-16 21:34] VITALS: BP 129/94; PULSE 99; RESP 16; TEMP 37; O2SAT 97
[2023-03-16] MEDS: Acetaminophen 500 MG TAB 1000 MG PO (21:45)
--- NOTE | 2023-03-16 21:51 | ED.GENADUL_ITS ---
Discharge Plan Disposition Patient Disposition: Home Discharge Details Chief Complaint: Orthopedic Clinical Impression: Right wrist sprain Primary Care Provider: Moiz Dutta ED Provider: Bucky Pederson Home Meds and New Rx's Prescriptions: No Action epinephrine 0.3 mg/0.3 mL Auto-Injector 0.3 mg IM ONCE metformin 500 mg Tablet 500 mg PO BID dextroamphetamine-amphetamine [Adderall] 15 mg tablet 15 mg PO DAILY Mirena 21 mcg/24 hours (8 yrs) 52 mg intrauterine device 1 device intrauterine ONCE Rx Instructions: as a single dose (DME) lancets [FreeStyle Lancets] 28 gauge misc See Rx Instructions .ROUTE .MEDSUPPLY Qty: 100 Rx Instructions: As directed (DME) FreeStyle Lite Strips Strip See Rx Instructions .ROUTE .MEDSUPPLY Qty: 10 Rx Instructions: As directed (DME) pen needle, diabetic [BD Ultra-Fine Sona Pen Needle] 32 gauge x 5/32 needle See Rx Instructions .ROUTE .MEDSUPPLY Qty: 50 Rx Instructions: As directed omeprazole 40 mg capsule,delayed release(DR/EC) 40 mg PO DAILY haloperidol 5 mg tablet 10 mg PO DAILY albuterol sulfate [ProAir HFA] 90 mcg/actuation HFA aerosol inhaler 2 puff inhalation Q6H PRN propranolol 60 mg capsule,extended release 24 hr 60 mg PO DAILY atorvastatin 10 mg tablet 10 mg PO DAILY oxcarbazepine 150 mg tablet 150 mg PO BID Trulicity 1.5 mg/0.5 mL pen injector See Rx Instructions .ROUTE .COMPLEX Rx Instructions: device subcutaneously Vraylar 3 mg capsule 1 cap PO DAILY ondansetron 4 mg tablet,disintegrating 4 mg PO Q8H PRN (Reason: nausea and vomiting) Qty: 30 0RF acetaminophen [Tylenol Extra Strength] 500 mg Tablet 1,000 mg PO Q6H PRN prazosin 2 mg capsule 5 mg PO .QHS Patient Comments: TAKE 1 CAPSULE BY MOUTH EVERY EVENING insulin glargine [Lantus Solostar U-100 Insulin] 100 unit/mL (3 mL) insulin pen 30 unit SUBCUT BID fluticasone propionate [Flonase Allergy Relief] 50 mcg/actuation spray,suspension 1 spray TRINITY DAILY Qty: 15.8 0RF Rx Instructions: administer into each nostril quetiapine 300 mg tablet 600 mg PO QHS methocarbamol 500 mg tablet 500 mg PO Q6H PRN (Reason: muscle spasm) Qty: 14 0RF lorazepam [Ativan] 0.5 mg Tablet 0.5 mg PO TID Discharge Instructions Instructions: Wrist Sprain (ED) Additional Instructions: At this time you have evidence of a sprain for your right wrist. Please use the splint as needed. Take Tylenol and Motrin for pain. If you notice any worsening of your symptoms, or any new symptoms such as vomiting, diarrhea, fev er, chills, shortness of breath, chest pain, numbness, weakness, or fainting , please return immediately to the emergency department for reevaluation. Please follow up with your primary care provider as soon as possible for reassessment and reevaluation. As always, it was a pleasure participating in your medical care today. Referrals: Moiz Dutta [Primary Care Provider] - Medical Decision Making 33-year-old female with a past medical history of ADHD, anxiety, borderline personality disorder, depression, GERD, hypertension, PCOS, PTSD, schizoaffective disorder, type 2 diabetes, presents today for evaluation of right wrist pain. Patient states that she was closing a window when her arm slipped and then twisted her wrist. She is right-hand dominant. She admits to pain with movement of the wrist. She has not taken anything for the pain. She denies any other traumas. No other complaints of pain otherwise. She admits to pins and needle sensation in the wrist itself, but none in the hands or fingers. No other complaints at this time. No other modifying factors. Physical exam demonstrates mild tenderness at the distal radius. No pain at the anatomic snuffbox. Normal neurovascular exam distal to the site of injury. No other tenderness throughout the rest of the hand. Concern for contusion or bruise of the distal radius, however fracture is on the differential. We will get an x-ray, give Tylenol and reassess. 10:24 PM X-ray negative for acute process. Will give wrist splint for home use. Discussed red flags for which to return. Diagnosis wrist sprain. I have extensively reviewed the treatment plan and discharge instructions with the patient. I have addressed all patient concerns at this time. The patient was made aware of what symptoms to monitor for that would warrant a return to the emergency department. Discussed the plan with the patient, they demonstrate verbal understanding and agreement with our assessment and plan at this time. The documentation in this chart was dictated using [employer] dictation software. Please excuse any dictation errors. FINDINGS: Bones/joints: Normal. Soft tissues: Normal. IMPRESSION: No acute findings. Thank you for allowing us to participate in the care of your patient. Dictated and Authenticated by: Dimas Wallis MD 03/16/2023 10:09 PM Eastern Time ([place] & [place]) HPI General Date/Time Provider Initiated Documentation: 03/16/23 21:32 . HPI Narrative: 33-year-old female with a past medical history of ADHD, anxiety, borderline personality disorder, depression, GERD, hypertension, PCOS, PTSD, schizoaffective disorder, type 2 diabetes, presents today for evaluation of right wrist pain. Patient states that she was closing a window when her arm slipped and then twisted her wrist. She is right-hand dominant. She admits to pain with movement of the wrist. She has not taken anything for the pain. She denies any other traumas. No other complaints of pain otherwise. She admits to pins and needle sensation in the wrist itself, but none in the hands or fingers. No other complaints at this time. No other modifying factors. Related Data Home Medications Medication Instructions Recorded Confirmed blood sugar diagnostic (FreeStyle #10 ea 10/10/20 03/04/23 Lite Strips) lancets 28 gauge (FreeStyle #100 ea 10/10/20 03/04/23 Lancets) omeprazole 40 mg capsule,delayed 40 mg PO DAILY 10/10/20 03/16/23 release pen needle, diabetic 32 gauge x #50 ea 10/10/20 03/16/23 (BD Ultra-Fine Sona Pen Needle) epinephrine 0.3 mg/0.3 mL 0.3 mg IM ONCE 12/29/20 03/16/23 injection, auto-injector metformin 500 mg tablet 500 mg PO BID 12/29/20 03/16/23 acetaminophen 500 mg tablet 1,000 mg PO Q6H PRN 01/31/21 03/16/23 (Tylenol Extra Strength) haloperidol 5 mg tablet 10 mg PO DAILY 04/05/21 03/16/23 prazosin 2 mg capsule 5 mg PO .QHS 05/14/21 03/16/23 atorvastatin 10 mg tablet 10 mg PO DAILY 08/11/21 03/16/23 oxcarbazepine 150 mg tablet 150 mg PO BID 08/11/21 03/16/23 propranolol 60 mg capsule,24 60 mg PO DAILY 08/11/21 03/16/23 hr,extended release albuterol sulfate 90 mcg/actuation 2 puff inhalation Q6H PRN 11/13/21 03/16/23 aerosol inhaler (ProAir HFA) dextroamphetamine-amphetamine 15 15 mg PO DAILY 05/22/22 03/16/23 mg tablet (Adderall) cariprazine 3 mg capsule (Vraylar) 1 cap PO DAILY 07/08/22 03/16/23 dulaglutide 1.5 mg/0.5 mL See Rx Instructions .Route .COMPLEX 07/08/22 03/16/23 subcutaneous pen injector (Trulicity) insulin glargine 100 unit/mL (3 30 unit subcut BID 10/26/22 03/16/23 mL) subcutaneous pen (Lantus Solostar U-100 Insulin) fluticasone propionate 50 1 spray intranasal DAILY #15.8 mL 11/11/22 03/16/23 mcg/actuation nasal spray,suspension (Flonase Allergy Relief) quetiapine 300 mg tablet 600 mg PO QHS 12/06/22 03/16/23 methocarbamol 500 mg tablet 500 mg PO Q6H PRN muscle spasm #14 01/06/23 03/16/23 tabs ondansetron 4 mg disintegrating 4 mg PO Q8H PRN nausea and 01/10/23 03/16/23 tablet vomiting #30 tabs lorazepam 0.5 mg tablet (Ativan) 0.5 mg PO TID 02/20/23 03/16/23 levonorgestrel 21 mcg/24 hours (8 1 device intrauterine ONCE 03/04/23 03/16/23 yrs) 52 mg intrauterine device (Mirena) gabapentin 100 mg capsule 100 mg PO BID 03/16/23 03/16/23 Previous Rx's Medication Instructions Recorded fluticasone propionate 50 1 spray intranasal DAILY #15.8 mL 11/11/22 mcg/actuation nasal spray,suspension (Flonase Allergy Relief) methocarbamol 500 mg tablet 500 mg PO Q6H PRN muscle spasm #14 01/06/23 tabs ondansetron 4 mg disintegrating 4 mg PO Q8H PRN nausea and 01/10/23 tablet vomiting #30 tabs Allergies Allergy/AdvReac Type Severity Reaction Status Date / Time naproxen [From Aleve] Allergy Severe Anaphylaxis Verified 03/16/23 22:26 cephalexin [From Keflex] Allergy Intermediate Hives Verified 03/16/23 22:26 latex Allergy Intermediate Itching Verified 03/16/23 22:26 venom-honey bee Allergy Verified 03/16/23 22:26 General Stated Complaint: Orthopedic SUZETTE: 4 Review of Systems All systems reviewed & are unremarkable except as noted in HPI and below PFSH All Active Problems (Updated 03/16/23 @ 22:26 by Bucky Pederson DO) Right wrist sprain (Acute) Encounter for IUD insertion (Acute) Chest pain (Acute) Dysmenorrhea (Acute) Medical History ADHD Anxiety Asthma Borderline personality disorder Depression Diverticulitis GERD (gastroesophageal reflux disease) History of irregular menstrual bleeding History of recurrent UTI (urinary tract infection) HTN (hypertension) Hyperlipidemia Left hip pain Low back pain Nausea Obesity Pain of left calf Pain, joint, knee, right PCOS (polycystic ovarian syndrome) PTSD (post-traumatic stress disorder) Schizoaffective disorder Sleep apnea Suicidal ideation Tachycardia Type 2 diabetes mellitus Surgical History H/O laparoscopy History of appendectomy History of cholecystectomy Family History Mother Diabetes Social History Smoking/Tobacco Use Status: Former Tobacco Use Smoking risk assessment performed?: Yes Alcohol Intake: current Alcohol Intake frequency: a few times a month Drug use: Daily Substance use type: marijuana Details: Edibles most days to help with sleep and pain. Household members: family Housing: apartment Number of Children: 0 current occupation: Unemployed Current gender identity: female What type of physical activity do you participate in: walking, independent ambulation and irregular exercise Do you feel safe at home: Yes Do you feel safe in your relationship?: Yes Female Reproductive History Menstrual control method: pills (aygestin) History History 2 Para Hx # Term Pregnancies Multiple births Hx # Pregnancies Ectopic pregnancies AB induced Hx Number of Living Children AB spontaneous 2 Exam Narrative Exam Narrative: 1.Const: Well-nourished, Well-developed, appearing stated age 2.Eyes: PERRL, no conjunctival injection, and symmetrical lids. 3.ENT: Atraumatic external nose and ears. Moist MM. Neck: Symmetric, trachea midline, No thyromegaly. 4.CVS: +S1/S2, No murmurs or gallops. Peripheral pulses 2+ and equal in all extremities. Brisk capillary refill in all extremities. 5.RESP: Unlabored respiratory effort. Clear to auscultation bilaterally. No wheezes rales or rhonchi 6.GI: Soft, Nontender/Nondistended, No hepatosplenomegaly. No guarding or rebound. 7.MSK: Normocephalic, patient demonstrates minimal tenderness at the distal radius. No pain at the anatomic snuffbox. No ulnar pain. No pain or tenderness over the carpals or metacarpals. No mid radial/ulnar pain, no elbow pain. Symmetrically palpable radial and ulnar pulses. Capillary refill less than 2 seconds to all digits. Intact sensation to light touch of the radial, median and ulnar nerves demonstrated by testing in the dorsal web space of the thumb, the distal palmar aspect of the index finger, and the lateral surface of the fifth finger. 2 point discrimination intact to 5mm (up to 6mm can be normal in digits 3-5) of discrimination in the affected digit. Intact motor function of the radial, median and ulnar nerves demonstrated by strength of extension of the isolated distal joint of the index finger, hand reach lift truck driver, and spreading of the 2nd through 5th digits. Intact recurrent median nerve as demonstrated by ability to move thumb fully through opposition, abduction and flexion. No snuffbox tenderness. 8.Skin: Warm, Dry. No rashes or lesions. 9.Neuro: wiring technician II-XII grossly intact. Sensation grossly intact, no focal neurologic deficits. 10.Psych: (AAO) x3. Appropriate mood and affect Course Vital Signs Vital signs: Vital Signs Temperature 37.0 C 03/16/23 21:34 Pulse 99 H 03/16/23 21:34 Respiratory Rate 16 03/16/23 21:34 Blood Pressure 129/94 H 03/16/23 21:34 Pulse Oximetry 97 03/16/23 21:34 Temperature 37.0 C 03/16/23 21:34 Temperature Source Oral 03/16/23 21:34 Pulse 99 H 03/16/23 21:34 Respiratory Rate 16 03/16/23 21:34 Respiratory Effort Normal 03/16/23 21:47 Blood Pressure 129/94 H 03/16/23 21:34 Blood Pressure Position Sitting 03/16/23 21:34 Pulse Oximetry 97 03/16/23 21:34 Oxygen Delivery Method Room Air 03/16/23 21:34 Oxygen Flow Rate 0 03/16/23 21:34 Pain Level 8 03/16/23 21:34
--- NOTE | 2023-03-16 22:10 | DI.VRAD_ITS ---
PROCEDURE INFORMATION: Exam: XR Right Wrist Exam date and time: 03/16/2023 9:59 PM Age: 33 years old Clinical indication: Other: RT wrist pain distal radius S/P fall TECHNIQUE: Imaging protocol: Radiologic exam of the right wrist. Views: 3 or more views. COMPARISON: No relevant prior studies available. FINDINGS: Bones/joints: Normal. Soft tissues: Normal. IMPRESSION: No acute findings. Dictated and Authenticated by: Dimas Wallis MD. Ordering:EITAN Lawler MD
--- NOTE | 2023-03-17 10:51 | NUR.NOTE ---
Nursing Note: Accessed chart for [facility] billing purposes.
--- NOTE | 2023-03-17 12:42 | NUR.NOTE ---
Addendum entered by Maye Sahu 03/17/23 12:43: Dr. Boland did a hand written work release. Copy sent to medical records. Original Note: Nursing Note: Accessed pt chart for work note information.
== END 2023-03-16 22:53 | disposition home or self-care (01) ==
PROVIDERS: Emergency Provider Student in an Organized Health Care Education/Training Program; PCP Physician Assistant
DX: S63.91XA Sprain of unspecified part of right wrist and hand, initial encounter (principal); X50.0XXA Overexertion from strenuous movement or load, initial encounter
CPT/HCPCS: 99283; 73110

== ENCOUNTER 2023-04-04 19:13 | Emergency (ER) | payer MEDICARE, MEDICAID, SELFPAY ==
[2023-04-04 19:33] VITALS: BP 120/83; PULSE 115; RESP 16; TEMP 36.7; O2SAT 96
--- NOTE | 2023-04-04 21:15 | RT.EKG_ITS ---
APPROVED REPORT Exam: Resting ECG Reason for Exam: chest pressure/SOB Patient Location: E HR:106 bpm ECG Measurements Heart Rate 106 AXIS MD 136 P 16 QRSd 79 QRS -32 QT 318 T 27 QTc 422 Conclusion Sinus tachycardia...rate> 99 Inferolateral infarct, old...Q >40mS, inf-lat leads
[2023-04-04 21:30] VITALS: PULSE 90; RESP 19; RESP 24; O2SAT 96
[2023-04-04] MEDS: Albuterol 2.5 MG/3 ML INH SOLN VIAL (21:30)
--- NOTE | 2023-04-04 21:59 | ED.GENADUL_ITS ---
Discharge Plan Disposition Patient Disposition: Home Condition: Good Discharge Details Clinical Impression: Asthma Primary Care Provider: Moiz Dutta ED Provider: Mohsen Ennis Home Meds and New Rx's Prescriptions: New albuterol sulfate [ProAir HFA] 90 mcg/actuation HFA aerosol inhaler 2 puff inhalation Q6H PRNQty: 6.7 2RF Continued epinephrine 0.3 mg/0.3 mL Auto-Injector 0.3 mg IM ONCE metformin 500 mg Tablet 500 mg PO BID dextroamphetamine-amphetamine [Adderall] 15 mg tablet 15 mg PO DAILY Mirena 21 mcg/24 hours (8 yrs) 52 mg intrauterine device 1 device intrauterine ONCE Rx Instructions: as a single dose (DME) lancets [FreeStyle Lancets] 28 gauge misc See Rx Instructions .ROUTE .MEDSUPPLY Qty: 100 Rx Instructions: As directed (DME) FreeStyle Lite Strips Strip See Rx Instructions .ROUTE .MEDSUPPLY Qty: 10 Rx Instructions: As directed (DME) pen needle, diabetic [BD Ultra-Fine Sona Pen Needle] 32 gauge x 5/32 needle See Rx Instructions .ROUTE .MEDSUPPLY Qty: 50 Rx Instructions: As directed omeprazole 40 mg capsule,delayed release(DR/EC) 40 mg PO DAILY haloperidol 5 mg tablet 10 mg PO DAILY albuterol sulfate [ProAir HFA] 90 mcg/actuation HFA aerosol inhaler 2 puff inhalation Q6H PRN norethindrone acetate [Aygestin] 5 mg tablet 5 mg PO BID Qty: 60 0RF propranolol 60 mg capsule,extended release 24 hr 60 mg PO DAILY atorvastatin 10 mg tablet 10 mg PO DAILY oxcarbazepine 150 mg tablet 150 mg PO BID Trulicity 1.5 mg/0.5 mL pen injector See Rx Instructions .ROUTE .COMPLEX Rx Instructions: device subcutaneously Vraylar 3 mg capsule 1 cap PO DAILY ondansetron 4 mg tablet,disintegrating 4 mg PO Q8H PRN (Reason: nausea and vomiting) Qty: 30 0RF acetaminophen [Tylenol Extra Strength] 500 mg Tablet 1,000 mg PO Q6H PRN prazosin 2 mg capsule 5 mg PO .QHS Patient Comments: TAKE 1 CAPSULE BY MOUTH EVERY EVENING insulin glargine [Lantus Solostar U-100 Insulin] 100 unit/mL (3 mL) insulin pen 30 unit SUBCUT BID fluticasone propionate [Flonase Allergy Relief] 50 mcg/actuation spray,suspension 1 spray TRINITY DAILY Qty: 15.8 0RF Rx Instructions: administer into each nostril quetiapine 300 mg tablet 600 mg PO QHS methocarbamol 500 mg tablet 500 mg PO Q6H PRN (Reason: muscle spasm) Qty: 14 0RF lorazepam [Ativan] 0.5 mg Tablet 0.5 mg PO TID gabapentin 100 mg capsule 100 mg PO BID Patient Comments: TAKE 1 CAPSULE BY MOUTH TWICE A DAY Discharge Instructions Instructions: Asthma (ED) Additional Instructions: Please notify your primary care provider in the morning that you were seen in the emergency department for an acute asthma attack. Please use your inhaler liberally over the next couple days. Please discuss with your provider the combination of the albuterol as well as the propranolol that you are taking to see if those medication should be continued together. For the short-term it is okay to continue but long-term this should be discussed. Discharge Data Discharge Date/Time-TO BE ENTERED AT DEPARTURE: 04/04/23 22:19 Medical Decision Making Patient with mild asthma exacerbation resolved by single albuterol treatment. No indication for steroids at this time. Chest x-ray not indicated. No fever no URI-like symptoms. Will refer back to PMD for further management. Medical Records Medical records reviewed: Yes I reviewed the patient's medical records. HPI General Date/Time Provider Initiated Documentation: 04/04/23 19:37 . History of Present Illness described as similar to prior episodes, HPI Narrative: Patient with a history of mild asthma presents with respiratory difficulty and chest tightness as she ran out of her inhaler and was not able to administer her rescue medicine. States that she was symptom-free earlier and that she did not have a fever or cough. No chest pain no leg swelling no symptoms different from a typical mild asthma exacerbation Related Data Home Medications Medication Instructions Recorded Confirmed blood sugar diagnostic (FreeStyle #10 ea 10/10/20 03/27/23 Lite Strips) lancets 28 gauge (FreeStyle #100 ea 10/10/20 03/27/23 Lancets) omeprazole 40 mg capsule,delayed 40 mg PO DAILY 10/10/20 04/04/23 release pen needle, diabetic 32 gauge x #50 ea 10/10/20 03/27/23 5/32 (BD Ultra-Fine Sona Pen Needle) epinephrine 0.3 mg/0.3 mL 0.3 mg IM ONCE 12/29/20 04/04/23 injection, auto-injector metformin 500 mg tablet 500 mg PO BID 12/29/20 04/04/23 acetaminophen 500 mg tablet 1,000 mg PO Q6H PRN 01/31/21 04/04/23 (Tylenol Extra Strength) haloperidol 5 mg tablet 10 mg PO DAILY 04/05/21 04/04/23 prazosin 2 mg capsule 5 mg PO .QHS 05/14/21 04/04/23 atorvastatin 10 mg tablet 10 mg PO DAILY 08/11/21 04/04/23 oxcarbazepine 150 mg tablet 150 mg PO BID 08/11/21 04/04/23 propranolol 60 mg capsule,24 60 mg PO DAILY 08/11/21 04/04/23 hr,extended release albuterol sulfate 90 mcg/actuation 2 puff inhalation Q6H PRN 11/13/21 04/04/23 aerosol inhaler (ProAir HFA) dextroamphetamine-amphetamine 15 15 mg PO DAILY 05/22/22 04/04/23 mg tablet (Adderall) cariprazine 3 mg capsule (Vraylar) 1 cap PO DAILY 07/08/22 04/04/23 dulaglutide 1.5 mg/0.5 mL See Rx Instructions .Route .COMPLEX 07/08/22 04/04/23 subcutaneous pen injector (Trulicity) insulin glargine 100 unit/mL (3 30 unit subcut BID 10/26/22 04/04/23 mL) subcutaneous pen (Lantus Solostar U-100 Insulin) fluticasone propionate 50 1 spray intranasal DAILY #15.8 mL 11/11/22 04/04/23 mcg/actuation nasal spray,suspension (Flonase Allergy Relief) quetiapine 300 mg tablet 600 mg PO QHS 12/06/22 04/04/23 methocarbamol 500 mg tablet 500 mg PO Q6H PRN muscle spasm #14 01/06/23 04/04/23 tabs ondansetron 4 mg disintegrating 4 mg PO Q8H PRN nausea and 01/10/23 04/04/23 tablet vomiting #30 tabs lorazepam 0.5 mg tablet (Ativan) 0.5 mg PO TID 02/20/23 04/04/23 levonorgestrel 21 mcg/24 hours (8 1 device intrauterine ONCE 03/04/23 04/04/23 yrs) 52 mg intrauterine device (Mirena) gabapentin 100 mg capsule 100 mg PO BID 03/16/23 04/04/23 norethindrone acetate 5 mg tablet 5 mg PO BID #60 tabs 03/27/23 04/04/23 (Aygestin) albuterol sulfate 90 mcg/actuation 2 puff inhalation Q6H PRN #6.7 04/04/23 aerosol inhaler (ProAir HFA) grams Previous Rx's Medication Instructions Recorded fluticasone propionate 50 1 spray intranasal DAILY #15.8 mL 11/11/22 mcg/actuation nasal spray,suspension (Flonase Allergy Relief) methocarbamol 500 mg tablet 500 mg PO Q6H PRN muscle spasm #14 01/06/23 tabs ondansetron 4 mg disintegrating 4 mg PO Q8H PRN nausea and 01/10/23 tablet vomiting #30 tabs norethindrone acetate 5 mg tablet 5 mg PO BID #60 tabs 03/27/23 (Aygestin) albuterol sulfate 90 mcg/actuation 2 puff inhalation Q6H PRN #6.7 04/04/23 aerosol inhaler (ProAir HFA) grams Allergies Allergy/AdvReac Type Severity Reaction Status Date / Time naproxen [From Aleve] Allergy Severe Anaphylaxis Verified 04/04/23 19:36 cephalexin [From Keflex] Allergy Intermediate Hives Verified 04/04/23 19:36 latex Allergy Intermediate Itching Verified 04/04/23 19:36 venom-honey bee Allergy Verified 04/04/23 19:36 seasonal Allergy Other (See Uncoded 04/04/23 19:36 Comment) General Stated Complaint: RespSymp SUZETTE: 3 Review of Systems Narrative: REVIEW OF SYSTEMS: CONST: Negative for fever, body aches and chills. HENT: Negative for neck pain/stiffness, headache, congestion, sore throat, swelling. EYES: Negative for discharge/pain or vision changes. RESP: Negative for cough/hemoptysis CV: Negative chest pain, difficulty breathing, palpitations. ABD: Negative pain, nausea, vomiting. : Negative increase frequency, dysuria, blood in urine or stool. MUSC: Negative for muscle aches, edema. SKIN: Negative rash, lesions/sores. NEURO: Negative headache, dizziness, weakness. PFSH All Active Problems (Updated 04/04/23 @ 22:01 by Mohsen Ennis MD) Dysmenorrhea (Acute) Right wrist sprain (Acute) Asthma (Chronic) Medical History (Updated 04/04/23 @ 22:01 by Mohsen Ennis MD) ADHD Anxiety Asthma Borderline personality disorder Depression Diverticulitis GERD (gastroesophageal reflux disease) History of irregular menstrual bleeding History of recurrent UTI (urinary tract infection) HTN (hypertension) Hyperlipidemia Left hip pain Low back pain Nausea Obesity Pain of left calf Pain, joint, knee, right PCOS (polycystic ovarian syndrome) Presence of IUD Mirena IUD placed 03/04/23 PTSD (post-traumatic stress disorder) Schizoaffective disorder Sleep apnea Suicidal ideation Tachycardia Type 2 diabetes mellitus Surgical History H/O laparoscopy History of appendectomy History of cholecystectomy Family History Mother Diabetes Social History Smoking/Tobacco Use Status: Former Tobacco Use Smoking risk assessment performed?: Yes Alcohol Intake: current Alcohol Intake frequency: a few times a month Drug use: Daily Substance use type: marijuana Details: Edibles most days to help with sleep and pain. Household members: family Housing: apartment Number of Children: 0 current occupation: Unemployed Current gender identity: female What type of physical activity do you participate in: walking, independent ambulation and irregular exercise Do you feel safe at home: Yes Do you feel safe in your relationship?: Yes Female Reproductive History Menstrual control method: pills (aygestin) History History 2 Para Hx # Term Pregnancies Multiple births Hx # Pregnancies Ectopic pregnancies AB induced Hx Number of Living Children AB spontaneous 2 Exam Narrative Exam Narrative: GENERAL APPEARANCE NAD, activity normal for age, well developed/ well nourished, no cyanosis, pallor, or diaphoresis. EYES lids/conjunctiva normal. EARS/NOSE/THROAT Mucous membranes moist, nares normal, lips/teeth normal uvula midline without oral pharyngeal erythema, exudate or swelling No lymphangitis/lymphedema. HEAD/NECK normocephalic atraumatic, no facial trauma, neck is supple. RESPIRATORY respiratory effort minimal wheezing speaks in full sentences, no tripod position, no accessory muscle use. Lungs clear to auscultation without rhonchi, wheezes, rales CARDIAC Regular rate and rhythm, no edema. ABDOMINAL Soft, ND/NT. No evidence of fluid wave. No pulsatile masses on exam, rebound tenderness, Pope sign or pain over Mcburney's point. MUSCLES/EXTREMITIES No abnormal range of motion, no swelling. SKIN Warm, pink and dry. No rashes, dermatoses, petechiae or lesions. NEUROLOGICAL Speech is clear and appropriate. Normal level of consciousness. Gait and coordination are normal. 5/5 strength in all extremities. PSYCH Normal mood and affect. Judgement/competence is appropriate Course Reevaluation(s) Time: 21:59 Reevaluation: After 1 respiratory treatment patient feels markedly improved. Wheezing is gone. Requesting discharge at this time will send home with an inhaler as well as a prescription Vital Signs Vital signs: Vital Signs Temperature 36.7 C 04/04/23 19:33 Pulse 115 H 04/04/23 19:33 Respiratory Rate 16 04/04/23 19:33 Blood Pressure 120/83 04/04/23 19:33 Pulse Oximetry 96 04/04/23 19:33 Temperature 36.7 C 04/04/23 19:33 Temperature Source Temporal Artery Scan 04/04/23 19:33 Pulse 90 04/04/23 21:30 Respiratory Rate 24 04/04/23 21:30 Respiratory Effort Short of Breath 04/04/23 21:17 Respiratory Depth Normal 04/04/23 21:17 Blood Pressure 120/83 04/04/23 19:33 Blood Pressure Position Sitting 04/04/23 19:33 Pulse Oximetry 96 04/04/23 21:30 Oxygen Delivery Method Room Air 04/04/23 21:30 Oxygen Flow Rate 0 04/04/23 21:30 Pain Level 0 04/04/23 19:33
[2023-04-04] MEDS: Albuterol HFA 8 GM 60 PUFF INH IH (22:04)
--- NOTE | 2023-04-04 22:17 | NUR.NOTE ---
Nursing Note: PT stated that she does not want the spacer and would not use it were it given to her.
== END 2023-04-04 22:19 | disposition home or self-care (01) ==
PROVIDERS: Emergency Provider Emergency Medicine; PCP Physician Assistant
DX: J45.21 Mild intermittent asthma with (acute) exacerbation (principal)
CPT/HCPCS: 93005; 94640; 99284; 93010; J7613

== ENCOUNTER 2023-04-11 01:20 | Outpatient (CLI) | payer MEDICARE, MEDICAID, SELFPAY ==
--- NOTE | 2023-04-11 06:30 | DI.US_ITS ---
Exam(s) US PELVIS TRANSVAGINAL EXAM: US PELVIS TRANSVAGINAL CLINICAL HISTORY: IUD localization, abnl uterine bleeding, Z97.5, N93.9, dysmenorrhea, N94.6 TECHNIQUE: Transabdominal and transvaginal imaging was performed using standard protocol. COMPARISON: CT CT ABDOMEN PELVIS W from 01/09/2023 FINDINGS: UTERUS: Anteverted. 6.7 x 3.2 x 3 cm Endometrium: 6 mm. IUD appears appropriately positioned within the endometrium. Myometrium: Unremarkable. Cervix: Unremarkable. OVARIES: Right: Cyst or mass: None. Left: Cyst or mass: None. DOPPLER: Color: Symmetric and uniform flow to both ovaries. No hyperemia. CUL-DE-SAC: Free fluid: None. IMPRESSION: 1. Normal-appearing uterus with endometrial stripe within normal limits. IUD appears appropriately p ositioned within the endometrium. 2. Unremarkable bilateral ovaries. DATA REPOSITORY:
== END 2023-04-11 01:40 ==
LOC: DI 01:20
PROVIDERS: PCP Physician Assistant; Visit Provider Obstetrics & Gynecology
DX: N93.9 Abnormal uterine and vaginal bleeding, unspecified (principal); N94.6 Dysmenorrhea, unspecified; Z97.5 Presence of (intrauterine) contraceptive device
CPT/HCPCS: 76830; 76856

== ENCOUNTER 2023-06-15 15:36 | Emergency (ER) | payer MEDICARE, MEDICAID, SELFPAY ==
[2023-06-15] VITALS (21 sets, daily range): BP systolic 98–123; BP diastolic 52–95; PULSE 93–125; RESP 18–21; TEMP 36.6; O2SAT 95–98
--- NOTE | 2023-06-15 15:38 | W.ED.GENAD ---
Discharge Plan Disposition Patient Disposition: Home Discharge Details Clinical Impression: Weakness of right hand, Low back pain Primary Care Provider: Moiz Dutta ED Provider: Shakeel Bullock Home Meds and New Rx's Prescriptions: New lidocaine [Lidoderm] 5 % adhesive patch,medicated 1 patch topical DAILY Qty: 15 0RF Rx Instructions: leave on most painful area for up to 12 hrs Continued epinephrine 0.3 mg/0.3 mL Auto-Injector 0.3 mg IM ONCE metformin 500 mg Tablet 500 mg PO BID dextroamphetamine-amphetamine [Adderall] 15 mg tablet 15 mg PO DAILY Mirena 21 mcg/24 hours (8 yrs) 52 mg intrauterine device 1 device intrauterine ONCE Rx Instructions: as a single dose (DME) lancets [FreeStyle Lancets] 28 gauge misc See Rx Instructions .ROUTE .MEDSUPPLY Qty: 100 Rx Instructions: As directed (DME) FreeStyle Lite Strips Strip See Rx Instructions .ROUTE .MEDSUPPLY Qty: 10 Rx Instructions: As directed (DME) pen needle, diabetic [BD Ultra-Fine Sona Pen Needle] 32 gauge x 5/32 needle See Rx Instructions .ROUTE .MEDSUPPLY Qty: 50 Rx Instructions: As directed omeprazole 40 mg capsule,delayed release(DR/EC) 40 mg PO DAILY haloperidol 5 mg tablet 10 mg PO DAILY albuterol sulfate [ProAir HFA] 90 mcg/actuation HFA aerosol inhaler 2 puff inhalation Q6H PRN propranolol 60 mg capsule,extended release 24 hr 60 mg PO DAILY atorvastatin 10 mg tablet 10 mg PO DAILY oxcarbazepine 150 mg tablet 150 mg PO BID Trulicity 1.5 mg/0.5 mL pen injector See Rx Instructions .ROUTE .COMPLEX Rx Instructions: device subcutaneously Vraylar 3 mg capsule 1 cap PO DAILY ondansetron 4 mg tablet,disintegrating 4 mg PO Q8H PRN (Reason: nausea and vomiting) Qty: 30 0RF albuterol sulfate [ProAir HFA] 90 mcg/actuation HFA aerosol inhaler 2 puff inhalation Q6H PRNQty: 6.7 2RF acetaminophen [Tylenol Extra Strength] 500 mg Tablet 1,000 mg PO Q6H PRN prazosin 2 mg capsule 5 mg PO .QHS Patient Comments: TAKE 1 CAPSULE BY MOUTH EVERY EVENING insulin glargine [Lantus Solostar U-100 Insulin] 100 unit/mL (3 mL) insulin pen 30 unit SUBCUT BID fluticasone propionate [Flonase Allergy Relief] 50 mcg/actuation spray,suspension 1 spray TRINITY DAILY Qty: 15.8 0RF Rx Instructions: administer into each nostril quetiapine 300 mg tablet 600 mg PO QHS methocarbamol 500 mg tablet 500 mg PO Q6H PRN (Reason: muscle spasm) Qty: 14 0RF lorazepam [Ativan] 0.5 mg Tablet 0.5 mg PO TID gabapentin 100 mg capsule 100 mg PO BID Patient Comments: TAKE 1 CAPSULE BY MOUTH TWICE A DAY Discharge Instructions Additional Instructions: You are seen in the emergency department for your back pain. Please return to the emergency department if you develop any loss of control of your bowels or bladder. Please also return if you develop any numbness or tingling between your legs. An MRI will be ordered of your head and spine to evaluate for the possibility of multiple sclerosis. Please follow-up with your primary care provider next week. Please continue taking your medications as previously directed. A patch for some numbing medicine has been sent to your pharmacy. For your pain please take medications as follows: 1. Take acetaminophen (Tylenol), 1,000 mg (two 500 mg tabs) every 6 hours 2. Take ibuprofen (Advil), 400 mg every 6 hours. Discharge Data Discharge Date/Time-TO BE ENTERED AT DEPARTURE: 06/15/23 17:54 Medical Decision Making This is an overall well-appearing tachycardic but normothermic 33-year-old insulin-dependent diabetic female with an elevated BMI and intermittent bilateral lower extremity weakness now with right hand weakness concern for the possibility of early MS. Unfortunately MRI is not available today so I ordered an outpatient MRI brain. Concerning her back pain she has no red flags and she does not require an emergent MRI. Specifically, she has no history of malignancy to suggest pathological fracture. No rash to back to suggest zoster. No pain out of proportion to suggest necrotizing soft tissue infection. No lower extremity clonus to suggest upper motor neuron syndrome. No saddle anesthesia nor loss of bowel or bladder control to suggest cauda equina. No history of IV drug use to suggest increased risk for spinal epidural abscess. No recent spinal surgeries to suggest increased risk for spinal epidural abscess. Furthermore no fevers making my suspicion for spinal epidural abscess lower. Patient's vitals are notable for significant tachycardia. Patient has routinely been tachycardic in the past. Given weakness yesterday will obtain a twelve-lead ECG. We will also obtain basic labs to ensure the patient does not have any acute electrolyte abnormalities which could have precipitated her weakness. We will also ensure that she does not have DKA as she does have a history of insulin-dependent diabetes. Given isolated hand weakness and patient's age my suspicion is low for CVA so I do not feel this patient requires a CT head nor do I feel that she would be a candidate for tPA. No tonic-clonic activity to suggest seizures so I did not feel that the patient required an EEG. No fevers to suggest benefit from LP. On ECG, I suspect that the patient's low voltage is secondary to her elevated BMI as she is not hypotensive to suggest tamponade. No history of dialysis to suggest increased risk for pericardial effusion. 5:15 PM Reassuring normal creatinine. CBC with no anemia thrombocytopenia nor leukocytosis. hCG negative. Troponin negative. Basic metabolic panel with mild hyperglycemia but no anion gap acidosis. Normal bicarbonate. Not consistent with DKA. No acute electrolyte abnormalities. No CINDI. Urinalysis nitrite negative, not consistent with UTI. I met with the patient and offered her transfer to [facility] for an MRI brain and neck. I explained that if she did have MS that transfer would expedite her diagnosis and treatment. She declined. I will order an outpatient MRI of her brain and her cervical spine with gadolinium. I will advised her to return to the emergency department if she cannot tolerate p.o. or if she develops any worsening weakness or trouble speaking. We will also advised ED return if she develops any saddle anesthesia loss of bowel or bladder control or any worsening of her back discomfort. On reassessment patient had no aphasia. No neglect. She did have subtle monitor right upper extremity weakness in her hand but no pronator drift. My suspicion remains low for CVA so we will proceed with empiric trial of expectant outpatient management. I ordered outpatient MRI brain and neck with gadolinium. Patient's tachycardia improved in the ED without intervention. Her blood pressure did decrease but remain similar to prior outpatient measurements. Chronic conditions affecting the care of the patient: Diabetes History obtained from an outside historian: No report of External record review: [facility] EMR Diagnostic interpretations performed by me: Per my independent interpretation EKG shows: Narrow complex normal sinus rhythm at a rate of 98. Normal axis. Intervals within normal limits. No ST segment abnormalities. T wave flattening in V2. No prior for comparison. No acute injury pattern. Low voltage. Medications: N/A Social determinants of health affecting disposition: N/A Management discussed with: N/A Treatment/interventions considered: transfer to tertiary care hospital but deferred based on patient preference Response to therapies provided: N/A HPI General Date/Time Provider Initiated Documentation: 06/15/23 15:38. HPI Narrative: This is a [id number] 33-year-old female with history of insulin-dependent diabetes arriving via private vehicle in the setting of multiple falls over the past several days. Patient reports that her legs have been giving out. She also is having weakness in her right hand. She reports that she previously saw a neurologist in [place] in the setting of chronic back pain. She has never had any surgeries to her back. She reported that she had an MRI of her spine approximately 6 years ago. She has had some tingling in her right hand. She called her PCP who advised ED evaluation. She felt dizzy several days ago while camping. She reports that she lost her balance while standing. Yesterday her right hand became numb. She has had some intermittent burning when she urinates. She has not had any chest pain nor any shortness of breath. She denies fevers chills nausea vomiting. She has no history of cancer and she denies history of malignancy. She has not lost control of her bowels or bladder. She denies saddle anesthesia. She is not anticoagulated. Related Data Home Medications Medication Instructions Recorded Confirmed blood sugar diagnostic (FreeStyle #10 ea 10/10/20 03/27/23 Lite Strips) lancets 28 gauge (FreeStyle #100 ea 10/10/20 03/27/23 Lancets) omeprazole 40 mg capsule,delayed 40 mg PO DAILY 10/10/20 04/04/23 release pen needle, diabetic 32 gauge x #50 ea 10/10/20 03/27/23 (BD Ultra-Fine Sona Pen Needle) epinephrine 0.3 mg/0.3 mL 0.3 mg IM ONCE 12/29/20 04/04/23 injection, auto-injector metformin 500 mg tablet 500 mg PO BID 12/29/20 04/04/23 acetaminophen 500 mg tablet 1,000 mg PO Q6H PRN 01/31/21 04/04/23 (Tylenol Extra Strength) haloperidol 5 mg tablet 10 mg PO DAILY 04/05/21 04/04/23 prazosin 2 mg capsule 5 mg PO .QHS 05/14/21 04/04/23 atorvastatin 10 mg tablet 10 mg PO DAILY 08/11/21 04/04/23 oxcarbazepine 150 mg tablet 150 mg PO BID 08/11/21 04/04/23 propranolol 60 mg capsule,24 60 mg PO DAILY 08/11/21 04/04/23 hr,extended release albuterol sulfate 90 mcg/actuation 2 puff inhalation Q6H PRN 11/13/21 04/04/23 aerosol inhaler (ProAir HFA) dextroamphetamine-amphetamine 15 15 mg PO DAILY 05/22/22 04/04/23 mg tablet (Adderall) cariprazine 3 mg capsule (Vraylar) 1 cap PO DAILY 07/08/22 04/04/23 dulaglutide 1.5 mg/0.5 mL See Rx Instructions .Route .COMPLEX 07/08/22 04/04/23 subcutaneous pen injector (Trulicity) insulin glargine 100 unit/mL (3 30 unit subcut BID 10/26/22 04/04/23 mL) subcutaneous pen (Lantus Solostar U-100 Insulin) fluticasone propionate 50 1 spray intranasal DAILY #15.8 mL 11/11/22 04/04/23 mcg/actuation nasal spray,suspension (Flonase Allergy Relief) quetiapine 300 mg tablet 600 mg PO QHS 12/06/22 04/04/23 methocarbamol 500 mg tablet 500 mg PO Q6H PRN muscle spasm #14 01/06/23 04/04/23 tabs ondansetron 4 mg disintegrating 4 mg PO Q8H PRN nausea and 01/10/23 04/04/23 tablet vomiting #30 tabs lorazepam 0.5 mg tablet (Ativan) 0.5 mg PO TID 02/20/23 04/04/23 levonorgestrel 21 mcg/24 hours (8 1 device intrauterine ONCE 03/04/23 04/04/23 yrs) 52 mg intrauterine device (Mirena) gabapentin 100 mg capsule 100 mg PO BID 03/16/23 04/04/23 albuterol sulfate 90 mcg/actuation 2 puff inhalation Q6H PRN #6.7 04/04/23 aerosol inhaler (ProAir HFA) grams lidocaine 5 % topical patch 1 patch topical DAILY #15 ea 06/15/23 (Lidoderm) Previous Rx's Medication Instructions Recorded fluticasone propionate 50 1 spray intranasal DAILY #15.8 mL 11/11/22 mcg/actuation nasal spray,suspension (Flonase Allergy Relief) methocarbamol 500 mg tablet 500 mg PO Q6H PRN muscle spasm #14 01/06/23 tabs ondansetron 4 mg disintegrating 4 mg PO Q8H PRN nausea and 01/10/23 tablet vomiting #30 tabs albuterol sulfate 90 mcg/actuation 2 puff inhalation Q6H PRN #6.7 04/04/23 aerosol inhaler (ProAir HFA) grams lidocaine 5 % topical patch 1 patch topical DAILY #15 ea 06/15/23 (Lidoderm) Allergies Allergy/AdvReac Type Severity Reaction Status Date / Time naproxen [From Aleve] Allergy Severe Anaphylaxis Verified 05/02/23 15:03 cephalexin [From Keflex] Allergy Intermediate Hives Verified 05/02/23 15:03 latex Allergy Intermediate Itching Verified 05/02/23 15:03 cat dander Allergy Verified 05/10/23 09:57 dog dander Allergy Verified 05/10/23 09:57 venom-honey bee Allergy Verified 05/02/23 15:03 seasonal Allergy Other (See Uncoded 05/02/23 15:03 Comment) General SUZETTE: 3 PFSH All Active Problems (Updated 06/15/23 @ 17:24 by Shakeel Bullock MD) Weakness of right hand (Acute) Low back pain (Acute) Dysmenorrhea (Acute) Medical History (Updated 06/15/23 @ 17:24 by Shakeel Bullock MD) ADHD Anxiety Asthma Borderline personality disorder Depression Diverticulitis GERD (gastroesophageal reflux disease) History of irregular menstrual bleeding History of recurrent UTI (urinary tract infection) HTN (hypertension) Hyperlipidemia Left hip pain Low back pain Nausea Obesity Pain of left calf Pain, joint, knee, right PCOS (polycystic ovarian syndrome) Presence of IUD Mirena IUD placed 03/04/23 PTSD (post-traumatic stress disorder) Schizoaffective disorder Seasonal allergies Sleep apnea Suicidal ideation Tachycardia Type 2 diabetes mellitus Surgical History H/O laparoscopy History of appendectomy History of cholecystectomy Family History Mother Diabetes Social History Smoking/Tobacco Use Status: Former Tobacco Use Smoking risk assessment performed?: Yes Alcohol Intake: current Alcohol Intake frequency: a few times a month Drug use: Daily Substance use type: marijuana Details: Edibles most days to help with sleep and pain. Household members: family Housing: apartment Number of Children: 0 current occupation: Unemployed Current gender identity: female What type of physical activity do you participate in: walking, independent ambulation and irregular exercise Do you feel safe at home: Yes Do you feel safe in your relationship?: Yes Female Reproductive History Menstrual control method: pills (aygestin) History History 2 Para Hx # Term Pregnancies Multiple births Hx # Pregnancies Ectopic pregnancies AB induced Hx Number of Living Children AB spontaneous 2 Exam Narrative Exam Narrative: General: Well-appearing in no acute distress speaking in complete sentences. Head: Normocephalic, atraumatic. Eye: Extraocular eye movements intact. No conjunctival injection. No scleral icterus. Ear, nose, mouth, throat: Grossly normal inspection. Normal voice, handling secretions normally. Neck: Trachea midline. Cardiovascular: Well-perfused distal extremities. Rapid regular rate Respiratory: Nonlabored respiration. Clear lungs bilaterally. Gastrointestinal: Nondistended abdomen. Musculoskeletal: Moving all 4 extremities spontaneously. Right upper extremity with weakness on pincer grasp. Intact sensation and motor function across the radian, median, and ulnar nerve distributions of the right hand. 2+ right radial pulse. Cap refill less than 2 seconds in the right fingertips. Bilateral lower extremities with 5 out of 5 strength in dorsi and plantarflexion. No bilateral clonus. 5 out of 5 strength on flexion and extension at the knees and hips bilaterally. 2+ patellar reflexes. Skin: Normal for age and race, grossly normal temperature and turgor. No acute rash. Neurologic: Alert and appropriate, no apparent acute deficits. GCS 15. No pronator drift. No dysmetria. No dysdiadochokinesia. 5 out of 5 lower extremity strength. Psychiatric: Mood and manner are appropriate. Grooming and personal hygiene are appropriate.
--- NOTE | 2023-06-15 16:00 | RT.EKG_ITS ---
APPROVED REPORT Exam: Resting ECG Reason for Exam: Fall Patient Location: E HR:98 bpm ECG Measurements Heart Rate 98 AXIS MI 133 P 30 QRSd 78 QRS -3 QT 333 T 38 QTc 426 Conclusion Sinus rhythm...normal P axis, V-rate 60- 99 Low voltage, precordial leads...precordial leads <1.0mV Narrow complex normal sinus rhythm at a rate of 98. Normal axis. Intervals within normal limits. N o ST segment abnormalities. T wave flattening in V2. No prior for comparison. No acute injury elías lenard. Low voltage.
[2023-06-15 16:30] LABS: Abs Immature Grans 0.03 10^3/uL (0.0-0.06); Absolute Basophil Count 0.02 10^3/uL (0.0-0.2); Absolute Eosinophil Count 0.14 10^3/uL (0.0-0.7); Absolute Lymphocyte Count 3.11 10^3/uL (1.2-3.4); Absolute Monocyte Count 0.83 10^3/uL (0.1-0.8); Absolute Neutrophil Count 5.76 10^3/uL (1.2-6.7); Basophils % 0.2; Eosinophils % 1.4; HGB 13.7 g/dL (11.2-15.7); Immature Grans % 0.3; Lymphocytes % 31.4; MCHC 34.3 % (32.0-36.0); MCV 85 fL (80-95); MPV 9.5 fL (8.0-11.0); Monocytes % 8.4; Neutrophils % 58.3; Platelet Count 329 10^3/uL (130-400); RBC 4.72 10^6/uL (3.93-5.22); RDW 13.6 % (11.7-14.6); RDW-SD 41.9 fL; WBC 9.89 10^3/uL (4.4-10.8)
[2023-06-15 16:37] LABS: Bilirubin Negative (Negative); Blood Negative (Negative); Clarity Clear (Clear); Glucose 100 mg/dL (Negative); Ketones Negative (Negative); Leukocyte Esterase Trace (Negative); Nitrite Negative (Negative); Urobilinogen 0.2 mg/dL (Up to 0.2); pH 5.5 (5-8)
[2023-06-15 16:49] LABS: Bacteria Rare HPF (Negative); C & S Indicated? No/Sq. Contamination; Casts Negative LPF (Negative); Crystals Negative HPF (Negative); Epithelial Cells Moderate HPF (Negative); Mucus Negative (Negative); RBC Negative HPF (0-2); WBC 0-2 HPF (0-5)
[2023-06-15 16:51] LABS: HCG Qual (Serum) Negative
[2023-06-15 16:54] LABS: Anion Gap 10.3 mmol/L (3-11); BUN 10 mg/dL (7-18); CO2 26.7 mmol/L (21.0-32.0); CREATININE 0.9 mg/dL (0.55-1.02); Calcium 9.1 mg/dL (8.5-10.1); Chloride 102 mmol/L (98-107); Creatine Kinase 72 U/L (26-192); Glucose 186 mg/dL (74-106); Sodium 139 mmol/L (136-145)
[2023-06-15 16:57] LABS: Troponin I < 50 ng/L (<or=60)
== END 2023-06-15 17:54 | disposition home or self-care (01) ==
PROVIDERS: Emergency Provider Emergency Medicine; PCP Physician Assistant
DX: M54.50 Low back pain, unspecified (principal); R29.898 Other symptoms and signs involving the musculoskeletal system
CPT/HCPCS: 36415; 80048; 82550; 93005; 99283; 81003; 81015; 84484; 84703; 85025; 93010

== ENCOUNTER 2023-06-20 03:41 | Outpatient (CLI) | payer MEDICARE, MEDICAID, SELFPAY ==
[2023-06-20] MEDS: Inhaler, Assist Device 1 EACH MC (16:00)
[2023-06-20] MEDS: Albuterol HFA 18 GM 200 PUFF INH IH (16:00)
--- NOTE | 2023-06-21 15:50 | W.PFT ---
Date of service: 06/20/23 Time of Service: 14:56 Pulmonary Function Test Result Indications: Asthma Interpretation Spirometry: There is no airflow limitation. No bronchodilator response. Lung Volumes: Normal lung volumes. Diffusion Capacity: Normal diffusion Airway Pressure: Normal airways resistance Impression Normal pulmonary function testing Clinical Correlation therefore is recommended.
== END 2023-06-20 03:42 | disposition home or self-care (01) ==
LOC: RT 03:41
PROVIDERS: PCP Physician Assistant; Visit Provider Nurse Practitioner Family
DX: J45.909 Unspecified asthma, uncomplicated (principal)
CPT/HCPCS: 94060; 94726; 94729

== ENCOUNTER → 2023-07-01 00:55 | Outpatient (CLI) | payer MEDICARE, MEDICAID, SELFPAY ==
--- NOTE | 2023-07-01 | DI.MRI_ITS ---
Exam(s) MR BRAIN WO/W EXAM: MR BRAIN WO/W CLINICAL HISTORY: RT HAND WEAKNESS, MS TECHNIQUE: Multiplanar multisequence MRI of the brain was performed. Both noninfused and contrast i nfused sequences were performed. IV Contrast injected was 20 cc Dotarem. COMPARISON: No exams were available for comparison FINDINGS: CEREBRAL PARENCHYMA: No evidence of intracranial hemorrhage, mass effect nor shift of midline structu re. No extraaxial fluid collections. Ventricles are not enlarged nor shifted. There is no significant focal signal abnormality in the cerebellar hemispheres nor within the samreen, m idbrain, and thalami. There is no abnormal signal abnormality in the periventricular white matter. No evidence of demyelin ating disease. No areas of restricted diffusion. DWI: No areas of restricted diffusion to suggest acute ischemic event. SWI: No microhemorrhages evident. There are no ring enhancing lesions in the brain. There is no abnormal meningeal enhancement. PITUITARY GLAND: No mass nor parasellar abnormality. No obvious abnormality in the cavernous sinuses. FLOW VOIDS: The expected flow void are noted. No evidence of obvious aneurysm nor obvious vascular ma lformation. PARANASAL SINUSES: The visualized paranasal sinuses appear unremarkable. Mastoid air cells also clear . ORBITS: No obvious abnormal findings. IMPRESSION: 1. No significant intracranial findings on this MRI scan of the brain. No evidence of demyelinating disease. 2. No abnormal enhancing intracranial findings. There are no ring enhancing lesions in the brain and there is no abnormal meningeal enhancement. DATA REPOSITORY:
--- NOTE | 2023-07-01 | DI.MRI_ITS ---
Exam(s) MR CERVICAL SPINE WO/W EXAM: MR CERVICAL SPINE WO/W CLINICAL HISTORY: RT HAND WEAKNESS, MS TECHNIQUE: Multiplanar multisequence MRI of the cervical spine was performed without intravenous con trast. COMPARISON: No exams were available for comparison FINDINGS: CERVICOMEDULLARY JUNCTION: Intact with no evidence of cerebellar tonsillar ectopia. No obvious abnor mality of the odontoid process. No evidence of Chiari 1 malformation. CERVICAL SPINAL CORD: There is no abnormal signal in the cervical spinal cord and no evidence of foca l cord atrophy nor focal cord swelling. No abnormal enhancement in the cervical spinal cord. OSSEOUS:There are no cervical fractures evident. No significant osseous lesions in the cervical vert ebrae. Benign intraosseous hemangioma noted in the C4 vertebral body. INDIVIDUAL LEVELS: C2-3: No disc herniation nor central canal stenosis. No foraminal stenosis. No facet arthropathy. C3-4: No disc herniation nor central canal stenosis.No facet arthropathy. No foraminal stenosis. C4-5: Normal disc height. There is, however, a small relatively focal posterolateral left disc protr usion at this level which extends posteriorly 2 millimeters and is approximately 5 mm wide.No signifi cant facet arthropathy at this level and there does not appear to be foraminal stenosis either side a t this level. No foraminal stenosis C5-6: No disc herniation or canal stenosis. No foraminal stenosis. No facet arthropathy. C6-7: No disc herniation or central canal stenosis. No facet arthropathy. No foraminal stenosis. C7-T1: No disc herniation nor central canal stenosis. No facet arthropathy.No foraminal stenosis. IMPRESSION: 1. No evidence of demyelinating disease in the cervical spinal cord. No abnormal cord signal nor abn ormal cord enhancement. Also no evidence of focal cord swelling nor focal cord atrophy. 2. There is a small posterolateral left disc protrusion at C4-5 level as described above. No promine nt canal stenosis nor foraminal stenosis evident at this level. 3. Benign intraosseous hemangioma noted in the C4 vertebral body. DATA REPOSITORY:
[2023-07-01] MEDS: Normal Saline Flush 10 ML SYR IVP (08:17)
[2023-07-01] MEDS: Gadoterate meglumine 20 ML VIAL IVP (08:18)
== END ==
PROVIDERS: PCP Physician Assistant; Visit Provider Emergency Medicine
DX: R53.1 Weakness (principal); G35 Multiple sclerosis
CPT/HCPCS: 70553; 72156

== ENCOUNTER 2023-10-22 16:18 | Emergency (ER) | payer MEDICARE, MEDICAID, SELFPAY ==
[2023-10-22 16:24] VITALS: BP 134/91; PULSE 102; RESP 18; TEMP 36.8; O2SAT 97
[2023-10-22] MEDS: Ondansetron O.D.T. 4 MG TABEF PO (16:49)
[2023-10-22 16:57] LABS: Bilirubin Negative (Negative); Blood Small (Negative); Clarity Clear (Clear); Glucose Negative (Negative); Ketones Trace mg/dL (Negative); Leukocyte Esterase Negative (Negative); Nitrite Negative (Negative); Specific Gravity 1.025 (1.005-1.025); Urobilinogen 0.2 mg/dL (Up to 0.2)
--- NOTE | 2023-10-22 17:00 | DI.CT_ITS ---
Exam(s) CT RENAL COLIC WO EXAM: CT RENAL COLIC WO CLINICAL HISTORY: left lower abd pain. TECHNIQUE: Imaging Protocol: Axial computed tomography images with coronal and sagittal reformatted images were created and reviewed. CONTRAST MATERIAL: Noncontrast COMPARISON: CT CT ABDOMEN PELVIS W from 01/09/2023 FINDINGS: ABDOMEN: Lung Bases: Normal where visualized. Liver: Moderate hepatic steatosis.. No measurable mass. Gallbladder and biliary tract: Status post cholecystectomy. No radiodense calculus or dilation. Pancreas: Normal density, no calcifications or inflammatory process. Spleen: Normal. Kidneys: Normal size, contour and axis. No radiodense stones or obstructive uropathy. No masses seen. Adrenal glands: No masses seen. Abdominal Aorta: Abdominal portion non-dilated. Soft tissues: Mildly increased density in the left lower abdominal wall which may represent a Tavo sh in site. PELVIS: Bladder: Symmetric distention, no gross wall thickening. No evidence of stones.No visible mass. Bowel: No obstruction or bowel wall thickening. Status post appendectomy. Normal quantity of stool. Reproductive: Unremarkable. IUD in uterus. Peritoneal cavity: No ascites, collection or mesenteric inflammatory response. Bones: Unremarkable for age.. IMPRESSION: No acute abnormality in the abdomen and pelvis. RADIATION DOSE DELIVERED: Total DLP DATA REPOSITORY: All CT scans at this facility are submitted to the National Radiology Data Registry (NRDR) Dose Index Registry (DIR) with the [employer] (ACR). RADIATION OPTIMIZATION: All CT scans at this facility use at least one of these dose optimization te chniques: automated exposure control; mA and/or kV adjustment per patient size (includes targeted exa ms where dose is matched to clinical indication); or iterative reconstruction.
[2023-10-22 17:05] LABS: Bacteria Rare HPF (Negative); Crystals Negative HPF (Negative); Epithelial Cells Moderate HPF (Negative); Mucus Trace (Negative); WBC 0-2 HPF (0-5)
[2023-10-22 17:06] LABS: C & S Indicated? No
--- NOTE | 2023-10-22 17:12 | W.ED.GENAD ---
HPI General Stated Complaint: Abd Prob Mode of arrival: ambulatory. SUZETTE: 3 Date/Time Provider Initiated Documentation: 10/22/23 16:39. Limitations to Documentation: no limitations. Information obtained by: patient. HPI Narrative: This is a 33-year-old female patient past medical history significant for renal colic, morbid obesity diabetes mellitus type 2 who presents to the emergency department with a 3 to 4-day history of right lower quadrant pressure, nausea, nausea chills, she states that she has been able to take oral intake well. No documented fever. States she has loose stools but this is common with her IBS and at baseline. She states she has had similar symptoms in the past associated with a kidney stone. She did take ibuprofen with some improvement in her symptoms but presents as they have been ongoing. She denies any frequency or dysuria but does report pressure sensation when voiding. Denies starr hematuria. States she does have an IUD in situ Related Data Home Medications Medication Instructions Recorded Confirmed blood sugar diagnostic (FreeStyle #10 ea 10/10/20 10/22/23 Lite Strips) lancets 28 gauge (FreeStyle #100 ea 10/10/20 10/22/23 Lancets) omeprazole 40 mg capsule,delayed 40 mg PO DAILY 10/10/20 10/22/23 release pen needle, diabetic 32 gauge x #50 ea 10/10/20 10/22/23 (BD Ultra-Fine Sona Pen Needle) epinephrine 0.3 mg/0.3 mL 0.3 mg IM ONCE 12/29/20 10/22/23 injection, auto-injector metformin 500 mg tablet 500 mg PO BID 12/29/20 10/22/23 acetaminophen 500 mg tablet 1,000 mg PO Q6H PRN 01/31/21 10/22/23 (Tylenol Extra Strength) atorvastatin 10 mg tablet 10 mg PO DAILY 08/11/21 10/22/23 oxcarbazepine 150 mg tablet 150 mg PO BID 08/11/21 10/22/23 albuterol sulfate 90 mcg/actuation 2 puff inhalation Q6H PRN 11/13/21 10/22/23 aerosol inhaler (ProAir HFA) dextroamphetamine-amphetamine 15 15 mg PO DAILY 05/22/22 10/22/23 mg tablet (Adderall) cariprazine 3 mg capsule (Vraylar) 1 cap PO DAILY 07/08/22 10/22/23 dulaglutide 1.5 mg/0.5 mL See Rx Instructions .Route .COMPLEX 07/08/22 10/22/23 subcutaneous pen injector (Trulicity) insulin glargine 100 unit/mL (3 30 unit subcut BID 10/26/22 10/22/23 mL) subcutaneous pen (Lantus Solostar U-100 Insulin) quetiapine 300 mg tablet 600 mg PO QHS 12/06/22 10/22/23 methocarbamol 500 mg tablet 500 mg PO Q6H PRN muscle spasm #14 01/06/23 10/22/23 tabs lorazepam 0.5 mg tablet (Ativan) 0.5 mg PO TID 02/20/23 10/22/23 levonorgestrel 21 mcg/24 hours (8 1 device intrauterine ONCE 03/04/23 10/22/23 yrs) 52 mg intrauterine device (Mirena) gabapentin 100 mg capsule 300 mg PO BID 03/16/23 10/22/23 albuterol sulfate 90 mcg/actuation 2 puff inhalation Q6H PRN #6.7 04/04/23 10/22/23 aerosol inhaler (ProAir HFA) grams Ondansetron ODT, 3 tabs/btl 4 mg PO DISPENSE ##0 10/22/23 [Zofran ODT, 3 tabs/btl] Previous Rx's Medication Instructions Recorded methocarbamol 500 mg tablet 500 mg PO Q6H PRN muscle spasm #14 01/06/23 tabs albuterol sulfate 90 mcg/actuation 2 puff inhalation Q6H PRN #6.7 04/04/23 aerosol inhaler (ProAir HFA) grams Ondansetron ODT, 3 tabs/btl 4 mg PO DISPENSE ##0 10/22/23 [Zofran ODT, 3 tabs/btl] Allergies Allergy/AdvReac Type Severity Reaction Status Date / Time naproxen [From Aleve] Allergy Severe Anaphylaxis Verified 10/22/23 16:28 cephalexin [From Keflex] Allergy Intermediate Hives Verified 10/22/23 16:28 latex Allergy Intermediate Itching Verified 10/22/23 16:28 cat dander Allergy Verified 10/22/23 16:28 dog dander Allergy Verified 10/22/23 16:28 venom-honey bee Allergy Verified 10/22/23 16:28 seasonal Allergy Other (See Uncoded 10/22/23 16:28 Comment) Review of Systems All systems reviewed & are unremarkable except as noted in HPI and below PFSH All Active Problems (Updated 10/22/23 @ 18:35 by Annetta Cash NP) Gastroenteritis (Acute) Dysphagia (Acute) Ear itch (Acute) Xerostomia (Acute) Environmental allergies (Acute) Dysmenorrhea (Acute) Medical History (Updated 10/22/23 @ 18:35 by Annetta Cash NP) Seasonal allergies Presence of IUD Mirena IUD placed 03/04/23 Low back pain Type 2 diabetes mellitus Obesity History of recurrent UTI (urinary tract infection) Tachycardia Sleep apnea Left hip pain GERD (gastroesophageal reflux disease) Borderline personality disorder Suicidal ideation Anxiety HTN (hypertension) PTSD (post-traumatic stress disorder) ADHD Asthma Diverticulitis Schizoaffective disorder Pain, joint, knee, right Hyperlipidemia Pain of left calf History of irregular menstrual bleeding Depression Nausea PCOS (polycystic ovarian syndrome) Surgical History H/O laparoscopy History of cholecystectomy History of appendectomy Family History Mother Diabetes Social History Smoking/Tobacco Use Status: Former Tobacco Use Smoking risk assessment performed?: Yes Alcohol Intake: current Alcohol Intake frequency: a few times a month Drug use: Daily Substance use type: marijuana Details: Edibles most days to help with sleep and pain. Household members: family Housing: apartment Number of Children: 0 current occupation: Unemployed Current gender identity: female What type of physical activity do you participate in: walking, independent ambulation and irregular exercise Do you feel safe at home: Yes Do you feel safe in your relationship?: Yes Female Reproductive History Menstrual control method: pills History History 2 Para Hx # Term Pregnancies Multiple births Hx # Pregnancies Ectopic pregnancies AB induced Hx Number of Living Children AB spontaneous 2 PAWSS Have you Been Recently Intoxicated or Drunk Within the Last 30 days?: No Have you Ever Experienced Previous Episodes of Alcohol Withdrawal?: No Have you ever Experienced Withdrawal Seizures?: No Have you ever Experienced Delirium Tremens(DT)s?: No Have you ever undergone Alcohol Rehabilitation Treatment (i.e, inpt ot outpatient treatment programs)?: No Have you ever Experienced Blackouts?: No Have you ever Combined Alcohol with other Downers within the last 90 days?: No Have you ever Combined Alcohol with any other Substance of Abuse during the last 90 days?: No Result: 0 Exam Narrative Exam Narrative: Morbidly obese female patient of stated age no acute distress skin is pink warm dry well-perfused head is atraumatic neck is supple full range of motion cardiovascular regular rate and rhythm respirations are even and unlabored abdomen is obese soft reporting some mild tenderness on palpation on the left lower quadrant. She has positive bowel sounds. Moves all extremities Course Vital Signs Vital signs: Vital Signs Temperature 36.8 C 10/22/23 16:24 Pulse 102 H 10/22/23 16:24 Respiratory Rate 18 10/22/23 16:24 Blood Pressure 134/91 H 10/22/23 16:24 Pulse Oximetry 97 10/22/23 16:24 Temperature 36.8 C 10/22/23 16:24 Temperature Source Tympanic 10/22/23 16:24 Pulse 102 H 10/22/23 16:24 Respiratory Rate 18 10/22/23 16:24 Respiratory Effort Normal 10/22/23 16:27 Blood Pressure 134/91 H 10/22/23 16:24 Blood Pressure Position Sitting 10/22/23 16:24 Pulse Oximetry 97 10/22/23 16:24 Oxygen Delivery Method Room Air 10/22/23 16:24 Oxygen Flow Rate 0 10/22/23 16:24 Pain Level 8 10/22/23 16:24 Lab/Test Results Lab/Test Results: Laboratory Tests Range/Units 10/22/23 16:50 Urine Color (Yellow) Yellow Urine Clarity (Clear) Clear Urine pH (5-8) 6.0 Ur Specific [place] (1.005-1.025) 1.025 Urine Protein (Negative) mg/dL Negative Urine Ketones (Negative) mg/dL Trace H Urine Blood (Negative) Small H Urine Nitrite (Negative) Negative Urine Bilirubin (Negative) Negative Urine Urobilinogen (Up to 0.2) mg/dL 0.2 Ur Leukocyte Esterase (Negative) Negative Urine RBC (0-2) HPF 3-5 H Urine WBC (0-5) HPF 0-2 Ur Epithelial Cells (Negative) HPF Moderate Urine Crystals (Negative) HPF Negative Urine Bacteria (Negative) HPF Rare Urine Mucus (Negative) Trace Ur Culture Indicated? No Urine Glucose (Negative) mg/dL Negative Medical Decision Making 33-year-old female comes in with left lower quadrant pressure she says is consistent with history of renal colic. Urine was obtained and does show scant blood. Few RBCs. Will check renal function WBC and renal CT. Hemodynamically she stable. She was given ondansetron 4 mg ODT with improvement in her nausea. She has had no vomiting. She is able to tolerate p.o. Vital signs are stable nontoxic-appearing her CAT scan shows no acute findings to explain her symptoms. She has remained stable while being monitored in the department. She does state that she gets relief with ibuprofen from her symptoms. Abdominal reexam remains benign. I think is reasonable to dispense Zofran for home use continue to push fluids ibuprofen and/or acetaminophen for discomfort. Did discuss for her to return sooner for new or worsening symptoms fever unable to take p.o. or worsening pain. She is agreeable to this plan and stable for discharge to home. Medical Records Medical records reviewed: Yes I reviewed the patient's medical records. Imaging Data Radiologic Study: Imaging: CT Scan Radiologist's impression: Exam(s) a CT:CT renal colic wo Exam(s) CT RENAL COLIC WO EXAM: CT RENAL COLIC WO CLINICAL HISTORY: left lower abd pain. TECHNIQUE: Imaging Protocol: Axial computed tomography images with coronal and sagittal reformatted images were created and reviewed. CONTRAST MATERIAL: Noncontrast COMPARISON: CT CT ABDOMEN PELVIS W from 01/09/2023 FINDINGS: ABDOMEN: Lung Bases: Normal where visualized. Liver: Moderate hepatic steatosis.. No measurable mass. Gallbladder and biliary tract: Status post cholecystectomy. No radiodense calculus or dilation. Pancreas: Normal density, no calcifications or inflammatory process. Spleen: Normal. Kidneys: Normal size, contour and axis. No radiodense stones or obstructive uropathy. No masses seen. Adrenal glands: No masses seen. Abdominal Aorta: Abdominal portion non-dilated. Soft tissues: Mildly increased density in the left lower abdominal wall which may represent a Tavo renteria site. PELVIS: Bladder: Symmetric distention, no gross wall thickening. No evidence of stones.No visible mass. Bowel: No obstruction or bowel wall thickening. Status post appendectomy. Normal quantity of stool. Reproductive: Unremarkable. IUD in uterus. Peritoneal cavity: No ascites, collection or mesenteric inflammatory response. Bones: Unremarkable for age.. IMPRESSION: No acute abnormality in the abdomen and pelvis. Lab Data Lab results reviewed: Yes I reviewed the patient's lab results. Lab results narrative: Laboratory Results - last 24 hr 10/22/23 10/22/23 16:50 17:25 WBC 11.46 H RBC 4.65 Hgb 13.4 Hct 39.3 MCV 85 MCH 28.8 MCHC 34.1 RDW 12.6 Plt Count 366 MPV 9.3 Immature Gran % 0.3 Neutrophils % 63.2 Lymphocytes % 27.4 Monocytes % 7.2 Eosinophils % 1.6 Basophils % 0.3 Nucleated RBC % 0.0 Absolute Neutrophils 7.24 H Absolute Lymphocytes 3.14 Absolute Monocytes 0.83 H Absolute Eosinophils 0.18 Absolute Basophils 0.03 Sodium 140 Potassium 4.1 Chloride 102 Carbon Dioxide 29.0 Anion Gap 9.0 BUN 6 L Creatinine 1.0 Est GFR (CKD-EPI 2020) 75.34 Glucose 174 H Calcium 8.8 Urine Color Yellow Urine Clarity Clear Urine pH 6.0 Ur Specific [place] 1.025 Urine Protein Negative Urine Ketones Trace H Urine Blood Small H Urine Nitrite Negative Urine Bilirubin Negative Urine Urobilinogen 0.2 Ur Leukocyte Esterase Negative Urine RBC 3-5 H Urine WBC 0-2 Ur Epithelial Cells Moderate Urine Crystals Negative Urine Bacteria Rare Urine Mucus Trace Ur Culture Indicated? No Urine Glucose Negative Quality:SDOH Health Related Social Needs: No Data to Display Discharge Plan Disposition Patient Disposition: Home Condition: Improving Discharge Details Clinical Impression: Gastroenteritis Primary Care Provider: Moiz Dutta ED Provider: Annetta Cash Home Meds and New Rx's Prescriptions: New Ondansetron Odt, 3 Tabs/Btl [Zofran Odt, 3 Tabs/Btl] 4 mg PO DISPENSE Qty: 0 0RF Continued epinephrine 0.3 mg/0.3 mL Auto-Injector 0.3 mg IM ONCE metformin 500 mg Tablet 500 mg PO BID dextroamphetamine-amphetamine [Adderall] 15 mg tablet 15 mg PO DAILY Mirena 21 mcg/24 hours (8 yrs) 52 mg intrauterine device 1 device intrauterine ONCE Rx Instructions: as a single dose (DME) lancets [FreeStyle Lancets] 28 gauge misc See Rx Instructions .ROUTE .MEDSUPPLY Qty: 100 Rx Instructions: As directed (DME) FreeStyle Lite Strips Strip See Rx Instructions .ROUTE .MEDSUPPLY Qty: 10 Rx Instructions: As directed (DME) pen needle, diabetic [BD Ultra-Fine Sona Pen Needle] 32 gauge x 5/32 needle See Rx Instructions .ROUTE .MEDSUPPLY Qty: 50 Rx Instructions: As directed omeprazole 40 mg capsule,delayed release(DR/EC) 40 mg PO DAILY albuterol sulfate [ProAir HFA] 90 mcg/actuation HFA aerosol inhaler 2 puff inhalation Q6H PRN atorvastatin 10 mg tablet 10 mg PO DAILY Patient Comments: Unsure if she is still taking oxcarbazepine 150 mg tablet 150 mg PO BID Trulicity 1.5 mg/0.5 mL pen injector See Rx Instructions .ROUTE .COMPLEX Rx Instructions: device subcutaneously Vraylar 3 mg capsule 1 cap PO DAILY albuterol sulfate [ProAir HFA] 90 mcg/actuation HFA aerosol inhaler 2 puff inhalation Q6H PRNQty: 6.7 2RF acetaminophen [Tylenol Extra Strength] 500 mg Tablet 1,000 mg PO Q6H PRN insulin glargine [Lantus Solostar U-100 Insulin] 100 unit/mL (3 mL) insulin pen 30 unit SUBCUT BID quetiapine 300 mg tablet 600 mg PO QHS methocarbamol 500 mg tablet 500 mg PO Q6H PRN (Reason: muscle spasm) Qty: 14 0RF lorazepam [Ativan] 0.5 mg Tablet 0.5 mg PO TID gabapentin 100 mg capsule 300 mg PO BID Patient Comments: TAKE 1 CAPSULE BY MOUTH TWICE A DAY Discharge Instructions Instructions: Gastroenteritis (ED) Additional Instructions: Take ondansetron 4 mg tabs by mouth every 6-8 hours if needed for nausea. Clear liquids advance as tolerated Referrals: Moiz Dutta [Primary Care Provider] -
[2023-10-22 17:34] LABS: Abs Immature Grans 0.04 10^3/uL (0.0-0.06); Absolute Eosinophil Count 0.18 10^3/uL (0.0-0.7); Absolute Lymphocyte Count 3.14 10^3/uL (1.2-3.4); Absolute Neutrophil Count 7.24 10^3/uL (1.2-6.7); Basophils % 0.3; Eosinophils % 1.6; HCT 39.3 % (36.0-46.0); HGB 13.4 g/dL (11.2-15.7); Immature Grans % 0.3; Lymphocytes % 27.4; MCH 28.8 pg (27.0-33.0); MCHC 34.1 % (32.0-36.0); MCV 85 fL (80-95); MPV 9.3 fL (8.0-11.0); Monocytes % 7.2; Neutrophils % 63.2; Platelet Count 366 10^3/uL (130-400); RBC 4.65 10^6/uL (3.93-5.22); RDW 12.6 % (11.7-14.6); RDW-SD 38.5 fL; WBC 11.46 10^3/uL (4.4-10.8)
[2023-10-22 17:35] LABS: Absolute Basophil Count 0.03 10^3/uL (0.0-0.2); Absolute Monocyte Count 0.83 10^3/uL (0.1-0.8)
[2023-10-22 17:43] LABS: BUN 6 mg/dL (7-18); Calcium 8.8 mg/dL (8.5-10.1); Chloride 102 mmol/L (98-107); Estimated GFR 75.34 (mL/min/1.73m2); Glucose 174 mg/dL (74-106); Potassium 4.1 mmol/L (3.5-5.1); Sodium 140 mmol/L (136-145)
[2023-10-22 18:40] VITALS: BP 124/78; PULSE 80; RESP 20; TEMP 36.8; O2SAT 97
[2023-10-22] MEDS: Ondansetron O.D.T. 4 MG TABEF, 3 TABS/BTL PO (18:41)
== END 2023-10-22 18:41 | disposition home or self-care (01) ==
PROVIDERS: Emergency Provider Nurse Practitioner Acute Care; PCP Physician Assistant
DX: R10.32 Left lower quadrant pain (principal); R11.0 Nausea; E11.69 Type 2 diabetes mellitus with other specified complication; K52.9 Noninfective gastroenteritis and colitis, unspecified
CPT/HCPCS: 80048; 99284; 74176; 81003; 81015; 85025; 99283

== ENCOUNTER → 2023-11-04 17:37 | Outpatient (CLI) | payer MEDICARE, MEDICAID, SELFPAY ==
--- NOTE | 2023-11-04 17:55 | DI.RAD_ITS ---
Exam(s) XR CHEST 2V PA LATERAL EXAM: XR CHEST 2V PA LATERAL CLINICAL HISTORY: COUGH. TECHNIQUE: 2D digital imaging was performed. COMPARISON: CR,RF RF BARIUM SWALLOW from 03/13/2023 FINDINGS: 2 views: Heart size is normal. The mediastinum is not widened. Lungs are clear. No infiltrates nor pleural effusions. IMPRESSION: No acute pulmonary findings. DATA REPOSITORY: RADIATION DOSE DELIVERED:
--- NOTE | 2023-11-04 18:08 | DI.VRAD_ITS ---
PROCEDURE INFORMATION: Exam: XR Chest Exam date and time: 11/04/2023 5:51 PM Age: 33 years old Clinical indication: Cough TECHNIQUE: Imaging protocol: Radiologic exam of the chest. Views: 2 views. COMPARISON: CT RENAL COLIC WO 10/22/2023 6:06 PM FINDINGS: Lungs: Unremarkable. No consolidation. Pleural spaces: Unremarkable. No pleural effusion. No pneumothorax. Heart/Mediastinum: Unremarkable. No cardiomegaly. Bones/joints: Unremarkable. IMPRESSION: No acute findings. Dictated and Authenticated by: Aram Winchester MD. Ordering:IDALMIS RAMON MD
== END ==
PROVIDERS: PCP Physician Assistant; Visit Provider Nurse Practitioner Family
DX: R05.9 Cough, unspecified (principal)
CPT/HCPCS: 71046

== ENCOUNTER 2023-11-27 07:29 | Outpatient (REF) | payer MEDICARE, MEDICAID, SELFPAY | END 2023-11-27 07:30 | LOC: NCHCN 07:29 | PROVIDERS: PCP Physician Assistant; Visit Provider Physician Assistant Medical | DX: J02.9 Acute pharyngitis, unspecified (principal); N89.8 Other specified noninflammatory disorders of vagina | CPT/HCPCS: 87070; 87480; 87510; 87660 ==

== ENCOUNTER 2023-12-14 16:37 | Emergency (ER) | payer MEDICARE, MEDICAID, SELFPAY ==
[2023-12-14 16:39] VITALS: BP 137/79; PULSE 108; RESP 16; TEMP 36.8; O2SAT 96
--- NOTE | 2023-12-14 16:45 | DI.RAD_ITS ---
Exam(s) XR CHEST 2V PA LATERAL EXAM: XR CHEST 2V PA LATERAL CLINICAL HISTORY: productive cough. TECHNIQUE: 2D digital imaging was performed. COMPARISON: CR,XR XR CHEST 2V PA LATERAL from 11/04/2023 FINDINGS: 2 views: Heart size is normal. The mediastinum is not widened. Lungs are clear. No infiltrates nor pleural effusions. IMPRESSION: No acute pulmonary findings. DATA REPOSITORY: RADIATION DOSE DELIVERED:
--- NOTE | 2023-12-14 16:54 | ED.GENADUL_ITS ---
Discharge Plan Disposition Patient Disposition: Home Condition: Improving Discharge Details Chief Complaint: RespSymp Clinical Impression: Cough Primary Care Provider: Moiz Dutta ED Provider: Geremias Max Home Meds and New Rx's Prescriptions: No Action epinephrine 0.3 mg/0.3 mL Auto-Injector 0.3 mg IM ONCE metformin 500 mg Tablet 500 mg PO BID dextroamphetamine-amphetamine [Adderall] 15 mg tablet 15 mg PO DAILY Mirena 21 mcg/24 hours (8 yrs) 52 mg intrauterine device 1 device intrauterine ONCE Rx Instructions: as a single dose fluticasone propionate [Flonase Allergy Relief] 50 mcg/actuation spray,suspension 1 spray intranasal BID 30 Days Qty: 16 2RF Rx Instructions: administer into each nostril (DME) lancets [FreeStyle Lancets] 28 gauge misc See Rx Instructions .ROUTE .MEDSUPPLY Qty: 100 Rx Instructions: As directed (DME) FreeStyle Lite Strips Strip See Rx Instructions .ROUTE .MEDSUPPLY Qty: 10 Rx Instructions: As directed (DME) pen needle, diabetic [BD Ultra-Fine Sona Pen Needle] 32 gauge x 5/32 needle See Rx Instructions .ROUTE .MEDSUPPLY Qty: 50 Rx Instructions: As directed omeprazole 40 mg capsule,delayed release(DR/EC) 40 mg PO DAILY albuterol sulfate [ProAir HFA] 90 mcg/actuation HFA aerosol inhaler 2 puff inhalation Q6H PRN atorvastatin 10 mg tablet 10 mg PO DAILY Patient Comments: Unsure if she is still taking oxcarbazepine 150 mg tablet 150 mg PO BID Trulicity 1.5 mg/0.5 mL pen injector See Rx Instructions .ROUTE .COMPLEX Rx Instructions: device subcutaneously Vraylar 3 mg capsule 1 cap PO DAILY albuterol sulfate [ProAir HFA] 90 mcg/actuation HFA aerosol inhaler 2 puff inhalation Q6H PRNQty: 6.7 2RF Ondansetron Odt, 3 Tabs/Btl [Zofran Odt, 3 Tabs/Btl] 4 mg PO DISPENSE Qty: 0 0RF acetaminophen [Tylenol Extra Strength] 500 mg Tablet 1,000 mg PO Q6H PRN insulin glargine [Lantus Solostar U-100 Insulin] 100 unit/mL (3 mL) insulin pen 30 unit SUBCUT BID quetiapine 300 mg tablet 600 mg PO QHS methocarbamol 500 mg tablet 500 mg PO Q6H PRN (Reason: muscle spasm) Qty: 14 0RF lorazepam [Ativan] 0.5 mg Tablet 0.5 mg PO TID gabapentin 100 mg capsule 300 mg PO BID Patient Comments: TAKE 1 CAPSULE BY MOUTH TWICE A DAY Discharge Instructions Instructions: Acute Cough (ED) Additional Instructions: Please follow-up with your primary care physician. HPI General Date/Time Provider Initiated Documentation: 12/14/23 16:47 . HPI Narrative: 33-year-old female presents with sore throat and productive cough over the last several days, was recently placed on Augmentin without improvement, has been using her inhaler with some effect. Related Data Home Medications Medication Instructions Recorded Confirmed blood sugar diagnostic (FreeStyle #10 ea 10/10/20 11/15/23 Lite Strips) lancets 28 gauge (FreeStyle #100 ea 10/10/20 11/15/23 Lancets) omeprazole 40 mg capsule,delayed 40 mg PO DAILY 10/10/20 11/15/23 release pen needle, diabetic 32 gauge x #50 ea 10/10/20 11/15/23/32 (BD Ultra-Fine Sona Pen Needle) epinephrine 0.3 mg/0.3 mL 0.3 mg IM ONCE 12/29/20 11/15/23 injection, auto-injector metformin 500 mg tablet 500 mg PO BID 12/29/20 11/15/23 acetaminophen 500 mg tablet 1,000 mg PO Q6H PRN 01/31/21 11/15/23 (Tylenol Extra Strength) atorvastatin 10 mg tablet 10 mg PO DAILY 08/11/21 11/15/23 oxcarbazepine 150 mg tablet 150 mg PO BID 08/11/21 11/15/23 albuterol sulfate 90 mcg/actuation 2 puff inhalation Q6H PRN 11/13/21 11/15/23 aerosol inhaler (ProAir HFA) dextroamphetamine-amphetamine 15 15 mg PO DAILY 05/22/22 11/15/23 mg tablet (Adderall) cariprazine 3 mg capsule (Vraylar) 1 cap PO DAILY 07/08/22 11/15/23 dulaglutide 1.5 mg/0.5 mL See Rx Instructions .Route .COMPLEX 07/08/22 11/15/23 subcutaneous pen injector (Trulicity) insulin glargine 100 unit/mL (3 30 unit subcut BID 10/26/22 11/15/23 mL) subcutaneous pen (Lantus Solostar U-100 Insulin) quetiapine 300 mg tablet 600 mg PO QHS 12/06/22 11/15/23 methocarbamol 500 mg tablet 500 mg PO Q6H PRN muscle spasm #14 01/06/23 11/15/23 tabs lorazepam 0.5 mg tablet (Ativan) 0.5 mg PO TID 02/20/23 11/15/23 levonorgestrel 21 mcg/24 hours (8 1 device intrauterine ONCE 03/04/23 11/15/23 yrs) 52 mg intrauterine device (Mirena) gabapentin 100 mg capsule 300 mg PO BID 03/16/23 11/15/23 albuterol sulfate 90 mcg/actuation 2 puff inhalation Q6H PRN #6.7 04/04/23 11/15/23 aerosol inhaler (ProAir HFA) grams Ondansetron ODT, 3 tabs/btl 4 mg PO DISPENSE ##0 10/22/23 11/15/23 [Zofran ODT, 3 tabs/btl] fluticasone propionate 50 1 spray intranasal BID 30 days #16 11/15/23 11/15/23 mcg/actuation nasal grams spray,suspension (Flonase Allergy Relief) Previous Rx's Medication Instructions Recorded methocarbamol 500 mg tablet 500 mg PO Q6H PRN muscle spasm #14 01/06/23 tabs albuterol sulfate 90 mcg/actuation 2 puff inhalation Q6H PRN #6.7 04/04/23 aerosol inhaler (ProAir HFA) grams Ondansetron ODT, 3 tabs/btl 4 mg PO DISPENSE ##0 10/22/23 [Zofran ODT, 3 tabs/btl] fluticasone propionate 50 1 spray intranasal BID 30 days #16 11/15/23 mcg/actuation nasal grams spray,suspension (Flonase Allergy Relief) Allergies Allergy/AdvReac Type Severity Reaction Status Date / Time naproxen [From Aleve] Allergy Severe Anaphylaxis Verified 12/14/23 16:46 cephalexin [From Keflex] Allergy Intermediate Hives Verified 12/14/23 16:46 latex Allergy Intermediate Itching Verified 12/14/23 16:46 cat dander Allergy Other (See Verified 12/14/23 16:46 Comment) dog dander Allergy Other (See Verified 12/14/23 16:46 Comment) venom-honey bee Allergy Other (See Verified 12/14/23 16:46 Comment) seasonal Allergy Other (See Uncoded 12/14/23 16:46 Comment) General Stated Complaint: RespSymp SUZETTE: 3 Review of Systems Narrative: Review of Systems Constitutional: negative Eyes: negative ENT: negative Cardiovascular: negative Respiratory: Cough Gastrointestinal: negative : negative Musculoskeletal: negative Skin: negative Neurologic: negative Psych: negative Exam Narrative Exam Narrative: Physical Examination General: alert, awake, cooperative, resting comfortably, no acute distress HEENT: normocephalic, atraumatic; PERRL, EOM intact, conjunctiva normal; no nasal discharge; moist mucous membranes, oral and pharyngeal mucosa normal, tole rating secretions Neck: supple, trachea midline; full ROM Chest: normal to inspection Respiratory: normal respiratory effort, speaking in full sentences, clear to auscultation, no wheezing, rales or rhonchi Cardiac: regular rate, regular rhythm, S1S2 intact, no murmurs rubs or gallops GI: abdomen soft, non-tender, non-distended; no palpable mass or hepatosplenomegaly Skin: no lesions, rashes or trauma appreciated Neuro: AAOx3, normal speech, moving all extremities Psych: Appropriate mood and affect Course Vital Signs Vital signs: Vital Signs Temperature 36.8 C 12/14/23 16:39 Pulse 108 H 12/14/23 16:39 Respiratory Rate 16 12/14/23 16:39 Blood Pressure 137/79 12/14/23 16:39 Pulse Oximetry 96 12/14/23 16:39 Temperature 36.8 C 12/14/23 16:39 Temperature Source Skin 12/14/23 16:39 Pulse 108 H 12/14/23 16:39 Respiratory Rate 16 12/14/23 16:39 Blood Pressure 137/79 12/14/23 16:39 Blood Pressure Position Sitting 12/14/23 16:39 Pulse Oximetry 96 12/14/23 16:39 Oxygen Delivery Method Room Air 12/14/23 16:39 Oxygen Flow Rate 0 12/14/23 16:39 Pain Level 6 12/14/23 16:39 Comment taking tylenol, ibuprofen, robitussin and nyquil 12/14/23 16:39 Medical Decision Making 33-year-old female presents with productive cough for the last several days, recently completed course of Augmentin, mild sore throat, afebrile nontoxic speaking full sentences normoxic, lungs clear bilaterally, given persistent cough productive of green sputum will obtain chest x-ray to assess for any lobar pneumonia high clinical suspicion for persistent viral respiratory illness. Low suspicion for pneumothorax pleural effusion PE ACS or aortic pathology. Trial of dexamethasone, x-ray close reassessment 18: 23 patient feeling better after dexamethasone. X-ray clear. Home care instructions and return precautions given Quality:SDOH Health Related Social Needs: No Data to Display PFSH All Active Problems (Updated 12/14/23 @ 18:23 by Geremias Max MD) Cough (Acute) Acute bacterial sinusitis (Acute) Tonsillar hypertrophy (Acute) Dysphagia (Acute) Ear itch (Acute) Xerostomia (Acute) Environmental allergies (Acute) Dysmenorrhea (Acute) Medical History (Updated 12/14/23 @ 18:23 by Geremias Max MD) Seasonal allergies Presence of IUD Mirena IUD placed 03/04/23 Low back pain Type 2 diabetes mellitus Obesity History of recurrent UTI (urinary tract infection) Tachycardia Sleep apnea Left hip pain GERD (gastroesophageal reflux disease) Borderline personality disorder Suicidal ideation Anxiety HTN (hypertension) PTSD (post-traumatic stress disorder) ADHD Asthma Diverticulitis Schizoaffective disorder Pain, joint, knee, right Hyperlipidemia Pain of left calf History of irregular menstrual bleeding Depression Nausea PCOS (polycystic ovarian syndrome) Surgical History H/O laparoscopy History of cholecystectomy History of appendectomy Family History Mother Diabetes Social History Smoking/Tobacco Use Status: Former Tobacco Use Smoking risk assessment performed?: Yes Alcohol Intake: current Alcohol Intake frequency: a few times a month Drug use: Daily Substance use type: marijuana Details: Edibles most days to help with sleep and pain. Household members: family Housing: apartment Number of Children: 0 current occupation: Unemployed Current gender identity: female What type of physical activity do you participate in: walking, independent ambulation and irregular exercise Do you feel safe at home: Yes Do you feel safe in your relationship?: Yes Female Reproductive History Menstrual control method: pills History History 2 Para Hx # Term Pregnancies Multiple births Hx # Pregnancies Ectopic pregnancies AB induced Hx Number of Living Children AB spontaneous 2
[2023-12-14] MEDS: Dexamethasone 10 MG/ML VIAL PO (17:07)
--- NOTE | 2023-12-14 17:55 | DI.VRAD_ITS ---
PROCEDURE INFORMATION: Exam: XR Chest Exam date and time: 12/14/2023 5:25 PM Age: 33 years old Clinical indication: Other: Productive cough TECHNIQUE: Imaging protocol: Radiologic exam of the chest. Views: 2 views. COMPARISON: CR XR CHEST 2V PA LATERAL 11/04/2023 5:51 PM FINDINGS: Lungs: No consolidation. No Mass Pleural spaces: No pleural effusion. No pneumothorax. Heart/Mediastinum: Unremarkable Bones/joints: No significant abnormality IMPRESSION: No acute findings. Dictated and Authenticated by: Chaim Fierro MD. Ordering:AMINA Archuleta MD
== END 2023-12-14 18:30 | disposition home or self-care (01) ==
PROVIDERS: Emergency Provider Emergency Medicine; PCP Physician Assistant
DX: R05.9 Cough, unspecified (principal)
CPT/HCPCS: 99283; 71046; J1100

== ENCOUNTER 2024-01-06 18:31 | Emergency (ER) | payer MEDICARE, MEDICAID, SELFPAY ==
[2024-01-06 18:33] VITALS: BP 127/88; PULSE 112; RESP 20; TEMP 36.8; O2SAT 97
[2024-01-06] MEDS: Methocarbamol 500 MG TAB 1000 MG PO (19:49)
--- NOTE | 2024-01-06 19:58 | DI.RAD_ITS ---
Exam(s) XR ANKLE RT COMPLETE EXAM: XR ANKLE RT COMPLETE CLINICAL HISTORY: right ankle pain. TECHNIQUE: 2D digital imaging was performed. COMPARISON: No exams were available for comparison FINDINGS: 3 views No evidence of fracture or widening of the ankle mortise. Talar dome appears unremarkable. No promi nent soft tissue swelling. Bone density normal. No osseous lesions. No degenerative changes. Prom inent inferior calcaneal spur is noted. IMPRESSION: No acute osseous findings in the ankle. DATA REPOSITORY: RADIATION DOSE DELIVERED:
--- NOTE | 2024-01-06 19:59 | DI.RAD_ITS ---
Exam(s) XR LUMBAR SPINE AP, LAT EXAM: XR LUMBAR SPINE AP, LAT CLINICAL HISTORY: back pain. TECHNIQUE: 2D digital imaging was performed. COMPARISON: No exams were available for comparison FINDINGS: 3 views No evidence of fracture, listhesis, nor pars defects. Disc spaces exhibit normal height. Mild anter ior osseous lipping at L3-4 is noted. Bone density normal. No osseous lesions. No scoliosis. SI j oints unremarkable. IMPRESSION: No acute osseous findings in the lumbosacral spinal column. DATA REPOSITORY: RADIATION DOSE DELIVERED:
--- NOTE | 2024-01-06 20:18 | DI.VRAD_ITS ---
PROCEDURE INFORMATION: Exam: XR Right Ankle Exam date and time: 01/06/2024 7:54 PM Age: 33 years old Clinical indication: Right; Patient HX: R ankle pain post fall TECHNIQUE: Imaging protocol: Radiologic exam of the right ankle. Views: 3 or more views. COMPARISON: No relevant prior studies available. FINDINGS: Bones/joints: No acute fracture or dislocation. Spurring along the plantar calcaneus. Soft tissues: Normal. IMPRESSION: No acute findings. Dictated and Authenticated by: Tatiana Dinero MD. Ordering:ARMINDA Peña MD
--- NOTE | 2024-01-06 20:20 | DI.VRAD_ITS ---
PROCEDURE INFORMATION: Exam: XR Lumbosacral Spine Exam date and time: 01/06/2024 7:50 PM Age: 33 years old Clinical indication: Low back pain; Patient HX: Fall, back pain TECHNIQUE: Imaging protocol: Radiologic exam of the lumbosacral spine. Views: 2 or 3 views. COMPARISON: CT RENAL COLIC WO 10/22/2023 6:06 PM FINDINGS: Bones/joints: Normal. No acute fracture. Normal alignment. Soft tissues: Unremarkable. IMPRESSION: No acute findings. Dictated and Authenticated by: Tatiana Dinero MD. Ordering:[facility] Bonnie Peña MD
[2024-01-06 21:22] VITALS: BP 124/82; PULSE 90; RESP 14; O2SAT 98
--- NOTE | 2024-01-06 21:38 | ED.GENADUL_ITS ---
Discharge Plan Disposition Patient Disposition: Home Discharge Details Clinical Impression: Acute right ankle pain, Fall, Back pain Primary Care Provider: Moiz Dutta ED Provider: Chetan Nicole Home Meds and New Rx's Prescriptions: New methocarbamol 500 mg tablet 500 mg PO TID PRN (Reason: pain) Qty: 14 0RF No Action epinephrine 0.3 mg/0.3 mL Auto-Injector 0.3 mg IM ONCE metformin 500 mg Tablet 500 mg PO BID dextroamphetamine-amphetamine [Adderall] 15 mg tablet 15 mg PO DAILY Mirena 21 mcg/24 hours (8 yrs) 52 mg intrauterine device 1 device intrauterine ONCE Rx Instructions: as a single dose fluticasone propionate [Flonase Allergy Relief] 50 mcg/actuation spray,suspension 1 spray intranasal BID 30 Days Qty: 16 2RF Rx Instructions: administer into each nostril (DME) lancets [FreeStyle Lancets] 28 gauge misc See Rx Instructions .ROUTE .MEDSUPPLY Qty: 100 Rx Instructions: As directed (DME) FreeStyle Lite Strips Strip See Rx Instructions .ROUTE .MEDSUPPLY Qty: 10 Rx Instructions: As directed (DME) pen needle, diabetic [BD Ultra-Fine Sona Pen Needle] 32 gauge x 5/32 needle See Rx Instructions .ROUTE .MEDSUPPLY Qty: 50 Rx Instructions: As directed omeprazole 40 mg capsule,delayed release(DR/EC) 40 mg PO DAILY albuterol sulfate [ProAir HFA] 90 mcg/actuation HFA aerosol inhaler 2 puff inhalation Q6H PRN atorvastatin 10 mg tablet 10 mg PO DAILY oxcarbazepine 150 mg tablet 150 mg PO BID Trulicity 1.5 mg/0.5 mL pen injector See Rx Instructions .ROUTE .COMPLEX Rx Instructions: device subcutaneously Vraylar 3 mg capsule 1 cap PO DAILY albuterol sulfate [ProAir HFA] 90 mcg/actuation HFA aerosol inhaler 2 puff inhalation Q6H PRNQty: 6.7 2RF Ondansetron Odt, 3 Tabs/Btl [Zofran Odt, 3 Tabs/Btl] 4 mg PO DISPENSE Qty: 0 0RF acetaminophen [Tylenol Extra Strength] 500 mg Tablet 1,000 mg PO Q6H PRN insulin glargine [Lantus Solostar U-100 Insulin] 100 unit/mL (3 mL) insulin pen 30 unit SUBCUT BID quetiapine 300 mg tablet 600 mg PO QHS methocarbamol 500 mg tablet 500 mg PO Q6H PRN (Reason: muscle spasm) Qty: 14 0RF lorazepam [Ativan] 0.5 mg Tablet 0.5 mg PO TID gabapentin 100 mg capsule 300 mg PO BID Patient Comments: TAKE 1 CAPSULE BY MOUTH TWICE A DAY Discharge Instructions Additional Instructions: continue tylenol as needed for pain can start robaxin as needed use crutches to help walking as needed HPI General Date/Time Provider Initiated Documentation: 01/06/24 19:21 . Limitations to Documentation: no limitations . Information obtained by: patient . HPI Narrative: 33-year-old female with out significant past medical history presents for evaluation after a fall. Patient reports that she was hiking yesterday when she rolled her right ankle and fell. She states that she landed on the ground, hurting her back. She did not hit her head or lose consciousness. She was able to get herself up off the ground and then was able to continue her hike. She states that she did have to limp. She states that today the symptoms seem to be worse and the soreness is more significant. She has been taking Tylenol without significant relief. Related Data Home Medications Medication Instructions Recorded Confirmed blood sugar diagnostic (FreeStyle #10 ea 10/10/20 01/06/24 Lite Strips) lancets 28 gauge (FreeStyle #100 ea 10/10/20 01/06/24 Lancets) omeprazole 40 mg capsule,delayed 40 mg PO DAILY 10/10/20 01/06/24 release pen needle, diabetic 32 gauge x #50 ea 10/10/20 01/06/24 (BD Ultra-Fine Sona Pen Needle) epinephrine 0.3 mg/0.3 mL 0.3 mg IM ONCE 12/29/20 01/06/24 injection, auto-injector metformin 500 mg tablet 500 mg PO BID 12/29/20 01/06/24 acetaminophen 500 mg tablet 1,000 mg PO Q6H PRN 01/31/21 01/06/24 (Tylenol Extra Strength) atorvastatin 10 mg tablet 10 mg PO DAILY 08/11/21 01/06/24 oxcarbazepine 150 mg tablet 150 mg PO BID 08/11/21 01/06/24 albuterol sulfate 90 mcg/actuation 2 puff inhalation Q6H PRN 11/13/21 01/06/24 aerosol inhaler (ProAir HFA) dextroamphetamine-amphetamine 15 15 mg PO DAILY 05/22/22 01/06/24 mg tablet (Adderall) cariprazine 3 mg capsule (Vraylar) 1 cap PO DAILY 07/08/22 01/06/24 dulaglutide 1.5 mg/0.5 mL See Rx Instructions .Route .COMPLEX 07/08/22 01/06/24 subcutaneous pen injector (Trulicity) insulin glargine 100 unit/mL (3 30 unit subcut BID 10/26/22 01/06/24 mL) subcutaneous pen (Lantus Solostar U-100 Insulin) quetiapine 300 mg tablet 600 mg PO QHS 12/06/22 01/06/24 methocarbamol 500 mg tablet 500 mg PO Q6H PRN muscle spasm #14 01/06/23 01/06/24 tabs lorazepam 0.5 mg tablet (Ativan) 0.5 mg PO TID 02/20/23 01/06/24 levonorgestrel 21 mcg/24 hours (8 1 device intrauterine ONCE 03/04/23 01/06/24 yrs) 52 mg intrauterine device (Mirena) gabapentin 100 mg capsule 300 mg PO BID 03/16/23 01/06/24 albuterol sulfate 90 mcg/actuation 2 puff inhalation Q6H PRN #6.7 04/04/23 01/06/24 aerosol inhaler (ProAir HFA) grams Ondansetron ODT, 3 tabs/btl 4 mg PO DISPENSE ##0 10/22/23 01/06/24 [Zofran ODT, 3 tabs/btl] fluticasone propionate 50 1 spray intranasal BID 30 days #16 11/15/23 01/06/24 mcg/actuation nasal grams spray,suspension (Flonase Allergy Relief) methocarbamol 500 mg tablet 500 mg PO TID PRN pain #14 tabs 01/06/24 Previous Rx's Medication Instructions Recorded methocarbamol 500 mg tablet 500 mg PO Q6H PRN muscle spasm #14 01/06/23 tabs albuterol sulfate 90 mcg/actuation 2 puff inhalation Q6H PRN #6.7 04/04/23 aerosol inhaler (ProAir HFA) grams Ondansetron ODT, 3 tabs/btl 4 mg PO DISPENSE ##0 10/22/23 [Zofran ODT, 3 tabs/btl] fluticasone propionate 50 1 spray intranasal BID 30 days #16 11/15/23 mcg/actuation nasal grams spray,suspension (Flonase Allergy Relief) methocarbamol 500 mg tablet 500 mg PO TID PRN pain #14 tabs 01/06/24 Allergies Allergy/AdvReac Type Severity Reaction Status Date / Time naproxen [From Aleve] Allergy Severe Anaphylaxis Verified 01/06/24 18:40 cephalexin [From Keflex] Allergy Intermediate Hives Verified 01/06/24 18:40 latex Allergy Intermediate Itching Verified 01/06/24 18:40 cat dander Allergy Other (See Verified 01/06/24 18:40 Comment) dog dander Allergy Other (See Verified 01/06/24 18:40 Comment) venom-honey bee Allergy Other (See Verified 01/06/24 18:40 Comment) seasonal Allergy Other (See Uncoded 01/06/24 18:40 Comment) General Stated Complaint: Orthopedic SUZETTE: 4 Exam Narrative Exam Narrative: Review of Systems: All systems reviewed & are unremarkable except as noted in HPI and below Well-developed, no acute distress NCAT PERRL, normal conjunctiva RRR Unlabored respiratory effort Nondistended abdomen No midline back tenderness, step-off or deformity, localizes pain to the right lower back Right knee without tenderness or effusion, no proximal tibial tenderness, discomfort with range of motion of the ankle, but there is no obvious deformity, swelling or bruising noted. No malleoli or tenderness, no tenderness over the proximal fifth metatarsal, neurovascularly intact No rashes or lesions. no focal neurologic deficits Appropriate mood and affect Course Vital Signs Vital signs: Vital Signs Temperature 36.8 C 01/06/24 18:33 Pulse 112 H 01/06/24 18:33 Respiratory Rate 20 01/06/24 18:33 Blood Pressure 127/88 01/06/24 18:33 Pulse Oximetry 97 01/06/24 18:33 Temperature 36.8 C 01/06/24 18:33 Temperature Source Temporal Artery Scan 01/06/24 18:33 Pulse 90 03/18/24 21:22 Respiratory Rate 14 01/06/24 21:22 Respiratory Effort Normal 01/06/24 18:39 Blood Pressure 124/82 01/06/24 21:22 Blood Pressure Position Sitting 01/06/24 18:33 Pulse Oximetry 98 01/06/24 21:22 Oxygen Delivery Method Room Air 01/06/24 18:33 Oxygen Flow Rate 0 01/06/24 18:33 Pain Level 8 01/06/24 18:33 Medical Decision Making Emergent evaluation after a fall. Initial differential includes sprain, contusion, no evidence of dislocation, low suspicion for fracture. Patient is unable to take NSAIDs secondary to anaphylaxis. Will give a dose of Robaxin. Continue Tylenol. X-ray imaging ordered and reviewed. No acute fractures. Crutches provided to facilitate ambulation given her discomfort. Recommend RICE. Robaxin prescription sent to pharmacy. Follow-up with PCP as needed Quality:SDOH Health Related Social Needs: No Data to Display PFSH All Active Problems Back pain (Acute) Fall (Acute) Acute right ankle pain (Acute) Cough (Acute) Acute bacterial sinusitis (Acute) Tonsillar hypertrophy (Acute) Dysphagia (Acute) Ear itch (Acute) Xerostomia (Acute) Environmental allergies (Acute) Dysmenorrhea (Acute) Medical History Seasonal allergies Presence of IUD Mirena IUD placed 03/04/23 Low back pain Type 2 diabetes mellitus Obesity History of recurrent UTI (urinary tract infection) Tachycardia Sleep apnea Left hip pain GERD (gastroesophageal reflux disease) Borderline personality disorder Suicidal ideation Anxiety HTN (hypertension) PTSD (post-traumatic stress disorder) ADHD Asthma Diverticulitis Schizoaffective disorder Pain, joint, knee, right Hyperlipidemia Pain of left calf History of irregular menstrual bleeding Depression Nausea PCOS (polycystic ovarian syndrome) Surgical History H/O laparoscopy History of cholecystectomy History of appendectomy Family History Mother Diabetes Social History Smoking/Tobacco Use Status: Former Tobacco Use Smoking risk assessment performed?: Yes Alcohol Intake: current Alcohol Intake frequency: a few times a month Drug use: Occasionally Substance use type: marijuana Details: Edibles most days to help with sleep and pain. Household members: family Housing: apartment Number of Children: 0 current occupation: Unemployed Current gender identity: female What type of physical activity do you participate in: walking, independent ambulation and irregular exercise Do you feel safe at home: Yes Do you feel safe in your relationship?: Yes Female Reproductive History Menstrual control method: pills History History 2 Para Hx # Term Pregnancies Multiple births Hx # Pregnancies Ectopic pregnancies AB induced Hx Number of Living Children AB spontaneous 2
== END 2024-01-06 21:45 | disposition home or self-care (01) ==
PROVIDERS: Emergency Provider Emergency Medicine; PCP Physician Assistant
DX: M25.571 Pain in right ankle and joints of right foot (principal); M54.9 Dorsalgia, unspecified; W19.XXXA Unspecified fall, initial encounter; Y93.01 Activity, walking, marching and hiking
CPT/HCPCS: 99284; 72100; 73610; 99283

== ENCOUNTER 2024-01-29 21:16 | Outpatient (REF) | payer MEDICARE, MEDICAID, SELFPAY | END 2024-01-29 21:17 | disposition home or self-care (01) | LOC: LBN 21:16 | PROVIDERS: PCP Physician Assistant; Visit Provider Nurse Practitioner Family | DX: J02.9 Acute pharyngitis, unspecified (principal) | CPT/HCPCS: 87070 ==

== ENCOUNTER 2024-03-02 15:07 | Outpatient (REF) | payer MEDICARE, MEDICAID, SELFPAY ==
[2024-03-02 13:52] LABS: ALT 27 U/L (14-59); AST 13 U/L (15-37); Albumin 3.4 g/dL (3.4-5.0); Alkaline Phosphatase 93 U/L (46-116); BUN 13 mg/dL (7-18); Bilirubin, Total 0.2 mg/dL (0.2-1.0); CREATININE 0.8 mg/dL (0.55-1.02); Calcium 9.3 mg/dL (8.5-10.1); Calculated LDL 73 mg/dL (<100); Chloride 102 mmol/L (98-107); Cholesterol 177 mg/dL (<200); Estimated GFR 97.87 (mL/min/1.73m2); Glucose 174 mg/dL (74-106); HDL Cholesterol 55 mg/dL (40-60); Potassium 4.6 mmol/L (3.5-5.1); Sodium 141 mmol/L (136-145); Total Protein 7.1 g/dL (6.4-8.2); Triglyceride 246 mg/dL (<150)
== END 2024-03-02 15:08 | disposition home or self-care (01) ==
LOC: NCHCN 15:07
PROVIDERS: PCP Physician Assistant; Visit Provider Physician Assistant
DX: E78.5 Hyperlipidemia, unspecified (principal)
CPT/HCPCS: 80053; 80061

== ENCOUNTER 2024-05-19 12:05 | Emergency (ER) | payer MEDICARE, MEDICAID, SELFPAY ==
[2024-05-19 12:11] VITALS: BP 138/80; PULSE 94; RESP 18; TEMP 36.3; O2SAT 98
--- NOTE | 2024-05-19 12:35 | DI.RAD_ITS ---
Exam(s) XR WRIST LT COMPLETE EXAM: XR WRIST LT COMPLETE CLINICAL HISTORY: pain, swelling. TECHNIQUE: 2D digital imaging was performed. Three views. COMPARISON: CR,XR XR WRIST RT COMPLETE from 03/16/2023 FINDINGS: BONES: No acute fracture is present. No bony destructive lesion is seen. JOINTS: The carpal bones are normally aligned. SOFT TISSUE: Normal. IMPRESSION: Unremarkable radiographs of the left wrist. DATA REPOSITORY: RADIATION DOSE DELIVERED:
--- NOTE | 2024-05-19 13:18 | ED.GENADUL_ITS ---
Discharge Plan Disposition Patient Disposition: Home Condition: Stable Discharge Details Clinical Impression: Left wrist tendinitis Primary Care Provider: Moiz Dutta ED Provider: King Boland Home Meds and New Rx's Prescriptions: Continued epinephrine 0.3 mg/0.3 mL Auto-Injector 0.3 mg IM ONCE metformin 500 mg Tablet 500 mg PO BID dextroamphetamine-amphetamine [Adderall] 15 mg tablet 15 mg PO DAILY norethindrone (contraceptive) 0.35 mg tablet 0.35 mg PO DAILY Qty: 84 4RF (DME) lancets [FreeStyle Lancets] 28 gauge misc See Rx Instructions .ROUTE .MEDSUPPLY Qty: 100 Rx Instructions: As directed (DME) FreeStyle Lite Strips Strip See Rx Instructions .ROUTE .MEDSUPPLY Qty: 10 Rx Instructions: As directed (DME) pen needle, diabetic [BD Ultra-Fine Sona Pen Needle] 32 gauge x 5/32 needle See Rx Instructions .ROUTE .MEDSUPPLY Qty: 50 Rx Instructions: As directed omeprazole 40 mg capsule,delayed release(DR/EC) 40 mg PO DAILY diazepam [Valium] 2 mg tablet 2 mg PO DAILY PRN fluticasone propionate [Flonase Allergy Relief] 50 mcg/actuation spray,suspension 1 spray intranasal BID PRN Rx Instructions: administer into each nostril atorvastatin 10 mg tablet 10 mg PO DAILY oxcarbazepine 150 mg tablet 150 mg PO BID cetirizine 10 mg tablet 10 mg PO DAILY PRN Vraylar 3 mg capsule 1 cap PO DAILY albuterol sulfate [ProAir HFA] 90 mcg/actuation HFA aerosol inhaler 2 puff inhalation Q6H PRNQty: 6.7 2RF acetaminophen [Tylenol Extra Strength] 500 mg Tablet 1,000 mg PO Q6H PRN insulin glargine [Lantus Solostar U-100 Insulin] 100 unit/mL (3 mL) insulin pen 30 unit SUBCUT BID quetiapine 300 mg tablet 600 mg PO QHS methocarbamol 500 mg tablet 500 mg PO Q6H PRN (Reason: muscle spasm) Qty: 14 0RF gabapentin 100 mg capsule 300 mg PO BID Patient Comments: TAKE 1 CAPSULE BY MOUTH TWICE A DAY Discharge Instructions Instructions: Overuse Injuries Additional Instructions: Wear the splint as needed for comfort. If not better within 1 to 2 weeks follow-up with your primary care provider. Continue to take 1000 mg of acetaminophen and 600 mg of ibuprofen every 6 hours as needed. HPI General Mode of arrival: ambulatory . Date/Time Provider Initiated Documentation: 05/19/24 12:13 . Limitations to Documentation: no limitations . Information obtained by: patient . History of Present Illness 34 year old F presents to the emergency department with the chief complaint of left wrist pain, described as mild, Quality is described as aching, Patient started experiencing this week(s) (2) and it has been constant. Rest improves symptom(s), Movement worsens symptoms . Patient notes no other symptoms.. Patient did receive the following treatments prior to arrival, NSAID Related Data Home Medications ?Medication ?Instructions ?Recorded ?Confirmed blood sugar diagnostic (FreeStyle #10 ea 10/10/20 05/19/24 Lite Strips) lancets 28 gauge (FreeStyle #100 ea 10/10/20 05/19/24 Lancets) omeprazole 40 mg capsule,delayed 40 mg PO DAILY 10/10/20 05/19/24 release pen needle, diabetic 32 gauge x #50 ea 10/10/20 05/19/24 (BD Ultra-Fine Sona Pen Needle) epinephrine 0.3 mg/0.3 mL 0.3 mg IM ONCE 12/29/20 05/19/24 injection, auto-injector metformin 500 mg tablet 500 mg PO BID 12/29/20 05/19/24 acetaminophen 500 mg tablet 1,000 mg PO Q6H PRN 01/31/21 05/19/24 (Tylenol Extra Strength) atorvastatin 10 mg tablet 10 mg PO DAILY 08/11/21 05/19/24 oxcarbazepine 150 mg tablet 150 mg PO BID 08/11/21 05/19/24 dextroamphetamine-amphetamine 15 15 mg PO DAILY 05/22/22 05/19/24 mg tablet (Adderall) cariprazine 3 mg capsule (Vraylar) 1 cap PO DAILY 07/08/22 05/19/24 insulin glargine 100 unit/mL (3 30 unit subcut BID 10/26/22 05/19/24 mL) subcutaneous pen (Lantus Solostar U-100 Insulin) quetiapine 300 mg tablet 600 mg PO QHS 12/06/22 05/19/24 methocarbamol 500 mg tablet 500 mg PO Q6H PRN muscle spasm #14 01/06/23 05/19/24 tabs gabapentin 100 mg capsule 300 mg PO BID 03/16/23 05/19/24 albuterol sulfate 90 mcg/actuation 2 puff inhalation Q6H PRN #6.7 04/04/23 05/19/24 aerosol inhaler (ProAir HFA) grams cetirizine 10 mg tablet 10 mg PO DAILY PRN 03/09/24 05/19/24 diazepam 2 mg tablet (Valium) 2 mg PO DAILY PRN 05/07/24 05/19/24 fluticasone propionate 50 1 spray intranasal BID PRN 05/07/24 05/19/24 mcg/actuation nasal spray,suspension (Flonase Allergy Relief) norethindrone (contraceptive) 0.35 0.35 mg PO DAILY #84 tabs 05/12/24 05/19/24 mg tablet Previous Rx's ?Medication ?Instructions ?Recorded methocarbamol 500 mg tablet 500 mg PO Q6H PRN muscle spasm #14 01/06/23 tabs albuterol sulfate 90 mcg/actuation 2 puff inhalation Q6H PRN #6.7 04/04/23 aerosol inhaler (ProAir HFA) grams norethindrone (contraceptive) 0.35 0.35 mg PO DAILY #84 tabs 05/12/24 mg tablet Allergies Allergy/AdvReac Type Severity Reaction Status Date / Time naproxen (From Aleve) Allergy Severe Anaphylaxis Verified 05/19/24 12:13 cephalexin (From Keflex) Allergy Intermediate Hives Verified 05/19/24 12:13 latex Allergy Intermediate Itching Verified 05/19/24 12:13 cat dander Allergy Other (See Verified 05/19/24 12:13 Comment) dog dander Allergy Other (See Verified 05/19/24 12:13 Comment) venom-honey bee Allergy Other (See Verified 05/19/24 12:13 Comment) bupropion (From Wellbutrin) AdvReac rapid Verified 05/19/24 12:13 heart rate seasonal Allergy Other (See Uncoded 05/19/24 12:13 Comment) General Stated Complaint: Orthopedic SUZETTE: 4 Review of Systems All systems reviewed & are unremarkable except as noted in HPI and below Constitutional Constitutional: Denies chills, Denies fever(s) and Denies weakness Cardiovascular Cardiovascular: Denies chest pain and Denies dyspnea Respiratory Respiratory: Denies cough and Denies dyspnea Gastrointestinal Gastrointestinal: Denies abdominal pain, Denies nausea and Denies vomiting Integumentary/Breasts Skin/Breast: Denies rash Neurologic Neurologic: Denies weakness Exam Const General: no acute distress Orientation: alert [facility] Head: normal to inspection Ears: external ears normal General nose exam: external nose normal Mouth: moist mucous membranes Eyes General: appearance normal, both eyes and all related structures Neck Neck: normal visual inspection Resp Effort & Inspection: normal respiratory effort and able to speak in complete sentences Cardio Rate: regular rate Skin General skin exam: no rashes or lesions noted Neuro General: patient alert and patient oriented x3 Extrem General: normal to inspection, full ROM and capillary refill normal Psych Mental Status: mental status grossly normal Course Vital Signs Vital signs: Vital Signs Temperature 36.3 C L 05/19/24 12:11 Pulse 94 H 05/19/24 12:11 Respiratory Rate 18 05/19/24 12:11 Blood Pressure 138/80 05/19/24 12:11 Pulse Oximetry 98 05/19/24 12:11 Temperature 36.3 C L 05/19/24 12:11 Pulse 94 H 05/19/24 12:11 Respiratory Rate 18 05/19/24 12:11 Respiratory Effort Normal, Non-Labored 05/19/24 12:15 Blood Pressure 138/80 05/19/24 12:11 Blood Pressure Position Sitting 05/19/24 12:11 Pulse Oximetry 98 05/19/24 12:11 Oxygen Delivery Method Room Air 05/19/24 12:11 Oxygen Flow Rate 0 05/19/24 12:11 Medical Decision Making 34-year-old female comes in with nontraumatic left wrist pain for 2 weeks. X- rays done prior to my exam showed no acute findings. She says she does use a computer a lot and notices when she has been using it for a while she will have the pain. She localizes the pain to the base of left thumb. She has full range of motion of the thumb and fingers and wrist. Does have some tenderness at the base of the thumb. No swelling, intact pulses and sensation. Her exam and history are consistent with a tendinitis, will provide of her splint and advised to follow-up with her PCP. There is no findings on exam or history to suggest infectious etiology. Differential Diagnosis Differential Diagnosis: tendonitis, overuse Imaging Data Radiologic Study: Attestation: I personally reviewed and interpreted this imaging study as follows: Imaging: X-Ray Radiologist's impression: No acute findings Quality:SDOH Health Related Social Needs: No Data to Display PFSH All Active Problems (Updated 05/19/24 @ 13:23 by King Boland MD) Left wrist tendinitis (Acute) Acute bacterial sinusitis (Acute) Tonsillar hypertrophy (Acute) Dysphagia (Acute) Ear itch (Acute) Xerostomia (Acute) Environmental allergies (Acute) Dysmenorrhea (Acute) Medical History Seasonal allergies Low back pain Type 2 diabetes mellitus Obesity History of recurrent UTI (urinary tract infection) Tachycardia Sleep apnea Left hip pain GERD (gastroesophageal reflux disease) Borderline personality disorder Suicidal ideation Anxiety HTN (hypertension) PTSD (post-traumatic stress disorder) ADHD Asthma Diverticulitis Schizoaffective disorder Pain, joint, knee, right Hyperlipidemia Pain of left calf History of irregular menstrual bleeding Depression Nausea PCOS (polycystic ovarian syndrome) Surgical History H/O laparoscopy History of cholecystectomy History of appendectomy Family History Mother Diabetes Social History Smoking/Tobacco Use Status: Former Tobacco Use Smoking risk assessment performed?: Yes Alcohol Intake: current Alcohol Intake frequency: holidays/special occasions only Drug use: Occasionally Substance use type: marijuana Details: Edibles most days to help with sleep and pain. Household members: family Housing: apartment Number of Children: 0 current occupation: Unemployed Current gender identity: female What type of physical activity do you participate in: walking, independent ambulation and irregular exercise Do you feel safe at home: Yes Do you feel safe in your relationship?: Yes Female Reproductive History Menstrual Duration of menses: 3-5 days control method: pills (POP) History History 2 Para Hx # Term Pregnancies Multiple births Hx # Pregnancies Ectopic pregnancies AB induced Hx Number of Living Children AB spontaneous 2 PAWSS Have you Been Recently Intoxicated or Drunk Within the Last 30 days?: No Have you Ever Experienced Previous Episodes of Alcohol Withdrawal?: No Have you ever Experienced Withdrawal Seizures?: No Have you ever Experienced Delirium Tremens(DT)s?: No Have you ever undergone Alcohol Rehabilitation Treatment (i.e, inpt ot outpatient treatment programs)?: No Have you ever Experienced Blackouts?: No Have you ever Combined Alcohol with other Downers within the last 90 days?: No Have you ever Combined Alcohol with any other Substance of Abuse during the last 90 days?: No Positive Blood Alcohol level on Presentation? [PCS.BAL]: No Evidence of Increased Autonomic Activity (i.e. HR>120, tremor, sweating, agitation, nausea)?: No Result: 0
== END 2024-05-19 13:31 | disposition home or self-care (01) ==
PROVIDERS: Emergency Provider Emergency Medicine; PCP Physician Assistant
DX: M67.834 Other specified disorders of tendon, left wrist (principal); E11.9 Type 2 diabetes mellitus without complications; I10 Essential (primary) hypertension; E78.5 Hyperlipidemia, unspecified; Z79.4 Long term (current) use of insulin; Z79.84 Long term (current) use of oral hypoglycemic drugs; Z87.891 Personal history of nicotine dependence
CPT/HCPCS: 99283; 73110

== ENCOUNTER 2024-07-02 02:47 | Outpatient (CLI) | payer MEDICARE, MEDICAID, SELFPAY ==
--- NOTE | 2024-07-02 09:24 | DI.US_ITS ---
Exam(s) US PELVIS TRANSVAGINAL EXAM: US PELVIS TRANSVAGINAL CLINICAL HISTORY: DYSFUNCTIONAL UTERINE BLEEDING,N93.8,N94.6,DYSMENORRHEA TECHNIQUE: Transabdominal and transvaginal imaging was performed using standard protocol. COMPARISON: CT CT RENAL COLIC WO from 10/22/2023 FINDINGS: UTERUS: Anteverted. 7.8 x 3.2 x 3.6 cm Endometrium: 4 mm Myometrium: Unremarkable. Cervix: Nabothian cysts OVARIES: Right: Cyst or mass: None. Left: Cyst or mass: None. DOPPLER: Color: Symmetric and uniform flow to both ovaries. No hyperemia. CUL-DE-SAC: Free fluid: None. IMPRESSION: 1. Normal-appearing uterus with endometrial stripe within normal limits. 2. Unremarkable bilateral ovaries. DATA REPOSITORY:
== END 2024-07-02 03:07 ==
LOC: DI 02:47
PROVIDERS: PCP Physician Assistant; Visit Provider Obstetrics & Gynecology
DX: N93.8 Other specified abnormal uterine and vaginal bleeding (principal)
CPT/HCPCS: 36415; 86003; 76830; 76856; 84443; 85025

== ENCOUNTER 2024-07-02 03:31 | Outpatient (CLI) | payer MEDICARE, MEDICAID, SELFPAY ==
[2024-07-02 12:50] LABS: Abs Immature Grans 0.06 10^3/uL (0.0-0.06); Absolute Basophil Count 0.03 10^3/uL (0.0-0.2); Absolute Eosinophil Count 0.18 10^3/uL (0.0-0.7); Absolute Monocyte Count 0.71 10^3/uL (0.1-0.8); Absolute Neutrophil Count 4.94 10^3/uL (1.2-6.7); Basophils % 0.3 %; HCT 38.2 % (36.0-46.0); HGB 12.8 g/dL (11.2-15.7); Immature Grans % 0.7 %; Lymphocytes % 32.9 %; MCH 28.8 pg (27.0-33.0); MCHC 33.5 % (32.0-36.0); MCV 86 fL (80-95); Neutrophils % 56.1 %; Platelet Count 411 10^3/uL (130-400); RBC 4.45 10^6/uL (3.93-5.22); RDW 13.8 % (11.7-14.6); RDW-SD 43.4 fL; WBC 8.82 10^3/uL (4.4-10.8)
[2024-07-02 13:32] LABS: TSH (W/Ref FT4) 0.96 uIU/mL (0.36-3.74)
[2024-07-07 00:03] LABS: Alternaria Tenuis IgE <0.10 kU/L (<0.70); Aspergillus Fumigatus IgE <0.10 kU/L (<0.70); Bermuda Grass IgE <0.10 kU/L (<0.70); Cat Epithelium IgE <0.10 kU/L (<0.70); Cladosporium IgE <0.10 kU/L (<0.70); Cocklebur IgE <0.10 kU/L (<0.70); Cockroach IgE <0.10 kU/L (<0.70); Cottonwood IgE <0.10 kU/L (<0.70); D Farinae IgE <0.10 kU/L (<0.70); D Pteronyssinus IgE <0.10 kU/L (<0.70); Dog Dander IgE <0.10 kU/L (<0.70); Eastern Sycamore IgE <0.10 kU/L (<0.70); Elm IgE <0.10 kU/L (<0.70); Epicoccum purpurascens IgE <0.10 kU/L (<0.70); Fusarium moniliforme, IgE <0.10 kU/L (<0.70); Giant Ragweed IgE <0.10 kU/L (<0.70); Lamb's Quarter IgE <0.10 kU/L (<0.70); Oak IgE <0.10 kU/L (<0.70); Penicillium chrysogenum IgE <0.10 kU/L (<0.70); Red Sorrel IgE <0.10 kU/L (<0.70); Rough Pigweed IgE <0.10 kU/L (<0.70); Short Ragweed IgE <0.10 kU/L (<0.70); Silver Birch IgE <0.10 kU/L (<0.70); Stemphyllium IgE <0.10 kU/L (<0.70); Timothy Grass IgE <0.10 kU/L (<0.70); Walnut Tree IgE <0.10 kU/L (<0.70); Wormwood IgE <0.10 kU/L (<0.70)
[2024-07-07 10:02] LABS: CLASS 0; Cedar Red IgE <0.10 kU/L (<0.35); Rhodotorula IgE <0.35 kU/L (<0.35)
== END 2024-07-02 03:32 | disposition home or self-care (01) ==
LOC: LBO 03:32
PROVIDERS: Physician Assistant; PCP Physician Assistant; Visit Provider Obstetrics & Gynecology
DX: Z91.09 Other allergy status, other than to drugs and biological substances (principal); J45.909 Unspecified asthma, uncomplicated; N93.8 Other specified abnormal uterine and vaginal bleeding
CPT/HCPCS: 36415; 86003; 84443; 85025

== ENCOUNTER → 2024-07-23 13:44 | Outpatient (BNVA) | payer MEDICARE, MEDICAID, SELFPAY | PROVIDERS: PCP Physician Assistant; Referring Provider Physician Assistant; Visit Provider Student in an Organized Health Care Education/Training Program | DX: M65.4 Radial styloid tenosynovitis [de Quervain] (principal) | CPT/HCPCS: 20550; 99213; J1010 ==

== ENCOUNTER 2024-08-12 18:17 | Emergency (ER) | payer MEDICARE, MEDICAID, SELFPAY ==
[2024-08-12] VITALS (22 sets, daily range): BP systolic 109–128; BP diastolic 55–93; PULSE 86–108; RESP 13–21; TEMP 36.3; O2SAT 95–98
--- NOTE | 2024-08-12 18:40 | W.ED.GENAD ---
Discharge Plan Disposition Patient Disposition: Home Discharge Details Clinical Impression: Periapical abscess, Pain, dental, Chest pain, unspecified Primary Care Provider: Moiz Dutta ED Provider: Shakeel Bullock Tyrone Meds and New Rx's Prescriptions: New clindamycin HCl [Cleocin HCl] 150 mg capsule 450 mg PO Q6H 10 Days Qty: 120 0RF Continued epinephrine 0.3 mg/0.3 mL Auto-Injector 0.3 mg IM ONCE metformin 500 mg Tablet 500 mg PO BID norethindrone (contraceptive) 0.35 mg tablet 0.35 mg PO DAILY Qty: 84 4RF (DME) lancets [FreeStyle Lancets] 28 gauge misc See Rx Instructions .ROUTE .MEDSUPPLY Qty: 100 Rx Instructions: As directed (DME) FreeStyle Lite Strips Strip See Rx Instructions .ROUTE .MEDSUPPLY Qty: 10 Rx Instructions: As directed (DME) pen needle, diabetic [BD Ultra-Fine Sona Pen Needle] 32 gauge x 5/32 needle See Rx Instructions .ROUTE .MEDSUPPLY Qty: 50 Rx Instructions: As directed omeprazole 40 mg capsule,delayed release(DR/EC) 40 mg PO DAILY diazepam [Valium] 2 mg tablet 2 mg PO DAILY PRN fluticasone propionate [Flonase Allergy Relief] 50 mcg/actuation spray,suspension 1 spray intranasal BID PRN Rx Instructions: administer into each nostril Vraylar 4.5 mg capsule 4.5 mg PO DAILY methocarbamol 500 mg tablet 500 mg PO QHS atorvastatin 10 mg tablet 10 mg PO DAILY oxcarbazepine 150 mg tablet 150 mg PO BID Patient Comments: 06/26/24- pt reports takes one tablet in the am and two tablets at night cetirizine 10 mg tablet 10 mg PO DAILY PRN albuterol sulfate [ProAir HFA] 90 mcg/actuation HFA aerosol inhaler 2 puff inhalation Q6H PRNQty: 6.7 2RF acetaminophen [Tylenol Extra Strength] 500 mg Tablet 1,000 mg PO Q6H PRN insulin glargine [Lantus Solostar U-100 Insulin] 100 unit/mL (3 mL) insulin pen 30 unit SUBCUT BID quetiapine 300 mg tablet 600 mg PO QHS gabapentin 100 mg capsule 300 mg PO BID Patient Comments: TAKE 1 CAPSULE BY MOUTH TWICE A DAY Discharge Instructions Instructions: Chest Pain (DC), Dental Pain Additional Instructions: You are seen in the emergency department for your dental chest pain. You likely have a small infection prior to this for which you are receiving oral antibiotics that you should take as directed. Please follow-up with your dentist. Please return the emergency department if you develop worsening pain or any difficulty breathing or swallowing. You are also seen for your chest pain. Your EKG was reassuring your x-ray showed no sign of pneumonia and your blood work showed no sign of any acute injury to your heart. Please follow-up with your primary care provider. HPI General Date/Time Provider Initiated Documentation: 08/12/24 18:40. HPI Narrative: MDM This is an overall very well-appearing mildly tachycardic but afebrile 34-year-old female with right mandibular dental pain and plans about dental erosion with percussive tenderness concerning for periapical abscess for which patient will receive empiric trial of discharge with expectant dental follow-up on outpatient clindamycin. No pain or proportion to suggest necrotizing soft tissue infection. No brawny edema submentally to suggest Soto's angina. Good range of motion in the neck so I am not concerned for retropharyngeal abscess. Her uvula is midline so doubt peritonsillar abscess. No fevers to suggest strep pharyngitis. No neck pain to suggest meningitis. Patient does have a dentist and she will continue to be persistent. We discussed that she should return to the ED if she cannot tolerate her antibiotics as result of nausea or vomiting if you develop any neck pain or difficulty swallowing. She understood her return indications and was discharged with empiric trial of expectant outpatient management. She does reportedly have anaphylaxis to penicillin so we will treat with clindamycin 450 mg every 6 hours. 8:13 PM Patient subsequently told her nurse that she was having chest pain. I met with the patient. She has a history of hypertension and hyperlipidemia. She says that she intermittently had some shortness of breath yesterday when her chest pain began. She says that that is sharp. Denies any radiation. No history of PEs or DVTs although patient does take an oral contraceptive pill. No tearing quality to suggest pneumothorax. No recent URI symptoms or fevers no positional component to suggest pericarditis. Not a dialysis patient and not hypotensive so doubt tamponade. No history of recent emesis to suggest increased risk for esophageal rupture. Patient is not PERC negative so we will obtain a D-dimer. Initial reassuring troponin. CBC lacks anemia thrombocytopenia leukocytosis. Negative hCG. This metabolic panel showing mild hyperglycemia but no anion gap and normal bicarbonate?not consistent with DKA. No CINDI. 8:45 PM Negative D-dimer. 9:07 PM Reassuring delta 1 hour troponin not consistent with acute injury pattern. I met with the patient and explained to her reassuring lab work and chest x-ray. We discussed that she should return to ED if she developed a syncopal episodes any nausea or vomiting that did not stop or any weakness. She understood her return indications discharged with empiric trial of expectant outpatient management. Chronic conditions affecting the care of the patient: Hyperlipidemia diabetes History obtained from an outside historian: N/A External record review: N/A Diagnostic interpretations performed by me: Per my independent interpretation chest x-ray shows: No acute cardiopulmonary process Per my independent interpretation EKG shows: Narrow complex normal sinus rhythm at a rate of 90. Normal axis. Intervals within normal limits. No ST segment abnormalities. No T wave versions beyond T wave inversion in lead III. No acute injury pattern. Appears similar to prior dated last year. ]Medications: Clindamycin Social determinants of health affecting disposition: N/A Management discussed with: N/A Treatment/interventions considered: N/A Response to therapies provided: N/A HPI This is a 34-year-old female history of diabetes hyperlipidemia arrived to the emergency department via private vehicle in setting of right mandibular jaw pain and tooth ache. Patient reports that she has intermittently had symptoms for the last 3 weeks. 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 She denies fevers difficulty breathing. She denies any trauma to her jaw. She denies sore throat. She denies routine tobacco and ethanol but occasionally uses marijuana. Exam General: Well-appearing in no acute distress speaking in complete sentences. Head: Normocephalic, atraumatic. Eye: Extraocular eye movements intact. No conjunctival injection. No scleral icterus. Ear, nose, mouth, throat: There is percussive tenderness and an erosion of the patient's right mandibular premolar. Uvula midline. Normal voice, handling secretions normally. No significant tonsillar exudates. Neck: Trachea midline. Good range of motion in neck. Cardiovascular: Well-perfused distal extremities. Regular rate and rhythm Respiratory: Nonlabored respiration. Clear lungs bilaterally Gastrointestinal: Nondistended abdomen. Musculoskeletal: No edema. Moving all 4 extremities spontaneously. Skin: Normal for age and race, grossly normal temperature and turgor. No acute rash. Neurologic: Alert and appropriate, no apparent acute deficits. Psychiatric: Mood and manner are appropriate. Grooming and personal hygiene are appropriate. Related Data Home Medications ?Medication ?Instructions ?Recorded ?Confirmed blood sugar diagnostic (FreeStyle #10 ea 10/10/20 08/12/24 Lite Strips) lancets 28 gauge (FreeStyle #100 ea 10/10/20 08/12/24 Lancets) omeprazole 40 mg capsule,delayed 40 mg PO DAILY 10/10/20 08/12/24 release pen needle, diabetic 32 gauge x #50 ea 10/10/20 08/12/24 (BD Ultra-Fine Sona Pen Needle) epinephrine 0.3 mg/0.3 mL 0.3 mg IM ONCE 12/29/20 08/12/24 injection, auto-injector metformin 500 mg tablet 500 mg PO BID 12/29/20 08/12/24 acetaminophen 500 mg tablet 1,000 mg PO Q6H PRN 01/31/21 08/12/24 (Tylenol Extra Strength) atorvastatin 10 mg tablet 10 mg PO DAILY 08/11/21 08/12/24 oxcarbazepine 150 mg tablet 150 mg PO BID 08/11/21 08/12/24 insulin glargine 100 unit/mL (3 30 unit subcut BID 10/26/22 08/12/24 mL) subcutaneous pen (Lantus Solostar U-100 Insulin) quetiapine 300 mg tablet 600 mg PO QHS 12/06/22 08/12/24 gabapentin 100 mg capsule 300 mg PO BID 03/16/23 08/12/24 albuterol sulfate 90 mcg/actuation 2 puff inhalation Q6H PRN #6.7 04/04/23 08/12/24 aerosol inhaler (ProAir HFA) grams cetirizine 10 mg tablet 10 mg PO DAILY PRN 03/09/24 08/12/24 diazepam 2 mg tablet (Valium) 2 mg PO DAILY PRN 05/07/24 08/12/24 fluticasone propionate 50 1 spray intranasal BID PRN 05/07/24 08/12/24 mcg/actuation nasal spray,suspension (Flonase Allergy Relief) norethindrone (contraceptive) 0.35 0.35 mg PO DAILY #84 tabs 05/12/24 08/12/24 mg tablet cariprazine 4.5 mg capsule 4.5 mg PO DAILY 06/26/24 08/12/24 (Vraylar) methocarbamol 500 mg tablet 500 mg PO QHS 06/26/24 08/12/24 clindamycin HCl 150 mg capsule 450 mg (3 x 150 mg) PO Q6H 10 days 08/12/24 (Cleocin HCl) #120 caps Previous Rx's ?Medication ?Instructions ?Recorded albuterol sulfate 90 mcg/actuation 2 puff inhalation Q6H PRN #6.7 04/04/23 aerosol inhaler (ProAir HFA) grams norethindrone (contraceptive) 0.35 0.35 mg PO DAILY #84 tabs 05/12/24 mg tablet clindamycin HCl 150 mg capsule 450 mg (3 x 150 mg) PO Q6H 10 days 08/12/24 (Cleocin HCl) #120 caps Allergies Allergy/AdvReac Type Severity Reaction Status Date / Time naproxen (From Aleve) Allergy Severe Anaphylaxis Verified 08/12/24 18:31 cephalexin (From Keflex) Allergy Intermediate Hives Verified 08/12/24 18:31 latex Allergy Intermediate Itching Verified 08/12/24 18:31 cat dander Allergy Other (See Verified 08/12/24 18:31 Comment) dog dander Allergy Other (See Verified 08/12/24 18:31 Comment) topiramate Allergy Other (See Unverified 08/12/24 18:31 Comment) venom-honey bee Allergy Other (See Verified 08/12/24 18:31 Comment) bupropion (From Wellbutrin) AdvReac rapid Verified 08/12/24 18:31 heart rate seasonal Allergy Other (See Uncoded 08/12/24 18:31 Comment) General Stated Complaint: DentalOral SUZETTE: 4 Course Vital Signs Vital signs: Vital Signs Temperature 36.3 C L 08/12/24 18:26 Pulse 108 H 08/12/24 18:26 Respiratory Rate 16 08/12/24 18:26 Blood Pressure 124/90 08/12/24 18:26 Pulse Oximetry 96 08/12/24 18:26 Temperature 36.3 C L 08/12/24 18:26 Temperature Source Temporal Artery Scan 08/12/24 18:26 Pulse 108 H 08/12/24 18:26 Respiratory Rate 16 08/12/24 18:26 Blood Pressure 124/90 08/12/24 18:26 Blood Pressure Position Sitting 08/12/24 18:26 Pulse Oximetry 96 08/12/24 18:26 Oxygen Delivery Method Room Air 08/12/24 18:26 Oxygen Flow Rate 0 08/12/24 18:26 Pain Level 9 08/12/24 18:26 Medical Decision Making Quality:SDOH Health Related Social Needs: No Data to Display PFSH All Active Problems (Updated 08/12/24 @ 20:51 by Shakeel Bullock MD) Chest pain, unspecified (Acute) Pain, dental (Acute) Periapical abscess (Acute) De Quervain's tenosynovitis, left (Acute) Steroid injection: 07/23/2024 DUB (dysfunctional uterine bleeding) (Acute) Acute bacterial sinusitis (Acute) Tonsillar hypertrophy (Acute) Dysphagia (Acute) Ear itch (Acute) Xerostomia (Acute) Environmental allergies (Acute) Dysmenorrhea (Acute) Medical History Seasonal allergies Low back pain Type 2 diabetes mellitus Obesity History of recurrent UTI (urinary tract infection) Tachycardia Sleep apnea Left hip pain GERD (gastroesophageal reflux disease) Borderline personality disorder Suicidal ideation Anxiety HTN (hypertension) PTSD (post-traumatic stress disorder) ADHD Asthma Diverticulitis Schizoaffective disorder Pain, joint, knee, right Hyperlipidemia Pain of left calf History of irregular menstrual bleeding Depression Nausea PCOS (polycystic ovarian syndrome) Surgical History H/O laparoscopy History of cholecystectomy History of appendectomy Family History Mother Diabetes Social History Smoking/Tobacco Use Status: Former Tobacco Use Smoking risk assessment performed?: Yes Alcohol Intake: current Alcohol Intake frequency: holidays/special occasions only Drug use: Occasionally Substance use type: marijuana Details: Edibles most days to help with sleep and pain. Household members: family Housing: apartment Number of Children: 0 current occupation: Unemployed Current gender identity: female What type of physical activity do you participate in: walking, independent ambulation and irregular exercise Do you feel safe at home: Yes Do you feel safe in your relationship?: Yes Female Reproductive History Menstrual Duration of menses: 3-5 days control method: pills (POP) History History 2 Para Hx # Term Pregnancies Multiple births Hx # Pregnancies Ectopic pregnancies AB induced Hx Number of Living Children AB spontaneous 2
[2024-08-12] MEDS: Clindamycin 150 MG CAP 450 MG PO (18:55)
[2024-08-12] MEDS: Acetaminophen 500 MG TAB 1000 MG PO (18:56)
--- NOTE | 2024-08-12 19:00 | DI.RAD_ITS ---
Exam(s) XR PORTABLE CHEST AP EXAM: XR PORTABLE CHEST AP CLINICAL HISTORY: Chest pain. TECHNIQUE: 2D digital imaging was performed. COMPARISON: CR,XR XR CHEST 2V PA LATERAL from 12/14/2023 FINDINGS: Single AP portable view. Heart size is upper normal. The mediastinum is not widened. Lungs are clear. No infiltrates nor obvious pleural effusions. IMPRESSION: No acute pulmonary findings on this single AP portable view of the chest. DATA REPOSITORY: RADIATION DOSE DELIVERED:
--- NOTE | 2024-08-12 19:15 | RT.EKG_ITS ---
APPROVED REPORT Exam: Resting ECG Reason for Exam: Chest pain Patient Location: E HR:90 bpm ECG Measurements Heart Rate 90 AXIS MI 138 P 11 QRSd 85 QRS -3 QT 346 T 21 QTc 423 Conclusion Sinus rhythm...normal P axis, V-rate 60- 99 Narrow complex normal sinus rhythm at a rate of 90. Normal axis. Intervals within normal limits. N o ST segment abnormalities. No T wave versions beyond T wave inversion in lead III. No acute injury pattern. Appears similar to prior dated last year.
[2024-08-12 19:42] LABS: Abs Immature Grans 0.04 10^3/uL (0.0-0.06); Absolute Basophil Count 0.03 10^3/uL (0.0-0.2); Absolute Eosinophil Count 0.21 10^3/uL (0.0-0.7); Absolute Monocyte Count 0.92 10^3/uL (0.1-0.8); Absolute Neutrophil Count 5.65 10^3/uL (1.2-6.7); Basophils % 0.3 %; HCT 37.9 % (36.0-46.0); HGB 12.8 g/dL (11.2-15.7); Immature Grans % 0.4 %; Lymphocytes % 33.8 %; MCHC 33.8 % (32.0-36.0); MCV 86 fL (80-95); MPV 9.3 fL (8.0-11.0); Monocytes % 8.9 %; Neutrophils % 54.6 %; Platelet Count 392 10^3/uL (130-400); RBC 4.41 10^6/uL (3.93-5.22); RDW 13.4 % (11.7-14.6); RDW-SD 41.7 fL; WBC 10.35 10^3/uL (4.4-10.8)
[2024-08-12 19:57] LABS: HCG Qual (Serum) Negative
[2024-08-12 19:59] LABS: Anion Gap 10.1 mmol/L (3-11); BUN 15 mg/dL (7-18); CO2 27.9 mmol/L (21.0-32.0); Calcium 9.3 mg/dL (8.5-10.1); Chloride 103 mmol/L (98-107); Estimated GFR 74.88 (mL/min/1.73m2); Glucose 171 mg/dL (74-106); Potassium 3.9 mmol/L (3.5-5.1); Sodium 141 mmol/L (136-145); Troponin I 4 ng/L (<or=51)
[2024-08-12 20:19] LABS: D-Dimer 330 ng/mlFEU (<500)
--- NOTE | 2024-08-12 20:48 | DI.VRAD_ITS ---
PROCEDURE INFORMATION: Exam: XR Chest Exam date and time: 08/12/2024 7:48 PM Age: 34 years old Clinical indication: Chest wall pain; Additional info: Chest pain TECHNIQUE: Imaging protocol: Radiologic exam of the chest. Views: 1 view. COMPARISON: CR XR CHEST 2V PA LATERAL 12/14/2023 5:25 PM FINDINGS: Lungs: The lungs are clear. There is no pulmonary vascular congestion. Pleural spaces: There are no pleural effusions present. There is no evidence of pneumothorax. Heart/Mediastinum: The cardiomediastinal silhouette is within normal limits. Bones/joints: Unremarkable. IMPRESSION: No active cardiopulmonary disease identified. Dictated and Authenticated by: Shakeel Rutledge MD. Ordering:RONY Beckford MD
[2024-08-12 20:59] LABS: Troponin I < 4 ng/L (<or=51)
== END 2024-08-12 21:17 | disposition home or self-care (01) ==
PROVIDERS: Emergency Provider Emergency Medicine; PCP Physician Assistant
DX: K04.7 Periapical abscess without sinus (principal); K08.89 Other specified disorders of teeth and supporting structures; R07.9 Chest pain, unspecified; E11.9 Type 2 diabetes mellitus without complications; I10 Essential (primary) hypertension; E78.5 Hyperlipidemia, unspecified; Z79.4 Long term (current) use of insulin; Z79.84 Long term (current) use of oral hypoglycemic drugs
CPT/HCPCS: 36415; 80048; 82962; 93005; 99285; 71045; 84484; 84703; 85025; 85379; 93010; 99284

== ENCOUNTER 2024-08-31 15:27 | Emergency (ER) | payer OTHER, SELFPAY ==
[2024-08-31 15:40] VITALS: BP 129/84; PULSE 105; TEMP 37; O2SAT 94
--- NOTE | 2024-08-31 16:35 | DI.RAD_ITS ---
Exam(s) XR ANKLE LT COMPLETE EXAM: XR ANKLE LT COMPLETE CLINICAL HISTORY: L ankle pain after rolling ankle TECHNIQUE: 2D digital imaging was performed of the left ankle. Three images were obtained. AP, lat eral and oblique views were obtained. COMPARISON: There are no priors for comparison. FINDINGS: BONES: No acute fracture is present. No bony destructive lesion is seen. There is a large plantar ramakrishna caneal spur. There is an enthesophyte at the posterior calcaneus. JOINTS:The ankle mortise is normally aligned. SOFT TISSUE: Normal. IMPRESSION: No acute fracture or dislocation. DATA REPOSITORY: RADIATION DOSE DELIVERED:
[2024-08-31] MEDS: Acetaminophen 500 MG TAB 1000 MG PO (17:15)
--- NOTE | 2024-08-31 17:21 | ED.GENADUL_ITS ---
Discharge Plan Disposition Patient Disposition: Home Condition: Good Discharge Details Clinical Impression: Ankle sprain Primary Care Provider: Moiz Dutta ED Provider: Alesia Lopez Home Meds and New Rx's Prescriptions: Continued epinephrine 0.3 mg/0.3 mL Auto-Injector 0.3 mg IM ONCE metformin 500 mg Tablet 500 mg PO BID norethindrone (contraceptive) 0.35 mg tablet 0.35 mg PO DAILY Qty: 84 4RF (DME) lancets [FreeStyle Lancets] 28 gauge misc See Rx Instructions .ROUTE .MEDSUPPLY Qty: 100 Rx Instructions: As directed (DME) FreeStyle Lite Strips Strip See Rx Instructions .ROUTE .MEDSUPPLY Qty: 10 Rx Instructions: As directed (DME) pen needle, diabetic [BD Ultra-Fine Sona Pen Needle] 32 gauge x 5/32 needle See Rx Instructions .ROUTE .MEDSUPPLY Qty: 50 Rx Instructions: As directed omeprazole 40 mg capsule,delayed release(DR/EC) 40 mg PO DAILY diazepam [Valium] 2 mg tablet 2 mg PO DAILY PRN fluticasone propionate [Flonase Allergy Relief] 50 mcg/actuation spray,suspension 1 spray intranasal BID PRN Rx Instructions: administer into each nostril Vraylar 4.5 mg capsule 4.5 mg PO DAILY methocarbamol 500 mg tablet 500 mg PO QHS atorvastatin 10 mg tablet 10 mg PO DAILY oxcarbazepine 150 mg tablet 150 mg PO BID Patient Comments: 06/26/24- pt reports takes one tablet in the am and two tablets at night cetirizine 10 mg tablet 10 mg PO DAILY PRN albuterol sulfate [ProAir HFA] 90 mcg/actuation HFA aerosol inhaler 2 puff inhalation Q6H PRNQty: 6.7 2RF acetaminophen [Tylenol Extra Strength] 500 mg Tablet 1,000 mg PO Q6H PRN insulin glargine [Lantus Solostar U-100 Insulin] 100 unit/mL (3 mL) insulin pen 30 unit SUBCUT BID quetiapine 300 mg tablet 600 mg PO QHS gabapentin 100 mg capsule 300 mg PO BID Patient Comments: TAKE 1 CAPSULE BY MOUTH TWICE A DAY Discharge Instructions Instructions: Ankle Sprain ED Additional Instructions: Your x-ray was reassuring, no ankle fracture noted at this time. Please use the lace up stabilizer to help you with pain and support your ankle when you are walking. I recommend you start gentle ankle mobilization exercises as well. Alternate Tylenol and ibuprofen as needed for discomfort. Elevate leg above heart level to help with swelling. Use ice 10 to 15 minutes every hour as needed for pain. I recommend a follow-up with your primary care provider if you are not feeling significantly better in 3 weeks, as physical therapy may be helpful. Referrals: Moiz Dutta [Primary Care Provider] - Discharge Data Discharge Date/Time-TO BE ENTERED AT DEPARTURE: 08/31/24 17:30 HPI General Date/Time Provider Initiated Documentation: 08/31/24 15:40 . HPI Narrative: Deanne is a 34 year old female who presents to the emergency department today for evaluation of left ankle pain. 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 She has limited range of motion due to discomfort. No distal numbness/tingling. No pain in knee or lower leg/renteria. She took Tylenol prior to arrival, is able to take ibuprofen as well. She has a history of right ankle sprain. Physical exam reassuring, generalized tenderness with palpation around lateral malleolus. Mild swelling. No overlying ecchymosis/abrasion/laceration/skin tears. Limited range of motion due to pain. Sensation and motion to toes intact. Brisk cap refill. Dorsal pulses intact. No pain with palpation of lower leg or knee. Patient is alert and oriented, no acute distress. D/dx includes but is not limited to: Fracture, sprain I independently interpreted the following tests: Left ankle x-ray, no obvious fractures, dislocations, or other bony abnormalities noted. This was confirmed by radiologist. While in the emergency department, [Deanne] received Tylenol for discomfort and ice. Lace up ankle splint provided. History and presentation consistent with ankle sprain. Reviewed discharge instructions with patient, including symptomatic management and concerning findi ngs that may indicate need for PT evaluation. Related Data Home Medications ?Medication ?Instructions ?Recorded ?Confirmed blood sugar diagnostic (FreeStyle #10 ea 10/10/20 08/31/24 Lite Strips) lancets 28 gauge (FreeStyle #100 ea 10/10/20 08/31/24 Lancets) omeprazole 40 mg capsule,delayed 40 mg PO DAILY 10/10/20 08/31/24 release pen needle, diabetic 32 gauge x #50 ea 10/10/20 08/31/24 (BD Ultra-Fine Sona Pen Needle) epinephrine 0.3 mg/0.3 mL 0.3 mg IM ONCE 12/29/20 08/31/24 injection, auto-injector metformin 500 mg tablet 500 mg PO BID 12/29/20 08/31/24 acetaminophen 500 mg tablet 1,000 mg PO Q6H PRN 01/31/21 08/31/24 (Tylenol Extra Strength) atorvastatin 10 mg tablet 10 mg PO DAILY 08/11/21 08/31/24 oxcarbazepine 150 mg tablet 150 mg PO BID 08/11/21 08/31/24 insulin glargine 100 unit/mL (3 30 unit subcut BID 10/26/22 08/31/24 mL) subcutaneous pen (Lantus Solostar U-100 Insulin) quetiapine 300 mg tablet 600 mg PO QHS 12/06/22 08/31/24 gabapentin 100 mg capsule 300 mg PO BID 03/16/23 08/31/24 albuterol sulfate 90 mcg/actuation 2 puff inhalation Q6H PRN #6.7 04/04/23 08/31/24 aerosol inhaler (ProAir HFA) grams cetirizine 10 mg tablet 10 mg PO DAILY PRN 03/09/24 08/31/24 diazepam 2 mg tablet (Valium) 2 mg PO DAILY PRN 05/07/24 08/31/24 fluticasone propionate 50 1 spray intranasal BID PRN 05/07/24 08/31/24 mcg/actuation nasal spray,suspension (Flonase Allergy Relief) norethindrone (contraceptive) 0.35 0.35 mg PO DAILY #84 tabs 05/12/24 08/31/24 mg tablet cariprazine 4.5 mg capsule 4.5 mg PO DAILY 06/26/24 08/31/24 (Vraylar) methocarbamol 500 mg tablet 500 mg PO QHS 06/26/24 08/31/24 Previous Rx's ?Medication ?Instructions ?Recorded albuterol sulfate 90 mcg/actuation 2 puff inhalation Q6H PRN #6.7 04/04/23 aerosol inhaler (ProAir HFA) grams norethindrone (contraceptive) 0.35 0.35 mg PO DAILY #84 tabs 05/12/24 mg tablet Allergies Allergy/AdvReac Type Severity Reaction Status Date / Time naproxen (From Aleve) Allergy Severe Anaphylaxis Verified 08/12/24 18:31 cephalexin (From Keflex) Allergy Intermediate Hives Verified 08/12/24 18:31 latex Allergy Intermediate Itching Verified 08/12/24 18:31 cat dander Allergy Other (See Verified 08/12/24 18:31 Comment) dog dander Allergy Other (See Verified 08/12/24 18:31 Comment) topiramate Allergy Other (See Unverified 08/12/24 18:31 Comment) venom-honey bee Allergy Other (See Verified 08/12/24 18:31 Comment) bupropion (From Wellbutrin) AdvReac rapid Verified 08/12/24 18:31 heart rate seasonal Allergy Other (See Uncoded 08/12/24 18:31 Comment) General Stated Complaint: Orthopedic SUZETTE: 4 Review of Systems Narrative: see HPI Exam Const General: cooperative, healthy appearing, comfortable, no acute distress and well developed Nutritional Appearance: overweight Resp Effort & Inspection: normal respiratory effort and able to speak in complete sentences Extrem General: no pedal edema and no calf tenderness Left lower extremity: normal capillary refill and ankle Details: tenderness Location: of the medial malleolus (no point tenderness), swelling (mild) Details: medially and abnormal ROM (decreased due to pain); no abrasions, no lacerations, no ecchymosis, no crepitus, no foreign bodies and no penetrating wound Course Vital Signs Vital signs: Vital Signs Temperature 37.0 C 08/31/24 15:40 Pulse 105 H 08/31/24 15:40 Blood Pressure 129/84 08/31/24 15:40 Pulse Oximetry 94 08/31/24 15:40 Temperature 37.0 C 08/31/24 15:40 Pulse 105 H 08/31/24 15:40 Respiratory Effort Normal 08/31/24 15:43 Blood Pressure 129/84 08/31/24 15:40 Pulse Oximetry 94 08/31/24 15:40 Pain Level 8 08/31/24 15:40 Lab/Test Results Lab/Test Results: POC- Test(urine) Negative Medical Decision Making Imaging Data Radiologic Study: Radiologist's impression: Exam(s) XR ANKLE LT COMPLETE EXAM: XR ANKLE LT COMPLETE CLINICAL HISTORY: L ankle pain after rolling ankle TECHNIQUE: 2D digital imaging was performed of the left ankle. Three images were obtained. AP, lateral and oblique views were obtained. COMPARISON: There are no priors for comparison. FINDINGS: BONES: No acute fracture is present. No bony destructive lesion is seen. There is a large plantar calcaneal spur. There is an enthesophyte at the posterior calcaneus. JOINTS:The ankle mortise is normally aligned. SOFT TISSUE: Normal. IMPRESSION: No acute fracture or dislocation. Quality:SDOH Health Related Social Needs: No Data to Display PFSH All Active Problems (Updated 08/31/24 @ 17:15 by Alesia Bailey) Ankle sprain (Acute) Chest pain, unspecified (Acute) Pain, dental (Acute) Periapical abscess (Acute) De Quervain's tenosynovitis, left (Acute) Steroid injection: 07/23/2024 DUB (dysfunctional uterine bleeding) (Acute) Acute bacterial sinusitis (Acute) Tonsillar hypertrophy (Acute) Dysphagia (Acute) Ear itch (Acute) Xerostomia (Acute) Environmental allergies (Acute) Dysmenorrhea (Acute) Medical History Seasonal allergies Low back pain Type 2 diabetes mellitus Obesity History of recurrent UTI (urinary tract infection) Tachycardia Sleep apnea Left hip pain GERD (gastroesophageal reflux disease) Borderline personality disorder Suicidal ideation Anxiety HTN (hypertension) PTSD (post-traumatic stress disorder) ADHD Asthma Diverticulitis Schizoaffective disorder Pain, joint, knee, right Hyperlipidemia Pain of left calf History of irregular menstrual bleeding Depression Nausea PCOS (polycystic ovarian syndrome) Surgical History H/O laparoscopy History of cholecystectomy History of appendectomy Family History Mother Diabetes Social History Smoking/Tobacco Use Status: Former Tobacco Use Smoking risk assessment performed?: Yes Alcohol Intake: current Alcohol Intake frequency: holidays/special occasions only Drug use: Occasionally Substance use type: marijuana Details: Edibles most days to help with sleep and pain. Household members: family Housing: apartment Number of Children: 0 current occupation: Unemployed Current gender identity: female What type of physical activity do you participate in: walking, independent ambulation and irregular exercise Do you feel safe at home: Yes Do you feel safe in your relationship?: Yes Female Reproductive History Menstrual Duration of menses: 3-5 days control method: pills (POP) History History 2 Para Hx # Term Pregnancies Multiple births Hx # Pregnancies Ectopic pregnancies AB induced Hx Number of Living Children AB spontaneous 2
[2024-08-31 17:23] VITALS: BP 114/69; PULSE 98; O2SAT 96
[2024-08-31 17:27] VITALS: BP 114/69; PULSE 90; RESP 20; O2SAT 98
== END 2024-08-31 17:30 | disposition home or self-care (01) ==
PROVIDERS: Emergency Provider Nurse Practitioner Family; PCP Physician Assistant
DX: S93.402A Sprain of unspecified ligament of left ankle, initial encounter (principal); M77.32 Calcaneal spur, left foot; E11.9 Type 2 diabetes mellitus without complications; I10 Essential (primary) hypertension; E78.5 Hyperlipidemia, unspecified; Z79.84 Long term (current) use of oral hypoglycemic drugs; X50.1XXA Overexertion from prolonged static or awkward postures, initial encounter; Y93.01 Activity, walking, marching and hiking; Y92.89 Other specified places as the place of occurrence of the external cause; Y99.0 Civilian activity done for income or pay
CPT/HCPCS: 81025; 99284; 73610; 99283

== ENCOUNTER 2024-09-07 17:43 | Emergency (ER) | payer MEDICARE, MEDICAID, SELFPAY ==
[2024-09-07 17:50] VITALS: BP 117/88; PULSE 109; RESP 16; TEMP 36.8; O2SAT 96
--- NOTE | 2024-09-07 18:29 | W.ED.GENAD ---
Discharge Plan Disposition Patient Disposition: Home Condition: Stable Discharge Details Clinical Impression: Bronchitis Primary Care Provider: Moiz Dutta ED Provider: Bucky Nicholson Home Meds and New Rx's Prescriptions: New azithromycin 250 mg tablet See Rx Instructions .ROUTE .COMPLEX Qty: 6 0RF Rx Instructions: For 250 mg dose pack: take 500 mg today (day 1), then 250 mg for 4 days (days 2-5) Continued epinephrine 0.3 mg/0.3 mL Auto-Injector 0.3 mg IM ONCE metformin 500 mg Tablet 500 mg PO BID norethindrone (contraceptive) 0.35 mg tablet 0.35 mg PO DAILY Qty: 84 4RF (DME) lancets [FreeStyle Lancets] 28 gauge misc See Rx Instructions .ROUTE .MEDSUPPLY Qty: 100 Rx Instructions: As directed (DME) FreeStyle Lite Strips Strip See Rx Instructions .ROUTE .MEDSUPPLY Qty: 10 Rx Instructions: As directed (DME) pen needle, diabetic [BD Ultra-Fine Sona Pen Needle] 32 gauge x 5/32 needle See Rx Instructions .ROUTE .MEDSUPPLY Qty: 50 Rx Instructions: As directed omeprazole 40 mg capsule,delayed release(DR/EC) 40 mg PO DAILY diazepam [Valium] 2 mg tablet 2 mg PO DAILY PRN fluticasone propionate [Flonase Allergy Relief] 50 mcg/actuation spray,suspension 1 spray intranasal BID PRN Rx Instructions: administer into each nostril Vraylar 4.5 mg capsule 4.5 mg PO DAILY methocarbamol 500 mg tablet 500 mg PO QHS atorvastatin 10 mg tablet 10 mg PO DAILY oxcarbazepine 150 mg tablet 150 mg PO BID Patient Comments: 06/26/24- pt reports takes one tablet in the am and two tablets at night cetirizine 10 mg tablet 10 mg PO DAILY PRN albuterol sulfate [ProAir HFA] 90 mcg/actuation HFA aerosol inhaler 2 puff inhalation Q6H PRNQty: 6.7 2RF acetaminophen [Tylenol Extra Strength] 500 mg Tablet 1,000 mg PO Q6H PRN insulin glargine [Lantus Solostar U-100 Insulin] 100 unit/mL (3 mL) insulin pen 30 unit SUBCUT BID gabapentin 100 mg capsule 300 mg PO BID Patient Comments: TAKE 1 CAPSULE BY MOUTH TWICE A DAY Held quetiapine 300 mg tablet 600 mg PO QHS Hold Instructions: Resume on 09/13/24. HOLD WHILE TAKING AZITHROMYCIN Discharge Instructions Instructions: Azithromycin (Systemic), Bronchitis, Adult ED Additional Instructions: You were seen in the emergency department for your respiratory infection, have sent you home with a prescription for azithromycin, start this tomorrow. Please use therapeutic dosing of Tylenol (acetamenophen) & Advil (ibuprofen) in an alternating fashion as follows: Take 1000mg of Tylenol every 6 hours without missing doses- that is 4 times per day. [place] in between the Tylenol dosings, take 400-600mg of Advil also on a 6 hour schedule, that is also 4 times per day. The daily maximum dosing of Tylenol is 4000mg, and the daily maximum dosing of Advil is 2400mg. This is safe to do for weeks. Please note that some common cold medications & prescription pain medications may contain acetamenophen and you need to read OTC drug labels and factor that in to maximum daily dosings. Your workup is negative for any severe pneumonia, respiratory distress, blood clot of the lungs Please return to the ER for any emergent concerns or respiratory distress Referrals: Bucky Nicholson PA [Emergency Provider] - Discharge Data Discharge Date/Time-TO BE ENTERED AT DEPARTURE: 09/07/24 21:52 HPI General Date/Time Provider Initiated Documentation: 09/07/24 18:29. HPI Narrative: 34 year-old female presents to ED today by POV/ambulating with a chief complaint of productive cough with green sputum, sometimes blood-tinged with onset two weeks ago. Quality described as cough, shortness of breath worse over the past 2 days, no radiation to chest pain, nausea/vomiting, profound lethargy, inability to tolerate PO intake, diarrhea. Severity is described as moderate. Palliating factors include nothing specific. Provoking factors include nothing specific. Events leading up to the incident/Associated Symptoms: Patient does take OCPs. Patient not anticoagulated. Related Data Home Medications ?Medication ?Instructions ?Recorded ?Confirmed blood sugar diagnostic (FreeStyle #10 ea 10/10/20 09/07/24 Lite Strips) lancets 28 gauge (FreeStyle #100 ea 10/10/20 09/07/24 Lancets) omeprazole 40 mg capsule,delayed 40 mg PO DAILY 10/10/20 09/07/24 release pen needle, diabetic 32 gauge x #50 ea 10/10/20 09/07/2432 (BD Ultra-Fine Sona Pen Needle) epinephrine 0.3 mg/0.3 mL 0.3 mg IM ONCE 12/29/20 09/07/24 injection, auto-injector metformin 500 mg tablet 500 mg PO BID 12/29/20 09/07/24 acetaminophen 500 mg tablet 1,000 mg PO Q6H PRN 01/31/21 09/07/24 (Tylenol Extra Strength) atorvastatin 10 mg tablet 10 mg PO DAILY 08/11/21 09/07/24 oxcarbazepine 150 mg tablet 150 mg PO BID 08/11/21 09/07/24 insulin glargine 100 unit/mL (3 30 unit subcut BID 10/26/22 09/07/24 mL) subcutaneous pen (Lantus Solostar U-100 Insulin) quetiapine 300 mg tablet 600 mg PO QHS 12/06/22 09/07/24 gabapentin 100 mg capsule 300 mg PO BID 03/16/23 09/07/24 albuterol sulfate 90 mcg/actuation 2 puff inhalation Q6H PRN #6.7 04/04/23 09/07/24 aerosol inhaler (ProAir HFA) grams cetirizine 10 mg tablet 10 mg PO DAILY PRN 03/09/24 09/07/24 diazepam 2 mg tablet (Valium) 2 mg PO DAILY PRN 05/07/24 09/07/24 fluticasone propionate 50 1 spray intranasal BID PRN 05/07/24 09/07/24 mcg/actuation nasal spray,suspension (Flonase Allergy Relief) norethindrone (contraceptive) 0.35 0.35 mg PO DAILY #84 tabs 05/12/24 09/07/24 mg tablet cariprazine 4.5 mg capsule 4.5 mg PO DAILY 06/26/24 09/07/24 (Vraylar) methocarbamol 500 mg tablet 500 mg PO QHS 06/26/24 09/07/24 azithromycin 250 mg tablet See Rx Instructions PO .COMPLEX #6 09/07/24 tabs Previous Rx's ?Medication ?Instructions ?Recorded albuterol sulfate 90 mcg/actuation 2 puff inhalation Q6H PRN #6.7 04/04/23 aerosol inhaler (ProAir HFA) grams norethindrone (contraceptive) 0.35 0.35 mg PO DAILY #84 tabs 05/12/24 mg tablet azithromycin 250 mg tablet See Rx Instructions PO .COMPLEX #6 09/07/24 tabs Allergies Allergy/AdvReac Type Severity Reaction Status Date / Time naproxen (From Aleve) Allergy Severe Anaphylaxis Verified 09/07/24 17:52 cephalexin (From Keflex) Allergy Intermediate Hives Verified 09/07/24 17:52 latex Allergy Intermediate Itching Verified 09/07/24 17:52 cat dander Allergy Other (See Verified 09/07/24 17:52 Comment) dog dander Allergy Other (See Verified 09/07/24 17:52 Comment) topiramate Allergy Other (See Unverified 09/07/24 17:52 Comment) venom-honey bee Allergy Other (See Verified 09/07/24 17:52 Comment) bupropion (From Wellbutrin) AdvReac rapid Verified 09/07/24 17:52 heart rate seasonal Allergy Other (See Uncoded 09/07/24 17:52 Comment) General Stated Complaint: RespSymp SUZETTE: 3 Review of Systems All systems reviewed & are unremarkable except as noted in HPI and below Exam Narrative Exam Narrative: GENERAL APPEARANCE: Well-nourished, non-toxic, awake and alert, atraumatic, no acute distress. SKIN: Warm, pink, dry, intact, without rashes/lesions/ulcerations. HEAD: Normocephalic, atraumatic, normal hair distribution for gender/age. EYES: Normal conjunctiva, no exudates on lids/lashes. ENT: Nares patent, no circumoral cyanosis, no facial swelling, benign posterior oropharynx. NECK: Supple, trachea midline, painless cervical ROM. LUNGS/CHEST: Lungs CTA bilaterally-no rhonchi/rales/wheezes diffusely, non-labored respirations, normal A/P diameter, symmetrical expansion, no chest wall deformity HEART (CV/PV): Regular rate and rhythm without murmur, no peripheral edema, no JVD. ABDOMEN: Soft, non-distended, no guarding. MSK: Normal ROM, no swelling/deformity to bilateral UEs or LEs, moving all extremities without weakness, no cyanosis, spine midline without tenderness, normal curvature. NEURO: Mental Status AAOx4 - alert to person, place, time, events No facial droop, no forehead involvement. Motor: No focal weakness - strength 5/5 in bilateral UEs and LEs, proximal and distal, symmetric. Sensory: sensation intact to light touch globally. Gait normal: patient ambulated without ataxia into ED room. PSYCH: euthymic, cooperative, pleasant, appropriate speech Course Vital Signs Vital signs: Vital Signs Temperature 36.8 C 09/07/24 17:50 Pulse 109 H 09/07/24 17:50 Respiratory Rate 16 09/07/24 17:50 Blood Pressure 117/88 09/07/24 17:50 Pulse Oximetry 96 09/07/24 17:50 Temperature 36.8 C 09/07/24 17:50 Temperature Source Oral 09/07/24 17:50 Pulse 109 H 09/07/24 17:50 Respiratory Rate 16 09/07/24 17:50 Blood Pressure 117/88 09/07/24 17:50 Blood Pressure Position Sitting 09/07/24 17:50 Pulse Oximetry 96 09/07/24 17:50 Oxygen Delivery Method Room Air 09/07/24 17:50 Oxygen Flow Rate 0 09/07/24 17:50 Pain Level 7 09/07/24 17:50 Medical Decision Making This dictation utilizes [id number] dictation software and may contain unedited grammatical errors. 34 year-old female presents to ED today by POV/ambulating with a chief complaint of productive cough with green sputum, sometimes blood-tinged with onset two weeks ago. Quality described as cough, shortness of breath worse over the past 2 days, no radiation to chest pain, vomiting, profound lethargy, inability to tolerate PO intake, diarrhea. Severity is described as moderate. Palliating factors include nothing specific. Provoking factors include nothing specific. Events leading up to the incident/Associated Symptoms: Patient does take OCPs. Patients' medical history: T2DM, tachycardia, GERD, borderline personality disorder, anxiety, hypertension. Family and social history: noncontributory, denies tobacco use. Pertinent exam findings / vital signs include lungs CTA, afebrile, mildly tachycardic on arrival, neuro intact, benign abdomen, no respiratory distress. Differential / pathologies of concern include bronchitis, URI, pneumonia, PE. Diagnostic studies of: -CBC, CMP, troponin, BNP, lipase, respiratory panel PCR, CTA chest. -CBC shows mild leukocytosis at 13.5 -CMP without actionable abnormality -Troponin and BNP negative -Lipase negative -Respiratory PCR panel negative -CTA chest negative for pneumonia or PE Interventions of: -1 g IV Tylenol, 4 mg IV Zofran-endorses some nausea after arrival ED Course/Assessment/Plan: 34-year-old female presents with 2 weeks of cough with some blood-tinged sputum and is on hormonal OCPs, CTA chest is negative for pneumonia or PE, there is no evidence of right heart strain with a negative troponin and BNP, she has a mild leukocytosis but is overall nontoxic and in no respiratory distress. I did prescribe her azithromycin for 5 days to treat any possible atypical bronchitis with her productive cough. Findings not consistent with hypoxic respiratory failure, respiratory distress, toxic illness, PE. Disposition of bronchitis. Patient verbalized understanding of the plan and return to ED criteria and engaged in shared decision making. Medical Records Medical records reviewed: Yes I reviewed the patient's medical records. Imaging Data Radiologic Study: Attestation: I personally reviewed and interpreted this imaging study as follows: Imaging: CT Scan Radiologist's impression: Exam: CTA Chest With Contrast Exam date and time: 09/07/2024 7:48 PM Age: 34 years old Clinical indication: Shortness of breath; Patient HX: Hemoptysis, ocps, SOB TECHNIQUE: Imaging protocol: Computed tomographic angiography of the chest with contrast. Exam focused on the arteries. 3D rendering (Not supervised by radiologist): MIP and/or 3D reconstructed images were created by the technologist. Radiation optimization: All CT scans at this facility use at least one of these dose optimization techniques: automated exposure control; mA and/or kV adjustment per patient size (includes targeted exams where dose is matched to clinical indication); or iterative reconstruction. Contrast material: OMNIPAQUE 350; Contrast volume: 100 ml; Contrast route: INTRAVENOUS (IV); COMPARISON: CR XR PORTABLE CHEST AP 08/12/2024 7:48 PM FINDINGS: Pulmonary arteries: Normal. No pulmonary emboli. Aorta: Unremarkable. No aortic aneurysm. No aortic dissection. Lungs: Unremarkable. No consolidation. No masses. Pleural spaces: Unremarkable. No pneumothorax. No pleural effusion. Heart: Unremarkable. No cardiomegaly. No pericardial effusion. Lymph nodes: Unremarkable. No enlarged lymph nodes. Bones/joints: Unremarkable. No acute fracture. Soft tissues: Unremarkable. IMPRESSION: No acute findings. Dictated and Authenticated by: Aram Winchester MD. Lab Data Lab results reviewed: Yes I reviewed the patient's lab results. Labs: Laboratory Tests Range/Units 09/07/24 19:02 WBC (4.4-10.8) 10^3/uL 13.56 H RBC (3.93-5.22) 10^6/uL 4.61 Hgb (11.2-15.7) g/dL 13.4 Hct (36.0-46.0) % 39.4 MCV (80-95) fL 86 MCH (27.0-33.0) pg 29.1 MCHC (32.0-36.0) % 34.0 RDW (11.7-14.6) % 13.0 Plt Count (130-400) 10^3/uL 401 H MPV (8.0-11.0) fL 9.0 Immature Gran % % 0.7 Neutrophils % % 68.7 Lymphocytes % % 21.0 Monocytes % % 7.7 Eosinophils % % 1.5 Basophils % % 0.4 Nucleated RBC % (0.0-0.3) % 0.0 Absolute Neutrophils (1.2-6.7) 10^3/uL 9.32 H Absolute Lymphocytes (1.2-3.4) 10^3/uL 2.85 Absolute Monocytes (0.1-0.8) 10^3/uL 1.04 H Absolute Eosinophils (0.0-0.7) 10^3/uL 0.20 Absolute Basophils (0.0-0.2) 10^3/uL 0.05 Sodium (136-145) mmol/L 139 Potassium (3.5-5.1) mmol/L 3.9 Chloride (98-107) mmol/L 102 Carbon Dioxide (21.0-32.0) mmol/L 28.5 Anion Gap (3-11) mmol/L 8.5 BUN (7-18) mg/dL 11 Creatinine (0.55-1.02) mg/dL 0.9 Est GFR (CKD-EPI 2020) (mL/min/1.73m2) 84.97 Glucose (74-106) mg/dL 121 H Calcium (8.5-10.1) mg/dL 9.2 Total Bilirubin (0.2-1.0) mg/dL 0.23 AST (15-37) U/L 16 ALT (14-59) U/L 27 Alkaline Phosphatase (46-116) U/L 93 Troponin I (<or=51) ng/L < 4 NT-Pro-B Natriuret Pep (<300) pg/mL 50 Total Protein (6.4-8.2) g/dL 7.9 Albumin (3.4-5.0) g/dL 3.5 Lipase (16-77) U/L 56 COVID-19 Source Nasopharynx SARS-CoV-2 (PCR) (Negative) Negative Influenza Type A (PCR) (Negative) Negative Influenza Type B (PCR) (Negative) Negative RSV (PCR) (Negative) Negative Quality:SDOH Health Related Social Needs: No Data to Display PFSH All Active Problems (Updated 09/07/24 @ 21:28 by JOSEFA Patel) Bronchitis (Acute) Ankle sprain (Acute) Chest pain, unspecified (Acute) Pain, dental (Acute) Periapical abscess (Acute) De Quervain's tenosynovitis, left (Acute) Steroid injection: 07/23/2024 DUB (dysfunctional uterine bleeding) (Acute) Acute bacterial sinusitis (Acute) Tonsillar hypertrophy (Acute) Dysphagia (Acute) Ear itch (Acute) Xerostomia (Acute) Environmental allergies (Acute) Dysmenorrhea (Acute) Medical History Seasonal allergies Low back pain Type 2 diabetes mellitus Obesity History of recurrent UTI (urinary tract infection) Tachycardia Sleep apnea Left hip pain GERD (gastroesophageal reflux disease) Borderline personality disorder Suicidal ideation Anxiety HTN (hypertension) PTSD (post-traumatic stress disorder) ADHD Asthma Diverticulitis Schizoaffective disorder Pain, joint, knee, right Hyperlipidemia Pain of left calf History of irregular menstrual bleeding Depression Nausea PCOS (polycystic ovarian syndrome) Surgical History H/O laparoscopy History of cholecystectomy History of appendectomy Family History Mother Diabetes Social History Smoking/Tobacco Use Status: Former Tobacco Use Smoking risk assessment performed?: Yes Alcohol Intake: current Alcohol Intake frequency: holidays/special occasions only Drug use: Occasionally Substance use type: marijuana Details: Edibles most days to help with sleep and pain. Household members: family Housing: apartment Number of Children: 0 current occupation: Unemployed Current gender identity: female What type of physical activity do you participate in: walking, independent ambulation and irregular exercise Do you feel safe at home: Yes Do you feel safe in your relationship?: Yes Female Reproductive History Menstrual Duration of menses: 3-5 days control method: pills (POP) History History 2 Para Hx # Term Pregnancies Multiple births Hx # Pregnancies Ectopic pregnancies AB induced Hx Number of Living Children AB spontaneous 2
--- NOTE | 2024-09-07 18:30 | DI.CT_ITS ---
Exam(s) CT CHEST PE CTA EXAM: CT CHEST PE CTA CLINICAL HISTORY: hemoptysis, OCPs, SOB. TECHNIQUE: Imaging Protocol: CT angiography of the chest was performed using pulmonary embolus anette col. Multi planar reconstructions were performed. CONTRAST MATERIAL: Intravenous: Omnipaque 350 Contrast volume: 100 cc COMPARISON: CR,XR XR PORTABLE CHEST AP from 08/12/2024 FINDINGS: CHEST: PULMONARY ARTERIES: There are no intraluminal filling defects to suggest acute pulmonary emboli. LUNGS: There are no infiltrates nor evidence of pulmonary infarction.. There are no pleural effusions . MEDIASTINUM: There is no hilar nor mediastinal adenopathy. Visualized thyroid unremarkable. CARDIAC: Heart size is upper normal. There is no pericardial effusion.Caliber of the thoracic aorta is within normal limits. No evidence of dissection. There is no significant shift of the interventri cular septum. PARTIALLY VISUALIZED UPPERMOST ABDOMEN: Gallbladder surgically absent. No adrenal masses. OSSEOUS: No fractures. No significant osseous lesions.. IMPRESSION: 1. No evidence of acute pulmonary emboli. No evidence of pulmonary infarction. 2. No infiltrates nor pleural effusions nor intrathoracic adenopathy 3. No significant findings RADIATION DOSE DELIVERED: 169.23mGy.cm Total DLP DATA REPOSITORY: All CT scans at this facility are submitted to the National Radiology Data Registry (NRDR) Dose Index Registry (DIR) with the [employer] (ACR). RADIATION OPTIMIZATION: All CT scans at this facility use at least one of these dose optimization te chniques: automated exposure control; mA and/or kV adjustment per patient size (includes targeted exa ms where dose is matched to clinical indication); or iterative reconstruction.
[2024-09-07 19:07] LABS: Abs Immature Grans 0.09 10^3/uL (0.0-0.06); Absolute Basophil Count 0.05 10^3/uL (0.0-0.2); Absolute Lymphocyte Count 2.85 10^3/uL (1.2-3.4); Basophils % 0.4 %; Eosinophils % 1.5 %; HCT 39.4 % (36.0-46.0); HGB 13.4 g/dL (11.2-15.7); Immature Grans % 0.7 %; MCH 29.1 pg (27.0-33.0); MCV 86 fL (80-95); Monocytes % 7.7 %; Neutrophils % 68.7 %; Platelet Count 401 10^3/uL (130-400); RBC 4.61 10^6/uL (3.93-5.22); RDW-SD 39.6 fL; WBC 13.56 10^3/uL (4.4-10.8)
[2024-09-07 19:08] LABS: Absolute Monocyte Count 1.04 10^3/uL (0.1-0.8); Absolute Neutrophil Count 9.32 10^3/uL (1.2-6.7)
[2024-09-07] MEDS: Ondansetron O.D.T. 4 MG TABEF PO (19:09)
[2024-09-07] MEDS: ACETAMINOPHEN 1,000 MG/100 ML BAG 400 MG IVPB (19:09)
[2024-09-07 19:29] LABS: ALT 27 U/L (14-59); AST 16 U/L (15-37); Albumin 3.5 g/dL (3.4-5.0); Alkaline Phosphatase 93 U/L (46-116); Anion Gap 8.5 mmol/L (3-11); BUN 11 mg/dL (7-18); Bilirubin, Total 0.23 mg/dL (0.2-1.0); CO2 28.5 mmol/L (21.0-32.0); CREATININE 0.9 mg/dL (0.55-1.02); Calcium 9.2 mg/dL (8.5-10.1); Chloride 102 mmol/L (98-107); Estimated GFR 84.97 (mL/min/1.73m2); Glucose 121 mg/dL (74-106); Lipase 56 U/L (16-77); NT-proBNP 50 pg/mL (<300); Potassium 3.9 mmol/L (3.5-5.1); Sodium 139 mmol/L (136-145); Total Protein 7.9 g/dL (6.4-8.2)
[2024-09-07 19:31] LABS: Troponin I < 4 ng/L (<or=51)
[2024-09-07 19:45] LABS: COVID-19 PCR Negative (Negative); Influenza A PCR Negative (Negative); Influenza B PCR Negative (Negative); RSV PCR Negative (Negative)
[2024-09-07] MEDS: Omnipaque 350 MG/ML 100 ML BTL IJ (19:47)
[2024-09-07] MEDS: Normal Saline - Diluent 50 ML VIAL IJ (19:48)
[2024-09-07] MEDS: Normal Saline Flush 10 ML SYR IVP (19:49)
[2024-09-07 19:50] LABS: Source Nasopharynx
--- NOTE | 2024-09-07 20:57 | DI.VRAD_ITS ---
PROCEDURE INFORMATION: Exam: CTA Chest With Contrast Exam date and time: 09/07/2024 7:48 PM Age: 34 years old Clinical indication: Shortness of breath; Patient HX: Hemoptysis, ocps, SOB TECHNIQUE: Imaging protocol: Computed tomographic angiography of the chest with contrast. Exam focused on the arteries. 3D rendering (Not supervised by radiologist): MIP and/or 3D reconstructed images were created by the technologist. Radiation optimization: All CT scans at this facility use at least one of these dose optimization techniques: automated exposure control; mA and/or kV adjustment per patient size (includes targeted exams where dose is matched to clinical indication); or iterative reconstruction. Contrast material: OMNIPAQUE 350; Contrast volume: 100 ml; Contrast route: INTRAVENOUS (IV); COMPARISON: CR XR PORTABLE CHEST AP 08/12/2024 7:48 PM FINDINGS: Pulmonary arteries: Normal. No pulmonary emboli. Aorta: Unremarkable. No aortic aneurysm. No aortic dissection. Lungs: Unremarkable. No consolidation. No masses. Pleural spaces: Unremarkable. No pneumothorax. No pleural effusion. Heart: Unremarkable. No cardiomegaly. No pericardial effusion. Lymph nodes: Unremarkable. No enlarged lymph nodes. Bones/joints: Unremarkable. No acute fracture. Soft tissues: Unremarkable. IMPRESSION: No acute findings. Dictated and Authenticated by: Aram Winchester MD. Ordering:UJANA Lawler MD
[2024-09-07 21:02] VITALS: BP 131/61; PULSE 80
== END 2024-09-07 21:52 | disposition home or self-care (01) ==
PROVIDERS: Emergency Provider Physician Assistant; PCP Physician Assistant
DX: J40 Bronchitis, not specified as acute or chronic (principal); E11.9 Type 2 diabetes mellitus without complications; I10 Essential (primary) hypertension; E78.5 Hyperlipidemia, unspecified; Z79.4 Long term (current) use of insulin; Z79.84 Long term (current) use of oral hypoglycemic drugs; Z87.891 Personal history of nicotine dependence
CPT/HCPCS: 36415; 71275; 80053; 83690; 87637; 96365; 99285; 83880; 84484; 85025; J0131; J3490

== ENCOUNTER → 2024-10-05 13:31 | Outpatient (BNVA) | payer MEDICARE, MEDICAID, SELFPAY | PROVIDERS: PCP Physician Assistant; Visit Provider Student in an Organized Health Care Education/Training Program | DX: M65.4 Radial styloid tenosynovitis [de Quervain] (principal) | CPT/HCPCS: 99214 ==

== ENCOUNTER 2024-10-23 15:55 | Emergency (ER) | payer MEDICARE, MEDICAID, SELFPAY ==
[2024-10-23 15:59] VITALS: BP 132/88; PULSE 98; RESP 14; TEMP 36.3; O2SAT 98
[2024-10-23 16:20] VITALS: BP 132/88; PULSE 98; RESP 14; TEMP 36.3; O2SAT 98
--- NOTE | 2024-10-23 16:30 | DI.RAD_ITS ---
Exam(s) XR CHEST 2V PA LATERAL EXAM: XR CHEST 2V PA LATERAL CLINICAL HISTORY: shortness of breath TECHNIQUE: 2D digital imaging was performed. Two views. COMPARISON: CT CT CHEST PE CTA from 09/07/2024 FINDINGS: HEART: Normal size. Aorta: Not dilated. PULMONARY VASCULATURE: Normal. MEDIASTINUM: Unremarkable. LUNGS: Clear. PLEURAL SPACE: No pleural effusion or pneumothorax. BONE:Unremarkable for age. SOFT TISSUES: Unremarkable. IMPRESSION: No acute abnormality. DATA REPOSITORY: RADIATION DOSE DELIVERED:
[2024-10-23] MEDS: Ondansetron O.D.T. 4 MG TABEF PO (16:38)
[2024-10-23 17:28] LABS: COVID-19 PCR Negative (Negative); Influenza A PCR Negative (Negative); Influenza B PCR Negative (Negative); RSV PCR Negative (Negative)
[2024-10-23 17:29] LABS: Source Nasopharynx
[2024-10-23] MEDS: Inhaler, Assist Device 1 EACH MC (18:12)
[2024-10-23 18:16] VITALS: BP 138/77; PULSE 94; RESP 14; RESP 20; TEMP 36.3; O2SAT 96; O2SAT 98
--- NOTE | 2024-10-23 22:18 | W.ED.GENAD ---
Discharge Plan Disposition Patient Disposition: Home Condition: Stable Discharge Details Clinical Impression: URI, acute Primary Care Provider: Moiz Dutta ED Provider: Radha Aparicio Home Meds and New Rx's Prescriptions: New ondansetron HCl 4 mg tablet 4 mg PO Q8H PRN4 Days Qty: 10 0RF prednisone 20 mg tablet 40 mg PO DAILY Qty: 9 0RF Continued epinephrine 0.3 mg/0.3 mL Auto-Injector 0.3 mg IM ONCE metformin 500 mg Tablet 500 mg PO BID norethindrone (contraceptive) 0.35 mg tablet 0.35 mg PO DAILY Qty: 84 4RF (DME) lancets [FreeStyle Lancets] 28 gauge misc See Rx Instructions .ROUTE .MEDSUPPLY Qty: 100 Rx Instructions: As directed (DME) FreeStyle Lite Strips Strip See Rx Instructions .ROUTE .MEDSUPPLY Qty: 10 Rx Instructions: As directed (DME) pen needle, diabetic [BD Ultra-Fine Sona Pen Needle] 32 gauge x 5/32 needle See Rx Instructions .ROUTE .MEDSUPPLY Qty: 50 Rx Instructions: As directed omeprazole 40 mg capsule,delayed release(DR/EC) 40 mg PO DAILY diazepam [Valium] 2 mg tablet 2 mg PO DAILY PRN fluticasone propionate [Flonase Allergy Relief] 50 mcg/actuation spray,suspension 1 spray intranasal BID PRN Rx Instructions: administer into each nostril Vraylar 4.5 mg capsule 4.5 mg PO DAILY methocarbamol 500 mg tablet 500 mg PO QHS atorvastatin 10 mg tablet 10 mg PO DAILY oxcarbazepine 150 mg tablet 150 mg PO BID Patient Comments: 06/26/24- pt reports takes one tablet in the am and two tablets at night cetirizine 10 mg tablet 10 mg PO DAILY PRN albuterol sulfate [ProAir HFA] 90 mcg/actuation HFA aerosol inhaler 2 puff inhalation Q6H PRNQty: 6.7 2RF acetaminophen [Tylenol Extra Strength] 500 mg Tablet 1,000 mg PO Q6H PRN insulin glargine [Lantus Solostar U-100 Insulin] 100 unit/mL (3 mL) insulin pen 30 unit SUBCUT BID quetiapine 300 mg tablet 600 mg PO QHS gabapentin 100 mg capsule 300 mg PO BID Patient Comments: TAKE 1 CAPSULE BY MOUTH TWICE A DAY Discharge Instructions Instructions: Viral Upper Respiratory Infection, Adult (DC) Additional Instructions: Prednisone daily Zofran as needed for nausea and vomiting Inhaler use as prescribed and return with new or worsening complaints including worsening shortness of breath, chest pain, uncontrolled fever greater than 100.4 or should any new concerns arise Prednisone will likely cause increase in your glucose levels, do not be alarmed when he stopped taking the prednisone this will improve Referrals: Moiz Dutta [Primary Care Provider] - 1 day Discharge Data Discharge Date/Time-TO BE ENTERED AT DEPARTURE: 10/23/24 18:17 HPI General Date/Time Provider Initiated Documentation: 10/23/24 16:26. HPI Narrative: This 34-year-old female presents with report of productive cough for the past few weeks. She states he has been having difficulty sleeping at night secondary to coughing and shortness of breath. She has had subjective fever and chills but no temperature over 99.5. The patient has had some diarrhea. She denies any chance of , calf pain or swelling, or any additional complaints at this time. Related Data Home Medications ?Medication ?Instructions ?Recorded ?Confirmed blood sugar diagnostic (FreeStyle #10 ea 10/10/20 10/23/24 Lite Strips) lancets 28 gauge (FreeStyle #100 ea 10/10/20 10/23/24 Lancets) omeprazole 40 mg capsule,delayed 40 mg PO DAILY 10/10/20 10/23/24 release pen needle, diabetic 32 gauge x #50 ea 10/10/20 10/23/24 5/32 (BD Ultra-Fine Sona Pen Needle) epinephrine 0.3 mg/0.3 mL 0.3 mg IM ONCE 12/29/20 10/23/24 injection, auto-injector metformin 500 mg tablet 500 mg PO BID 12/29/20 10/23/24 acetaminophen 500 mg tablet 1,000 mg PO Q6H PRN 01/31/21 10/23/24 (Tylenol Extra Strength) atorvastatin 10 mg tablet 10 mg PO DAILY 08/11/21 10/23/24 oxcarbazepine 150 mg tablet 150 mg PO BID 08/11/21 10/23/24 insulin glargine 100 unit/mL (3 30 unit subcut BID 10/26/22 10/23/24 mL) subcutaneous pen (Lantus Solostar U-100 Insulin) quetiapine 300 mg tablet 600 mg PO QHS 12/06/22 10/23/24 gabapentin 100 mg capsule 300 mg PO BID 03/16/23 10/23/24 albuterol sulfate 90 mcg/actuation 2 puff inhalation Q6H PRN #6.7 04/04/23 10/23/24 aerosol inhaler (ProAir HFA) grams cetirizine 10 mg tablet 10 mg PO DAILY PRN 03/09/24 10/23/24 diazepam 2 mg tablet (Valium) 2 mg PO DAILY PRN 05/07/24 10/23/24 fluticasone propionate 50 1 spray intranasal BID PRN 05/07/24 10/23/24 mcg/actuation nasal spray,suspension (Flonase Allergy Relief) norethindrone (contraceptive) 0.35 0.35 mg PO DAILY #84 tabs 05/12/24 10/23/24 mg tablet cariprazine 4.5 mg capsule 4.5 mg PO DAILY 06/26/24 10/23/24 (Vraylar) methocarbamol 500 mg tablet 500 mg PO QHS 06/26/24 10/23/24 ondansetron HCl 4 mg tablet 4 mg PO Q8H PRN 4 days #10 tabs 10/23/24 prednisone 20 mg tablet 40 mg (2 x 20 mg) PO DAILY #9 tabs 10/23/24 Previous Rx's ?Medication ?Instructions ?Recorded albuterol sulfate 90 mcg/actuation 2 puff inhalation Q6H PRN #6.7 04/04/23 aerosol inhaler (ProAir HFA) grams norethindrone (contraceptive) 0.35 0.35 mg PO DAILY #84 tabs 05/12/24 mg tablet ondansetron HCl 4 mg tablet 4 mg PO Q8H PRN 4 days #10 tabs 10/23/24 prednisone 20 mg tablet 40 mg (2 x 20 mg) PO DAILY #9 tabs 10/23/24 Allergies Allergy/AdvReac Type Severity Reaction Status Date / Time naproxen (From Aleve) Allergy Severe Anaphylaxis Verified 10/23/24 16:03 cephalexin (From Keflex) Allergy Intermediate Hives Verified 10/23/24 16:03 latex Allergy Intermediate Itching Verified 10/23/24 16:03 cat dander Allergy Other (See Verified 10/05/24 13:42 Comment) dog dander Allergy Other (See Verified 10/23/24 16:03 Comment) topiramate Allergy Other (See Unverified 10/23/24 16:03 Comment) venom-honey bee Allergy Other (See Verified 10/23/24 16:03 Comment) bupropion (From Wellbutrin) AdvReac rapid Verified 10/23/24 16:03 heart rate seasonal Allergy Other (See Uncoded 10/05/24 13:42 Comment) General Stated Complaint: RespSymp SUZETTE: 3 Exam Narrative Exam Narrative: 34-year-old female presenting with productive cough, lungs are clear to auscultation, cardiac rate rhythm regular, alert and oriented, no peripheral edema, distal pulses intact Course Vital Signs Vital signs: Vital Signs Temperature 36.3 C L 10/23/24 15:59 Pulse 98 H 10/23/24 15:59 Respiratory Rate 14 10/23/24 15:59 Blood Pressure 132/88 10/23/24 15:59 Pulse Oximetry 98 10/23/24 15:59 Temperature 36.3 C L 10/23/24 18:16 Temperature Source Oral 10/23/24 18:16 Pulse 94 H 10/23/24 18:16 Respiratory Rate 14 10/23/24 18:16 Respiratory Effort Normal, Non-Labored 10/23/24 18:16 Respiratory Depth Normal 10/23/24 18:16 Blood Pressure 138/77 10/23/24 18:16 Blood Pressure Position Sitting 10/23/24 16:20 Pulse Oximetry 98 10/23/24 18:16 Oxygen Delivery Method Room Air 10/23/24 18:16 Oxygen Flow Rate 0 10/23/24 18:16 Pain Level 6 10/23/24 18:16 Lab/Test Results Lab/Test Results: Laboratory Tests Range/Units 10/23/24 16:45 COVID-19 Source Nasopharynx SARS-CoV-2 (PCR) (Negative) Negative Influenza Type A (PCR) (Negative) Negative Influenza Type B (PCR) (Negative) Negative RSV (PCR) (Negative) Negative Medical Decision Making 34-year-old female presenting with shortness of breath and cough. Patient appears well, I ordered a chest x-ray given her history of asthma and illness for the past several weeks which did not show evidence of acute abnormality per radiology interpretation and my review. Patient requested a spacer, this was supplied. She has Breo and albuterol at home which she uses for rescue. I placed patient on prednisone as well to help with cough and shortness of breath with her history of asthma. I see no clear indication for antibiotics at this time. I did give patient a single dose of Zofran to help with some mild nausea and she was given several tabs for home. Patient has not hypoxic, in fact her oxygen is 98%. She is encouraged to follow-up with primary care physician and return earlier should you have new or worsening complaints. Clinically low suspicion for pulmonary embolism on exam, vitals, and no exogenous estrogen. Patient is a diabetic. She is aware that prednisone will increase her glucose levels. Quality:SDOH Health Related Social Needs: No Data to Display [facility] All Active Problems (Updated 10/23/24 @ 18:05 by JOSEFA Juares) URI, acute (Acute) De Quervain's tenosynovitis, left (Acute) Steroid injection: 07/23/2024 DUB (dysfunctional uterine bleeding) (Acute) Acute bacterial sinusitis (Acute) Tonsillar hypertrophy (Acute) Dysphagia (Acute) Ear itch (Acute) Xerostomia (Acute) Environmental allergies (Acute) Dysmenorrhea (Acute) Medical History Seasonal allergies Low back pain Type 2 diabetes mellitus Obesity History of recurrent UTI (urinary tract infection) Tachycardia Sleep apnea Left hip pain GERD (gastroesophageal reflux disease) Borderline personality disorder Suicidal ideation Anxiety HTN (hypertension) PTSD (post-traumatic stress disorder) ADHD Asthma Diverticulitis Schizoaffective disorder Pain, joint, knee, right Hyperlipidemia Pain of left calf History of irregular menstrual bleeding Depression Nausea PCOS (polycystic ovarian syndrome) Surgical History H/O laparoscopy History of cholecystectomy History of appendectomy Family History Mother Diabetes Social History Smoking/Tobacco Use Status: Former Tobacco Use Smoking risk assessment performed?: Yes Alcohol Intake: current Alcohol Intake frequency: holidays/special occasions only Drug use: Occasionally Substance use type: marijuana Details: Edibles most days to help with sleep and pain. Household members: family Housing: apartment Number of Children: 0 current occupation: Unemployed Current gender identity: female What type of physical activity do you participate in: walking, independent ambulation and irregular exercise Do you feel safe at home: Yes Do you feel safe in your relationship?: Yes Female Reproductive History Menstrual Duration of menses: 3-5 days control method: pills (POP) History History 2 Para Hx # Term Pregnancies Multiple births Hx # Pregnancies Ectopic pregnancies AB induced Hx Number of Living Children AB spontaneous 2 PAWSS Have you Been Recently Intoxicated or Drunk Within the Last 30 days?: No Have you Ever Experienced Previous Episodes of Alcohol Withdrawal?: No Have you ever Experienced Withdrawal Seizures?: No Have you ever Experienced Delirium Tremens(DT)s?: No Have you ever undergone Alcohol Rehabilitation Treatment (i.e, inpt ot outpatient treatment programs)?: No Have you ever Experienced Blackouts?: No Have you ever Combined Alcohol with other Downers within the last 90 days?: No Have you ever Combined Alcohol with any other Substance of Abuse during the last 90 days?: No Positive Blood Alcohol level on Presentation? [PCS.BAL]: No Evidence of Increased Autonomic Activity (i.e. HR>120, tremor, sweating, agitation, nausea)?: No Result: 0
== END 2024-10-23 18:17 | disposition home or self-care (01) ==
PROVIDERS: Emergency Provider Physician Assistant; PCP Physician Assistant
DX: J06.9 Acute upper respiratory infection, unspecified (principal); E11.9 Type 2 diabetes mellitus without complications; I10 Essential (primary) hypertension; E78.5 Hyperlipidemia, unspecified; Z79.4 Long term (current) use of insulin; Z79.84 Long term (current) use of oral hypoglycemic drugs; Z87.891 Personal history of nicotine dependence
CPT/HCPCS: 87637; 99283; 71046

== ENCOUNTER 2024-11-06 15:23 | Emergency (ER) | payer MEDICARE, MEDICAID, SELFPAY ==
[2024-11-06 15:39] VITALS: BP 120/80; PULSE 100; RESP 16; TEMP 36.7; O2SAT 96
--- NOTE | 2024-11-06 16:23 | ED.GENADUL_ITS ---
Discharge Plan Disposition Patient Disposition: Home Condition: Stable Discharge Details Clinical Impression: Lumbosacral radiculopathy at L2 Primary Care Provider: Moiz Dutta ED Provider: Radha Aparicio Home Meds and New Rx's Prescriptions: New prednisone 10 mg tablet 10 mg PO DAILY Qty: 30 0RF Rx Instructions: take 4 tabs x4 days, 3 tabs x3 days, 2 tabs x2 days, 1 tab x1 day Continued epinephrine 0.3 mg/0.3 mL Auto-Injector 0.3 mg IM ONCE metformin 500 mg Tablet 500 mg PO BID norethindrone (contraceptive) 0.35 mg tablet 0.35 mg PO DAILY Qty: 84 4RF (DME) lancets [FreeStyle Lancets] 28 gauge misc See Rx Instructions .ROUTE .MEDSUPPLY Qty: 100 Rx Instructions: As directed (DME) FreeStyle Lite Strips Strip See Rx Instructions .ROUTE .MEDSUPPLY Qty: 10 Rx Instructions: As directed (DME) pen needle, diabetic [BD Ultra-Fine Sona Pen Needle] 32 gauge x 5/32 needle See Rx Instructions .ROUTE .MEDSUPPLY Qty: 50 Rx Instructions: As directed omeprazole 40 mg capsule,delayed release(DR/EC) 40 mg PO DAILY diazepam [Valium] 2 mg tablet 2 mg PO DAILY PRN fluticasone propionate [Flonase Allergy Relief] 50 mcg/actuation spray,suspension 1 spray intranasal BID PRN Rx Instructions: administer into each nostril Vraylar 4.5 mg capsule 4.5 mg PO DAILY methocarbamol 500 mg tablet 500 mg PO QHS atorvastatin 10 mg tablet 10 mg PO DAILY oxcarbazepine 150 mg tablet 150 mg PO BID Patient Comments: 06/26/24- pt reports takes one tablet in the am and two tablets at night cetirizine 10 mg tablet 10 mg PO DAILY PRN albuterol sulfate [ProAir HFA] 90 mcg/actuation HFA aerosol inhaler 2 puff inhalation Q6H PRNQty: 6.7 2RF prednisone 20 mg tablet 40 mg PO DAILY Qty: 9 0RF acetaminophen [Tylenol Extra Strength] 500 mg Tablet 1,000 mg PO Q6H PRN insulin glargine [Lantus Solostar U-100 Insulin] 100 unit/mL (3 mL) insulin pen 30 unit SUBCUT BID quetiapine 300 mg tablet 600 mg PO QHS gabapentin 100 mg capsule 300 mg PO BID Patient Comments: TAKE 1 CAPSULE BY MOUTH TWICE A DAY Discharge Instructions Instructions: Radiculopathy (DC) Additional Instructions: Take prednisone as prescribed until completed Follow-up with physical therapy Follow-up with Moiz Dutta on Saturday and schedule an appointment for reassessment in 1 to 2 weeks Should you develop changes in bowel or bladder, fever, chills, or should new concerns arise Stand Alone Forms: Physical Therapy Referral Referrals: Moiz Dutta [Primary Care Provider] - 1 week Discharge Data Discharge Date/Time-TO BE ENTERED AT DEPARTURE: 11/06/24 17:04 HPI General Date/Time Provider Initiated Documentation: 11/06/24 15:49 . HPI Narrative: This 34-year-old female presents with back pain and right lateral leg paresthesias that started this morning. She states she has been moving all weekend and lifted a heavy mattress yesterday. She denies known additional trauma. She denies any headache, chest pain, shortness of breath or weakness to her lower extremity. Denies any chance of . She denies any changes in bowel or bladder or groin numbness. Related Data Home Medications ?Medication ?Instructions ?Recorded ?Confirmed blood sugar diagnostic (FreeStyle #10 ea 10/10/20 11/06/24 Lite Strips) lancets 28 gauge (FreeStyle #100 ea 10/10/20 11/06/24 Lancets) omeprazole 40 mg capsule,delayed 40 mg PO DAILY 10/10/20 11/06/24 release pen needle, diabetic 32 gauge x #50 ea 10/10/20 11/06/2432 (BD Ultra-Fine Sona Pen Needle) epinephrine 0.3 mg/0.3 mL 0.3 mg IM ONCE 12/29/20 11/06/24 injection, auto-injector metformin 500 mg tablet 500 mg PO BID 12/29/20 11/06/24 acetaminophen 500 mg tablet 1,000 mg PO Q6H PRN 01/31/21 11/06/24 (Tylenol Extra Strength) atorvastatin 10 mg tablet 10 mg PO DAILY 08/11/21 11/06/24 oxcarbazepine 150 mg tablet 150 mg PO BID 08/11/21 11/06/24 insulin glargine 100 unit/mL (3 30 unit subcut BID 10/26/22 11/06/24 mL) subcutaneous pen (Lantus Solostar U-100 Insulin) quetiapine 300 mg tablet 600 mg PO QHS 12/06/22 11/06/24 gabapentin 100 mg capsule 300 mg PO BID 03/16/23 11/06/24 albuterol sulfate 90 mcg/actuation 2 puff inhalation Q6H PRN #6.7 04/04/23 11/06/24 aerosol inhaler (ProAir HFA) grams cetirizine 10 mg tablet 10 mg PO DAILY PRN 03/09/24 11/06/24 diazepam 2 mg tablet (Valium) 2 mg PO DAILY PRN 05/07/24 11/06/24 fluticasone propionate 50 1 spray intranasal BID PRN 05/07/24 11/06/24 mcg/actuation nasal spray,suspension (Flonase Allergy Relief) norethindrone (contraceptive) 0.35 0.35 mg PO DAILY #84 tabs 05/12/24 11/06/24 mg tablet cariprazine 4.5 mg capsule 4.5 mg PO DAILY 06/26/24 11/06/24 (Vraylar) methocarbamol 500 mg tablet 500 mg PO QHS 06/26/24 11/06/24 prednisone 20 mg tablet 40 mg (2 x 20 mg) PO DAILY #9 tabs 10/23/24 11/06/24 prednisone 10 mg tablet 10 mg PO DAILY #30 tabs 11/06/24 Previous Rx's ?Medication ?Instructions ?Recorded albuterol sulfate 90 mcg/actuation 2 puff inhalation Q6H PRN #6.7 04/04/23 aerosol inhaler (ProAir HFA) grams norethindrone (contraceptive) 0.35 0.35 mg PO DAILY #84 tabs 05/12/24 mg tablet prednisone 20 mg tablet 40 mg (2 x 20 mg) PO DAILY #9 tabs 10/23/24 prednisone 10 mg tablet 10 mg PO DAILY #30 tabs 11/06/24 Allergies Allergy/AdvReac Type Severity Reaction Status Date / Time naproxen (From Aleve) Allergy Severe Anaphylaxis Verified 11/06/24 15:44 cephalexin (From Keflex) Allergy Intermediate Hives Verified 11/06/24 15:44 latex Allergy Intermediate Itching Verified 11/06/24 15:44 cat dander Allergy Other (See Verified 11/06/24 15:44 Comment) dog dander Allergy Other (See Verified 11/06/24 15:44 Comment) topiramate Allergy Other (See Unverified 11/06/24 15:44 Comment) venom-honey bee Allergy Other (See Verified 11/06/24 15:44 Comment) bupropion (From Wellbutrin) AdvReac rapid Verified 11/06/24 15:44 heart rate seasonal Allergy Other (See Uncoded 11/06/24 15:44 Comment) General Stated Complaint: Orthopedic SUZETTE: 4 Exam Narrative Exam Narrative: This 34-year-old female is alert and oriented, no acute distress, no abdominal pain, no CVA tenderness, tenderness to lumbar spine, negative straight leg raise, negative Babinski, DTRs intact to bilateral lower extremities, sensation intact of bilateral lower extremities mildly diminished sensation to right lateral thigh, approximately four 5 inch region, strength intact bilateral lower extremities remainder of neurologically exam within normal limits Course Vital Signs Vital signs: Vital Signs Temperature 36.7 C 11/06/24 15:39 Pulse 100 H 11/06/24 15:39 Respiratory Rate 16 11/06/24 15:39 Blood Pressure 120/80 11/06/24 15:39 Pulse Oximetry 96 11/06/24 15:39 Temperature 36.7 C 11/06/24 15:39 Temperature Source Oral 11/06/24 15:39 Pulse 100 H 11/06/24 15:39 Respiratory Rate 16 11/06/24 15:39 Blood Pressure 120/80 11/06/24 15:39 Blood Pressure Position Sitting 11/06/24 15:39 Pulse Oximetry 96 11/06/24 15:39 Oxygen Delivery Method Room Air 11/06/24 15:39 Oxygen Flow Rate 0 11/06/24 15:39 Pain Level 7 11/06/24 15:39 Medical Decision Making 34-year-old female presenting in no acute distress with right lower extremity paresthesias and back pain. Neurological exam is relatively reassuring aside from some mildly diminished sensation to right lateral leg, neurologically patient is intact and there is no evidence of cauda equina syndrome clinically. Will place patient on prednisone. She is a diabetic she states she is well- controlled her blood sugar was within normal limits today in the 100s. Patient will be placed on prednisone and will monitor her blood sugars while on prednisone. She is referred back to her primary care physician and physical therapy. She may need an MRI, she last had an MRI of her lumbar spine in 2020 and there was no significant acute abnormality per radiology interpretation and my review. There is no indication for emergent MRI today. Low suspicion clinically for discitis or epidural abscess, no significant pain, ambulatory with steady gait. Return precautions reviewed and patient expressed understanding, recheck on Saturday recommended with PCP Quality:SDOH Health Related Social Needs: No Data to Display PFSH All Active Problems (Updated 11/06/24 @ 16:26 by JOSEFA Juares) Lumbosacral radiculopathy at L2 (Acute) URI, acute (Acute) De Quervain's tenosynovitis, left (Acute) Steroid injection: 07/23/2024 DUB (dysfunctional uterine bleeding) (Acute) Acute bacterial sinusitis (Acute) Tonsillar hypertrophy (Acute) Dysphagia (Acute) Ear itch (Acute) Xerostomia (Acute) Environmental allergies (Acute) Dysmenorrhea (Acute) Medical History Seasonal allergies Low back pain Type 2 diabetes mellitus Obesity History of recurrent UTI (urinary tract infection) Tachycardia Sleep apnea Left hip pain GERD (gastroesophageal reflux disease) Borderline personality disorder Suicidal ideation Anxiety HTN (hypertension) PTSD (post-traumatic stress disorder) ADHD Asthma Diverticulitis Schizoaffective disorder Pain, joint, knee, right Hyperlipidemia Pain of left calf History of irregular menstrual bleeding Depression Nausea PCOS (polycystic ovarian syndrome) Surgical History H/O laparoscopy History of cholecystectomy History of appendectomy Family History Mother Diabetes Social History Smoking/Tobacco Use Status: Former Tobacco Use Smoking risk assessment performed?: Yes Alcohol Intake: current Alcohol Intake frequency: holidays/special occasions only Drug use: Occasionally Substance use type: marijuana Details: Edibles most days to help with sleep and pain. Household members: family Housing: apartment Number of Children: 0 current occupation: Unemployed Current gender identity: female What type of physical activity do you participate in: walking, independent ambulation and irregular exercise Do you feel safe at home: Yes Do you feel safe in your relationship?: Yes Female Reproductive History Menstrual Duration of menses: 3-5 days control method: pills (POP) History History 2 Para Hx # Term Pregnancies Multiple births Hx # Pregnancies Ectopic pregnancies AB induced Hx Number of Living Children AB spontaneous 2
[2024-11-06 17:04] VITALS: BP 129/74; PULSE 91; RESP 18; O2SAT 100
== END 2024-11-06 17:04 | disposition home or self-care (01) ==
PROVIDERS: Emergency Provider Physician Assistant; PCP Physician Assistant
DX: M54.17 Radiculopathy, lumbosacral region (principal)
CPT/HCPCS: 99281; 99282

== ENCOUNTER 2024-11-24 09:33 | Day surgery (SDC) | payer MEDICARE, MEDICAID, SELFPAY ==
--- NOTE | 2024-11-24 07:29 | PDOC.DSDIS_ITS ---
Date of service: 11/24/24 Discharge Plan Disposition Patient Disposition: Home Condition: Good Discharge Details Reason For Visit: Left DeQuervain's Tenosynovitis Attending Provider: Andrew Mo Primary Care Provider: Moiz Dutta Home Meds and New Rx's Prescriptions: New hydrocodone-acetaminophen 5-325 mg tablet 1 tab PO Q6H PRN (Reason: severe pain) Qty: 4 0RF Rx Instructions: Take one tablet up to every 6 hours as needed for severe postoperative pain Continued epinephrine 0.3 mg/0.3 mL Auto-Injector 0.3 mg IM ONCE metformin 500 mg Tablet 500 mg PO BID norethindrone (contraceptive) 0.35 mg tablet 0.35 mg PO DAILY Qty: 84 4RF (DME) lancets [FreeStyle Lancets] 28 gauge misc See Rx Instructions .ROUTE .MEDSUPPLY Qty: 100 Rx Instructions: As directed (DME) FreeStyle Lite Strips Strip See Rx Instructions .ROUTE .MEDSUPPLY Qty: 10 Rx Instructions: As directed (DME) pen needle, diabetic [BD Ultra-Fine Sona Pen Needle] 32 gauge x 5/32 needle See Rx Instructions .ROUTE .MEDSUPPLY Qty: 50 Rx Instructions: As directed omeprazole 40 mg capsule,delayed release(DR/EC) 40 mg PO DAILY diazepam [Valium] 2 mg tablet 2 mg PO DAILY PRN fluticasone propionate [Flonase Allergy Relief] 50 mcg/actuation spray,suspension 1 spray intranasal BID PRN Rx Instructions: administer into each nostril Vraylar 4.5 mg capsule 4.5 mg PO DAILY methocarbamol 500 mg tablet 500 mg PO QHS atorvastatin 10 mg tablet 10 mg PO DAILY oxcarbazepine 150 mg tablet 150 mg PO BID Patient Comments: 06/26/24- pt reports takes one tablet in the am and two tablets at night cetirizine 10 mg tablet 10 mg PO DAILY PRN albuterol sulfate [ProAir HFA] 90 mcg/actuation HFA aerosol inhaler 2 puff inhalation Q6H PRNQty: 6.7 2RF acetaminophen [Tylenol Extra Strength] 500 mg Tablet 1,000 mg PO Q6H PRN insulin glargine [Lantus Solostar U-100 Insulin] 100 unit/mL (3 mL) insulin pen 30 unit SUBCUT BID quetiapine 300 mg tablet 600 mg PO QHS gabapentin 100 mg capsule 300 mg PO BID Patient Comments: TAKE 1 CAPSULE BY MOUTH TWICE A DAY Discharge Instructions Additional Instructions: Sekou'bakari Discharge Instructions Activity: You should keep the hand elevated as much as possible for the first few days. You may use the other fingers as tolerated but avoid trying to do too much too soon. You may perform light activities with the splint in place. Dressing/Cast: Your splint should stay in place at all times. Do NOT get it wet. You may loosen the NATACHA wrap if you feel it is too tight and then rewrap more loosely. Medications: - You should take Tylenol and Ibuprofen for baseline pain control. - You have Hydrocodone for breakthrough pain. - You may apply ice over the thumb. Follow-up: 7-10 days Referrals: Andrew Mo MD [ [facility] STAFF PHYSICIAN] - Activity:: Elevate Remove Dressings/Wound Care:: Do Not Remove Shower/Bathe:: Cover Diet:: As Tolerated Discharge Orders Discharge Orders: Discharge Order (Routine); Ordered 11/24/24 Ordered By: Melissa Lanier
--- NOTE | 2024-11-24 08:58 | ANES.PREOP_ITS ---
General Info Date of Service Date Performed: 11/24/24 Height: 5 ft 5 in Weight: 113.398 kg Body Mass Index (BMI): 41.5 Surgical Procedure: Operation Date: 11/24/24 11:25 Proposed Procedure Side Surgeon p Wrist Dequervains Release Left Andrew Mo MD Meds Allergies and Home Medications Allergies Allergy/AdvReac Type Severity Reaction Status Date / Time naproxen (From Aleve) Allergy Severe Anaphylaxis Verified 11/24/24 10:26 cephalexin (From Keflex) Allergy Intermediate Hives Verified 11/24/24 10:26 latex Allergy Intermediate Itching Verified 11/24/24 10:26 cat dander Allergy Other (See Verified 11/24/24 10:26 Comment) dog dander Allergy Other (See Verified 11/24/24 10:26 Comment) topiramate Allergy Other (See Verified 11/24/24 10:26 Comment) venom-honey bee Allergy Other (See Verified 11/24/24 10:26 Comment) bupropion (From Wellbutrin) AdvReac rapid Verified 11/20/24 12:36 heart rate seasonal Allergy Other (See Uncoded 11/24/24 10:26 Comment) Home Medication ?Medication ?Instructions ?Recorded blood sugar diagnostic (FreeStyle #10 ea 10/10/20 Lite Strips) lancets 28 gauge (FreeStyle #100 ea 10/10/20 Lancets) omeprazole 40 mg capsule,delayed 40 mg PO DAILY 10/10/20 release pen needle, diabetic 32 gauge x #50 ea 10/10/20 5/32 (BD Ultra-Fine Sona Pen Needle) epinephrine 0.3 mg/0.3 mL 0.3 mg IM ONCE 12/29/20 injection, auto-injector metformin 500 mg tablet 500 mg PO BID 12/29/20 acetaminophen 500 mg tablet 1,000 mg PO Q6H PRN 01/31/21 (Tylenol Extra Strength) atorvastatin 10 mg tablet 10 mg PO DAILY 08/11/21 oxcarbazepine 150 mg tablet 150 mg PO BID 08/11/21 insulin glargine 100 unit/mL (3 30 unit subcut BID 10/26/22 mL) subcutaneous pen (Lantus Solostar U-100 Insulin) quetiapine 300 mg tablet 600 mg PO QHS 12/06/22 gabapentin 100 mg capsule 300 mg PO BID 03/16/23 albuterol sulfate 90 mcg/actuation 2 puff inhalation Q6H PRN #6.7 04/04/23 aerosol inhaler (ProAir HFA) grams cetirizine 10 mg tablet 10 mg PO DAILY PRN 03/09/24 diazepam 2 mg tablet (Valium) 2 mg PO DAILY PRN 05/07/24 fluticasone propionate 50 1 spray intranasal BID PRN 05/07/24 mcg/actuation nasal spray,suspension (Flonase Allergy Relief) norethindrone (contraceptive) 0.35 0.35 mg PO DAILY #84 tabs 05/12/24 mg tablet cariprazine 4.5 mg capsule 4.5 mg PO DAILY 06/26/24 (Vraylar) methocarbamol 500 mg tablet 500 mg PO QHS 06/26/24 hydrocodone 5 mg-acetaminophen 325 1 tab PO Q6H PRN severe pain #4 11/24/24 mg tablet tabs melatonin 10 mg tablet 10 mg PO HS PRN 11/24/24 Current Visit Medications: Current Medications Generic Name Dose Route Start Last Admin Trade Name Freq PRN Reason Stop Dose Admin Acetaminophen 650 mg 11/24/24 07:28 Acetaminophen 325 Mg Tab PO 12/24/24 07:27 Q4H PRN PRN Hydrocodone Bitart/Acetaminophen 0 tab 11/24/24 07:28 Hydrocodone 5/Acetaminophen 325 Tab PO 12/24/24 07:27 Q3H PRN PRN Pain Cefazolin Sodium 3,000 mg/ 100 mls @ 200 mls/hr 11/24/24 06:00 Sodium Chloride IV 12/23/24 23:59 PREOP AARON Ringer's Solution 1,000 mls @ 80 mls/hr 11/24/24 07:00 IV 12/24/24 06:59 INFUSION AARON IV Miscellaneous Supplies 1 each 11/24/24 06:00 Iv Access IV 12/23/24 23:59 DIRECTED AARON Sodium Chloride 0 ml 11/24/24 06:00 Normal Saline Flush 10 Ml Syr IV 12/23/24 23:59 PRN PRN Sodium Chloride 0 ml 11/24/24 06:00 Normal Saline 10 Ml Vial IJ 12/23/24 23:59 DIRECTED PRN Sterile Water 0 ml 11/24/24 06:00 Water,Injection,Sterile 10 Ml Vial IJ 12/23/24 23:59 DIRECTED PRN PFSH Active Problems Active Problems: Problem Status Onset Code Lumbosacral radiculopathy at L2 Acute M54.17 De Quervain's tenosynovitis, left Acute M65.4 DUB (dysfunctional uterine bleeding) Acute N93.8 Acute bacterial sinusitis Acute J01.90, B96.89 Tonsillar hypertrophy Acute J35.1 Dysphagia Acute R13.10 Ear itch Acute L29.9 Xerostomia Acute K11.7 Environmental allergies Acute Z91.09 Dysmenorrhea Acute N94.6 Medical History Medical History (Updated 11/23/24 @ 00:03 by CORETTA BOLANOS) Seasonal allergies Low back pain Type 2 diabetes mellitus Obesity History of recurrent UTI (urinary tract infection) Tachycardia pt. states this is not an issue it was r/t to Adderall Sleep apnea Left hip pain GERD (gastroesophageal reflux disease) Borderline personality disorder Suicidal ideation Anxiety HTN (hypertension) PTSD (post-traumatic stress disorder) Pt. states no potential triggers ADHD Asthma Diverticulitis Schizoaffective disorder Pain, joint, knee, right Hyperlipidemia Pain of left calf History of irregular menstrual bleeding Depression Nausea PCOS (polycystic ovarian syndrome) Surgical History Surgical History H/O laparoscopy History of cholecystectomy History of appendectomy Tobacco Smoking/Tobacco Use Status: Former Tobacco Use Alcohol Alcohol Intake: current Alcohol intake frequency: holidays/special occasions only Substance Use Substance use: Rarely Substance use type: marijuana Prental History History 2 Para Hx # Term Pregnancies Multiple births Hx # Pregnancies Ectopic pregnancies AB induced Hx Number of Living Children AB spontaneous 2 Vital Signs and Lab Results Vital Signs Most Recent Vital Signs in EMR: Temp Pulse Resp BP Pulse Ox 36.2 C L 90 16 130/90 98 11/24/24 10:13 11/24/24 10:13 11/24/24 10:13 11/24/24 10:13 11/24/24 10:13 Lab Results Blood Type / Crossmatch: No Data to Display Complete Blood Count: No Data to Display Complete Metabolic Panel: No Data to Display Liver Function Panel: No Data to Display Coagulation Panel: No Data to Display Cardiac Panel: No Data to Display Arterial Blood Gas: No Data to Display Venous Blood Gas: No Data to Display Pancreas Panel: No Data to Display Thyroid Panel: No Data to Display Infectious Disease: No Data to Display Blood Cultures: No Data to Display Toxicology Panel: No Data to Display Panel: 2 No Data to Display Anesthesia Assessment and Plan Anesthesia History Personal History: PONV Family History: No Family History of Anesthesia Complications Exercise Tolerance Exercise Tolerance: Metabolic Equivalents>4 Cardiac & Pulmonary Exam Cardiac Exam: Normal S1/S2 Heart Sounds Pulmonary Exam: Clear Bilateral Breath Sounds Implantable Cardiac Device Does patient have a Pacemaker or an ICD?: No Airway Exam Known Difficult Airway: No Mallampati Class: 3 Mouth Opening: Narrow (< 3cm) Thyromental Distance: Greater than 3 cm Neck Range of Motion: Full ROM Neck Circumference: Thick Teeth Condition: Normal Dentition ASA Classification ASA Score: ASA 3 Emergency Case?: No NPO Status NPO Status: NPO Clears >2 hours, Solids >8 hours Status Status: Negative HCG Anesthesia Plan Resuscitation Status: Full Code Anesthesia Technique: General Anesthesia Airway Planned: Natural Airway Monitors Used: Standard Monitors Preoperative Comments:: 34 yo female for deqquervain's. history of PONV, requests scopolamine patch. Sig PMHX: sleep apnea, asthma, GERD, anxiety, PTSD, schizoaffective. former smoker, occ marijuana. ECG: sinus. PFT: normal
[2024-11-24 10:13] VITALS: BP 130/90; PULSE 90; RESP 16; TEMP 36.2; O2SAT 98
[2024-11-24 10:23] VITALS: BMI 41.5
[2024-11-24] MEDS: Scopolamine 1 MG/3 DAYS PATCH TD (10:38)
[2024-11-24] MEDS: Lactated Ringers 1,000 ML 80 ML IV (10:41)
--- NOTE | 2024-11-24 11:15 | W.PREOPHP ---
Assessment and Plan Assessment and plan (1) De Quervain's tenosynovitis, left: Status: Acute Assessment and plan: Deanne is a 34-year-old female who has de Quervain's tenosynovitis by the left side. She has failed other nonoperative options and is here today for surgical decompression. I reviewed the technical details of the surgery. I discussed the risk to include bleeding, infection, pain, stiffness, continued symptoms, damage to nerves and vessels, need for repeat procedures. Despite these risk, she elects to proceed. History of Present Illness History of Present Illness Chief Complaint: Left de Quervain's tenosynovitis Narrative: Deanne is a 34-year-old female who has de Quervain's tenosynovitis about the left wrist. Please see the previous office note for complete detailed history. She continues to be limited by pain about the radial side of the left wrist. She tried other nonoperative options and is here today for surgical decompression. She denies any chest pain or shortness of breath. She does report having some allergies were acting up this morning but otherwise has been in good health. Review of Systems All systems reviewed & are unremarkable except as noted in HPI and below PFSH All Active Problems Lumbosacral radiculopathy at L2 (Acute) De Quervain's tenosynovitis, left (Acute) Steroid injection: 07/23/2024 DUB (dysfunctional uterine bleeding) (Acute) Acute bacterial sinusitis (Acute) Tonsillar hypertrophy (Acute) Dysphagia (Acute) Ear itch (Acute) Xerostomia (Acute) Environmental allergies (Acute) Dysmenorrhea (Acute) Medical History Seasonal allergies Low back pain Type 2 diabetes mellitus Obesity History of recurrent UTI (urinary tract infection) Tachycardia pt. states this is not an issue it was r/t to Adderall Sleep apnea Left hip pain GERD (gastroesophageal reflux disease) Borderline personality disorder Suicidal ideation Anxiety HTN (hypertension) PTSD (post-traumatic stress disorder) Pt. states no potential triggers ADHD Asthma Diverticulitis Schizoaffective disorder Pain, joint, knee, right Hyperlipidemia Pain of left calf History of irregular menstrual bleeding Depression Nausea PCOS (polycystic ovarian syndrome) Surgical History H/O laparoscopy History of cholecystectomy History of appendectomy Family History Mother Diabetes Social History Smoking/Tobacco Use Status: Former Tobacco Use Quit Date: 10/21/04 Smoking risk assessment performed?: Yes Alcohol Intake: current Alcohol Intake frequency: holidays/special occasions only Drug use: Rarely Substance use type: marijuana Household members: family Housing: apartment Number of Children: 0 current occupation: Unemployed Current gender identity: female What type of physical activity do you participate in: walking, independent ambulation and irregular exercise Do you feel safe at home: Yes Do you feel safe in your relationship?: Yes Female Reproductive History Menstrual Duration of menses: 3-5 days control method: pills (POP) History History 2 Para Hx # Term Pregnancies Multiple births Hx # Pregnancies Ectopic pregnancies AB induced Hx Number of Living Children AB spontaneous 2 Meds Allergies and Home Medications Allergies Allergy/AdvReac Type Severity Reaction Status Date / Time naproxen (From Aleve) Allergy Severe Anaphylaxis Verified 11/24/24 10:26 cephalexin (From Keflex) Allergy Intermediate Hives Verified 11/24/24 10:26 latex Allergy Intermediate Itching Verified 11/24/24 10:26 cat dander Allergy Other (See Verified 11/24/24 10:26 Comment) dog dander Allergy Other (See Verified 11/24/24 10:26 Comment) topiramate Allergy Other (See Verified 11/24/24 10:26 Comment) venom-honey bee Allergy Other (See Verified 11/24/24 10:26 Comment) bupropion (From Wellbutrin) AdvReac rapid Verified 11/20/24 12:36 heart rate seasonal Allergy Other (See Uncoded 11/24/24 10:26 Comment) Home Medications ?Medication ?Instructions ?Recorded ?Confirmed ?Type blood sugar diagnostic (FreeStyle #10 ea 10/10/20 11/06/24 History Lite Strips) lancets 28 gauge (FreeStyle #100 ea 10/10/20 11/06/24 History Lancets) omeprazole 40 mg capsule,delayed 40 mg PO DAILY 10/10/20 11/24/24 History release pen needle, diabetic 32 gauge x #50 ea 10/10/20 11/06/24 History 5/32 (BD Ultra-Fine Sona Pen Needle) epinephrine 0.3 mg/0.3 mL 0.3 mg IM ONCE 12/29/20 11/24/24 History injection, auto-injector metformin 500 mg tablet 500 mg PO BID 12/29/20 11/24/24 History acetaminophen 500 mg tablet 1,000 mg PO Q6H PRN 01/31/21 11/24/24 History (Tylenol Extra Strength) atorvastatin 10 mg tablet 10 mg PO DAILY 08/11/21 11/24/24 History oxcarbazepine 150 mg tablet 150 mg PO BID 08/11/21 11/24/24 History insulin glargine 100 unit/mL (3 30 unit subcut BID 10/26/22 11/24/24 History mL) subcutaneous pen (Lantus Solostar U-100 Insulin) quetiapine 300 mg tablet 600 mg PO QHS 12/06/22 11/24/24 History gabapentin 100 mg capsule 300 mg PO BID 03/16/23 11/24/24 History albuterol sulfate 90 mcg/actuation 2 puff inhalation Q6H PRN #6.7 04/04/23 11/24/24 Rx aerosol inhaler (ProAir HFA) grams cetirizine 10 mg tablet 10 mg PO DAILY PRN 03/09/24 11/24/24 History diazepam 2 mg tablet (Valium) 2 mg PO DAILY PRN 05/07/24 11/24/24 History fluticasone propionate 50 1 spray intranasal BID PRN 05/07/24 11/24/24 History mcg/actuation nasal spray,suspension (Flonase Allergy Relief) norethindrone (contraceptive) 0.35 0.35 mg PO DAILY #84 tabs 05/12/24 11/24/24 Rx mg tablet cariprazine 4.5 mg capsule 4.5 mg PO DAILY 06/26/24 11/24/24 History (Vraylar) methocarbamol 500 mg tablet 500 mg PO QHS 06/26/24 11/24/24 History hydrocodone 5 mg-acetaminophen 325 1 tab PO Q6H PRN severe pain #4 02/04/25 Rx mg tablet tabs melatonin 10 mg tablet 10 mg PO HS PRN 11/24/24 11/24/24 History Exam Const General: cooperative, healthy appearing, comfortable and no acute distress Resp Effort & Inspection: normal respiratory effort Auscultation: clear to auscultation bilaterally Cardio Rate: regular rate Rhythm: regular rhythm Results Last Vital Signs Temp 36.2 C L 11/24/24 10:13 Pulse 90 11/24/24 10:13 Resp 16 11/24/24 10:13 BP 130/90 11/24/24 10:13 Pulse Ox 98 11/24/24 10:13
[2024-11-24] MEDS: ceFAZolin 3,000 MG in Normal Saline 100 ML 200 MG IV (11:17)
[2024-11-24] MEDS: Lidocaine 1% Multi-Dose 10 ML VIAL (11:37)
[2024-11-24] MEDS: Sodium Bicarbonate 50 MEQ/50 ML VIAL (11:38)
[2024-11-24 11:50] VITALS: BP 120/73; PULSE 96; RESP 16; TEMP 36.4; O2SAT 96
--- NOTE | 2024-11-24 12:05 | W.ANESPOSTOP ---
Postoperative Evaluation Date, Time and Location Date Performed: 11/24/24 Time Performed: 12:05 Patient Location: Day Surgery Unit Vital Signs Most Recent Imported Vital Signs: Most Recent Vital Signs Temp Pulse Resp BP Pulse Ox 36.4 C L 96 H 16 120/73 96 11/24/24 11:50 11/24/24 11:50 11/24/24 11:50 11/24/24 11:50 11/24/24 11:50 Pain Score Most Recent Pain Score: Most Recent Pain Score Pain Level 0 11/24/24 11:50 Assessment Mental Status: Awake (Alert & Oriented to Patient Baseline) Airway and Respiratory Function: Patent airway with normal (patient baseline) respiratory exam Cardiovascular Function: Hemodynamically Stable Hydration Status: Adequately Hydrated Nausea & Vomiting: No Nausea or Vomiting Pain: Pt. Denies Any Pain Peripheral Nerve Block: Patient did not receive a nerve block
[2024-11-24 12:18] VITALS: BP 131/91; PULSE 90; RESP 16; TEMP 36.5; O2SAT 99
--- NOTE | 2024-11-24 17:39 | ROE_ITS ---
Operative Note Operative Note PRE-OP DIAGNOSIS: Left Dequervain's Tenosynovitis POST-OP DIAGNOSIS: same PROCEDURE: Left First Extensor Compartment Release SURGEON: Andrew Mo ANESTHESIA TYPE: General:No Airway Refer to Anesthesia Record ESTIMATED BLOOD LOSS: 0 PATHOLOGY: none sent TOURNIQUET TIME: 6 COMPLICATIONS: None Patient was transported to: same day Patient's condition: stable Indications: Deanne is a 34 year old female who has had symptoms of Dequervain's tenosynovitis. Nonoperative treatment options had been trialed. Given their failure, I offered operative intervention. I reviewed the technical details of a first extensor compartment release. I reviewed the risk of the procedure to include bleeding, infection, pain, stiffness, tendon instability, damage to the superficial radial nerve, and complete release. Despite these risks, the patient elected to proceed. Findings: There was a tightened first excessive compartment. Procedure Description: Deanne was greeted in the preoperative holding area. Name and surgical site were confirmed. The history and physical was completed. The consent was reviewed the patient and signed. She was taken back to the operating room. The patient was placed in the supine position and monitored anesthesia care was initiated. The left hand/arm was then prepped with ChloraPrep and draped in a standard fashion after a nonsterile tourniquet was placed high up onto the arm. Prophylactic antibiotics in the form of cefazolin were administered. A timeout was performed for safe surgery. The surgical site was drawn on the skin. The planned surgical field was anesthetized with 0.25% bupivacaine with epinephrine. The limb was exsanguinated and the tourniquet was inflated where it stayed for 6 minutes. A 2 cm incision was made longitudinally over the radial styloid. The skin was incised only. The deep tissue subcutaneous fat was dissected with a tenotomy scissors trying to protect bridge of the superficial radial nerve. Any branches that were identified were retracted out of the way. The first compartment ex tensor tendons were then identified. The distal aspect of the first compartment was noted and were released. This release was performed more on the dorsal side to prevent tendon subluxation. The entirety of the first extensor compartment was then released. The slips of the abductor pollicis longus tendon were inspected. They removed to confirm the appropriate motion of the thumb. The extensor pollicis brevis tendon was then identified. It was fully released without a true significant subcompartment. Traction on the tendon was also used to confirm appropriate extension of the thumb confirming the release of the appropriate tendon. The dorsal radial surface of the radius was once again inspected to make sure there is no other sub-compartments or other restrictions to tendon motion. The wound was then thoroughly irrigated. The tourniquet is released without significant bleeding. The deep tissue was closed with a 3-0 Vicryl. The skin was closed with a running subjective 4-0 Monocryl. Skin glue was applied. The hand was dressed with 4 x 4's, Kerlex and NATACHA wrap into a soft thumb spica splint. All counts were correct. Patient was transferred back to same day surgery area in stable condition. Date of Procedure: 11/24/24
== END 2024-11-24 12:46 | disposition home or self-care (01) ==
LOC: SUR 09:34
PROVIDERS: PCP Physician Assistant; Visit Provider Student in an Organized Health Care Education/Training Program
PROC: (CPT 25000; principal; 2024-11-24 11:15)
DX: M65.4 Radial styloid tenosynovitis [de Quervain] (principal)
CPT/HCPCS: 25000; 81025; J0690; J1100; J2003; J2250; J2405; J2704; J3010

== ENCOUNTER 2024-12-04 07:55 | Emergency (ER) | payer MEDICARE, MEDICAID, SELFPAY ==
--- NOTE | 2024-12-04 07:45 | RT.EKG_ITS ---
APPROVED REPORT Exam: Resting ECG Reason for Exam: Dyspnea Patient Location: E HR:97 bpm ECG Measurements Heart Rate 97 AXIS DE 135 P 47 QRSd 85 QRS -6 QT 352 T 52 QTc 447 Conclusion Sinus rhythm...normal P axis, V-rate 60- 99
[2024-12-04 07:59] VITALS: BP 89/64; PULSE 100; RESP 18; TEMP 36.7; O2SAT 96
[2024-12-04 08:22] VITALS: BP 89/64; PULSE 100; RESP 18; TEMP 36.7; O2SAT 96
--- NOTE | 2024-12-04 08:30 | DI.RAD_ITS ---
Exam(s) XR CHEST 2V PA LATERAL EXAM: XR CHEST 2V PA LATERAL CLINICAL HISTORY: cough. TECHNIQUE: 2D digital imaging was performed. COMPARISON: CR XR CHEST 2V PA LATERAL from 10/23/2024 FINDINGS: 2 views: Heart size is normal. The mediastinum is not widened. Lungs are clear. No infiltrates nor pleural effusions. IMPRESSION: No acute pulmonary findings. DATA REPOSITORY: RADIATION DOSE DELIVERED:
--- NOTE | 2024-12-04 08:32 | ED.GENADUL_ITS ---
Discharge Plan Disposition Patient Disposition: Home Condition: Good Discharge Details Clinical Impression: Influenza A, Hyperglycemia Primary Care Provider: Moiz Dutta ED Provider: Isamar Tripathi Home Meds and New Rx's Prescriptions: Continued epinephrine 0.3 mg/0.3 mL Auto-Injector 0.3 mg IM ONCE metformin 500 mg Tablet 500 mg PO BID norethindrone (contraceptive) 0.35 mg tablet 0.35 mg PO DAILY Qty: 84 4RF (DME) lancets [FreeStyle Lancets] 28 gauge misc See Rx Instructions .ROUTE .MEDSUPPLY Qty: 100 Rx Instructions: As directed (DME) FreeStyle Lite Strips Strip See Rx Instructions .ROUTE .MEDSUPPLY Qty: 10 Rx Instructions: As directed (DME) pen needle, diabetic [BD Ultra-Fine Sona Pen Needle] 32 gauge x 5/32 needle See Rx Instructions .ROUTE .MEDSUPPLY Qty: 50 Rx Instructions: As directed omeprazole 40 mg capsule,delayed release(DR/EC) 40 mg PO DAILY diazepam [Valium] 2 mg tablet 2 mg PO DAILY PRN fluticasone propionate [Flonase Allergy Relief] 50 mcg/actuation spray,suspension 1 spray intranasal BID PRN Rx Instructions: administer into each nostril Vraylar 4.5 mg capsule 4.5 mg PO DAILY methocarbamol 500 mg tablet 500 mg PO QHS atorvastatin 10 mg tablet 10 mg PO DAILY oxcarbazepine 150 mg tablet 150 mg PO BID Patient Comments: 06/26/24- pt reports takes one tablet in the am and two tablets at night cetirizine 10 mg tablet 10 mg PO DAILY PRN albuterol sulfate [ProAir HFA] 90 mcg/actuation HFA aerosol inhaler 2 puff inhalation Q6H PRNQty: 6.7 2RF melatonin 10 mg tablet 10 mg PO HS PRN acetaminophen [Tylenol Extra Strength] 500 mg Tablet 1,000 mg PO Q6H PRN insulin glargine [Lantus Solostar U-100 Insulin] 100 unit/mL (3 mL) insulin pen 30 unit SUBCUT BID quetiapine 300 mg tablet 600 mg PO QHS gabapentin 100 mg capsule 300 mg PO BID Patient Comments: TAKE 1 CAPSULE BY MOUTH TWICE A DAY Discharge Instructions Instructions: Flu, Adult ED Additional Instructions: As discussed, you are positive for the flu. You are out of the window for antiviral treatment. However, I encourage supportive care with continued tylenol, ibuprofen, honey, nasal saline. It is especially important that you increase hydration as you were dehydrated when you first arrived. This is likely associated with your fever, cough and elevated sugar. Please also get a new glucometer so you can continue to assess and treat as recommended by your primary care. Please follow up with your primary care next week for reevaluation. If you develop shortness of breath, difficulty breathing, inability to stay hydrated or other new/worsening sytmpoms, please seek care urgently once again. Wash your hands frequently an prevent further spread. Thank you Stand Alone Forms: Work Release Referrals: Moiz Dutta [Primary Care Provider] - [facility] General Date/Time Provider Initiated Documentation: 12/04/24 08:02 . Limitations to Documentation: no limitations . Information obtained by: patient, RN notes reviewed and old records reviewed . History of Present Illness 34 year old F presents to the emergency department with the chief complaint of URI, fatigue, body aches, described as moderate, Quality is described as aching (diffuse), Patient started experiencing this day(s) (4) and it has been constant. No relieving factors improve symptom(s), No exacerbating factors reported . Patient notes cough, fever/chills, loss of appetite and malaise; denies chest pain, nausea/vomiting, rash and shortness of breath. Patient did receive the following treatments prior to arrival, none Related Data Home Medications ?Medication ?Instructions ?Recorded ?Confirmed blood sugar diagnostic (FreeStyle #10 ea 10/10/20 11/06/24 Lite Strips) lancets 28 gauge (FreeStyle #100 ea 10/10/20 11/06/24 Lancets) omeprazole 40 mg capsule,delayed 40 mg PO DAILY 10/10/20 12/04/24 release pen needle, diabetic 32 gauge x #50 ea 10/10/20 11/06/2432 (BD Ultra-Fine Sona Pen Needle) epinephrine 0.3 mg/0.3 mL 0.3 mg IM ONCE 12/29/20 12/04/24 injection, auto-injector metformin 500 mg tablet 500 mg PO BID 12/29/20 12/04/24 acetaminophen 500 mg tablet 1,000 mg PO Q6H PRN 01/31/21 12/04/24 (Tylenol Extra Strength) atorvastatin 10 mg tablet 10 mg PO DAILY 08/11/21 12/04/24 oxcarbazepine 150 mg tablet 150 mg PO BID 08/11/21 12/04/24 insulin glargine 100 unit/mL (3 30 unit subcut BID 10/26/22 12/04/24 mL) subcutaneous pen (Lantus Solostar U-100 Insulin) quetiapine 300 mg tablet 600 mg PO QHS 12/06/22 12/04/24 gabapentin 100 mg capsule 300 mg PO BID 03/16/23 12/04/24 albuterol sulfate 90 mcg/actuation 2 puff inhalation Q6H PRN #6.7 04/04/23 12/04/24 aerosol inhaler (ProAir HFA) grams cetirizine 10 mg tablet 10 mg PO DAILY PRN 03/09/24 12/04/24 diazepam 2 mg tablet (Valium) 2 mg PO DAILY PRN 05/07/24 12/04/24 fluticasone propionate 50 1 spray intranasal BID PRN 05/07/24 12/04/24 mcg/actuation nasal spray,suspension (Flonase Allergy Relief) norethindrone (contraceptive) 0.35 0.35 mg PO DAILY #84 tabs 05/12/24 12/04/24 mg tablet cariprazine 4.5 mg capsule 4.5 mg PO DAILY 06/26/24 12/04/24 (Vraylar) methocarbamol 500 mg tablet 500 mg PO QHS 06/26/24 12/04/24 melatonin 10 mg tablet 10 mg PO HS PRN 11/24/24 12/04/24 Previous Rx's ?Medication ?Instructions ?Recorded albuterol sulfate 90 mcg/actuation 2 puff inhalation Q6H PRN #6.7 04/04/23 aerosol inhaler (ProAir HFA) grams norethindrone (contraceptive) 0.35 0.35 mg PO DAILY #84 tabs 05/12/24 mg tablet Allergies Allergy/AdvReac Type Severity Reaction Status Date / Time naproxen (From Aleve) Allergy Severe Anaphylaxis Verified 12/04/24 08:20 cephalexin (From Keflex) Allergy Intermediate Hives Verified 12/04/24 08:20 latex Allergy Intermediate Itching Verified 12/04/24 08:20 cat dander Allergy Other (See Verified 12/04/24 08:20 Comment) dog dander Allergy Other (See Verified 12/04/24 08:20 Comment) topiramate Allergy Other (See Verified 12/04/24 08:20 Comment) venom-honey bee Allergy Other (See Verified 12/04/24 08:20 Comment) bupropion (From Wellbutrin) AdvReac rapid Verified 12/04/24 08:20 heart rate seasonal Allergy Other (See Uncoded 12/04/24 08:20 Comment) General Stated Complaint: RespSymp SUZETTE: 3 Review of Systems Constitutional Constitutional: Reports as per HPI and Denies headache(s) Eyes Eyes: Reports as per HPI, Denies eye discharge and Denies irritation ENT Ears, Nose, Mouth, and Throat: Reports as per HPI and Denies headache(s) Cardiovascular Cardiovascular: Reports as per HPI, Denies chest pain and Denies dyspnea Respiratory Respiratory: Reports as per HPI and Denies dyspnea Gastrointestinal Gastrointestinal: Reports as per HPI, Denies abdominal pain, Denies change in bowel habits, Denies nausea and Denies vomiting Integumentary/Breasts Skin/Breast: Reports as per HPI and Denies rash Neurologic Neurologic: Reports as per HPI and Denies headache(s) Exam Const General: cooperative, healthy appearing, comfortable, no acute distress, well developed and well groomed Nutritional Appearance: well nourished and overweight Orientation: alert and awake [facility] Head: normal to inspection, normocephalic and atraumatic Ears: hearing grossly normal bilaterally, external ears normal and TM's normal bilaterally General nose exam: external nose normal and nares normal Face and sinus: normal facial exam, sinuses nontender and face symmetric Mouth: oral mucosae normal, lip normal, tongue normal, oropharynx normal and moist mucous membranes Teeth and gingiva: dentition normal Throat: tonsils normal, uvula midline and posterior oropharynx abnormal erythema Eyes General: appearance normal, both eyes and all related structures Neck Neck: normal visual inspection, full ROM, no lymphadenopathy and no meningeal signs Resp Effort & Inspection: normal respiratory effort, able to speak in complete sentences and no respiratory distress Auscultation: clear to auscultation bilaterally, no rales, no rhonchi and no wheezes Cardio Rate: regular rate Rhythm: regular rhythm Heart Sounds: S1 normal and S2 normal Skin General skin exam: no rashes or lesions noted Neuro General: patient alert and patient awake Cognition: normal cognition Speech: speech normal Gait: normal gait Course Vital Signs Vital signs: Vital Signs Temperature 36.7 C 12/04/24 07:59 Pulse 100 H 12/04/24 07:59 Respiratory Rate 18 12/04/24 07:59 Blood Pressure 89/64 L 12/04/24 07:59 Pulse Oximetry 96 12/04/24 07:59 Temperature 36.7 C 12/04/24 08:22 Temperature Source Oral 12/04/24 08:22 Pulse 100 H 12/04/24 08:22 Respiratory Rate 18 12/04/24 08:22 Respiratory Effort Normal, Non-Labored 12/04/24 08:21 Respiratory Depth Normal 12/04/24 08:21 Blood Pressure 89/64 L 12/04/24 08:22 Pulse Oximetry 96 12/04/24 08:22 Medical Decision Making Patient is a pleasant 34-year-old female past medical history significant for asthma, diabetes, obesity, sleep apnea, GERD, anxiety, hypertension, PCOS, presenting today with chief complaint of upper respiratory infection and bodyaches. She reports that the symptoms began about 4 days ago. 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 She does report that she is up-to-date on immunizations and did receive her influenza vaccine this year. States that initially she was just having some sneezing, runny nose and a slight cough but that yesterday she began having some fevers Tmax of 102 ?F. Afebrile today but states that she has been using Tylenol and ibuprofen. Did take both of these this morning. She denies any vomiting or diarrhea but states that she can have some nausea associated with her cough. States the cough has been dry. Denies any significant increase in her asthma symptoms and has been using her inhaler as prescribed. Denies any recent travel. She does describe general body aches but no focal calf tenderness, recent travel, estrogen supplementation or history of DVT. She does endorse some discomfort associated with her cough but none that is exertionally based. On exam, patient appears nontoxic. She is hypotensive at 89/64, will recheck this. Patient is mentating well. She does state that she did have some episodes of dizziness this morning but is not currently symptomatic. Maintaining her oxygen, afebrile. She does look slightly dry this may account for her hypotension, will give her a liter of fluids. Her lungs are clear in all garcia. No current wheezing. CXR reviewed by radiologist: Heart size is normal. The mediastinum is not widened. Lungs are clear. No infiltrates nor pleural effusions. IMPRESSION: No acute pulmonary findings. Patient flu A positive. She has elevated glucose, labs otherwise unremarkable. Discussed these findings with the patient. After receiving the IV fluids, patient reports feeling improved and she has improving blood pressure. I did reach out to the hematology nurse educator to see if we could send the patient home with a new glucometer as the patient reports that hers is no longer functional and we are not able to do so at this time but patient reports that she is able to get 1 and readily through her pharmacy. As patient is not on a sliding scale, this was not addressed through the emergency department but I did encourage that she discuss this further with her primary care as well as continue to monitor as this may be contributing to some of her dehydration. She has had elevated glucose like this historically. We discussed supportive care. At this point, patient feels comfortable going home and I agree with this plan. Strict return precautions were discussed. All of her questions and concerns were addressed and patient is in agreement this plan. This documentation was generated using [employer] dictation system, please disregard any oddities of phrase or misspellings. Quality:SDOH Health Related Social Needs: No Data to Display PFSH All Active Problems (Updated 12/04/24 @ 10:48 by JOSEFA Arcos) Hyperglycemia (Acute) Influenza A (Acute) Lumbosacral radiculopathy at L2 (Acute) De Quervain's tenosynovitis, left (Acute) Steroid injection: 07/23/2024 DUB (dysfunctional uterine bleeding) (Acute) Acute bacterial sinusitis (Acute) Tonsillar hypertrophy (Acute) Dysphagia (Acute) Ear itch (Acute) Xerostomia (Acute) Environmental allergies (Acute) Dysmenorrhea (Acute) Medical History Seasonal allergies Low back pain Type 2 diabetes mellitus Obesity History of recurrent UTI (urinary tract infection) Tachycardia pt. states this is not an issue it was r/t to Adderall Sleep apnea Left hip pain GERD (gastroesophageal reflux disease) Borderline personality disorder Suicidal ideation Anxiety HTN (hypertension) PTSD (post-traumatic stress disorder) Pt. states no potential triggers ADHD Asthma Diverticulitis Schizoaffective disorder Pain, joint, knee, right Hyperlipidemia Pain of left calf History of irregular menstrual bleeding Depression Nausea PCOS (polycystic ovarian syndrome) Surgical History H/O laparoscopy History of cholecystectomy History of appendectomy Family History Mother Diabetes Social History Smoking/Tobacco Use Status: Former Tobacco Use Quit Date: 10/21/04 Smoking risk assessment performed?: Yes Alcohol Intake: current Alcohol Intake frequency: holidays/special occasions only Drug use: Rarely Substance use type: marijuana Household members: family Housing: apartment Number of Children: 0 current occupation: Unemployed Current gender identity: female What type of physical activity do you participate in: walking, independent ambulation and irregular exercise Do you feel safe at home: Yes Do you feel safe in your relationship?: Yes Female Reproductive History Menstrual Duration of menses: 3-5 days control method: pills (POP) History History 2 Para Hx # Term Pregnancies Multiple births Hx # Pregnancies Ectopic pregnancies AB induced Hx Number of Living Children AB spontaneous 2
[2024-12-04 08:39] LABS: Abs Immature Grans 0.04 10^3/uL (0.0-0.06); Absolute Basophil Count 0.03 10^3/uL (0.0-0.2); Absolute Eosinophil Count 0.06 10^3/uL (0.0-0.7); Absolute Lymphocyte Count 1.63 10^3/uL (1.2-3.4); Absolute Monocyte Count 1.06 10^3/uL (0.1-0.8); Absolute Neutrophil Count 4.75 10^3/uL (1.2-6.7); Basophils % 0.4 %; Eosinophils % 0.8 %; HCT 35.1 % (36.0-46.0); HGB 11.8 g/dL (11.2-15.7); Immature Grans % 0.5 %; Lymphocytes % 21.5 %; MCHC 33.6 % (32.0-36.0); MCV 83 fL (80-95); MPV 9.7 fL (8.0-11.0); Neutrophils % 62.8 %; Platelet Count 302 10^3/uL (130-400); RBC 4.21 10^6/uL (3.93-5.22); RDW 13.7 % (11.7-14.6); RDW-SD 41.2 fL; WBC 7.57 10^3/uL (4.4-10.8)
[2024-12-04 08:53] LABS: COVID-19 PCR Negative (Negative); Influenza A PCR Positive (Negative); Influenza B PCR Negative (Negative); RSV PCR Negative (Negative)
[2024-12-04 09:02] LABS: ALT 28 U/L (14-59); AST 16 U/L (15-37); Albumin 2.9 g/dL (3.4-5.0); Alkaline Phosphatase 83 U/L (46-116); BUN 6 mg/dL (7-18); CREATININE 0.9 mg/dL (0.55-1.02); Calcium 8.6 mg/dL (8.5-10.1); Chloride 101 mmol/L (98-107); Estimated GFR 84.97 (mL/min/1.73m2); Glucose 245 mg/dL (74-106); Potassium 3.4 mmol/L (3.5-5.1); Sodium 137 mmol/L (136-145); Total Protein 6.8 g/dL (6.4-8.2)
[2024-12-04 09:19] LABS: Source Nasopharynx
[2024-12-04 11:07] VITALS: BP 147/88; PULSE 90; RESP 16; TEMP 36.2; O2SAT 96
== END 2024-12-04 12:04 | disposition home or self-care (01) ==
PROVIDERS: Emergency Provider Physician Assistant; PCP Physician Assistant
DX: J10.1 Influenza due to other identified influenza virus with other respiratory manifestations (principal); E11.65 Type 2 diabetes mellitus with hyperglycemia; J45.909 Unspecified asthma, uncomplicated; F41.9 Anxiety disorder, unspecified; I10 Essential (primary) hypertension; E66.9 Obesity, unspecified; G47.30 Sleep apnea, unspecified
CPT/HCPCS: 80053; 87637; 93005; 99285; 71046; 85025; 93010

== ENCOUNTER → 2024-12-07 09:50 | Outpatient (BNVA) | payer MEDICARE, MEDICAID, SELFPAY | PROVIDERS: PCP Physician Assistant; Visit Provider Student in an Organized Health Care Education/Training Program | DX: Z47.89 Encounter for other orthopedic aftercare (principal); M65.4 Radial styloid tenosynovitis [de Quervain] | CPT/HCPCS: 99024 ==

== ENCOUNTER 2024-12-30 16:52 | Emergency (ER) | payer MEDICARE, MEDICAID, SELFPAY ==
[2024-12-30 16:54] VITALS: BP 134/86; PULSE 95; RESP 15; TEMP 36.3; O2SAT 97
[2024-12-30 17:16] LABS: Bilirubin Negative (Negative); Blood Negative (Negative); Clarity Clear (Clear); Glucose 500 mg/dL (Negative); Ketones Negative (Negative); Leukocyte Esterase Negative (Negative); Nitrite Negative (Negative); Specific Gravity 1.015 (1.005-1.025); Urobilinogen 0.2 mg/dL (Up to 0.2)
--- NOTE | 2024-12-30 17:21 | ED.GENADUL_ITS ---
Discharge Plan Disposition Patient Disposition: Home Condition: Stable Discharge Details Clinical Impression: Lumbago Primary Care Provider: Moiz Dutta ED Provider: Dorothea Draper Home Meds and New Rx's Prescriptions: New cyclobenzaprine 10 mg tablet 10 mg PO TID PRN (Reason: muscle spasm) Qty: 10 0RF lidocaine 5 % adhesive patch,medicated 1 patch topical DAILY Qty: 15 0RF Rx Instructions: leave on most painful area for up to 12 hrs Continued epinephrine 0.3 mg/0.3 mL Auto-Injector 0.3 mg IM ONCE metformin 500 mg Tablet 500 mg PO BID norethindrone (contraceptive) 0.35 mg tablet 0.35 mg PO DAILY Qty: 84 4RF (DME) lancets [FreeStyle Lancets] 28 gauge misc See Rx Instructions .ROUTE .MEDSUPPLY Qty: 100 Rx Instructions: As directed (DME) FreeStyle Lite Strips Strip See Rx Instructions .ROUTE .MEDSUPPLY Qty: 10 Rx Instructions: As directed (DME) pen needle, diabetic [BD Ultra-Fine Sona Pen Needle] 32 gauge x 5/32 needle See Rx Instructions .ROUTE .MEDSUPPLY Qty: 50 Rx Instructions: As directed omeprazole 40 mg capsule,delayed release(DR/EC) 40 mg PO DAILY diazepam [Valium] 2 mg tablet 2 mg PO DAILY PRN fluticasone propionate [Flonase Allergy Relief] 50 mcg/actuation spray,suspension 1 spray intranasal BID PRN Rx Instructions: administer into each nostril Vraylar 4.5 mg capsule 4.5 mg PO DAILY methocarbamol 500 mg tablet 500 mg PO QHS atorvastatin 10 mg tablet 10 mg PO DAILY oxcarbazepine 150 mg tablet 150 mg PO BID Patient Comments: 06/26/24- pt reports takes one tablet in the am and two tablets at night cetirizine 10 mg tablet 10 mg PO DAILY PRN albuterol sulfate [ProAir HFA] 90 mcg/actuation HFA aerosol inhaler 2 puff inhalation Q6H PRNQty: 6.7 2RF melatonin 10 mg tablet 10 mg PO HS PRN acetaminophen [Tylenol Extra Strength] 500 mg Tablet 1,000 mg PO Q6H PRN insulin glargine [Lantus Solostar U-100 Insulin] 100 unit/mL (3 mL) insulin pen 30 unit SUBCUT BID quetiapine 300 mg tablet 600 mg PO QHS gabapentin 100 mg capsule 300 mg PO BID Patient Comments: TAKE 1 CAPSULE BY MOUTH TWICE A DAY Discharge Instructions Instructions: Managing acute pain at home, Low Back Pain ED Additional Instructions: At this time no evidence for blood in your urine or urinary tract infection. I do not feel that at this time CT is necessary. I do suspect this is a musculoskeletal strain. Please take the muscle relaxers and lidocaine patches as directed. Alternate ice and heat. Please take Tylenol or Ibuprofen with food every 4-6 hours as needed for pain and swelling. Follow up with primary care provider in 3-5 days. Return to ED sooner if any worsening or concerns. Thank you for allowing us to care for you today. Stand Alone Forms: Work Release Referrals: Moiz Dutta [Primary Care Provider] - 5 days HPI General Mode of arrival: ambulatory . Date/Time Provider Initiated Documentation: 12/30/24 17:01 . Limitations to Documentation: no limitations . Information obtained by: patient, RN notes reviewed and old records reviewed . HPI Narrative: 34-year-old female presents to the ER with right lower back pain with some mild nausea. She reports constant pain. She also reports increased urinary frequency. Pain is worse with bending. She reports that it feels similar as when she had a kidney stone in the past. She does have a past medical history of ADHD, asthma diverticulitis schizoaffective disorder hyperlipidemia and bradycardia borderline personality disorder anxiety GERD obesity and type 2 diabetes. She denies any known injury or heavy lifting. She has been taking Tylenol with little to no relief. Related Data Home Medications ?Medication ?Instructions ?Recorded ?Confirmed blood sugar diagnostic (FreeStyle #10 ea 10/10/20 12/30/24 Lite Strips) lancets 28 gauge (FreeStyle #100 ea 10/10/20 12/30/24 Lancets) omeprazole 40 mg capsule,delayed 40 mg PO DAILY 10/10/20 12/30/24 release pen needle, diabetic 32 gauge x #50 ea 10/10/20 12/30/24/ (BD Ultra-Fine Sona Pen Needle) epinephrine 0.3 mg/0.3 mL 0.3 mg IM ONCE 12/29/20 12/30/24 injection, auto-injector metformin 500 mg tablet 500 mg PO BID 12/29/20 12/30/24 acetaminophen 500 mg tablet 1,000 mg PO Q6H PRN 01/31/21 12/30/24 (Tylenol Extra Strength) atorvastatin 10 mg tablet 10 mg PO DAILY 08/11/21 12/30/24 oxcarbazepine 150 mg tablet 150 mg PO BID 08/11/21 12/30/24 insulin glargine 100 unit/mL (3 30 unit subcut BID 10/26/22 12/30/24 mL) subcutaneous pen (Lantus Solostar U-100 Insulin) quetiapine 300 mg tablet 600 mg PO QHS 12/06/22 12/30/24 gabapentin 100 mg capsule 300 mg PO BID 03/16/23 12/30/24 albuterol sulfate 90 mcg/actuation 2 puff inhalation Q6H PRN #6.7 04/04/23 12/30/24 aerosol inhaler (ProAir HFA) grams cetirizine 10 mg tablet 10 mg PO DAILY PRN 03/09/24 12/30/24 diazepam 2 mg tablet (Valium) 2 mg PO DAILY PRN 05/07/24 12/30/24 fluticasone propionate 50 1 spray intranasal BID PRN 05/07/24 12/30/24 mcg/actuation nasal spray,suspension (Flonase Allergy Relief) norethindrone (contraceptive) 0.35 0.35 mg PO DAILY #84 tabs 05/12/24 12/30/24 mg tablet cariprazine 4.5 mg capsule 4.5 mg PO DAILY 06/26/24 12/30/24 (Vraylar) methocarbamol 500 mg tablet 500 mg PO QHS 06/26/24 12/30/24 melatonin 10 mg tablet 10 mg PO HS PRN 11/24/24 12/30/24 cyclobenzaprine 10 mg tablet 10 mg PO TID PRN muscle spasm #10 12/30/24 tabs lidocaine 5 % topical patch 1 patch topical DAILY #15 ea 12/30/24 Previous Rx's ?Medication ?Instructions ?Recorded albuterol sulfate 90 mcg/actuation 2 puff inhalation Q6H PRN #6.7 04/04/23 aerosol inhaler (ProAir HFA) grams norethindrone (contraceptive) 0.35 0.35 mg PO DAILY #84 tabs 07/23/24 mg tablet cyclobenzaprine 10 mg tablet 10 mg PO TID PRN muscle spasm #10 12/30/24 tabs lidocaine 5 % topical patch 1 patch topical DAILY #15 ea 12/30/24 Allergies Allergy/AdvReac Type Severity Reaction Status Date / Time naproxen (From Aleve) Allergy Severe Anaphylaxis Verified 12/30/24 16:58 cephalexin (From Keflex) Allergy Intermediate Hives Verified 12/30/24 16:58 latex Allergy Intermediate Itching Verified 12/30/24 16:58 cat dander Allergy Other (See Verified 12/30/24 16:58 Comment) dog dander Allergy Other (See Verified 12/30/24 16:58 Comment) topiramate Allergy Other (See Verified 12/30/24 16:58 Comment) venom-honey bee Allergy Other (See Verified 12/30/24 16:58 Comment) bupropion (From Wellbutrin) AdvReac rapid Verified 12/30/24 16:58 heart rate seasonal Allergy Other (See Uncoded 12/30/24 16:58 Comment) General Stated Complaint: Nk/Back Pain SUZETTE: 3 Review of Systems All systems reviewed & are unremarkable except as noted in HPI and below Musculoskeletal Musculoskeletal: Reports back pain Exam Narrative Exam Narrative: Constitutional: Alert and oriented x3. Appears stated age Obese body habitus. Head: Normocephalic, no trauma. Eyes: Pupils PERRL, Red reflex noted, EOM's intact. Eyelids symmetrical without lesions, discharge, or swelling. ENT: Bilateral TM's WNL, External ear normal to inspection, no mastoid TTP, swelling, or erythema, Nasal turbinates WNL, no nasal discharge. Normal dentition, Posterior pharynx WNL, no exudate. Chest: RRR, Normal S1, S2, distal pulses intact. Resp: Lungs clear to auscultation bilaterally, no wheezes, rales, or rhonchi. Abdomen: Soft, non-distended, Normoactive bowel sounds all 4 quads. Musculoskeletal: Normal gait, Moves all 4 extremities without difficulty. Right lower lumbar paraspinous tenderness and muscle spasm no midline tenderness. Skin: No suspicious rashes or lesions. Capillary refill less than 2 sec. Neurologic: Cranial nerves II-XII intact. Alert and oriented x 3. Motor: No deficits noted. Sensory: Intact bilaterally all 4 extremities. Hematologic/Lymphatic: No ecchymosis, no lymphadenopathy. Course Vital Signs Vital signs: Vital Signs Temperature 36.3 C L 12/30/24 16:54 Pulse 95 H 12/30/24 16:54 Respiratory Rate 15 12/30/24 16:54 Blood Pressure 134/86 12/30/24 16:54 Pulse Oximetry 97 12/30/24 16:54 Temperature 36.3 C L 12/30/24 16:54 Pulse 95 H 12/30/24 16:54 Respiratory Rate 15 12/30/24 16:54 Blood Pressure 134/86 12/30/24 16:54 Blood Pressure Position Sitting 12/30/24 16:54 Pulse Oximetry 97 12/30/24 16:54 Oxygen Delivery Method Room Air 12/30/24 16:54 Oxygen Flow Rate 0 12/30/24 16:54 Lab/Test Results Lab/Test Results: Laboratory Tests Range/Units 12/30/24 16:57 Urine Color (Yellow) Yellow Urine Clarity (Clear) Clear Urine pH (5-8) 6.0 Ur Specific [place] (1.005-1.025) 1.015 Urine Protein (Neg-Trace) mg/dL Negative Urine Ketones (Negative) mg/dL Negative Urine Blood (Negative) Negative Urine Nitrite (Negative) Negative Urine Bilirubin (Negative) Negative Urine Urobilinogen (Up to 0.2) mg/dL 0.2 Ur Leukocyte Esterase (Negative) Negative Urine Glucose (Negative) mg/dL 500 H POC- Test(urine) Negative Medical Decision Making 34-year-old female presents to the ER with right lower back pain with some mild nausea. She reports constant pain. She also reports increased urinary frequency. Pain is worse with bending. She reports that it feels similar as when she had a kidney stone in the past. She does have a past medical history of ADHD, asthma diverticulitis schizoaffective disorder hyperlipidemia and bradycardia borderline personality disorder anxiety GERD obesity and type 2 diabetes. She denies any known injury or heavy lifting. She has been taking Tylenol with little to no relief. Urinalysis shows no blood 500 glucose no evidence of UTI. Will give Percocet, lidocaine patch and Zofran. I do not think that CT imaging is necessary at this time due to no evidence of hematuria. Kidney stone is less likely. Will discharge with a diagnosis of lumbago and discuss home care. Discussed plan of care with patient who verbalized understanding is in agreement with the plan. Patient discharged in hemodynamically stable condition all her questions were answered to the best my ability.'s have some right lower paraspinous tenderness and muscle spasm. This text was generated using [employer] system, please disregard any oddities of phrase or misspellings. Lab Data Lab results reviewed: Yes I reviewed the patient's lab results. Labs: Laboratory Tests Range/Units 12/30/24 16:57 Urine Color (Yellow) Yellow Urine Clarity (Clear) Clear Urine pH (5-8) 6.0 Ur Specific [place] (1.005-1.025) 1.015 Urine Protein (Neg-Trace) mg/dL Negative Urine Ketones (Negative) mg/dL Negative Urine Blood (Negative) Negative Urine Nitrite (Negative) Negative Urine Bilirubin (Negative) Negative Urine Urobilinogen (Up to 0.2) mg/dL 0.2 Ur Leukocyte Esterase (Negative) Negative Urine Glucose (Negative) mg/dL 500 H Quality:SDOH Health Related Social Needs: No Data to Display PFSH All Active Problems (Updated 12/30/24 @ 17:27 by Dorothea Draper NP) Lumbago (Acute) Hyperglycemia (Acute) Influenza A (Acute) De Quervain's tenosynovitis, left (Acute) Steroid injection: 07/23/2024 DUB (dysfunctional uterine bleeding) (Acute) Acute bacterial sinusitis (Acute) Tonsillar hypertrophy (Acute) Dysphagia (Acute) Ear itch (Acute) Xerostomia (Acute) Environmental allergies (Acute) Dysmenorrhea (Acute) Medical History Seasonal allergies Low back pain Type 2 diabetes mellitus Obesity History of recurrent UTI (urinary tract infection) Tachycardia pt. states this is not an issue it was r/t to Adderall Sleep apnea Left hip pain GERD (gastroesophageal reflux disease) Borderline personality disorder Suicidal ideation Anxiety HTN (hypertension) PTSD (post-traumatic stress disorder) Pt. states no potential triggers ADHD Asthma Diverticulitis Schizoaffective disorder Pain, joint, knee, right Hyperlipidemia Pain of left calf History of irregular menstrual bleeding Depression Nausea PCOS (polycystic ovarian syndrome) Surgical History H/O laparoscopy History of cholecystectomy History of appendectomy Family History Mother Diabetes Social History Smoking/Tobacco Use Status: Former Tobacco Use Quit Date: 10/21/04 Smoking risk assessment performed?: Yes Alcohol Intake: current Alcohol Intake frequency: holidays/special occasions only Drug use: Rarely Substance use type: marijuana Household members: family Housing: apartment Number of Children: 0 current occupation: Unemployed Current gender identity: female What type of physical activity do you participate in: walking, independent ambulation and irregular exercise Do you feel safe at home: Yes Do you feel safe in your relationship?: Yes Female Reproductive History Menstrual Duration of menses: 3-5 days control method: pills (POP) History History 2 Para Hx # Term Pregnancies Multiple births Hx # Pregnancies Ectopic pregnancies AB induced Hx Number of Living Children AB spontaneous 2 PAWSS Have you Been Recently Intoxicated or Drunk Within the Last 30 days?: No Have you Ever Experienced Previous Episodes of Alcohol Withdrawal?: No Have you ever Experienced Withdrawal Seizures?: No Have you ever Experienced Delirium Tremens(DT)s?: No Have you ever undergone Alcohol Rehabilitation Treatment (i.e, inpt ot outpatient treatment programs)?: No Have you ever Experienced Blackouts?: No Have you ever Combined Alcohol with other Downers within the last 90 days?: No Have you ever Combined Alcohol with any other Substance of Abuse during the last 90 days?: No Positive Blood Alcohol level on Presentation? [PCS.BAL]: No Evidence of Increased Autonomic Activity (i.e. HR>120, tremor, sweating, agitation, nausea)?: No Result: 0
[2024-12-30] MEDS: oxyCODONE 5 mg/Acetaminophen 325 mg TAB 1 TAB PO (17:42)
[2024-12-30] MEDS: Lidocaine 5% Patch 1 PATCH TP (17:43)
[2024-12-30] MEDS: Ondansetron O.D.T. 4 MG TABEF PO (17:43)
== END 2024-12-30 17:48 | disposition home or self-care (01) ==
PROVIDERS: Emergency Provider Registered Nurse Emergency; PCP Physician Assistant
DX: M54.41 Lumbago with sciatica, right side (principal); R11.0 Nausea; R35.0 Frequency of micturition; E11.69 Type 2 diabetes mellitus with other specified complication
CPT/HCPCS: 81025; 99283; 81003

== ENCOUNTER 2025-01-05 15:01 | Emergency (ER) | payer MEDICARE, MEDICAID, SELFPAY ==
--- NOTE | 2025-01-05 15:00 | RT.EKG_ITS ---
APPROVED REPORT Exam: Resting ECG Reason for Exam: Chest pain Patient Location: E HR:91 bpm ECG Measurements Heart Rate 91 AXIS NM 136 P 19 QRSd 85 QRS -21 QT 348 T 34 QTc 428 Conclusion Sinus rhythm. 91 normal axis no stemi
[2025-01-05 15:06] VITALS: BP 126/85; PULSE 97; RESP 18; TEMP 36.5; O2SAT 97
--- NOTE | 2025-01-05 15:15 | DI.RAD_ITS ---
Exam(s) XR CHEST 2V PA LATERAL EXAM: XR CHEST 2V PA LATERAL CLINICAL HISTORY: Chest pain TECHNIQUE: 2D digital imaging was performed of the chest. Two images were obtained. PA and lateral views were obtained. COMPARISON: CR XR CHEST 2V PA LATERAL from 12/04/2024 FINDINGS: MEDIASTINUM: Normal. HEART: Normal. PULMONARY VASCULATURE: Normal. LUNGS: Clear. PLEURAL SPACE: No pleural effusion or pneumothorax. BONE:Within normal limits for the patient's age. OTHER FINDINGS:Normal. IMPRESSION: No acute pulmonary findings. DATA REPOSITORY: RADIATION DOSE DELIVERED:
[2025-01-05 15:35] LABS: Abs Immature Grans 0.03 10^3/uL (0.0-0.06); Absolute Basophil Count 0.03 10^3/uL (0.0-0.2); Absolute Eosinophil Count 0.19 10^3/uL (0.0-0.7); Absolute Lymphocyte Count 2.86 10^3/uL (1.2-3.4); Absolute Monocyte Count 0.74 10^3/uL (0.1-0.8); Absolute Neutrophil Count 6.29 10^3/uL (1.2-6.7); Basophils % 0.3 %; Eosinophils % 1.9 %; HCT 38.1 % (36.0-46.0); HGB 12.7 g/dL (11.2-15.7); Immature Grans % 0.3 %; Lymphocytes % 28.2 %; MCHC 33.3 % (32.0-36.0); MCV 81 fL (80-95); MPV 9.7 fL (8.0-11.0); Monocytes % 7.3 %; Platelet Count 331 10^3/uL (130-400); RDW 13.3 % (11.7-14.6); RDW-SD 38.9 fL; WBC 10.14 10^3/uL (4.4-10.8)
[2025-01-05 16:08] LABS: ALT 25 U/L (14-59); AST 13 U/L (15-37); Albumin 3.4 g/dL (3.4-5.0); Alkaline Phosphatase 96 U/L (46-116); BUN 12 mg/dL (7-18); Bilirubin, Total 0.2 mg/dL (0.2-1.0); CREATININE 0.9 mg/dL (0.55-1.02); Calcium 9.1 mg/dL (8.5-10.1); Chloride 102 mmol/L (98-107); Estimated GFR 84.97 (mL/min/1.73m2); Glucose 307 mg/dL (74-106); Magnesium 1.6 mg/dL (1.8-2.4); Potassium 3.9 mmol/L (3.5-5.1); Sodium 138 mmol/L (136-145); Total Protein 7.5 g/dL (6.4-8.2); Troponin I < 4 ng/L (<or=51)
[2025-01-05 16:13] LABS: Lipase 71 U/L (<78)
[2025-01-05 16:22] LABS: D-Dimer 330 ng/mlFEU (<500)
[2025-01-05] MEDS: Albuterol/Ipratropium 3 ML UPD VIAL UPD (16:47)
[2025-01-05 17:40] LABS: Troponin I < 4 ng/L (<or=51)
[2025-01-05 18:33] VITALS: RESP 20
--- NOTE | 2025-01-05 20:58 | ED.GENADUL_ITS ---
Discharge Plan Disposition Patient Disposition: Home Condition: Stable Discharge Details Clinical Impression: Acute chest wall pain Primary Care Provider: Moiz Dutta ED Provider: Radha Aparicio Home Meds and New Rx's Prescriptions: New methylprednisolone [Medrol (Aquilino)] 4 mg tablets,dose pack See Rx Instructions .ROUTE .COMPLEX Qty: 21 0RF Rx Instructions: for 6 days magnesium 250 mg tablet 250 mg PO DAILY Qty: 14 0RF Continued epinephrine 0.3 mg/0.3 mL Auto-Injector 0.3 mg IM ONCE metformin 500 mg Tablet 500 mg PO BID norethindrone (contraceptive) 0.35 mg tablet 0.35 mg PO DAILY Qty: 84 4RF (DME) lancets [FreeStyle Lancets] 28 gauge misc See Rx Instructions .ROUTE .MEDSUPPLY Qty: 100 Rx Instructions: As directed (DME) FreeStyle Lite Strips Strip See Rx Instructions .ROUTE .MEDSUPPLY Qty: 10 Rx Instructions: As directed (DME) pen needle, diabetic [BD Ultra-Fine Sona Pen Needle] 32 gauge x 5/32 needle See Rx Instructions .ROUTE .MEDSUPPLY Qty: 50 Rx Instructions: As directed omeprazole 40 mg capsule,delayed release(DR/EC) 40 mg PO DAILY diazepam [Valium] 2 mg tablet 2 mg PO DAILY PRN fluticasone propionate [Flonase Allergy Relief] 50 mcg/actuation spray,suspension 1 spray intranasal BID PRN Rx Instructions: administer into each nostril Vraylar 4.5 mg capsule 4.5 mg PO DAILY methocarbamol 500 mg tablet 500 mg PO QHS atorvastatin 10 mg tablet 10 mg PO DAILY oxcarbazepine 150 mg tablet 150 mg PO BID Patient Comments: 06/26/24- pt reports takes one tablet in the am and two tablets at night cetirizine 10 mg tablet 10 mg PO DAILY PRN albuterol sulfate [ProAir HFA] 90 mcg/actuation HFA aerosol inhaler 2 puff inhalation Q6H PRNQty: 6.7 2RF melatonin 10 mg tablet 10 mg PO HS PRN acetaminophen [Tylenol Extra Strength] 500 mg Tablet 1,000 mg PO Q6H PRN insulin glargine [Lantus Solostar U-100 Insulin] 100 unit/mL (3 mL) insulin pen 30 unit SUBCUT BID quetiapine 300 mg tablet 600 mg PO QHS gabapentin 100 mg capsule 300 mg PO BID Patient Comments: TAKE 1 CAPSULE BY MOUTH TWICE A DAY cyclobenzaprine 10 mg tablet 10 mg PO TID PRN (Reason: muscle spasm) Qty: 10 0RF lidocaine 5 % adhesive patch,medicated 1 patch topical DAILY Qty: 15 0RF Rx Instructions: leave on most painful area for up to 12 hrs Trulicity 1.5 mg/0.5 mL pen injector 1.5 mg SUBCUT .weekly Patient Comments: INJECT 1.5 MG (ONE PEN) SUBCUTANEOUSLY ONCE WEEKLY Discharge Instructions Instructions: Chest pain Additional Instructions: This may be a musculoskeletal pain or costochondritis Take the Medrol as prescribed and take your muscle relaxant at night Refrain from lifting more than 5 pounds for the next 2 weeks until cleared by your primary care physician Please be reevaluated should you have worsening pain fever or any new concerns arise Stand Alone Forms: Work Release Discharge Data Discharge Date/Time-TO BE ENTERED AT DEPARTURE: 01/05/25 18:33 HPI General Date/Time Provider Initiated Documentation: 01/05/25 15:15 . HPI Narrative: 34-year-old female with 3-day history of chest pain radiating to back and mild shortness of breath. Reports pressure sensation on chest, mild cough, no fever or chills, no known sick contacts. Recent heavy lifting at school. History of back problems, worse than prior episodes. No strength or sensation changes to lower extremities, intermittent right arm tingling. Prior MRI per patient. History of hypertension, hyperlipidemia, diabetes. Takes progesterone and tizanidine. Alert, oriented, no acute distress. Reproducible anterior chest wall tenderness. Lungs clear to auscultation. Distal pulses intact in all extremities. No abdominal tenderness. Labs reassuring except hyperglycemia (poor lunch intake). Exam suggests atypical chest pain, possible musculoskeletal or radicular symptoms. Medrol Dosepak given. PT referral provided. Close outpatient follow-up with PCP needed. Lifting restrictions for work listed. Two negative troponins, no acute lab abnormalities. Low threshold to return if symptoms worsen. Negative D-dimer. Nonischemic EKG. Return precautions reviewed, patient understands. Related Data Home Medications ?Medication ?Instructions ?Recorded ?Confirmed blood sugar diagnostic (FreeStyle #10 ea 10/10/20 01/05/25 Lite Strips) lancets 28 gauge (FreeStyle #100 ea 10/10/20 01/05/25 Lancets) omeprazole 40 mg capsule,delayed 40 mg PO DAILY 10/10/20 01/05/25 release pen needle, diabetic 32 gauge x #50 ea 10/10/20 01/05/25 (BD Ultra-Fine Sona Pen Needle) epinephrine 0.3 mg/0.3 mL 0.3 mg IM ONCE 12/29/20 01/05/25 injection, auto-injector metformin 500 mg tablet 500 mg PO BID 12/29/20 01/05/25 acetaminophen 500 mg tablet 1,000 mg PO Q6H PRN 01/31/21 01/05/25 (Tylenol Extra Strength) atorvastatin 10 mg tablet 10 mg PO DAILY 08/11/21 01/05/25 oxcarbazepine 150 mg tablet 150 mg PO BID 08/11/21 01/05/25 insulin glargine 100 unit/mL (3 30 unit subcut BID 10/26/22 01/05/25 mL) subcutaneous pen (Lantus Solostar U-100 Insulin) quetiapine 300 mg tablet 600 mg PO QHS 12/06/22 01/05/25 gabapentin 100 mg capsule 300 mg PO BID 03/16/23 01/05/25 albuterol sulfate 90 mcg/actuation 2 puff inhalation Q6H PRN #6.7 04/04/23 01/05/25 aerosol inhaler (ProAir HFA) grams cetirizine 10 mg tablet 10 mg PO DAILY PRN 03/09/24 01/05/25 diazepam 2 mg tablet (Valium) 2 mg PO DAILY PRN 05/07/24 01/05/25 fluticasone propionate 50 1 spray intranasal BID PRN 05/07/24 01/05/25 mcg/actuation nasal spray,suspension (Flonase Allergy Relief) norethindrone (contraceptive) 0.35 0.35 mg PO DAILY #84 tabs 05/12/24 01/05/25 mg tablet cariprazine 4.5 mg capsule 4.5 mg PO DAILY 06/26/24 01/05/25 (Vraylar) methocarbamol 500 mg tablet 500 mg PO QHS 06/26/24 01/05/25 melatonin 10 mg tablet 10 mg PO HS PRN 11/24/24 01/05/25 cyclobenzaprine 10 mg tablet 10 mg PO TID PRN muscle spasm #10 12/30/24 01/05/25 tabs lidocaine 5 % topical patch 1 patch topical DAILY #15 ea 12/30/24 01/05/25 dulaglutide 1.5 mg/0.5 mL 1.5 mg subcut .weekly 01/05/25 01/05/25 subcutaneous pen injector (Trulicity) magnesium 250 mg tablet 250 mg PO DAILY #14 tabs 01/05/25 methylprednisolone 4 mg tablets in See Rx Instructions PO .COMPLEX 01/05/25 a dose pack (Medrol (Aquilino)) #21 dose pk Previous Rx's ?Medication ?Instructions ?Recorded albuterol sulfate 90 mcg/actuation 2 puff inhalation Q6H PRN #6.7 04/04/23 aerosol inhaler (ProAir HFA) grams norethindrone (contraceptive) 0.35 0.35 mg PO DAILY #84 tabs 05/12/24 mg tablet cyclobenzaprine 10 mg tablet 10 mg PO TID PRN muscle spasm #10 12/30/24 tabs lidocaine 5 % topical patch 1 patch topical DAILY #15 ea 12/30/24 magnesium 250 mg tablet 250 mg PO DAILY #14 tabs 01/05/25 methylprednisolone 4 mg tablets in See Rx Instructions PO .COMPLEX 01/05/25 a dose pack (Medrol (Aquilino)) #21 dose pk Allergies Allergy/AdvReac Type Severity Reaction Status Date / Time naproxen (From Aleve) Allergy Severe Anaphylaxis Verified 01/05/25 15:10 cephalexin (From Keflex) Allergy Intermediate Hives Verified 01/05/25 15:10 latex Allergy Intermediate Itching Verified 01/05/25 15:10 cat dander Allergy Other (See Verified 01/05/25 15:10 Comment) dog dander Allergy Other (See Verified 01/05/25 15:10 Comment) topiramate Allergy Other (See Verified 01/05/25 15:10 Comment) venom-honey bee Allergy Other (See Verified 01/05/25 15:10 Comment) bupropion (From Wellbutrin) AdvReac rapid Verified 01/05/25 15:10 heart rate seasonal Allergy Other (See Uncoded 01/05/25 15:10 Comment) General Stated Complaint: Chest Pain SUZETTE: 3 Exam Narrative Exam Narrative: General Appearance: Alert, oriented, no acute distress. Vital signs: Within normal limits. HEENT: Within normal limits. Respiratory: Lungs clear to auscultation. Cardiovascular: [List findings, if not mentioned delete this row]. Gastrointestinal: No abdominal tenderness. Back, Musculoskeletal: Reproducible anterior chest wall tenderness. Extremities: Distal pulses intact in all extremities. Skin: Warm and dry, no rash. Neurological: Normal. Course Vital Signs Vital signs: Vital Signs Temperature 36.5 C 01/05/25 15:06 Pulse 97 H 01/05/25 15:06 Respiratory Rate 18 01/05/25 15:06 Blood Pressure 126/85 01/05/25 15:06 Pulse Oximetry 97 01/05/25 15:06 Temperature 36.5 C 01/05/25 15:06 Temperature Source Oral 01/05/25 15:06 Pulse 97 H 01/05/25 15:06 Respiratory Rate 20 01/05/25 18:33 Blood Pressure 126/85 01/05/25 15:06 Blood Pressure Position Sitting 01/05/25 15:06 Pulse Oximetry 97 01/05/25 15:06 Oxygen Delivery Method Room Air 01/05/25 15:06 Oxygen Flow Rate 0 01/05/25 15:06 Pain Level 7 01/05/25 15:06 Lab/Test Results Lab/Test Results: Laboratory Tests Range/Units 01/05/25 01/05/25 01/05/25 15:28 17:00 18:17 WBC (4.4-10.8) 10^3/uL 10.14 RBC (3.93-5.22) 10^6/uL 4.70 Hgb (11.2-15.7) g/dL 12.7 Hct (36.0-46.0) % 38.1 MCV (80-95) fL 81 MCH (27.0-33.0) pg 27.0 MCHC (32.0-36.0) % 33.3 RDW (11.7-14.6) % 13.3 Plt Count (130-400) 10^3/uL 331 MPV (8.0-11.0) fL 9.7 Immature Gran % % 0.3 Neutrophils % % 62.0 Lymphocytes % % 28.2 Monocytes % % 7.3 Eosinophils % % 1.9 Basophils % % 0.3 Nucleated RBC % (0.0-0.3) % 0.0 Absolute Neutrophils (1.2-6.7) 10^3/uL 6.29 Absolute Lymphocytes (1.2-3.4) 10^3/uL 2.86 Absolute Monocytes (0.1-0.8) 10^3/uL 0.74 Absolute Eosinophils (0.0-0.7) 10^3/uL 0.19 Absolute Basophils (0.0-0.2) 10^3/uL 0.03 D-Dimer (<500) ng/mlFEU 330 Sodium (136-145) mmol/L 138 Potassium (3.5-5.1) mmol/L 3.9 Chloride (98-107) mmol/L 102 Carbon Dioxide (21.0-32.0) mmol/L 27.0 Anion Gap (3-11) mmol/L 9.0 BUN (7-18) mg/dL 12 Creatinine (0.55-1.02) mg/dL 0.9 Est GFR (CKD-EPI 2020) (mL/min/1.73m2) 84.97 Glucose (74-106) mg/dL 307 H Calcium (8.5-10.1) mg/dL 9.1 Magnesium (1.8-2.4) mg/dL 1.6 L Total Bilirubin (0.2-1.0) mg/dL 0.2 AST (15-37) U/L 13 L ALT (14-59) U/L 25 Alkaline Phosphatase (46-116) U/L 96 Troponin I (<or=51) ng/L < 4 < 4 Cancelled Total Protein (6.4-8.2) g/dL 7.5 Albumin (3.4-5.0) g/dL 3.4 Lipase (<78) U/L 71 Medical Decision Making Labs reassuring except hyperglycemia. Two negative troponins. Negative D-dimer. Nonischemic EKG. Initial Assessment: 34-year-old female with chest pain radiating to back, mild shortness of breath, and mild cough for 3 days. No fever or chills. History of hypertension, hyperlipidemia, and diabetes. Reproducible anterior chest wall tenderness. Lungs clear. Distal pulses intact. No abdominal tenderness. Hyperglycemic but attributed to poor lunch intake. Exam suggests atypical chest pain, possibly musculoskeletal or radicular. 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 Plan: Medrol Dosepak given, continue tizanidine, PT referral provided. - Radicular pain: Considered due to back problems and intermittent tingling in right arm. Plan: Medrol Dosepak given, continue tizanidine, PT referral provided. ED Course: - Two negative troponins. - Labs reassuring except hyperglycemia. - Negative D-dimer. - Nonischemic EKG. - Medrol Dosepak given. - PT referral provided. - Lifting restrictions for work listed. - Return precautions reviewed. Final Assessment: Patient with atypical chest pain likely musculoskeletal or radicular. Negative troponins, D-dimer, and nonischemic EKG. Medrol Dosepak and PT referral provided. Close outpatient follow-up with PCP needed. Clinical Impression: - Atypical chest pain, likely musculoskeletal or radicular. Disposition: - Discharge. - Follow-Up: Close outpatient follow-up with PCP needed. Patient Education: Return precautions reviewed, patient understands. MDM Components Evaluation: - Number of Differential Diagnoses or Management Options: Musculoskeletal pain, Radicular pain. - Amount and Complexity of Data Reviewed: Two negative troponins, labs, negative D-dimer, nonischemic EKG. - Risk of Complication and Morbidity or Mortality: Low risk given negative troponins, D-dimer, and nonischemic EKG. Quality:SDOH Health Related Social Needs: No Data to Display PFSH All Active Problems (Updated 01/05/25 @ 17:53 by JOSEFA Juares) Acute chest wall pain (Acute) Lumbago (Acute) De Quervain's tenosynovitis, left (Acute) Steroid injection: 07/23/2024 DUB (dysfunctional uterine bleeding) (Acute) Acute bacterial sinusitis (Acute) Tonsillar hypertrophy (Acute) Dysphagia (Acute) Ear itch (Acute) Xerostomia (Acute) Environmental allergies (Acute) Dysmenorrhea (Acute) Medical History Seasonal allergies Low back pain Type 2 diabetes mellitus Obesity History of recurrent UTI (urinary tract infection) Tachycardia pt. states this is not an issue it was r/t to Adderall Sleep apnea Left hip pain GERD (gastroesophageal reflux disease) Borderline personality disorder Suicidal ideation Anxiety HTN (hypertension) PTSD (post-traumatic stress disorder) Pt. states no potential triggers ADHD Asthma Diverticulitis Schizoaffective disorder Pain, joint, knee, right Hyperlipidemia Pain of left calf History of irregular menstrual bleeding Depression Nausea PCOS (polycystic ovarian syndrome) Surgical History H/O laparoscopy History of cholecystectomy History of appendectomy Family History Mother Diabetes Social History Smoking/Tobacco Use Status: Former Tobacco Use Quit Date: 10/21/04 Smoking risk assessment performed?: Yes Alcohol Intake: current Alcohol Intake frequency: holidays/special occasions only Drug use: Rarely Substance use type: marijuana Household members: family Housing: apartment Number of Children: 0 current occupation: Unemployed Current gender identity: female What type of physical activity do you participate in: walking, independent ambulation and irregular exercise Do you feel safe at home: Yes Do you feel safe in your relationship?: Yes Female Reproductive History Menstrual Duration of menses: 3-5 days control method: pills (POP) History History 2 Para Hx # Term Pregnancies Multiple births Hx # Pregnancies Ectopic pregnancies AB induced Hx Number of Living Children AB spontaneous 2
== END 2025-01-05 18:33 | disposition home or self-care (01) ==
PROVIDERS: Registered Nurse Emergency; Emergency Provider Physician Assistant; PCP Physician Assistant
DX: R07.89 Other chest pain (principal); E11.9 Type 2 diabetes mellitus without complications
CPT/HCPCS: 36415; 36416; 80053; 82962; 83690; 93005; 94640; 99284; 71046; 83735; 84484; 85025; 85379; 93010; J7620

== ENCOUNTER 2025-01-20 15:38 | Outpatient (REF) | payer MEDICARE, MEDICAID, SELFPAY ==
[2025-01-20 16:39] LABS: Calculated LDL 65 mg/dL (<100); Cholesterol 152 mg/dL (<200); HDL Cholesterol 37 mg/dL (>or=50); TSH 0.65 uIU/mL (0.36-3.74); Triglyceride 252 mg/dL (<150)
[2025-01-20 17:04] LABS: Hemoglobin A1C 11.1 % (<5.7)
== END 2025-01-20 15:39 | disposition home or self-care (01) ==
LOC: NCHCN 15:38
PROVIDERS: PCP Physician Assistant; Visit Provider Physician Assistant
DX: E11.9 Type 2 diabetes mellitus without complications (principal); R53.83 Other fatigue
CPT/HCPCS: 80061; 83036; 84439; 84443

== ENCOUNTER 2025-05-14 08:43 | Emergency (ER) | payer MEDICARE, MEDICAID, SELFPAY ==
--- NOTE | 2025-05-14 08:45 | RT.EKG_ITS ---
APPROVED REPORT Exam: Resting ECG Reason for Exam: dizzy Patient Location: E HR:88 bpm ECG Measurements Heart Rate 88 AXIS NE 136 P 37 QRSd 87 QRS 10 QT 346 T 35 QTc 420 Conclusion Sinus rhythm...normal P axis, V-rate 60- 99 Low voltage, extremity and precordial leads...extremity<0.5mV, precordial<1.0mV
[2025-05-14 08:49] VITALS: BP 135/87; PULSE 93; RESP 12; TEMP 36.6; O2SAT 99
[2025-05-14 08:59] VITALS: RESP 12
--- NOTE | 2025-05-14 09:15 | DI.CT_ITS ---
Exam(s) CT CERVICAL SPINE RECONS CT BRAIN NECK CTA EXAM: CT BRAIN NECK CTA CLINICAL HISTORY: RICHEY, dizzy, fell recently. TECHNIQUE: Imaging Protocol: Axial CT angiography was performed with multi- slice acquisition and multi-planar and MIP reconstructions. CONTRAST MATERIAL: Intravenous: Omnipaque 350 Contrast volume:100 ml COMPARISON: CT CT HEAD WO from 06/29/[address] CERVICAL SPINE RECONS from 05/14/2025 FINDINGS: CT Head W/O and W contrast: Noncontrast images of the limited due to significant motion. Ventricles and Extra axial spaces: Normal in size and morphology for the patient's age. Hemorrhage: None. Cerebral parenchyma: No evidence of acute infarct or mass. Midline shift: None. Brainstem/Cerebellum: No acute findings.. Calvarium: Normal. Visualized Paranasal sinuses/Mastoids: Clear. Soft Tissues: Unremarkable. Enhancement: Normal. Venous sinuses are patent. CTA Brain W: Internal Carotid Arteries: Right: No aneurysm, occlusion or significant stenosis. Left: No aneurysm, occlusion or significant stenosis. Middle Cerebral Arteries: Right: No aneurysm, occlusion or significant stenosis. Left: No aneurysm, occlusion or significant stenosis. Anterior Cerebral Arteries: Right: No aneurysm, occlusion or significant stenosis. Left: No aneurysm, occlusion or significant stenosis. Posterior cerebral Arteries: Right: No aneurysm, occlusion or significant stenosis. Left: No aneurysm, occlusion or significant stenosis. Vertebral Arteries: Right: No aneurysm, occlusion or significant stenosis. Left: No aneurysm, occlusion or significant stenosis. Basilar Artery: No aneurysm, occlusion or significant stenosis. CTA Neck W: Common Carotid: Right: No dissection, occlusion or significant stenosis. Left: No dissection, occlusion or significant stenosis. External Carotid: Right: No dissection, occlusion or significant stenosis. Left: No dissection, occlusion or significant stenosis. Internal Carotid: Right: No dissection, occlusion or significant stenosis. Left: No dissection, occlusion or significant stenosis. Vertebral Artery: Right: No dissection, occlusion or significant stenosis. Left: No dissection, occlusion or significant stenosis. Lung Apices: No acute findings. Bones: No acute abnormality. No evidence of cervical spine fracture. The alignment of the cervical spine is normal. Soft Tissues: Normal. IMPRESSION: 1. CTA brain: Normal CTA examination of the [place]. 2. Head CT: No acute abnormality. 3. CTA neck: No evidence of occlusion, significant stenosis or dissection. 4. No evidence of cervical spine fracture. RADIATION DOSE DELIVERED: 2,427.72mGy.cm Total DLP DATA REPOSITORY: All CT scans at this facility are submitted to the National Radiology Data Registry (NRDR) Dose Index Registry (DIR) with the [employer] (ACR). RADIATION OPTIMIZATION: All CT scans at this facility use at least one of these dose optimization techniques: automated exposure control; mA and/or kV adjustment per patient size (includes targeted exams where dose is matched to clinical indication); or iterative reconstruction.
[2025-05-14] MEDS: MAGNESIUM SULFATE 1 GM/100 ML BAG IV_INF (09:37)
[2025-05-14] MEDS: Normal Saline 1,000 ML 1000 ML IV (09:37)
[2025-05-14] MEDS: Normal Saline Flush 10 ML SYR IVP (09:38)
[2025-05-14 09:39] LABS: Abs Immature Grans 0.03 10^3/uL (0.0-0.06); HCT 37.6 % (36.0-46.0); HGB 12.5 g/dL (11.2-15.7); Immature Grans % 0.4 %; MCH 27.8 pg (27.0-33.0); MCHC 33.2 % (32.0-36.0); MCV 84 fL (80-95); MPV 9.4 fL (8.0-11.0); Platelet Count 373 10^3/uL (130-400); RBC 4.50 10^6/uL (3.93-5.22); RDW 14.0 % (11.7-14.6); RDW-SD 42.1 fL; WBC 6.90 10^3/uL (4.4-10.8)
[2025-05-14] MEDS: Normal Saline - Diluent 50 ML VIAL IJ (09:42)
[2025-05-14] MEDS: Omnipaque 350 MG/ML 100 ML BTL IJ (09:43)
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
[2025-05-14 10:01] VITALS: BP 116/60; PULSE 85; RESP 18; O2SAT 96
[2025-05-14 10:03] LABS: ALT 25 U/L (14-59); AST 14 U/L (15-37); Albumin 3.6 g/dL (3.4-5.0); Alkaline Phosphatase 82 U/L (46-116); Anion Gap 8.4 mmol/L (3-11); BUN 15 mg/dL (7-18); Bilirubin, Total 0.2 mg/dL (0.2-1.0); CO2 28.6 mmol/L (21.0-32.0); Calcium 9.1 mg/dL (8.5-10.1); Chloride 104 mmol/L (98-107); Estimated GFR 84.44 (mL/min/1.73m2); Glucose 162 mg/dL (74-106); Potassium 4.2 mmol/L (3.5-5.1); Sodium 141 mmol/L (136-145); Total Protein 7.6 g/dL (6.4-8.2)
[2025-05-14] MEDS: Lidocaine 5% Patch 1 PATCH TP (10:18)
[2025-05-14] MEDS: Ketorolac 15 MG/ML VIAL IVP (10:18)
[2025-05-14] MEDS: Ondansetron 4 MG/2 ML VIAL IVP (10:29)
[2025-05-14 11:04] VITALS: BP 109/67; PULSE 82; RESP 18; O2SAT 97
== END 2025-05-14 11:04 | disposition home or self-care (01) ==
PROVIDERS: Emergency Provider Physician Assistant; PCP Physician Assistant
DX: R51.9 Headache, unspecified (principal); M62.838 Other muscle spasm; Z73.3 Stress, not elsewhere classified; E11.69 Type 2 diabetes mellitus with other specified complication; F41.9 Anxiety disorder, unspecified; I10 Essential (primary) hypertension
CPT/HCPCS: 36415; 70496; 70498; 72125; 80053; 93005; 96365; 96375; 99285; 85025; 93010; 99284; J1885; J2405; J3475; J3490

== ENCOUNTER 2025-05-26 08:53 | Outpatient (REF) | payer MEDICARE, MEDICAID, SELFPAY ==
--- NOTE | 2025-05-26 08:20 | PAPFT_PTH ---
PATIENT: Deanne Engel LOC: [facility] U#:[id number] AGE/SX: 35/F ROOM: RE05/26/[address]: Allison Boland NP : [id number] BED: DIS: 05/26/2025 SPEC #: [id number] RECD: 05/26/25 12:54 STATUS: [place] REQ #: [id number] ADDIS: 05/26/25 08:[address]: Krystian COMBS,Allison DEPT: [facility] Cytology RECD BY: Radha Montano ENTERED: 05/26/25 12:55 SP TYPE: PAPFT OTHR DR: Moiz Dutta Tissues: 1 - CX/ENDOCX FOR PAP SMEARS Procedures: PAP THIN PREP/UVM Screening HPV DNA PROBE Comments: [id number] (HPV 16 & 18/45)
== END 2025-05-26 08:54 | disposition home or self-care (01) ==
LOC: LBN 08:53
PROVIDERS: PCP Physician Assistant; Visit Provider Nurse Practitioner Women's Health
DX: Z12.4 Encounter for screening for malignant neoplasm of cervix (principal)
CPT/HCPCS: 88142; 87624

== ENCOUNTER 2025-07-27 16:58 | Emergency (ER) | payer MEDICARE, SELFPAY ==
[2025-07-27 17:01] VITALS: BP 134/86; PULSE 108; RESP 18; TEMP 36.7; O2SAT 96
[2025-07-27 17:07] VITALS: BP 134/86; PULSE 108; RESP 18; TEMP 36.7; O2SAT 96
--- NOTE | 2025-07-27 17:09 | W.ED.GENAD ---
Discharge Plan Disposition Patient Disposition: Home Condition: Stable Discharge Details Clinical Impression: Gastroenteritis Primary Care Provider: Moiz Dutta ED Provider: Bucky Nicholson Home Meds and New Rx's Prescriptions: New ondansetron 4 mg tablet,disintegrating 4 mg PO Q8H PRNQty: 30 0RF Continued epinephrine 0.3 mg/0.3 mL Auto-Injector 0.3 mg IM ONCE metformin 500 mg Tablet 500 mg PO BID norethindrone (contraceptive) 0.35 mg tablet 0.35 mg PO DAILY Qty: 84 4RF (DME) lancets [FreeStyle Lancets] 28 gauge misc See Rx Instructions .ROUTE .MEDSUPPLY Qty: 100 Rx Instructions: As directed (DME) FreeStyle Lite Strips Strip See Rx Instructions .ROUTE .MEDSUPPLY Qty: 10 Rx Instructions: As directed (DME) pen needle, diabetic [BD Ultra-Fine Sona Pen Needle] 32 gauge x 5/32 needle See Rx Instructions .ROUTE .MEDSUPPLY Qty: 50 Rx Instructions: As directed omeprazole 40 mg capsule,delayed release(DR/EC) 40 mg PO DAILY diazepam [Valium] 2 mg tablet 2 mg PO DAILY PRN fluticasone propionate [Flonase Allergy Relief] 50 mcg/actuation spray,suspension 1 spray intranasal BID PRN Rx Instructions: administer into each nostril Vraylar 4.5 mg capsule 4.5 mg PO DAILY methocarbamol 500 mg tablet 500 mg PO QHS atorvastatin 10 mg tablet 10 mg PO DAILY oxcarbazepine 150 mg tablet 150 mg PO BID Patient Comments: 06/26/24- pt reports takes one tablet in the am and two tablets at night cetirizine 10 mg tablet 10 mg PO DAILY PRN albuterol sulfate [ProAir HFA] 90 mcg/actuation HFA aerosol inhaler 2 puff inhalation Q6H PRNQty: 6.7 2RF melatonin 10 mg tablet 10 mg PO HS PRN acetaminophen [Tylenol Extra Strength] 500 mg Tablet 1,000 mg PO Q6H PRN insulin glargine [Lantus Solostar U-100 Insulin] 100 unit/mL (3 mL) insulin pen 30 unit SUBCUT BID quetiapine 300 mg tablet 300 mg PO QHS gabapentin 100 mg capsule 300 mg PO BID Patient Comments: TAKE 1 CAPSULE BY MOUTH TWICE A DAY lidocaine 5 % adhesive patch,medicated 1 patch topical DAILY Qty: 15 0RF Rx Instructions: leave on most painful area for up to 12 hrs magnesium 250 mg tablet 250 mg PO DAILY Qty: 14 0RF hydroxyzine HCl 25 mg tablet 25 mg PO QHS PRN Patient Comments: TAKE 1 TO 2 TABLETS BY MOUTH AT BEDTIME NEEDED FOR ANXIETY/ SLEEP methylphenidate HCl 10 mg tablet extended release 10 mg PO QAM Patient Comments: TAKE 1 TABLET BY MOUTH DAILY IN THE MORNING Trulicity 3 mg/0.5 mL pen injector 3 mg SUBCUT .weekly Patient Comments: INJECT 3MG (1 PEN) SUBCUTANEOUSLY ONCE A WEEK Discharge Instructions Instructions: Viral gastroenteritis in adults, Ondansetron Additional Instructions: You were seen in the emergency department for your likely viral gastroenteritis as you state 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 Please take regular doses of Tylenol for your pain, please return for any severe acute worsening of your abdominal pain especially with fever and intractable nausea and vomiting despite treatment. Referrals: Moiz Dutta [Primary Care Provider, Medicine] [facility] General Date/Time Provider Initiated Documentation: 07/27/25 17:08. HPI Narrative: 35 year-old female presents to ED today by POV/ambulating with a chief complaint of generalized abdominal pain, nausea, diarrhea, burping with onset 2 days ago. Quality described as sharp and crampy- intermittent mostly LUQ, no radiation to vomiting, dysuria, flank pain, shortness of breath, fever, chest pain. Severity is described as 8/10 calmly. Palliating factors include nothing specific attempted. Provoking factors include nothing specific. 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 Patient not anticoagulated. Related Data Home Medications ?Medication ?Instructions ?Recorded ?Confirmed blood sugar diagnostic (FreeStyle #10 ea 10/10/20 07/27/25 Lite Strips) lancets 28 gauge (FreeStyle #100 ea 10/10/20 07/27/25 Lancets) omeprazole 40 mg capsule,delayed 40 mg PO DAILY 10/10/20 07/27/25 release pen needle, diabetic 32 gauge x #50 ea 10/10/20 07/27/25 (BD Ultra-Fine Sona Pen Needle) epinephrine 0.3 mg/0.3 mL 0.3 mg IM ONCE 12/29/20 07/27/25 injection, auto-injector metformin 500 mg tablet 500 mg PO BID 12/29/20 07/27/25 acetaminophen 500 mg tablet 1,000 mg PO Q6H PRN 01/31/21 07/27/25 (Tylenol Extra Strength) atorvastatin 10 mg tablet 10 mg PO DAILY 08/11/21 07/27/25 oxcarbazepine 150 mg tablet 150 mg PO BID 08/11/21 07/27/25 insulin glargine 100 unit/mL (3 30 unit subcut BID 10/26/22 07/27/25 mL) subcutaneous pen (Lantus Solostar U-100 Insulin) quetiapine 300 mg tablet 300 mg PO QHS 12/06/22 07/27/25 gabapentin 100 mg capsule 300 mg PO BID 03/16/23 07/27/25 albuterol sulfate 90 mcg/actuation 2 puff inhalation Q6H PRN #6.7 04/04/23 07/27/25 aerosol inhaler (ProAir HFA) grams cetirizine 10 mg tablet 10 mg PO DAILY PRN 03/09/24 07/27/25 diazepam 2 mg tablet (Valium) 2 mg PO DAILY PRN 05/07/24 07/27/25 fluticasone propionate 50 1 spray intranasal BID PRN 05/07/24 07/27/25 mcg/actuation nasal spray,suspension (Flonase Allergy Relief) cariprazine 4.5 mg capsule 4.5 mg PO DAILY 06/26/24 07/27/25 (Vraylar) methocarbamol 500 mg tablet 500 mg PO QHS 06/26/24 07/27/25 melatonin 10 mg tablet 10 mg PO HS PRN 11/24/24 07/27/25 lidocaine 5 % topical patch 1 patch topical DAILY #15 ea 12/30/24 07/27/25 magnesium 250 mg tablet 250 mg PO DAILY #14 tabs 01/05/25 07/27/25 dulaglutide 3 mg/0.5 mL 3 mg subcut .weekly 05/14/25 07/27/25 subcutaneous pen injector (Trulicity) hydroxyzine HCl 25 mg tablet 25 mg PO QHS PRN 05/14/25 07/27/25 methylphenidate HCl 10 mg 10 mg PO QAM 05/14/25 07/27/25 tablet,extended release norethindrone (contraceptive) 0.35 0.35 mg PO DAILY #84 tabs 05/26/25 07/27/25 mg tablet ondansetron 4 mg disintegrating 4 mg PO Q8H PRN #30 tabs 07/27/25 tablet Previous Rx's ?Medication ?Instructions ?Recorded albuterol sulfate 90 mcg/actuation 2 puff inhalation Q6H PRN #6.7 04/04/23 aerosol inhaler (ProAir HFA) grams lidocaine 5 % topical patch 1 patch topical DAILY #15 ea 12/30/24 magnesium 250 mg tablet 250 mg PO DAILY #14 tabs 01/05/25 norethindrone (contraceptive) 0.35 0.35 mg PO DAILY #84 tabs 05/26/25 mg tablet ondansetron 4 mg disintegrating 4 mg PO Q8H PRN #30 tabs 07/27/25 tablet Allergies Allergy/AdvReac Type Severity Reaction Status Date / Time naproxen (From Aleve) Allergy Severe Anaphylaxis Verified 07/27/25 17:04 cephalexin (From Keflex) Allergy Intermediate Hives Verified 07/27/25 17:04 latex Allergy Intermediate Itching Verified 07/27/25 17:04 cat dander Allergy Other (See Verified 07/27/25 17:04 Comment) dog dander Allergy Other (See Verified 07/27/25 17:04 Comment) topiramate Allergy Other (See Verified 07/27/25 17:04 Comment) venom-honey bee Allergy Other (See Verified 07/27/25 17:04 Comment) bupropion (From Wellbutrin) AdvReac rapid Verified 07/27/25 17:04 heart rate seasonal Allergy Other (See Uncoded 07/27/25 17:04 Comment) General Stated Complaint: Abd Prob SUZETTE: 3 Review of Systems All systems reviewed & are unremarkable except as noted in HPI and below Exam Narrative Exam Narrative: GENERAL APPEARANCE: Well-nourished, non-toxic, awake and alert, atraumatic, no acute distress. SKIN: Warm, pink, dry, intact, without rashes/lesions/ulcerations. HEAD: Normocephalic, atraumatic, normal hair distribution for gender/age. EYES: Normal conjunctiva, no exudates on lids/lashes. ENT: Nares patent, no circumoral cyanosis, no facial swelling NECK: Supple, trachea midline, painless cervical ROM. LUNGS/CHEST: Lungs CTA bilaterally- no rhonchi/rales/wheezes diffusely, non-labored respirations, normal A/P diameter, symmetrical expansion, no chest wall deformity HEART (CV/PV): Regular rate and rhythm without murmur, no peripheral edema, no JVD. ABDOMEN: Hyperactive bowel sounds, soft, non-distended, no guarding, LUQ tenderness without rebound tenderness, negative Pope's sign, no RLQ tenderness, no CVA tenderness to percussion bilat. MSK: Normal ROM, no swelling/deformity to bilateral UEs or LEs, moving all extremities without weakness, no cyanosis, spine midline without tenderness, normal curvature. NEURO: Mental Status AAOx4 - alert to person, place, time, events No facial droop, no forehead involvement. Motor: No focal weakness - strength 5/5 in bilateral UEs and LEs, proximal and distal, symmetric. Sensory: sensation intact to light touch globally. Gait normal: patient ambulated without ataxia into ED room. PSYCH: euthymic, cooperative, pleasant, appropriate speech Course Vital Signs Vital signs: Vital Signs Temperature 36.7 C 07/27/25 17: Pulse 108 H 07/27/25 17: Respiratory Rate 18 07/27/25 17:01 Blood Pressure 134/86 07/27/25 17:01 Pulse Oximetry 96 07/27/25 17:01 Temperature 36.7 C 07/27/25 17:07 Temperature Source Oral 07/27/25 17: Pulse 108 H 07/27/25 17:07 Respiratory Rate 18 07/27/25 17:07 Blood Pressure 134/86 07/27/25 17:07 Pulse Oximetry 96 07/27/25 17:07 Medical Decision Making This dictation utilizes [id number] dictation software and may contain unedited grammatical errors. 35 year-old female presents to ED today by POV/ambulating with a chief complaint of generalized abdominal pain, nausea, diarrhea, burping with onset 2 days ago. Quality described as sharp and crampy- intermittent mostly LUQ, no radiation to vomiting, dysuria, flank pain, shortness of breath, fever, chest pain. Patient endorses some heartburn. Severity is described as 8/10 calmly. Palliating factors include nothing specific attempted. Provoking factors include nothing specific. 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 Patients' medical history: T2DM, obesity, history of frequent UTIs, GERD, hypertension, diverticulitis, PCOS, status post cholecystectomy, appendectomy, history of schizoaffective and borderline personality disorder. Family and social history: [ ]. Pertinent exam findings / vital signs include LUQ tenderness without rebound tenderness, hyperactive bowel sounds, benign cardiopulmonary exam, nontoxic and afebrile. Differential / pathologies of concern include diverticulitis, gastroenteritis, atypical ACS w heartburn/upper ABD pain, electrolyte abnormality/dehydration. Diagnostic studies of: -CBC, CMP, lactate, lipase, magnesium, single value troponin, UA, urine test, EKG, CT ABD/pelvis with contrast. - CBC shows mild leukocytosis at 11.0 without left shift - Lactate is unremarkable - Magnesium 1.7 would replete with normal p.o. intake - Troponin negative - Lipase within normal limits - UA shows no signs of infection - CT shows likely recent left ovarian cyst rupture - EKG shows no acute abnormalities, no ischemic changes, narrow complex QRS, sinus rhythm, normal intervals Interventions of: -1L IVF NS, 4mg IVP Zofran, 1g IV Tylenol. 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 Findings not consistent with diverticulitis, ACS, sepsis, severe electrolyte derangement, UTI, surgical abdomen Disposition of Gastroenteritis. Patient verbalized understanding of the plan and return to ED criteria and engaged in shared decision making. Medical Records Medical records reviewed: Yes I reviewed the patient's medical records. Imaging Data Radiologic Study: Attestation: I personally reviewed and interpreted this imaging study as follows: Imaging: CT Scan Radiologist's impression: Exam: CT Abdomen And Pelvis With Contrast Exam date and time: 07/27/2025 7:03 PM Age: 35 years old Clinical indication: Abdominal pain; Localized; Left upper quadrant (luq); Prior surgery; Surgery date: 6+ months; Surgery type: Appendectomy, cholecystectomy, laproscopy; Luq tenderness, diarrhea TECHNIQUE: Imaging protocol: Computed tomography of the abdomen and pelvis with contrast. Radiation optimization: All CT scans at this facility use at least one of these dose optimization techniques: automated exposure control; mA and/or kV adjustment per patient size (includes targeted exams where dose is matched to clinical indication); or iterative reconstruction. Contrast material: OMNIPAQUE 350; Contrast volume: 100 ml; Contrast route: INTRAVENOUS (IV); COMPARISON: CT RENAL COLIC WO 10/22/2023 6:06 PM FINDINGS: Lungs: Lung bases are clear. Liver: The liver has a normal appearance. Gallbladder and biliary ducts: The gallbladder is surgically absent. Pancreas: The pancreas demonstrates normal size. No pancreatic ductal dilatation. Spleen: The spleen demonstrates normal size. A small splenule is present adjacent to the spleen. Adrenal glands: The adrenal glands have a normal appearance. Kidneys and ureters: The kidneys are normal in size. No hydronephrosis. No hydroureter or ureterolithiasis. Stomach and bowel: The bowel demonstrates overall normal caliber and wall thickness. Appendix: The appendix is not visualized and clips are noted in the region of the cecum suggesting prior appendectomy. Intraperitoneal space: Unremarkable. No free air. No significant fluid collection. Vasculature: The IVC and aorta have a normal appearance. Lymph nodes: No enlarged lymph nodes. Urinary bladder: The bladder is thin walled and fluid filled. Reproductive: The uterus has a normal appearance. A crenulated appearing cyst is present within the left ovary. Bones/joints: Bones have a normal appearance. No acute fracture or suspicious bone lesion. Soft tissues: Unremarkable. IMPRESSION: 1. Crenulated appearing cyst in the left ovary suggesting recent follicular cyst rupture. 2. No acute intra-abdominal findings. Dictated and Authenticated by: Seda Roberts MD. Lab Data Lab results reviewed: Yes I reviewed the patient's lab results. Lab results narrative: POC urine results negative Labs: Laboratory Tests Range/Units 07/27/25 17:35 WBC (4.4-10.8) 10^3/uL 11.00 H RBC (3.93-5.22) 10^6/uL 4.72 Hgb (11.2-15.7) g/dL 13.1 Hct (36.0-46.0) % 38.8 MCV (80-95) fL 82 MCH (27.0-33.0) pg 27.8 MCHC (32.0-36.0) % 33.8 RDW (11.7-14.6) % 12.9 Plt Count (130-400) 10^3/uL 409 H MPV (8.0-11.0) fL 9.3 Immature Gran % % 0.5 Neutrophils % % 64.8 Lymphocytes % % 24.8 Monocytes % % 7.5 Eosinophils % % 2.0 Basophils % % 0.4 Nucleated RBC % (0.0-0.3) % 0.0 Absolute Neutrophils (1.2-6.7) 10^3/uL 7.13 H Absolute Lymphocytes (1.2-3.4) 10^3/uL 2.73 Absolute Monocytes (0.1-0.8) 10^3/uL 0.83 H Absolute Eosinophils (0.0-0.7) 10^3/uL 0.22 Absolute Basophils (0.0-0.2) 10^3/uL 0.04 VBG Lactate (<or=2.0) mmol/L 1.3 Sodium (136-145) mmol/L 139 Potassium (3.5-5.1) mmol/L 3.8 Chloride (98-107) mmol/L 101 Carbon Dioxide (21.0-32.0) mmol/L 29.1 Anion Gap (3-11) mmol/L 8.9 BUN (7-18) mg/dL 14 Creatinine (0.55-1.02) mg/dL 0.9 Est GFR (CKD-EPI 2020) (mL/min/1.73m2) 84.44 Glucose (74-106) mg/dL 177 H Calcium (8.5-10.1) mg/dL 9.2 Magnesium (1.8-2.4) mg/dL 1.7 L Total Bilirubin (0.2-1.0) mg/dL 0.3 AST (15-37) U/L 12 L ALT (14-59) U/L 23 Alkaline Phosphatase (46-116) U/L 97 Troponin I (<or=51) ng/L < 4 Total Protein (6.4-8.2) g/dL 7.7 Albumin (3.4-5.0) g/dL 3.6 Lipase (<78) U/L 47 Urine Color (Yellow) Yellow Urine Clarity (Clear) Clear Urine pH (5-8) 5.5 Ur Specific [place] (1.005-1.025) >= 1.030 H Urine Protein (Neg-Trace) mg/dL Negative Urine Ketones (Negative) mg/dL Trace H Urine Blood (Negative) Negative Urine Nitrite (Negative) Negative Urine Bilirubin (Negative) Negative Urine Urobilinogen (Up to 0.2) mg/dL 0.2 Ur Leukocyte Esterase (Negative) Negative Urine Glucose (Negative) mg/dL 500 H PFSH All Active Problems (Updated 07/27/25 @ 19:52 by JOSEFA Patel) Gastroenteritis (Acute) De Quervain's tenosynovitis, left (Acute) Steroid injection: 07/23/2024 DUB (dysfunctional uterine bleeding) (Acute) Acute bacterial sinusitis (Acute) Tonsillar hypertrophy (Acute) Dysphagia (Acute) Ear itch (Acute) Xerostomia (Acute) Environmental allergies (Acute) Dysmenorrhea (Acute) Medical History Seasonal allergies Low back pain Type 2 diabetes mellitus Obesity History of recurrent UTI (urinary tract infection) Tachycardia pt. states this is not an issue it was r/t to Adderall Sleep apnea Left hip pain GERD (gastroesophageal reflux disease) Borderline personality disorder Suicidal ideation Anxiety HTN (hypertension) PTSD (post-traumatic stress disorder) Pt. states no potential triggers ADHD Asthma Diverticulitis Schizoaffective disorder Pain, joint, knee, right Hyperlipidemia Pain of left calf History of irregular menstrual bleeding Depression Nausea PCOS (polycystic ovarian syndrome) Surgical History H/O laparoscopy History of cholecystectomy History of appendectomy Family History Mother Diabetes Social History Smoking/Tobacco Use Status: Former Tobacco Use Quit Date: 10/21/04 Smoking risk assessment performed?: Yes Alcohol Intake: current Alcohol Intake frequency: holidays/special occasions only Drug use: Rarely Substance use type: marijuana Household members: family Housing: apartment Number of Children: 0 current occupation: Unemployed Current gender identity: female What type of physical activity do you participate in: walking, independent ambulation and irregular exercise Do you feel safe at home: Yes Do you feel safe in your relationship?: Yes Female Reproductive History Menstrual Duration of menses: 3-5 days control method: pills (POP) History History 2 Para Hx # Term Pregnancies Multiple births Hx # Pregnancies Ectopic pregnancies AB induced Hx Number of Living Children AB spontaneous 2
[2025-07-27] MEDS: Normal Saline 1,000 ML 1000 ML IV (17:34)
[2025-07-27] MEDS: Ondansetron 4 MG/2 ML VIAL IVP (17:34)
[2025-07-27] MEDS: ACETAMINOPHEN 1,000 MG/100 ML BAG 400 MG IVPB (17:35)
[2025-07-27 17:53] LABS: Abs Immature Grans 0.05 10^3/uL (0.0-0.06); HCT 38.8 % (36.0-46.0); HGB 13.1 g/dL (11.2-15.7); Immature Grans % 0.5 %; MCH 27.8 pg (27.0-33.0); MCHC 33.8 % (32.0-36.0); MCV 82 fL (80-95); MPV 9.3 fL (8.0-11.0); Platelet Count 409 10^3/uL (130-400); RBC 4.72 10^6/uL (3.93-5.22); RDW 12.9 % (11.7-14.6); RDW-SD 38.2 fL; WBC 11.00 10^3/uL (4.4-10.8)
[2025-07-27 18:11] LABS: ALT 23 U/L (14-59); AST 12 U/L (15-37); Albumin 3.6 g/dL (3.4-5.0); Alkaline Phosphatase 97 U/L (46-116); Anion Gap 8.9 mmol/L (3-11); BUN 14 mg/dL (7-18); Bilirubin, Total 0.3 mg/dL (0.2-1.0); CO2 29.1 mmol/L (21.0-32.0); Calcium 9.2 mg/dL (8.5-10.1); Chloride 101 mmol/L (98-107); Estimated GFR 84.44 (mL/min/1.73m2); Glucose 177 mg/dL (74-106); Lipase 47 U/L (<78); Magnesium 1.7 mg/dL (1.8-2.4); Potassium 3.8 mmol/L (3.5-5.1); Sodium 139 mmol/L (136-145); Total Protein 7.7 g/dL (6.4-8.2)
[2025-07-27 18:14] LABS: Troponin I < 4 ng/L (<or=51)
--- NOTE | 2025-07-27 18:15 | RT.EKG_ITS ---
APPROVED REPORT Exam: Resting ECG Reason for Exam: baseline/screening Patient Location: E HR:88 bpm ECG Measurements Heart Rate 88 AXIS OH 139 P 33 QRSd 88 QRS 8 QT 371 T 56 QTc 450 Conclusion Sinus rhythm...normal P axis, V-rate 60- 99 Low voltage, precordial leads...precordial leads <1.0mV
--- NOTE | 2025-07-27 18:45 | DI.CT_ITS ---
Exam(s) CT ABDOMEN PELVIS W EXAM: CT ABDOMEN PELVIS W CLINICAL HISTORY: LUQ tenderness. TECHNIQUE: Imaging Protocol: Axial computed tomography images with coronal and sagittal reformatted images were created and reviewed CONTRAST MATERIAL: Intravenous: Omnipaque-350 100cc Oral: None COMPARISON: CT CT RENAL COLIC WO from 10/22/2023 FINDINGS: VISUALIZED LUNG BASES: No nodules nor pleural effusions evident. ABDOMEN: There is no ascites. LIVER: There are no focal hepatic lesions evident. No dilated intrahepatic ducts. GALLBLADDER/BILIARY: Gallbladder is again noted be surgically absent. CBD is not dilated. PANCREAS: No evidence of pancreatic mass nor dilatation of the pancreatic duct. SPLEEN: Spleen is not enlarged. No obvious intrasplenic lesions. Splenic and portal veins are patent. ADRENALS: There are no significant adrenal masses. KIDNEYS:No cysts evident. No solid renal masses. No calculi nor hydronephrosis.. ABDOMINAL AORTA: Abdominal aorta is not enlarged. LYMPH NODES:There is no retroperitoneal nor paraaortic adenopathy. ABDOMINAL WALL: There is some skin thickening and subcutaneous streaking slightly right of midline below the umbilical level. Has appearance of cellulitis. There is no drainable subcutaneous abscess. No radiopaque foreign body. No gas in the soft tissues. No evidence of significant anterior abdomi nal wall nor inguinal hernia. GI: There is no evidence of bowel obstruction, free air, nor abscess. PELVIS: GI: The appendix is surgically absent.No evidence of sigmoid diverticulitis. LYMPH NODES: There is no intrapelvic nor inguinal adenopathy. REPRODUCTIVE: Uterus size normal. The previously present IUD in the uterus has been removed.. There is a peripherally enhancing mildly crenated left ovarian cyst measuring 1.7 x 1.6 cm. There is no surrounding fluid in the adnexal regions nor within the cul-de-sac. URINARY BLADDER: No calculi nor obvious masses evident OSSEOUS: No fractures and no significant osseous lesions. IMPRESSION: 1. Abnormal area of skin thickening and subcutaneous streaking right of center slightly below the umbilical level. Probable cellulitis. There is no gas in the soft tissues nor drainable subcutaneous fluid collection. 2. There is a partially crenated peripherally enhancing cyst in the left kidney measuring 17 mm. Probably corpus luteal. The previously present IUD in the uterus which was present on the CT scan of October 2023 has been removed. Preliminary virtual Radiology report was reviewed. Final report called by myself to ER provider 07/27/2025 at 9:55 p.m. RADIATION DOSE DELIVERED: 882.91mGy.cm Total DLP DATA REPOSITORY: All CT scans at this facility are submitted to the National Radiology Data Registry (NRDR) Dose Index Registry (DIR) with the [employer] (A[employer]). RADIATION OPTIMIZATION: All CT scans at this facility use at least one of these dose optimization techniques: automated exposure control; mA and/or kV adjustment per patient size (includes targeted exams where dose is matched to clinical indication); or iterative reconstruction.
[2025-07-27] MEDS: Omnipaque 350 MG/ML 100 ML BTL IJ (19:03)
[2025-07-27] MEDS: Normal Saline Flush 10 ML SYR IVP (19:04)
[2025-07-27] MEDS: Normal Saline - Diluent 50 ML VIAL IJ (19:04)
[2025-07-27 19:12] LABS: Glucose 500 mg/dL (Negative)
--- NOTE | 2025-07-27 19:34 | DI.VRAD_ITS ---
PROCEDURE INFORMATION: Exam: CT Abdomen And Pelvis With Contrast Exam date and time: 07/27/2025 7:03 PM Age: 35 years old Clinical indication: Abdominal pain; Localized; Left upper quadrant (luq); Prior surgery; Surgery date: 6+ months; Surgery type: Appendectomy, cholecystectomy, laproscopy; Luq tenderness, diarrhea TECHNIQUE: Imaging protocol: Computed tomography of the abdomen and pelvis with contrast. Radiation optimization: All CT scans at this facility use at least one of these dose optimization techniques: automated exposure control; mA and/or kV adjustment per patient size (includes targeted exams where dose is matched to clinical indication); or iterative reconstruction. Contrast material: OMNIPAQUE 350; Contrast volume: 100 ml; Contrast route: INTRAVENOUS (IV); COMPARISON: CT RENAL COLIC WO 10/22/2023 6:06 PM FINDINGS: Lungs: Lung bases are clear. Liver: The liver has a normal appearance. Gallbladder and biliary ducts: The gallbladder is surgically absent. Pancreas: The pancreas demonstrates normal size. No pancreatic ductal dilatation. Spleen: The spleen demonstrates normal size. A small splenule is present adjacent to the spleen. Adrenal glands: The adrenal glands have a normal appearance. Kidneys and ureters: The kidneys are normal in size. No hydronephrosis. No hydroureter or ureterolithiasis. Stomach and bowel: The bowel demonstrates overall normal caliber and wall thickness. Appendix: The appendix is not visualized and clips are noted in the region of the cecum suggesting prior appendectomy. Intraperitoneal space: Unremarkable. No free air. No significant fluid collection. Vasculature: The IVC and aorta have a normal appearance. Lymph nodes: No enlarged lymph nodes. Urinary bladder: The bladder is thin walled and fluid filled. Reproductive: The uterus has a normal appearance. A crenulated appearing cyst is present within the left ovary. Bones/joints: Bones have a normal appearance. No acute fracture or suspicious bone lesion. Soft tissues: Unremarkable. IMPRESSION: 1. Crenulated appearing cyst in the left ovary suggesting recent follicular cyst rupture. 2. No acute intra-abdominal findings. Dictated and Authenticated by: Seda Roberts MD. Orderin Bharat Lawler MD
[2025-07-27] MEDS: Ondansetron O.D.T. 4 MG TABEF PO (20:02)
[2025-07-27 20:10] VITALS: BP 134/82; PULSE 90; RESP 18; O2SAT 97
== END 2025-07-27 20:11 | disposition home or self-care (01) ==
PROVIDERS: Emergency Provider Physician Assistant; PCP Physician Assistant
DX: K52.9 Noninfective gastroenteritis and colitis, unspecified (principal); R10.12 Left upper quadrant pain; R11.0 Nausea
CPT/HCPCS: 36415; 80053; 83690; 93005; 96361; 96365; 96375; 99285; 74177; 81003; 83605; 83735; 84484; 85025; 93010; 99284; J0131; J2405; J3490

== ENCOUNTER 2025-08-18 09:47 | Outpatient (REF) | payer MEDICARE, SELFPAY ==
[2025-08-18 15:55] LABS: Microalb ug/mg Crea 6.0 ug/mg Cr
== END 2025-08-18 09:48 | disposition home or self-care (01) ==
LOC: NCHCN 09:47
PROVIDERS: PCP Physician Assistant; Visit Provider Physician Assistant
DX: E11.9 Type 2 diabetes mellitus without complications (principal)
CPT/HCPCS: 82043; 82570